=== PATIENT | male | born 1935 | race Two or more races ===

== ENCOUNTER 2019-09-04 20:05 | Inpatient (IN) | payer MEDICARE ==
[~2019-09-04] VITALS: Ht 180.3 cm; Wt 76.4 kg
[2019-09-04 20:15] VITALS: BP 142/113
[2019-09-04] MEDS ORDERED: Vancomycin 1 GM in NS 275 ML IVPB ONE (20:30)
[2019-09-04] MEDS ORDERED: Piperacillin/Tazobactam 3.375 GM in NS 110 ML IVPB ONE (20:30)
[2019-09-04] MEDS ORDERED: LIPITOR40 MG ORAL (20:31)
[2019-09-04] MEDS ORDERED: COLACE100 MG ORAL (20:31)
[2019-09-04] MEDS ORDERED: FERROUS SU300 MG/52 GT (20:31)
[2019-09-04] MEDS ORDERED: PLAVIX75 MG ORAL (20:31)
[2019-09-04] MEDS ORDERED: DEPAKOTE250 MG PO (20:31)
[2019-09-04] MEDS ORDERED: SEROQUEL25 MG ORAL (20:31)
[2019-09-04] MEDS ORDERED: RISPERDAL0.5 MG ORAL (20:31)
[2019-09-04] MEDS ORDERED: VITAMIN B-12500 MCG ORAL (20:31)
--- NOTE | 2019-09-04 20:36 | Emergency Room Report ---
History of Present Illness General Chief Complaint: Generalized Weakness Source: EMS Present Illness HPI 83-year-old male history of Parkinson's history of dementia DNR/DNI presents with 1 day of failure to thrive not eating fever/chills, feeling very weak, no known aggravating relieving factors severity is severe constant patient presents for evaluation and treatment from nursing facility Allergies: Coded Allergies: AMLODIPINE (Verified Allergy, Unknown, 09/04/19) ASPIRIN (Verified Allergy, Unknown, 09/04/19) BENAZEPRIL (Verified Allergy, Unknown, 09/04/19) Patient History Limited by: medical condition - Demented, confused Past Medical History: see triage record Reviewed Nursing Documentation: PMH: Agreed; PSxH: Agreed Nursing Documentation-PMH Hx Hypertension: Yes - parkinsons Hx Diabetes: Yes Review of Systems All Other Systems: limited - Patient is confused Physical Exam Vital Signs Date Time Temp Pulse Resp B/P (MAP) Pulse Ox O2 Delivery O2 Flow Rate FiO2 09/04/19 20:06 99.7 102 22 159/80 (106) Nasal Cannula 3.0 Sp02 EP Interpretation: reviewed, normal General Appearance: alert, moderate distress, cachetic, thin, Chronically Ill Head: normocephalic, atraumatic Eyes: bilateral eye PERRL, bilateral eye EOMI ENT: uvula midline, dry mucus membranes Neck: supple, thyroid normal, supple/symm/no masses Respiratory: lungs clear, no respiratory distress, no retraction, no accessory muscle use Cardiovascular #1: normal peripheral pulses, no edema, no gallop, no murmur, tachycardia Gastrointestinal: non tender, soft, no guarding, no rebound Musculoskeletal: normal inspection Neurologic: alert, responsive Psychiatric: anxious Skin: no rash, warm/dry Procedures Critical Care Time Critical Care Time Given the critical condition in which the patient arrived, the patient was immediately assessed by myself and the nurse, and cardiac monitoring initiated due to the potential for rapid decompensation of the patient's clinical condition. During the course of the patient's stay, I spent a considerable amount of time at the bedside performing serial re-evaluations of the patient's hemodynamic and clinical status because of the recognized potential threat to life or limb in this condition. I then had a chance to review not only all of the available current laboratory and radiographic studies obtained today, but I also reviewed old records available to me at the time. Additionally, any ancillary information available including architectural project manager records were reviewed. Sequential vital signs were obtained. Critical Care time of 33 minutes was performed exclusive of billable procedures. Medical Decision Making Diagnostic Impression: Primary Impression: Dehydration Additional Impressions: Failure to thrive in adult Sepsis Qualified Codes: A41.9 - Sepsis, unspecified organism Pneumothorax on left UTI (urinary tract infection) Qualified Codes: N30.00 - Acute cystitis without hematuria NAGA (acute kidney injury) ER Course 83-year-old male presents with failure to thrive, generalized weakness x1 day differential diagnosis includes sepsis, urinary tract infection, dehydration Patient found to be tachycardic, febrile, 3 L of fluid were given, additionally early antibiotics were started Reevaluation 8:58 PM patient is slowly improving heart rate is 102 from 125 We will admit patient to telemetry patient is currently DNR/DNI Patient additionally has a 10% left-sided pneumothorax.patient without any tension blood pressure is normal No acute indications for chest tube will provide patient with supplemental oxygen Patient will be admitted to telemetry Patient admitted to Dr. Sarah perez Laboratory Tests Test 09/04/19 20:20 09/04/19 20:30 White Blood Count 28.3 K/UL (4.8-10.8) *H Red Blood Count 3.92 M/UL (4.70-6.10) L Hemoglobin 11.7 G/DL (14.2-18.0) L Hematocrit 36.5 % (42.0-52.0) L Mean Corpuscular Volume 93 FL (80-99) Mean Corpuscular Hemoglobin 29.8 PG (27.0-31.0) Mean Corpuscular Hemoglobin Concent 32.0 G/DL (32.0-36.0) Red Cell Distribution Width 15.4 % (11.6-14.8) H Platelet Count 396 K/UL (150-450) Mean Platelet Volume 7.6 FL (6.5-10.1) Neutrophils (%) (Auto) % (45.0-75.0) Lymphocytes (%) (Auto) % (20.0-45.0) Monocytes (%) (Auto) % (1.0-10.0) Eosinophils (%) (Auto) % (0.0-3.0) Basophils (%) (Auto) % (0.0-2.0) Neutrophils % (Manual) Pending Lymphocytes % (Manual) Pending Platelet Estimate Pending Platelet Morphology Pending Prothrombin Time 10.7 SEC (9.30-11.50) Prothrombin Time INR 1.0 (0.9-1.1) Activated Partial Thromboplast Time 32 SEC (23-33) Sodium Level 150 MMOL/L (136-145) H Potassium Level 4.7 MMOL/L (3.5-5.1) Chloride Level 110 MMOL/L (98-107) H Carbon Dioxide Level 26 MMOL/L (21-32) Anion Gap 14 mmol/L (5-15) Blood Urea Nitrogen 101 mg/dL (7-18) H Creatinine 2.7 MG/DL (0.55-1.30) H Estimate Glomerular Filtration Rate 22.6 mL/min (>60) Glucose Level 249 MG/DL (74-106) H Lactic Acid Level Pending Calcium Level 10.1 MG/DL (8.5-10.1) Phosphorus Level Pending Magnesium Level Pending Total Bilirubin Pending Aspartate Amino Transferase (AST) Pending Alanine Aminotransferase (ALT) Pending Alkaline Phosphatase Pending Total Creatine Kinase Pending Troponin I Pending Pro-B-Type Natriuretic Peptide Pending Total Protein Pending Albumin Pending Globulin Pending Lipase Pending Urine Color Brown Urine Appearance Slightly cloudy Urine pH 5 (4.5-8.0) Urine Specific [place] 1.020 (1.005-1.035) Urine Protein 3+ (NEGATIVE) H Urine Glucose (UA) Negative (NEGATIVE) Urine Ketones 1+ (NEGATIVE) H Urine Blood 5+ (NEGATIVE) H Urine Nitrite Negative (NEGATIVE) Urine Bilirubin Negative (NEGATIVE) Urine Urobilinogen Normal MG/DL (0.0-1.0) Urine Leukocyte Esterase 3+ (NEGATIVE) H Urine RBC 5-10 /HPF (0 - 0) H Urine WBC 40-60 /HPF (0 - 0) H Urine Squamous Epithelial Cells Few /LPF (NONE/OCC) Urine Amorphous Sediment Few /LPF (NONE) H Urine Bacteria Many /HPF (NONE) H EKG Diagnostic Results EKG Time: 20:59 EP Interpretation: Sinus tachycardia, rate 110, QTc 422, no acute ST elevations , Rhythm Strip Diag. Results Rhythm Strip Time: 20:35 EP Interpretation: yes Rate: 125 Rhythm: other - Sinus tachycardia Chest X-Ray Diagnostic Results Chest X-Ray Diagnostic Results : Chest X-Ray Ordered: Yes # of Views/Limited/Complete: 1 View Indication: Shortness of Breath EP Interpretation: Yes Interpretation: other - Left pneumothorax 10% no e/o tension Impression: Other - Left pneumothorax 10% no e/o tension Electronically Signed by: Andrew Moy MD Last Vital Signs Date Time Temp Pulse Resp B/P (MAP) Pulse Ox O2 Delivery O2 Flow Rate FiO2 09/04/19 20:06 99.7 102 22 159/80 (106) Nasal Cannula 3.0 Disposition: ADMITTED INPATIENT Condition: Serious Evaluation Current Stage of Sepsis: Sepsis Focused Exam Allergies: Coded Allergies: AMLODIPINE (Verified Allergy, Unknown, 09/04/19) ASPIRIN (Verified Allergy, Unknown, 09/04/19) BENAZEPRIL (Verified Allergy, Unknown, 09/04/19) Date Exam Occurred: Sep 04, 2019 Time Exam Occurred: 20:57 Laboratory Studies Laboratory Tests Test 09/04/19 20:20 09/04/19 20:30 White Blood Count Pending Red Blood Count Pending Hemoglobin Pending Hematocrit Pending Mean Corpuscular Volume Pending Mean Corpuscular Hemoglobin Pending Mean Corpuscular Hemoglobin Concent Pending Red Cell Distribution Width Pending Platelet Count Pending Mean Platelet Volume Pending Neutrophils (%) (Auto) Pending Lymphocytes (%) (Auto) Pending Monocytes (%) (Auto) Pending Eosinophils (%) (Auto) Pending Basophils (%) (Auto) Pending Prothrombin Time Pending Prothromb Time International Ratio Pending Activated Partial Thromboplast Time Pending Sodium Level Pending Potassium Level Pending Chloride Level Pending Carbon Dioxide Level Pending Blood Urea Nitrogen Pending Creatinine Pending Estimat Glomerular Filtration Rate Pending Glucose Level Pending Lactic Acid Level Pending Calcium Level Pending Phosphorus Level Pending Magnesium Level Pending Total Bilirubin Pending Aspartate Amino Transf (AST/SGOT) Pending Alanine Aminotransferase (ALT/SGPT) Pending Alkaline Phosphatase Pending Total Creatine Kinase Pending Troponin I Pending Pro-B-Type Natriuretic Peptide Pending Total Protein Pending Albumin Pending Globulin Pending Lipase Pending Urine Color Pending Urine Appearance Pending Urine pH Pending Urine Specific [place] Pending Urine Protein Pending Urine Glucose (UA) Pending Urine Ketones Pending Urine Blood Pending Urine Nitrite Pending Urine Bilirubin Pending Urine Urobilinogen Pending Urine Leukocyte Esterase Pending Vital Signs Last 24 Hour Vital Signs Date Time Temp Pulse Resp B/P (MAP) Pulse Ox O2 Delivery O2 Flow Rate FiO2 09/04/19 20:06 99.7 102 22 159/80 (106) Nasal Cannula 3.0 Respiratory Exam: CTA Bilaterally Cardiovascular Exam: S1, S2, Tachycardia Capillary Refill: Less Than 2 Seconds Peripheral Pulse: Strong Pulse Location: Radial Skin Exam: Normal Turgor Andrew Moy MD Sep 04, 2019 20:35
[2019-09-04 21:08] LABS: HEMATOCRIT 36.5 % (42.0-52.0); HEMOGLOBIN 11.7 G/DL (14.2-18.0); MEAN CORPUSCULAR VOLUME 93 FL (80-99); PLATELET COUNT 396 K/UL (150-450); RED BLOOD COUNT 3.92 M/UL (4.70-6.10); RED CELL DISTRIBUTION WIDTH 15.4 % (11.6-14.8)
[2019-09-04 21:16] LABS: WHITE BLOOD COUNT 28.3 K/UL (4.8-10.8)
[2019-09-04 21:16] LABS: BILIRUBIN, URINE NEGATIVE (NEGATIVE); GLUCOSE, URINE (UA) NEGATIVE (NEGATIVE); KETONES,URINE 1+ (NEGATIVE); LEUKOCYTE ESTERASE ,URINE 3+ (NEGATIVE); NITRITE,URINE NEGATIVE (NEGATIVE); PH,URINE 5 (4.5-8.0); PROTEIN,URINE 3+ (NEGATIVE); UROBILINOGEN,URINE NORMAL MG/DL (0.0-1.0)
[2019-09-04 21:19] LABS: APPEARANCE,URINE SLIGHTLY CLOUDY; COLOR,URINE BROWN
[2019-09-04 21:20] VITALS: BP 154/102
--- NOTE | 2019-09-04 21:21 | Diagnostic Imaging Report ---
EXAM: XR Chest, 1 View CLINICAL HISTORY: COUGH TECHNIQUE: Frontal view of the chest. COMPARISON: No relevant prior studies available. FINDINGS: Left apical pneumothorax, estimated at 10%. No mediastinal shift. Overall pulmonary hyperexpansion suggesting emphysema. Calcified aortic knob. IMPRESSION: Left apical pneumothorax, estimated at 10%. Emphysema. <MYCVCSECTION> Communications: 09/04/19 21:17 Call Doctor Regarding Pneumothorax, called Dr. Moy on 09/04 21:16 (-08:00)
[2019-09-04 21:22] LABS: ANION GAP 14 mmol/L (5-15); BLOOD UREA NITROGEN 101 mg/dL (7-18); CALCIUM 10.1 MG/DL (8.5-10.1); CARBON DIOXIDE 26 MMOL/L (21-32); CHLORIDE 110 MMOL/L (98-107); CREATININE 2.7 MG/DL (0.55-1.30); POTASSIUM 4.7 MMOL/L (3.5-5.1); SODIUM 150 MMOL/L (136-145)
[2019-09-04 21:33] LABS: ALANINE AMINOTRANSFERASE 27 U/L (12-78); ALBUMIN 2.1 G/DL (3.4-5.0); ALBUMIN/GLOBULIN RATIO 0.4 (1.0-2.7); ALKALINE PHOSPHATASE 128 U/L (46-116); ASPARTATE AMINO TRANSFERASE 44 U/L (15-37); BILIRUBIN,TOTAL 0.4 MG/DL (0.2-1.0); CREATINE KINASE 321 U/L (26-308); PHOSPHORUS 4.8 MG/DL (2.5-4.9)
[2019-09-04 22:15] VITALS: BP 151/100
[2019-09-04] MEDS ORDERED: Acetaminophen 650 MG SUPP RECTAL ONE (23:15)
[2019-09-05] VITALS (7 sets, daily range): BP systolic 94–151; BP diastolic 50–72
[2019-09-05] MEDS ORDERED: Acetaminophen 650 MG SUPP RECTAL PRN ×2 (02:30→06:30)
[2019-09-05] MEDS ORDERED: D5 1/2NS 1,000 ML IV SCH (02:30)
[2019-09-05] MEDS ORDERED: Albuterol/Ipratropium 3ml neb HHN PRN (02:45)
[2019-09-05 04:31] LABS: HEMATOCRIT 30.3 % (42.0-52.0); HEMOGLOBIN 10.1 G/DL (14.2-18.0); MEAN CORPUSCULAR VOLUME 91 FL (80-99); PLATELET COUNT 327 K/UL (150-450); RED BLOOD COUNT 3.33 M/UL (4.70-6.10); RED CELL DISTRIBUTION WIDTH 14.2 % (11.6-14.8)
[2019-09-05 04:36] LABS: WHITE BLOOD COUNT 26.8 K/UL (4.8-10.8)
[2019-09-05 04:53] LABS: ANION GAP 15 mmol/L (5-15); BLOOD UREA NITROGEN 85 mg/dL (7-18); CALCIUM 9.1 MG/DL (8.5-10.1); CARBON DIOXIDE 21 MMOL/L (21-32); CHLORIDE 119 MMOL/L (98-107); CREATININE 2.2 MG/DL (0.55-1.30); POTASSIUM 3.5 MMOL/L (3.5-5.1); SODIUM 155 MMOL/L (136-145)
[2019-09-05 08:35] LABS: ALANINE AMINOTRANSFERASE 34 U/L (12-78); ALBUMIN 1.6 G/DL (3.4-5.0); ALKALINE PHOSPHATASE 101 U/L (46-116); ASPARTATE AMINO TRANSFERASE 63 U/L (15-37); BILIRUBIN,TOTAL 0.3 MG/DL (0.2-1.0); PHOSPHORUS 3.4 MG/DL (2.5-4.9)
[2019-09-05 08:37] LABS: BILIRUBIN,DIRECT < 0.1 MG/DL (0.0-0.3)
[2019-09-05 08:42] LABS: CHOLESTEROL 86 MG/DL (< 200); HDL CHOLESTEROL 15 MG/DL (40-60); TRIGLYCERIDES 87 MG/DL (30-150)
[2019-09-05] MEDS: Docusate 100mg cap ORAL SCH ×2 (08:42→18:42)
[2019-09-05] MEDS: Depakote 125mg Sprinkles ORAL SCH ×2 (08:43→18:42)
--- NOTE | 2019-09-05 08:55 | Consultation ---
Consult Note Consult Note I was asked to evaluate the patient at the request of Dr. Pond for renal failure. Patient seen in room 203 bed 1. He is a 83-year-old male with history of Parkinson's and dementia . His CODE STATUS is DNR and DNI. He came to our emergency room with diagnosis of generalized weakness and after initial evaluation is admitted for further management. His admitting diagnosis is sepsis failure to thrive. Patient is very lethargic however arousable. Verbal. Vital signs reviewed blood pressure is on the lower spectrum. Lab data are reviewed. Discussed with RN. Assessment/Plan Renal failure mostly prerenal Azotemia. May have underlying chronic kidney disease. Hydration. Sepsis leukocytosis. Encephalopathy in the form of toxic and metabolic. Failure to thrive. Albuminemia. Levator troponin. Most likely due to significant cardiac ischemia. Plan: Eliminate mind altering medication. Hydrate. N.p.o. ST evaluation. Nitrates. Monitor renal parameters. Avoid nephrotoxic's. Antibiotics per ID. Felder catheter. Discussed with RN. DNR status. Dariusz Brandt MD Sep 05, 2019 08:55
[2019-09-05 08:56] LABS: GAMMA GLUTAMYL TRANSPEPTIDASE < 3 U/L (5-85)
[2019-09-05] MEDS ORDERED: Atorvastatin 20mg tab ORAL SCH (09:00)
[2019-09-05] MEDS: Nitroglycerin Patch 0.4mg TDERMAL SCH ×2 (09:00→12:59)
[2019-09-05] MEDS ORDERED: Vitamin B-12 100mcg tab ORAL SCH (09:00)
[2019-09-05] MEDS: Pantoprazole Inj IVP SCH ×2 (09:42→21:53)
[2019-09-05 09:49] LABS: CREATINE KINASE 389 U/L (26-140)
[2019-09-05] MEDS ORDERED: Piperacillin/Tazobactam 3.375 GM in NS 110 ML IVPB SCH (10:00)
--- NOTE | 2019-09-05 10:44 | History and Physical Report ---
DATE OF ADMISSION: 09/04/2019 DATE AND TIME SEEN: 09/05/2019 at 9 a.m. CONSULTANTS: 1. Arun Melvin M.D. 2. Dariusz Brandt M.D. 3. Ronnie Lamb M.D. 4. Hakeem Hugo M.D. CHIEF COMPLAINT: Failure to thrive, weakness. BRIEF HISTORY: This is an 83-year-old male, presents to [facility] with above-mentioned diagnosis, also found to have UTI, sepsis, renal failure, elevated troponin, admitted to telemetry for further care. Currently, O2 NC, calm, sleeping in bed, confused, not talking much. REVIEW OF SYSTEMS: Unavailable. PAST MEDICAL HISTORY: Failure to thrive, NAGA. PAST SURGICAL HISTORY: Unknown. MEDICATIONS: Include Zosyn, atorvastatin, docusate sodium, risperidone, pantoprazole, Tylenol, albuterol, morphine, IV fluids. ALLERGIES: Amlodipine, aspirin, and benazepril. SOCIAL HISTORY: Unable to obtain. The patient is very lethargic. PHYSICAL EXAMINATION: GENERAL: O2 NC, lethargic in bed, not answering questions. VITAL SIGNS: Temperature 98 degrees, pulse 104, respirations 20, and blood pressure 107/58. CARDIOVASCULAR: No murmur. LUNGS: Poor air exchange. ABDOMEN: Bowel sounds positive and distant. EXTREMITIES: Show no cyanosis, clubbing, edema, NEUROLOGIC: The patient is flaccid in bed, not following directions. LABORATORY AND DIAGNOSTIC DATA: Labs at this time show white count 26, hemoglobin and hematocrit 10/31. BMP shows sodium 155, chloride 119, BUN and creatinine 85 and 2.2, glucose 191. Troponin 2.98. INR is 1.0, PTT is 32. Urinalysis, 3+ leukocyte esterase. ASSESSMENT: 1. Failure to thrive. 2. Anemia. 3. UTI. 4. Leukocytosis. 5. Sepsis. 6. Renal failure. 7. Diabetes. 8. Elevated troponin. PLAN: 1. PT, OP, dietary evaluation. 2. Blood pressure, blood sugar, pain control. 3. Cardiology followup. 4. Psychiatry and Neurology to evaluate. 5. CBC and BMP in the morning. 6. We will continue to follow this patient. Prabhakar Pond D.O. DR: PAUL JOB#: [id number] CC:
--- NOTE | 2019-09-05 14:26 | Consultation ---
History of Present Illness General Date patient seen: Sep 05, 2019 Chief Complaint: Generalized Weakness Present Illness HPI 83 y/o M with hx of Parkinson's dementia, HTN, Dm2 presented to ED on 09/04 with generalized weakness, lethargy, failure to thrive. Upon admission was found to have acute renal failure Allergies: Coded Allergies: AMLODIPINE (Verified Allergy, Unknown, 09/04/19) ASPIRIN (Verified Allergy, Unknown, 09/04/19) BENAZEPRIL (Verified Allergy, Unknown, 09/04/19) Medication History Scheduled Atorvastatin Calcium* (Lipitor*), 40 MG ORAL DAILY, (Reported) Clopidogrel Bisulfate* (Plavix*), 75 MG ORAL DAILY, (Reported) Cyanocobalamin (Vitamin B-12)* (Vitamin B-12*), 100 MCG ORAL DAILY, (Reported) Divalproex Sodium* (Depakote*), 125 MG PO Q12HR, (Reported) Docusate Sodium* (Colace*), 100 MG ORAL TWICE A DAY, (Reported) Quetiapine Fumarate* (Seroquel*), 25 MG ORAL TWICE A DAY, (Reported) Risperidone* (Risperdal*), 0.5 MG ORAL BID, (Reported) Miscellaneous Medications Ferrous Sulfate (Ferrous Sulfate), 300 MG GT, (Reported) Patient History Healthcare decision maker Resuscitation status Do Not Resuscitate Advanced Directive on File Patient History Narrative Pmhx: as above Shx: reviewed Fhx: non contributory Review of Systems All Other Systems: negative except mentioned in HPI Physical Exam Physical Exam Narrative CARDIOVASCULAR: No murmur. LUNGS: Poor air exchange. ABDOMEN: Bowel sounds positive and distant. EXTREMITIES: Show no cyanosis, clubbing, edema, NEUROLOGIC: The patient is flaccid in bed, not following directions. Last 24 Hour Vital Signs Date Time Temp Pulse Resp B/P (MAP) Pulse Ox O2 Delivery O2 Flow Rate FiO2 09/05/19 12:59 137/65 09/05/19 12:00 97 09/05/19 12:00 97.8 97 20 137/65 (89) 100 09/05/19 09:00 Nasal Cannula 2.0 09/05/19 09:00 107/58 09/05/19 08:00 100 09/05/19 08:00 98.1 104 20 107/58 (74) 99 09/05/19 04:00 104 09/05/19 04:00 97.6 104 18 109/70 (83) 98 09/05/19 00:00 Nasal Cannula 2.0 09/05/19 00:00 98.6 110 20 117/69 (85) 97 09/05/19 00:00 110 09/04/19 23:30 99.6 105 16 147/105 99 Nasal Cannula 2.0 09/04/19 22:15 100.7 105 17 151/100 99 Nasal Cannula 2.0 09/04/19 21:20 100.7 108 20 154/102 100 Nasal Cannula 2.0 09/04/19 20:15 102 22 Nasal Cannula 2.0 09/04/19 20:15 100.7 102 22 142/113 100 Nasal Cannula 2.0 09/04/19 20:06 99.7 102 22 159/80 (106) Nasal Cannula 3.0 Intake and Output 09/04/19 09/05/19 19:00 07:00 Intake Total 0 ml Balance 0 ml Intake Oral 0 ml # Voids 1 # Bowel Movements 2 Laboratory Tests Test 09/04/19 20:20 09/04/19 20:30 09/04/19 22:30 09/05/19 04:10 White Blood Count 28.3 K/UL (4.8-10.8) *H 26.8 K/UL (4.8-10.8) *H Red Blood Count 3.92 M/UL (4.70-6.10) L 3.33 M/UL (4.70-6.10) L Hemoglobin 11.7 G/DL (14.2-18.0) L 10.1 G/DL (14.2-18.0) L Hematocrit 36.5 % (42.0-52.0) L 30.3 % (42.0-52.0) L Mean Corpuscular Volume 93 FL (80-99) 91 FL (80-99) Mean Corpuscular Hemoglobin 29.8 PG (27.0-31.0) 30.3 PG (27.0-31.0) Mean Corpuscular Hemoglobin Concent 32.0 G/DL (32.0-36.0) 33.3 G/DL (32.0-36.0) Red Cell Distribution Width 15.4 % (11.6-14.8) H 14.2 % (11.6-14.8) Platelet Count 396 K/UL (150-450) 327 K/UL (150-450) Mean Platelet Volume 7.6 FL (6.5-10.1) 6.8 FL (6.5-10.1) Neutrophils (%) (Auto) % (45.0-75.0) % (45.0-75.0) Lymphocytes (%) (Auto) % (20.0-45.0) % (20.0-45.0) Monocytes (%) (Auto) % (1.0-10.0) % (1.0-10.0) Eosinophils (%) (Auto) % (0.0-3.0) % (0.0-3.0) Basophils (%) (Auto) % (0.0-2.0) % (0.0-2.0) Differential Total Cells Counted 100 100 Neutrophils % (Manual) 81 % (45-75) H 95 % (45-75) H Lymphocytes % (Manual) 9 % (20-45) L 4 % (20-45) L Monocytes % (Manual) 4 % (1-10) 1 % (1-10) Eosinophils % (Manual) 0 % (0-3) 0 % (0-3) Basophils % (Manual) 0 % (0-2) 0 % (0-2) Band Neutrophils 6 % (0-8) 0 % (0-8) Platelet Estimate Adequate Adequate Platelet Morphology Normal Normal Red Blood Cell Morphology Normal Prothrombin Time 10.7 SEC (9.30-11.50) Prothromb Time International Ratio 1.0 (0.9-1.1) Activated Partial Thromboplast Time 32 SEC (23-33) Sodium Level 150 MMOL/L (136-145) H 155 MMOL/L (136-145) H Potassium Level 4.7 MMOL/L (3.5-5.1) 3.5 MMOL/L (3.5-5.1) Chloride Level 110 MMOL/L (98-107) H 119 MMOL/L (98-107) H Carbon Dioxide Level 26 MMOL/L (21-32) 21 MMOL/L (21-32) Anion Gap 14 mmol/L (5-15) 15 mmol/L (5-15) Blood Urea Nitrogen 101 mg/dL (7-18) H 85 mg/dL (7-18) H Creatinine 2.7 MG/DL (0.55-1.30) H 2.2 MG/DL (0.55-1.30) H Estimat Glomerular Filtration Rate 22.6 mL/min (>60) 28.6 mL/min (>60) Glucose Level 249 MG/DL (74-106) H 191 MG/DL (74-106) H Lactic Acid Level 3.10 mmol/L (0.4-2.0) H 3.40 mmol/L (0.66-2.22) H Calcium Level 10.1 MG/DL (8.5-10.1) 9.1 MG/DL (8.5-10.1) Phosphorus Level 4.8 MG/DL (2.5-4.9) 3.4 MG/DL (2.5-4.9) Magnesium Level 2.8 MG/DL (1.8-2.4) H 2.5 MG/DL (1.8-2.4) H Total Bilirubin 0.4 MG/DL (0.2-1.0) 0.3 MG/DL (0.2-1.0) Aspartate Amino Transf (AST/SGOT) 44 U/L (15-37) H 63 U/L (15-37) H Alanine Aminotransferase (ALT/SGPT) 27 U/L (12-78) 34 U/L (12-78) Alkaline Phosphatase 128 U/L (46-116) H 101 U/L (46-116) Total Creatine Kinase 321 U/L (26-308) H 389 U/L (26-140) H Troponin I 1.998 ng/mL (0.000-0.056) 2.898 ng/mL (0.000-0.056) Pro-B-Type Natriuretic Peptide 51874 pg/mL (0-125) H Total Protein 7.7 G/DL (6.4-8.2) 6.3 G/DL (6.4-8.2) L Albumin 2.1 G/DL (3.4-5.0) L 1.6 G/DL (3.4-5.0) L Globulin 5.6 g/dL Albumin/Globulin Ratio 0.4 (1.0-2.7) L Lipase 84 U/L (73-393) Urine Color Brown Urine Appearance Slightly cloudy Urine pH 5 (4.5-8.0) Urine Specific [place] 1.020 (1.005-1.035) Urine Protein 3+ (NEGATIVE) H Urine Glucose (UA) Negative (NEGATIVE) Urine Ketones 1+ (NEGATIVE) H Urine Blood 5+ (NEGATIVE) H Urine Nitrite Negative (NEGATIVE) Urine Bilirubin Negative (NEGATIVE) Urine Urobilinogen Normal MG/DL (0.0-1.0) Urine Leukocyte Esterase 3+ (NEGATIVE) H Urine RBC 5-10 /HPF (0 - 0) H Urine WBC 40-60 /HPF (0 - 0) H Urine Squamous Epithelial Cells Few /LPF (NONE/OCC) Urine Amorphous Sediment Few /LPF (NONE) H Urine Bacteria Many /HPF (NONE) H Hypochromasia 1+ Anisocytosis 1+ Spherocytes 1+ Hemoglobin A1c 6.3 % (4.3-6.0) H Uric Acid 10.1 MG/DL (2.6-7.2) H Direct Bilirubin < 0.1 MG/DL (0.0-0.3) Gamma Glutamyl Transpeptidase < 3 U/L (5-85) L C-Reactive Protein, Quantitative 39.9 mg/dL (0.00-0.90) H Triglycerides Level 87 MG/DL (30-150) Cholesterol Level 86 MG/DL (< 200) LDL Cholesterol 31 mg/dL (<100) HDL Cholesterol 15 MG/DL (40-60) L Cholesterol/HDL Ratio 5.7 (3.3-4.4) H Thyroid Stimulating Hormone (TSH) 2.517 uiU/mL (0.358-3.740) Test 09/05/19 11:50 Troponin I 3.936 ng/mL (0.000-0.056) Microbiology Date/Time Source Procedure Growth Status 09/04/19 21:00 Rectum Received Height (Feet): 5 Height (Inches): 11.00 Weight (Pounds): 119 Medications Current Medications Medications (Trade) Dose Ordered Sig/Kaveh Route PRN Reason Start Time Stop Time Status Last Admin Dose Admin Acetaminophen (Tylenol) 650 mg Q4H PRN ORAL Mild Pain/Temp > 100.5 09/05/19 03:15 3/30/20 03:14 Acetaminophen (Tylenol) 650 mg Q4H PRN RECTAL Prn Headache/Temp > 101 09/05/19 06:30 10/05/19 02:29 Albuterol/ Ipratropium (Albuterol/ Ipratropium) 3 ml Q6HRT PRN HHN Shortness of Breath 09/05/19 02:45 09/10/19 02:44 Dextrose 1,000 ml @ 100 mls/hr Q10H IV 09/05/19 08:45 10/05/19 08:44 09/05/19 09:42 Divalproex Sodium (Depakote Sprinkles) 125 mg BID ORAL 09/05/19 09:00 10/05/19 08:59 09/05/19 08:43 Docusate Sodium (Colace) 100 mg TWICE A DAY ORAL 09/05/19 09:00 10/05/19 08:59 09/05/19 08:42 Morphine Sulfate (Morphine Sulfate) 2 mg Q4H PRN IVP Severe Pain (Pain Scale 7-10) 09/05/19 02:30 09/12/19 02:29 Nitroglycerin (Ntg) 1 patch Q24H TDERMAL 09/05/19 09:00 10/05/19 08:59 09/05/19 12:59 Pantoprazole (Protonix) 40 mg EVERY 12 HOURS IVP 09/05/19 09:00 10/05/19 08:59 09/05/19 09:42 Piperacillin Sod/ Tazobactam Sod 3.375 gm/Sodium Chloride 110 ml @ 27.5 mls/hr Q12H IVPB 09/05/19 10:00 09/12/19 09:59 09/05/19 10:33 Risperidone (RisperDAL) 0.5 mg BID PRN ORAL agitation 09/05/19 09:00 10/05/19 08:59 Vancomycin HCl (Vanco rx to dose) 1 ea DAILY PRN MISC Per rx protocol 09/05/19 11:30 10/05/19 11:29 Assessment/Plan Assessment/Plan: Abx: IV Vancomycin 09/04- Zosyn 09/04- Assessment: Severe sepsis UTI R/o probable bacteremia -u/a wbc 40-60, nit neg, leuk +3; ucx p -CXR: Left apical pneumothorax, estimated at 10%. Emphysema. Low grade fever Leukocyctosis, improving Parkinson's dementia HTN Dm2 Plan: -Continue empiric IV Vancomycin #2 pending Bcx -Switch Zosyn #2 to Meropenem -f/u cx -Monitor CBC/CMP, temperatures -aspiration precautions -Influenza sc Thank you for this consultation. Will continue to follow along with you. Discussed with Angelia Lawson M.D. Sep 05, 2019 14:26
--- NOTE | 2019-09-05 15:00 | Consultation ---
DATE OF CONSULTATION: 09/05/2019 PULMONARY CONSULTATION CONSULTING PHYSICIAN: Arun Melvin M.D. HISTORY OF PRESENT ILLNESS: This is an 83-year-old male with history of Parkinson's, dementia, DNI and DNR status, who was admitted to the hospital with failure to thrive. The patient unable to provide any history. He appears to be favoring his left arm. He has been seen and evaluated by the emergency room physician, found to have dehydration and sepsis. There is also notation about pneumothorax on the left side and UTI. The patient has been seen overnight by Nephrology and I note that the patient has been started on fluids and antibiotics. There is a Felder catheter in place as well. CURRENT MEDICATIONS: Include Tylenol, dextrose water, Depakote, DuoNebs, morphine, Protonix, Zosyn, and risperidone. ALLERGIES: To amlodipine, aspirin, benazepril. CODE STATUS: DNR. PSYCHIATRIC HISTORY: None. SOCIAL HISTORY: Not known. It is not reliable. PHYSICAL EXAMINATION: VITAL SIGNS: T-max 100.7 rectally yesterday, blood pressure 107/58, heart rate is 100, respirations 20, he is afebrile. GENERAL: Reveals elderly male. HEENT: Unremarkable. CHEST: Decreased breath sounds bilaterally. ABDOMEN: Soft. EXTREMITIES: There is no edema. He had cellulitis on his left arm. He has multiple wounds over the lower extremities and beach. LABORATORY AND DIAGNOSTIC DATA: White count 26,000, hemoglobin of 10, platelet count is normal. Sodium 155, creatinine 2.2, . Lactic acid 3.4. Uric acid 10.1. Troponin 2.89. Urinalysis shows multiple pus cells. Coags are negative. X-ray of the chest was reviewed, which shows small left apical pneumothorax. IMPRESSION: 1. Small left apical pneumothorax. 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 3. Parkinson. 4. Dementia. 5. UTI. 6. Hypernatremia. 7. Left upper extremity cellulitis. 8. Multiple decubitus. DISCUSSION: Admit to the hospital. We will maintain DNR status. At this time, he is asymptomatic from pulmonary standpoint. Therefore, we will avoid any further intervention for the small apical left pneumothorax. This may be spontaneous due to his underlying lung disease. We will add antibiotic vancomycin for left upper extremity cellulitis, hydrations addressed by Nephrology. We will follow as i&c tech. Arun Melvin M.D. DR: SERINA JOB#: [id number] CC:
--- NOTE | 2019-09-05 15:27 | Cardiology Progress Note ---
Subjective Subjective [id number] the patient with sepsis and very serious chronic diseases. Will monitor, start on clopidogrel. Thank you Objective Last 24 Hour Vital Signs Date Time Temp Pulse Resp B/P (MAP) Pulse Ox O2 Delivery O2 Flow Rate FiO2 09/05/19 12:59 137/65 09/05/19 12:00 97 09/05/19 12:00 97.8 97 20 137/65 (89) 100 09/05/19 09:00 Nasal Cannula 2.0 09/05/19 09:00 107/58 09/05/19 08:00 100 09/05/19 08:00 98.1 104 20 107/58 (74) 99 09/05/19 04:00 104 09/05/19 04:00 97.6 104 18 109/70 (83) 98 09/05/19 00:00 Nasal Cannula 2.0 09/05/19 00:00 98.6 110 20 117/69 (85) 97 09/05/19 00:00 110 09/04/19 23:30 99.6 105 16 147/105 99 Nasal Cannula 2.0 09/04/19 22:15 100.7 105 17 151/100 99 Nasal Cannula 2.0 09/04/19 21:20 100.7 108 20 154/102 100 Nasal Cannula 2.0 09/04/19 20:15 102 22 Nasal Cannula 2.0 09/04/19 20:15 100.7 102 22 142/113 100 Nasal Cannula 2.0 09/04/19 20:06 99.7 102 22 159/80 (106) Nasal Cannula 3.0 Intake and Output 09/04/19 09/05/19 19:00 07:00 Intake Total 0 ml Balance 0 ml Intake Oral 0 ml # Voids 1 # Bowel Movements 2 Laboratory Tests Test 09/04/19 20:20 09/04/19 20:30 09/04/19 22:30 09/05/19 04:10 White Blood Count 28.3 K/UL (4.8-10.8) *H 26.8 K/UL (4.8-10.8) *H Red Blood Count 3.92 M/UL (4.70-6.10) L 3.33 M/UL (4.70-6.10) L Hemoglobin 11.7 G/DL (14.2-18.0) L 10.1 G/DL (14.2-18.0) L Hematocrit 36.5 % (42.0-52.0) L 30.3 % (42.0-52.0) L Mean Corpuscular Volume 93 FL (80-99) 91 FL (80-99) Mean Corpuscular Hemoglobin 29.8 PG (27.0-31.0) 30.3 PG (27.0-31.0) Mean Corpuscular Hemoglobin Concent 32.0 G/DL (32.0-36.0) 33.3 G/DL (32.0-36.0) Red Cell Distribution Width 15.4 % (11.6-14.8) H 14.2 % (11.6-14.8) Platelet Count 396 K/UL (150-450) 327 K/UL (150-450) Mean Platelet Volume 7.6 FL (6.5-10.1) 6.8 FL (6.5-10.1) Neutrophils (%) (Auto) % (45.0-75.0) % (45.0-75.0) Lymphocytes (%) (Auto) % (20.0-45.0) % (20.0-45.0) Monocytes (%) (Auto) % (1.0-10.0) % (1.0-10.0) Eosinophils (%) (Auto) % (0.0-3.0) % (0.0-3.0) Basophils (%) (Auto) % (0.0-2.0) % (0.0-2.0) Differential Total Cells Counted 100 100 Neutrophils % (Manual) 81 % (45-75) H 95 % (45-75) H Lymphocytes % (Manual) 9 % (20-45) L 4 % (20-45) L Monocytes % (Manual) 4 % (1-10) 1 % (1-10) Eosinophils % (Manual) 0 % (0-3) 0 % (0-3) Basophils % (Manual) 0 % (0-2) 0 % (0-2) Band Neutrophils 6 % (0-8) 0 % (0-8) Platelet Estimate Adequate Adequate Platelet Morphology Normal Normal Red Blood Cell Morphology Normal Prothrombin Time 10.7 SEC (9.30-11.50) Prothromb Time International Ratio 1.0 (0.9-1.1) Activated Partial Thromboplast Time 32 SEC (23-33) Sodium Level 150 MMOL/L (136-145) H 155 MMOL/L (136-145) H Potassium Level 4.7 MMOL/L (3.5-5.1) 3.5 MMOL/L (3.5-5.1) Chloride Level 110 MMOL/L (98-107) H 119 MMOL/L (98-107) H Carbon Dioxide Level 26 MMOL/L (21-32) 21 MMOL/L (21-32) Anion Gap 14 mmol/L (5-15) 15 mmol/L (5-15) Blood Urea Nitrogen 101 mg/dL (7-18) H 85 mg/dL (7-18) H Creatinine 2.7 MG/DL (0.55-1.30) H 2.2 MG/DL (0.55-1.30) H Estimat Glomerular Filtration Rate 22.6 mL/min (>60) 28.6 mL/min (>60) Glucose Level 249 MG/DL (74-106) H 191 MG/DL (74-106) H Lactic Acid Level 3.10 mmol/L (0.4-2.0) H 3.40 mmol/L (0.66-2.22) H Calcium Level 10.1 MG/DL (8.5-10.1) 9.1 MG/DL (8.5-10.1) Phosphorus Level 4.8 MG/DL (2.5-4.9) 3.4 MG/DL (2.5-4.9) Magnesium Level 2.8 MG/DL (1.8-2.4) H 2.5 MG/DL (1.8-2.4) H Total Bilirubin 0.4 MG/DL (0.2-1.0) 0.3 MG/DL (0.2-1.0) Aspartate Amino Transf (AST/SGOT) 44 U/L (15-37) H 63 U/L (15-37) H Alanine Aminotransferase (ALT/SGPT) 27 U/L (12-78) 34 U/L (12-78) Alkaline Phosphatase 128 U/L (46-116) H 101 U/L (46-116) Total Creatine Kinase 321 U/L (26-308) H 389 U/L (26-140) H Troponin I 1.998 ng/mL (0.000-0.056) 2.898 ng/mL (0.000-0.056) Pro-B-Type Natriuretic Peptide 65479 pg/mL (0-125) H Total Protein 7.7 G/DL (6.4-8.2) 6.3 G/DL (6.4-8.2) L Albumin 2.1 G/DL (3.4-5.0) L 1.6 G/DL (3.4-5.0) L Globulin 5.6 g/dL Albumin/Globulin Ratio 0.4 (1.0-2.7) L Lipase 84 U/L (73-393) Urine Color Brown Urine Appearance Slightly cloudy Urine pH 5 (4.5-8.0) Urine Specific [place] 1.020 (1.005-1.035) Urine Protein 3+ (NEGATIVE) H Urine Glucose (UA) Negative (NEGATIVE) Urine Ketones 1+ (NEGATIVE) H Urine Blood 5+ (NEGATIVE) H Urine Nitrite Negative (NEGATIVE) Urine Bilirubin Negative (NEGATIVE) Urine Urobilinogen Normal MG/DL (0.0-1.0) Urine Leukocyte Esterase 3+ (NEGATIVE) H Urine RBC 5-10 /HPF (0 - 0) H Urine WBC 40-60 /HPF (0 - 0) H Urine Squamous Epithelial Cells Few /LPF (NONE/OCC) Urine Amorphous Sediment Few /LPF (NONE) H Urine Bacteria Many /HPF (NONE) H Hypochromasia 1+ Anisocytosis 1+ Spherocytes 1+ Hemoglobin A1c 6.3 % (4.3-6.0) H Uric Acid 10.1 MG/DL (2.6-7.2) H Direct Bilirubin < 0.1 MG/DL (0.0-0.3) Gamma Glutamyl Transpeptidase < 3 U/L (5-85) L C-Reactive Protein, Quantitative 39.9 mg/dL (0.00-0.90) H Triglycerides Level 87 MG/DL (30-150) Cholesterol Level 86 MG/DL (< 200) LDL Cholesterol 31 mg/dL (<100) HDL Cholesterol 15 MG/DL (40-60) L Cholesterol/HDL Ratio 5.7 (3.3-4.4) H Thyroid Stimulating Hormone (TSH) 2.517 uiU/mL (0.358-3.740) Test 09/05/19 11:50 Troponin I 3.936 ng/mL (0.000-0.056) Microbiology Date/Time Source Procedure Growth Status 09/04/19 21:00 Rectum Received Aubrie Hall MD Sep 05, 2019 15:27
[2019-09-05] MEDS: Morphine Sulfate 2mg/ml Inj(IV/IM USE ONLY) IVP PRN ×2 (15:39→22:08)
[2019-09-05] MEDS: Meropenem 500 MG in NS 55 ML IV SCH (21:53)
--- NOTE | 2019-09-05 23:15 | Consultation ---
DATE OF CONSULTATION: 09/05/2019 CARDIOLOGY CONSULTATION CONSULTING PHYSICIAN: Aubrie Hall M.D. PATIENT ID: This is an 83-year-old gentleman. REASON FOR EVALUATION: Elevated troponin. HISTORY OF PRESENT ILLNESS: Taken from reviewing the chart and discussion with nursing. The patient is unable to give any history. He is totally confused and screaming and moaning all the time. He was brought from prison. He was found to be having very high white count and elevated creatinine, and unfortunately no history could be obtained from him. PAST MEDICAL HISTORY: According to the chart, significant for dementia, psychiatric disease, Parkinson disease, diabetes, and right hip fracture. ALLERGIES: He is allergic to amlodipine, aspirin, and benazepril. HABITS: Unknown, not documented. PAST SURGICAL HISTORY: Significant for hip fracture. REVIEW OF SYSTEMS: Unobtainable as the patient is not communicating, only moaning. PHYSICAL EXAMINATION: GENERAL: This is elderly, very frail and ill-appearing gentleman. VITAL SIGNS: His blood pressure is now slightly higher 137/65. Upon admission, it was slightly lower. His heart rate is 110 to 97 beats per minute. His temperature was normal. His oxygen saturation on 2 liters 99%. HEENT: To the degree of possible evaluated, the patient has good extraocular movement and pupil reaction. No facial droop. NECK: Neck veins are not distended. He has carotid bruit bilaterally, more on the right side. LUNGS: He has some rhonchi posteriorly and anterior scattered wheezing. CARDIAC: Significant for PMI in the sixth intercostal space in anterior axillary line. He has diminished S1. He has systolic ejection murmur on aorta 2/6. ABDOMEN: Soft to the degree evaluated, scaphoid. Bowel sounds are present. No masses palpable. No significant tenderness. SKIN: He has major skin changes. He has severe excoriations, skin peeling off, and purulent discharge from the whole left arm. His right arm looks slightly better. There are some excoriations also seen on his chest and lower extremities. His heels are wrapped and according to the nurses, he has stage 2 to 3 decubitus ulcers on his legs. NEUROLOGIC: Difficult to evaluate due to his poor cooperation. LABORATORY AND DIAGNOSTIC DATA: His chest x-ray shows severe emphysema as interpreted by radiologist, pneumothorax in the left apex. His labs significant for chemistry, creatinine 2.7 and BUN is 101. Lactic acid 3.1. Troponin 1.9. is 321. ProBNP is 19,118. White count is 26,000, hemoglobin 10, and platelets 227,000. Urinalysis appears to be infected. His EKG shows LVH, sinus rhythm with some PACs and nonspecific ST and T changes. The patient is right now being treated with IV antibiotics and hydration. He is also treated with pain medications. IMPRESSION AND RECOMMENDATION: Troponin elevation, the patient with multiple medical problems including significant kidney disease, not clear if it is acute or chronic, and also sepsis. The patient might have also intrinsic cardiac disease considering his age and diabetes, and possible other risk factors, so he is not a candidate for aspirin, but potentially we can put him on clopidogrel. Also, I am concerned about his wheezing, so he might not be a candidate for beta-blockers or statins. This patient's condition is very serious, grave, and looks like he is in advanced stages of very severe chronic diseases, so his prognosis is pretty poor. However, we will monitor this patient closely. He definitely is not a candidate for any invasive cardiac workup and I do not think he will cooperate with echocardiogram, but tomorrow we will reassess. Thank you for your consultation. Aubrie Hall M.D. DR: PEARL JOB#: [id number] CC:
[2019-09-06] VITALS (19 sets, daily range): BP systolic 91–141; BP diastolic 37–93
[2019-09-06 05:54] LABS: HEMATOCRIT 25.6 % (42.0-52.0); HEMOGLOBIN 8.4 G/DL (14.2-18.0); MEAN CORPUSCULAR VOLUME 92 FL (80-99); PLATELET COUNT 294 K/UL (150-450); RED CELL DISTRIBUTION WIDTH 14.5 % (11.6-14.8)
[2019-09-06 06:00] LABS: WHITE BLOOD COUNT 22.1 K/UL (4.8-10.8)
[2019-09-06 06:27] LABS: ALANINE AMINOTRANSFERASE 46 U/L (12-78); ALBUMIN 1.3 G/DL (3.4-5.0); ALBUMIN/GLOBULIN RATIO 0.3 (1.0-2.7); ALKALINE PHOSPHATASE 86 U/L (46-116); ANION GAP 10 mmol/L (5-15); ASPARTATE AMINO TRANSFERASE 98 U/L (15-37); BILIRUBIN,TOTAL 0.3 MG/DL (0.2-1.0); BLOOD UREA NITROGEN 84 mg/dL (7-18); CALCIUM 8.8 MG/DL (8.5-10.1); CARBON DIOXIDE 25 MMOL/L (21-32); CHLORIDE 115 MMOL/L (98-107); CREATININE 1.9 MG/DL (0.55-1.30); POTASSIUM 3.2 MMOL/L (3.5-5.1); SODIUM 150 MMOL/L (136-145)
[2019-09-06] MEDS: Morphine Sulfate 2mg/ml Inj(IV/IM USE ONLY) IVP PRN ×2 (07:40→12:17)
--- NOTE | 2019-09-06 07:58 | Pulmonology Progress Note ---
Assessment/Plan Assessment/Plan IMPRESSION: 1. Small left apical pneumothorax. 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 3. Parkinson. 4. Dementia. 5. UTI. 6. Hypernatremia. 7. Left upper extremity cellulitis. 8. Multiple decubitus. 9. Likely NSTEMI DISCUSSION: Noted DNR status. At this time, he is asymptomatic from pulmonary standpoint. Therefore, we will avoid any further intervention for the small apical left pneumothorax. This may be spontaneous due to his underlying lung disease. Continue antibiotic vancomycin for left upper extremity cellulitis Hydration status addressed by Nephrology. I will follow as estimator and drafter. Arun Melvin M.D. Subjective Interval Events: Transferred to ICU due to elevated troponin Constitutional: Reports: no symptoms HEENT: Repors: no symptoms Respiratory: Reports: no symptoms Cardiovascular: Reports: no symptoms Gastrointestinal/Abdominal: Reports: no symptoms Allergies: Coded Allergies: AMLODIPINE (Verified Allergy, Unknown, 09/04/19) ASPIRIN (Verified Allergy, Unknown, 09/04/19) BENAZEPRIL (Verified Allergy, Unknown, 09/04/19) Objective Last 24 Hour Vital Signs Date Time Temp Pulse Resp B/P (MAP) Pulse Ox O2 Delivery O2 Flow Rate FiO2 09/06/19 07:49 98 Nasal Cannula 4.0 36 09/06/19 07:00 85 18 108/44 (65) 99 09/06/19 06:00 82 16 97/44 (61) 99 09/06/19 05:00 90 16 92/54 (67) 99 09/06/19 04:09 Nasal Cannula 2.0 09/06/19 04:08 92 09/06/19 04:00 99.7 92 18 105/47 (66) 99 09/06/19 03:00 84 16 91/46 (61) 96 09/06/19 02:00 88 16 94/44 (61) 96 09/06/19 01:00 88 18 94/41 (58) 96 09/06/19 00:14 90 09/06/19 00:00 99.0 96 16 93/37 (55) 98 2/29/20 23:15 Nasal Cannula 2.0 09/05/19 23:00 99.2 96 16 115/50 (71) 97 09/05/19 23:00 96 09/05/19 21:00 Nasal Cannula 2.0 09/05/19 20:00 97.5 100 20 94/67 (76) 95 09/05/19 16:09 97.8 09/05/19 16:00 97.9 116 20 151/72 (98) 100 09/05/19 16:00 102 09/05/19 12:59 137/65 09/05/19 12:00 97 09/05/19 12:00 97.8 97 20 137/65 (89) 100 09/05/19 09:00 Nasal Cannula 2.0 09/05/19 09:00 107/58 09/05/19 08:00 100 09/05/19 08:00 98.1 104 20 107/58 (74) 99 Intake and Output 09/05/19 09/06/19 19:00 07:00 Intake Total 800 ml Output Total 655 ml Balance 145 ml IV Total 800 ml Output Urine Total 655 ml # Voids 3 # Bowel Movements 3 1 General Appearance: no acute distress HEENT: normocephalic Respiratory/Chest: chest wall non-tender Cardiovascular: normal peripheral pulses Abdomen: normal bowel sounds Microbiology Date/Time Source Procedure Growth Status 09/04/19 20:35 Blood Blood Culture - Preliminary NO GROWTH AFTER 24 HOURS Resulted 09/04/19 20:20 Blood Blood Culture - Preliminary NO GROWTH AFTER 24 HOURS Resulted 09/04/19 20:30 Urine,Clean Catch Urine Culture - Preliminary NO GROWTH AFTER 24 HOURS Resulted 09/04/19 21:00 Rectum Received Laboratory Tests 09/05/19 11:50: Troponin I 3.936H 09/05/19 20:15: Troponin I 4.244H 09/06/19 05:19: Troponin I 3.292H, White Blood Count 22.1*H, Red Blood Count 2.80L, Hemoglobin 8.4L, Hematocrit 25.6L, Mean Corpuscular Volume 92, Mean Corpuscular Hemoglobin 30.1, Mean Corpuscular Hemoglobin Concent 32.8, Red Cell Distribution Width 14.5 , Platelet Count 294, Mean Platelet Volume 7.2, Neutrophils (%) (Auto) , Lymphocytes (%) (Auto) , Monocytes (%) (Auto) , Eosinophils (%) (Auto) , Basophils (%) (Auto) , Neutrophils % (Manual) [Pending], Lymphocytes % (Manual) [Pending], Platelet Estimate [Pending], Platelet Morphology [Pending], Sodium Level 150H, Potassium Level 3.2L, Chloride Level 115H, Carbon Dioxide Level 25, Anion Gap 10, Blood Urea Nitrogen 84H, Creatinine 1.9H, Estimat Glomerular Filtration Rate 33.9, Glucose Level 221H, Lactic Acid Level 1.50, Uric Acid 9.6H , Calcium Level 8.8, Phosphorus Level 3.0, Magnesium Level 2.5H, Total Bilirubin 0.3, Aspartate Amino Transf (AST/SGOT) 98H, Alanine Aminotransferase ( ALT/SGPT) 46, Alkaline Phosphatase 86, C-Reactive Protein, Quantitative 39.3H, Pro-B-Type Natriuretic Peptide 69204H, Total Protein 5.6L, Albumin 1.3L, Globulin 4.3, Albumin/Globulin Ratio 0.3L, Random Vancomycin Level 5.3, Valproic Acid (Depakene) Level 5L Current Medications Medications (Trade) Dose Ordered Sig/Kaveh Route PRN Reason Start Time Stop Time Status Last Admin Dose Admin Acetaminophen (Tylenol) 650 mg Q4H PRN ORAL Mild Pain/Temp > 100.5 09/05/19 03:15 10/05/19 03:14 Acetaminophen (Tylenol) 650 mg Q4H PRN RECTAL Prn Headache/Temp > 101 09/05/19 06:30 10/05/19 02:29 Albuterol/ Ipratropium (Albuterol/ Ipratropium) 3 ml Q6HRT PRN HHN Shortness of Breath 09/05/19 02:45 09/10/19 02:44 Dextrose 1,000 ml @ 100 mls/hr Q10H IV 09/05/19 08:45 10/05/19 08:44 09/06/19 06:14 Divalproex Sodium (Depakote Sprinkles) 125 mg BID ORAL 09/05/19 09:00 10/05/19 08:59 09/05/19 18:42 Docusate Sodium (Colace) 100 mg TWICE A DAY ORAL 09/05/19 09:00 10/05/19 08:59 09/05/19 18:42 Meropenem 500 mg/ Sodium Chloride 55 ml @ 110 mls/hr Q12HR IV 09/05/19 21:00 09/10/19 20:59 09/05/19 21:53 Morphine Sulfate (Morphine Sulfate) 2 mg Q4H PRN IVP Severe Pain (Pain Scale 7-10) 09/05/19 02:30 09/12/19 02:29 09/06/19 07:40 Nitroglycerin (Ntg) 1 patch Q24H TDERMAL 09/05/19 09:00 10/05/19 08:59 09/05/19 12:59 Pantoprazole (Protonix) 40 mg EVERY 12 HOURS IVP 09/05/19 09:00 10/05/19 08:59 09/05/19 21:53 Risperidone (RisperDAL) 0.5 mg BID PRN ORAL agitation 09/05/19 09:00 10/05/19 08:59 Vancomycin HCl (Vanco rx to dose) 1 ea DAILY PRN MISC Per rx protocol 09/05/19 11:30 10/05/19 11:29 Vancomycin/Sodium Chloride 275 ml @ 137.5 mls/ hr ONCE ONCE IVPB 09/06/19 09:00 09/06/19 10:59 Arun Melvin MD Sep 06, 2019 07:58
[2019-09-06] MEDS: Pantoprazole Inj IVP SCH ×2 (08:32→20:44)
[2019-09-06] MEDS: Nitroglycerin Patch 0.4mg TDERMAL SCH (08:36)
[2019-09-06] MEDS: Docusate 100mg cap ORAL SCH ×2 (08:36→18:00)
[2019-09-06] MEDS: Depakote 125mg Sprinkles ORAL SCH (08:36)
--- NOTE | 2019-09-06 08:59 | General Progress Note ---
Assessment/Plan Problem List: (1) Anemia ICD Codes: D64.9 - Anemia, unspecified SNOMED: 499505046 (2) Elevated troponin ICD Codes: R79.89 - Other specified abnormal findings of blood chemistry SNOMED: 552512450, 234547908, 448708621 (3) Dehydration ICD Codes: E86.0 - Dehydration SNOMED: 04012675 (4) Sepsis ICD Codes: A41.9 - Sepsis, unspecified organism SNOMED: 46653719 Qualifiers: Qualified Codes: A41.9 - Sepsis, unspecified organism (5) UTI (urinary tract infection) ICD Codes: N39.0 - Urinary tract infection, site not specified SNOMED: 28162326 Qualifiers: Qualified Codes: N30.00 - Acute cystitis without hematuria (6) Failure to thrive in adult ICD Codes: R62.7 - Adult failure to thrive SNOMED: 782196252 (7) NAGA (acute kidney injury) ICD Codes: N17.9 - Acute kidney failure, unspecified SNOMED: 99432287, 3318011 (8) Failure to thrive SNOMED: 66458107 Status: unchanged Assessment/Plan: o2 pulm tx abx cardio pulm f/u prt diet cbc bmp am Subjective Constitutional: Reports: weakness Allergies: Coded Allergies: AMLODIPINE (Verified Allergy, Unknown, 09/04/19) ASPIRIN (Verified Allergy, Unknown, 09/04/19) BENAZEPRIL (Verified Allergy, Unknown, 09/04/19) All Systems: reviewed and negative except above Subjective o2nc in icu Objective Last 24 Hour Vital Signs Date Time Temp Pulse Resp B/P (MAP) Pulse Ox O2 Delivery O2 Flow Rate FiO2 09/06/19 08:36 101/55 09/06/19 08:00 98.5 81 20 114/61 (78) 98 09/06/19 08:00 Nasal Cannula 2.0 09/06/19 07:53 82 09/06/19 07:49 98 Nasal Cannula 4.0 36 09/06/19 07:00 85 18 108/44 (65) 99 09/06/19 06:00 82 16 97/44 (61) 99 09/06/19 05:00 90 16 92/54 (67) 99 09/06/19 04:09 Nasal Cannula 2.0 09/06/19 04:08 92 09/06/19 04:00 99.7 92 18 105/47 (66) 99 09/06/19 03:00 84 16 91/46 (61) 96 09/06/19 02:00 88 16 94/44 (61) 96 09/06/19 01:00 88 18 94/41 (58) 96 09/06/19 00:14 90 09/06/19 00:00 99.0 96 16 93/37 (55) 98 09/05/19 23:15 Nasal Cannula 2.0 09/05/19 23:00 99.2 96 16 115/50 (71) 97 09/05/19 23:00 96 09/05/19 21:00 Nasal Cannula 2.0 09/05/19 20:00 97.5 100 20 94/67 (76) 95 09/05/19 16:09 97.8 09/05/19 16:00 97.9 116 20 151/72 (98) 100 09/05/19 16:00 102 09/05/19 12:59 137/65 09/05/19 12:00 97 09/05/19 12:00 97.8 97 20 137/65 (89) 100 09/05/19 09:00 Nasal Cannula 2.0 09/05/19 09:00 107/58 Intake and Output 09/05/19 09/06/19 19:00 07:00 Intake Total 800 ml Output Total 655 ml Balance 145 ml IV Total 800 ml Output Urine Total 655 ml # Voids 3 # Bowel Movements 3 1 Laboratory Tests 09/05/19 11:50: Troponin I 3.936H 09/05/19 20:15: Troponin I 4.244H 09/06/19 05:19: Troponin I 3.292H, White Blood Count 22.1*H, Red Blood Count 2.80L, Hemoglobin 8.4L, Hematocrit 25.6L, Mean Corpuscular Volume 92, Mean Corpuscular Hemoglobin 30.1, Mean Corpuscular Hemoglobin Concent 32.8, Red Cell Distribution Width 14.5 , Platelet Count 294, Mean Platelet Volume 7.2, Neutrophils (%) (Auto) , Lymphocytes (%) (Auto) , Monocytes (%) (Auto) , Eosinophils (%) (Auto) , Basophils (%) (Auto) , Neutrophils % (Manual) [Pending], Lymphocytes % (Manual) [Pending], Platelet Estimate [Pending], Platelet Morphology [Pending], Sodium Level 150H, Potassium Level 3.2L, Chloride Level 115H, Carbon Dioxide Level 25, Anion Gap 10, Blood Urea Nitrogen 84H, Creatinine 1.9H, Estimat Glomerular Filtration Rate 33.9, Glucose Level 221H, Lactic Acid Level 1.50, Uric Acid 9.6H , Calcium Level 8.8, Phosphorus Level 3.0, Magnesium Level 2.5H, Total Bilirubin 0.3, Aspartate Amino Transf (AST/SGOT) 98H, Alanine Aminotransferase ( ALT/SGPT) 46, Alkaline Phosphatase 86, C-Reactive Protein, Quantitative 39.3H, Pro-B-Type Natriuretic Peptide 60553X, Total Protein 5.6L, Albumin 1.3L, Globulin 4.3, Albumin/Globulin Ratio 0.3L, Random Vancomycin Level 5.3, Valproic Acid (Depakene) Level 5L Height (Feet): 5 Height (Inches): 11.00 Weight (Pounds): 153 General Appearance: lethargic EENT: normal ENT inspection Neck: normal alignment Cardiovascular: normal peripheral pulses, normal rate, regular rhythm Respiratory/Chest: chest wall non-tender, decreased breath sounds Abdomen: normal bowel sounds, non tender, soft Extremities: normal inspection Edema: no edema noted Arm (L), no edema noted Arm (R), no edema noted Leg (L), no edema noted Leg (R), no edema noted Pedal (L), no edema noted Pedal (R), no edema noted Generalized Neurologic: motor weakness Skin: normal pigmentation, warm/dry Prabhakar Pond DO Sep 06, 2019 08:59
[2019-09-06] MEDS ORDERED: Vancomycin 1.5gm/NS Premix IVPB ONE (09:00)
[2019-09-06] MEDS ORDERED: Tubing IV Secondary IV ONE (09:20)
[2019-09-06] MEDS: Meropenem 500 MG in NS 55 ML IV SCH ×2 (09:25→20:44)
[2019-09-06] MEDS: Heparin 5000 units/ml inj SUBQ SCH ×3 (10:30→22:10)
[2019-09-06] MEDS ORDERED: Valproate Sodium INJ 500 MG in D5W 55 ML IVPB SCH ×2 (10:30→11:00)
--- NOTE | 2019-09-06 10:35 | Nephrology Progress Note ---
Assessment/Plan Problem List: (1) NAGA (acute kidney injury) (2) UTI (urinary tract infection) (3) Elevated troponin (4) Failure to thrive in adult (5) Sepsis (6) Anemia (7) Dehydration Assessment Renal failure mostly prerenal Azotemia. May have underlying chronic kidney disease. Hydration. Sepsis leukocytosis. Encephalopathy in the form of toxic and metabolic. Failure to thrive. Albuminemia. Levator troponin. Most likely due to significant cardiac ischemia. Plan Plan: Eliminate mind altering medication as possible Hydrate. Meds IV as possible Plavix and SQ heparin N.p.o. ST evaluation. Nitrates. Monitor renal parameters. Avoid nephrotoxic's. Antibiotics per ID. Felder catheter. Discussed with RN DNR status. Subjective ROS Limited/Unobtainable: No Constitutional: Reports: malaise, weakness Objective Objective Last 24 Hour Vital Signs Date Time Temp Pulse Resp B/P (MAP) Pulse Ox O2 Delivery O2 Flow Rate FiO2 09/06/19 10:00 82 18 138/42 (74) 98 09/06/19 09:00 79 12 98/47 (64) 99 09/06/19 08:36 101/55 09/06/19 08:00 98.5 81 20 114/61 (78) 98 09/06/19 08:00 Nasal Cannula 2.0 09/06/19 07:53 82 09/06/19 07:49 98 Nasal Cannula 4.0 36 09/06/19 07:00 85 18 108/44 (65) 99 09/06/19 06:00 82 16 97/44 (61) 99 09/06/19 05:00 90 16 92/54 (67) 99 09/06/19 04:09 Nasal Cannula 2.0 09/06/19 04:08 92 09/06/19 04:00 99.7 92 18 105/47 (66) 99 09/06/19 03:00 84 16 91/46 (61) 96 09/06/19 02:00 88 16 94/44 (61) 96 09/06/19 01:00 88 18 94/41 (58) 96 09/06/19 00:14 90 09/06/19 00:00 99.0 96 16 93/37 (55) 98 09/05/19 23:15 Nasal Cannula 2.0 09/05/19 23:00 99.2 96 16 115/50 (71) 97 09/05/19 23:00 96 09/05/19 21:00 Nasal Cannula 2.0 09/05/19 20:00 97.5 100 20 94/67 (76) 95 09/05/19 16:09 97.8 09/05/19 16:00 97.9 116 20 151/72 (98) 100 09/05/19 16:00 102 09/05/19 12:59 137/65 09/05/19 12:00 97 09/05/19 12:00 97.8 97 20 137/65 (89) 100 Intake and Output 09/05/19 09/06/19 19:00 07:00 Intake Total 800 ml Output Total 655 ml Balance 145 ml IV Total 800 ml Output Urine Total 655 ml # Voids 3 # Bowel Movements 3 1 Laboratory Tests 09/05/19 11:50: Troponin I 3.936H 09/05/19 20:15: Troponin I 4.244H 09/06/19 05:19: Troponin I 3.292H, White Blood Count 22.1*H, Red Blood Count 2.80L, Hemoglobin 8.4L, Hematocrit 25.6L, Mean Corpuscular Volume 92, Mean Corpuscular Hemoglobin 30.1, Mean Corpuscular Hemoglobin Concent 32.8, Red Cell Distribution Width 14.5 , Platelet Count 294, Mean Platelet Volume 7.2, Neutrophils (%) (Auto) , Lymphocytes (%) (Auto) , Monocytes (%) (Auto) , Eosinophils (%) (Auto) , Basophils (%) (Auto) , Differential Total Cells Counted 100, Neutrophils % ( Manual) 90H, Lymphocytes % (Manual) 7L, Monocytes % (Manual) 3, Eosinophils % ( Manual) 0, Basophils % (Manual) 0, Band Neutrophils 0, Platelet Estimate DecreasedL, Platelet Morphology Normal, Hypochromasia 2+, Anisocytosis 1+, Sodium Level 150H, Potassium Level 3.2L, Chloride Level 115H, Carbon Dioxide Level 25, Anion Gap 10, Blood Urea Nitrogen 84H, Creatinine 1.9H, Estimat Glomerular Filtration Rate 33.9, Glucose Level 221H, Lactic Acid Level 1.50, Uric Acid 9.6H, Calcium Level 8.8, Phosphorus Level 3.0, Magnesium Level 2.5H, Total Bilirubin 0.3, Aspartate Amino Transf (AST/SGOT) 98H, Alanine Aminotransferase (ALT/SGPT) 46, Alkaline Phosphatase 86, C-Reactive Protein, Quantitative 39.3H, Pro-B-Type Natriuretic Peptide 17970L, Total Protein 5.6L, Albumin 1.3L, Globulin 4.3, Albumin/Globulin Ratio 0.3L, Random Vancomycin Level 5.3, Valproic Acid (Depakene) Level 5L Height (Feet): 5 Height (Inches): 11.00 Weight (Pounds): 153 General Appearance: mild distress Cardiovascular: normal rate Respiratory/Chest: decreased breath sounds Abdomen: distended Dariusz Brandt MD Sep 06, 2019 10:35
[2019-09-06 11:17] LABS: % IRON SATURATION 14 % (15-50); IRON 12 ug/dL (50-175); TOTAL IRON BINDING CAPACITY 85 ug/dL (250-450)
[2019-09-06 11:47] LABS: FERRITIN 1297 NG/ML (8-388)
[2019-09-06] MEDS ORDERED: Albuterol/Ipratropium 3ml neb HHN PRN (18:00)
--- NOTE | 2019-09-06 18:15 | Consultation ---
DATE OF CONSULTATION: 09/06/2019 CONSULTING PHYSICIAN: Cherri De Luna M.D. REFERRING PHYSICIAN: Prabhakar Pond D.O. HISTORY OF PRESENT ILLNESS: This is an 83-year-old male. I saw and assessed him in the ICU. This patient is confused and disorganized on interview. This patient has some confusion, some disorganized thought process in the ICU. On assessment, he is a very poor historian in the ICU, but apparently this patient was admitted to the hospital primarily because he had failure to thrive and weakness, but he has altered mental status, confusion, and his cognition has declined below his baseline. That is why, his attending physician has requested daily psychiatric consultation. MEDICAL HISTORY: He has a history of failure to thrive, urinary tract infection, sepsis, renal failure, and elevated troponins. ALLERGIES: Aspirin, benazepril, and amlodipine. PSYCHOTROPIC MEDICATIONS ON ADMISSION: Reportedly, the patient normally takes Seroquel 25 mg twice a day, Risperdal 0.5 mg twice a day, and Depakote 125 mg twice a day. PAIN ASSESSMENT: 0/10 pain. SUBSTANCE ABUSE HISTORY: Denies. DEVELOPMENTAL PROBLEMS: Denies. SOCIAL HISTORY: in the chart, the patient is from [facility]. Financially supported by [facility] and Medicare. PSYCHIATRIC HISTORY: He has history of paranoid schizophrenia; rule out schizoaffective, bipolar type; rule out dementia with psychosis. STRENGTHS: He is motivated to get better and he is healthy. WEAKNESSES: He is impulsive and minimal support system. MENTAL STATUS EXAMINATION: This is an 83-year-old male. His appearance is disheveled. His attitude is irritable and agitated. Affect, guarded and restricted. Intellect is poor because he does not know current events and does not know last four presidents. Mood, depressed and anxious. Motor activity, psychomotor agitation. Attention span is poor because he cannot do serial 7's or spell world backwards. Orientation x2. Oriented to person and place, not to time or situation. Speech is low volume and slurred. Thought process, disorganized and illogical. Thought content, auditory hallucinations and paranoid delusions. Perception is poor because of perceptual disturbance, auditory hallucinations, and paranoid delusions. Abstract reasoning is poor because he does not understand proverbs, only has concrete thinking. Insight is poor he does not recognize having psych disorder. Judgment is poor because he cannot clearly make medical illness for himself at this time. Short-term memory is 0/3 after 3-word recall, so poor short-term memory. Long-term memory is poor because he cannot recall long-term events in his life such as high school he went to. No signs of any suicidal or homicidal ideations. DIAGNOSES: 1. Schizoaffective, bipolar type, rule out dementia with psychosis. 2. Medical problems include sepsis, renal problems, failure to thrive, pneumothorax, . 3. Psychosocial stressors, financial. 4. Functional impairment is mild. PLAN: I am going to treat this patient with a medication regimen of Risperdal 0.5 mg twice a day p.r.n. anxiety and agitation while he is in ICU, maybe step that up to routine once he is out of the ICU, Depakote 125 mg twice a day for mood stabilizing. The patient is on Seroquel 25 mg that can be restarted once he is out of the ICU . 20 minutes of cognitive behavioral therapy to help him identify his automatic negative thoughts and help him convert his negative thoughts to more positive thoughts to reduce depression, anxiety, mood lability. 20 minutes of insight-oriented psychotherapy also to help him recognize having a psych disorder and medical diagnoses, so that he has better impulse control on the unit. 20 minutes of insight-oriented psychotherapy. Also treat this patient with Namenda 5 mg twice a day. He will continue to be followed by Psychiatry throughout his hospital course. Chart was reviewed. Discussed with staff. Seen and assessed at bedside. I would like to thank Dr. Prabhakar Pond for this interesting consultation. Cherri De Luna M.D. DR: NICK JOB#: [id number] CC:
[2019-09-06] MEDS ORDERED: Acetaminophen 650 MG SUPP RECTAL PRN (18:30)
[2019-09-06] MEDS: Valproate Sodium INJ 500 MG in D5W 55 ML IVPB SCH (22:05)
--- NOTE | 2019-09-06 22:17 | Cardiology Progress Note ---
Assessment/Plan Assessment/Plan acute [place], possibly due to coronary artery disease, the patient has CRF, including smoking. will treat medically, not a candidate for invasive procedurres. Agree with DNR Subjective Subjective The patient looks better, he is not that agitated and sleeping most fo the time. He is not interacting and with attempt to examine him start moaning and screaming, poor cooperation Objective Last 24 Hour Vital Signs Date Time Temp Pulse Resp B/P (MAP) Pulse Ox O2 Delivery O2 Flow Rate FiO2 09/06/19 18:00 97.5 86 20 112/54 (73) 100 09/06/19 16:00 74 09/06/19 16:00 Nasal Cannula 2.0 09/06/19 16:00 97.6 76 19 124/52 (76) 99 09/06/19 15:00 78 12 113/54 (73) 99 09/06/19 14:00 79 12 112/51 (71) 99 09/06/19 13:00 83 13 108/45 (66) 99 09/06/19 12:00 Nasal Cannula 2.0 09/06/19 12:00 97.8 88 26 141/42 (75) 98 09/06/19 11:56 81 09/06/19 11:00 88 28 130/93 (105) 99 09/06/19 10:00 82 18 138/42 (74) 98 09/06/19 09:00 79 12 98/47 (64) 99 09/06/19 08:36 101/55 09/06/19 08:00 98.5 81 20 114/61 (78) 98 09/06/19 08:00 Nasal Cannula 2.0 09/06/19 07:53 82 09/06/19 07:49 98 Nasal Cannula 4.0 36 09/06/19 07:00 85 18 108/44 (65) 99 09/06/19 06:00 82 16 97/44 (61) 99 09/06/19 05:00 90 16 92/54 (67) 99 09/06/19 04:09 Nasal Cannula 2.0 09/06/19 04:08 92 09/06/19 04:00 99.7 92 18 105/47 (66) 99 09/06/19 03:00 84 16 91/46 (61) 96 09/06/19 02:00 88 16 94/44 (61) 96 09/06/19 01:00 88 18 94/41 (58) 96 09/06/19 00:14 90 09/06/19 00:00 99.0 96 16 93/37 (55) 98 09/05/19 23:15 Nasal Cannula 2.0 09/05/19 23:00 99.2 96 16 115/50 (71) 97 09/05/19 23:00 96 General Appearance: lethargic, other - very ill appearing, chronically EENT: PERRL/EOMI Neck: no JVD Rhythm: NSR, PACs Cardiovascular: regular rhythm, diastolic murmur Respiratory/Chest: crackles/rales Abdomen: soft Extremities: other - has multipe. ulcers on his extremities and erythema with infection Intake and Output 09/05/19 09/06/19 19:00 07:00 Intake Total 800 ml Output Total 655 ml Balance 145 ml IV Total 800 ml Output Urine Total 655 ml # Voids 3 # Bowel Movements 3 1 Laboratory Tests Test 09/06/19 05:19 09/06/19 07:00 White Blood Count 22.1 K/UL (4.8-10.8) *H Red Blood Count 2.80 M/UL (4.70-6.10) L Hemoglobin 8.4 G/DL (14.2-18.0) L Hematocrit 25.6 % (42.0-52.0) L Mean Corpuscular Volume 92 FL (80-99) Mean Corpuscular Hemoglobin 30.1 PG (27.0-31.0) Mean Corpuscular Hemoglobin Concent 32.8 G/DL (32.0-36.0) Red Cell Distribution Width 14.5 % (11.6-14.8) Platelet Count 294 K/UL (150-450) Mean Platelet Volume 7.2 FL (6.5-10.1) Neutrophils (%) (Auto) % (45.0-75.0) Lymphocytes (%) (Auto) % (20.0-45.0) Monocytes (%) (Auto) % (1.0-10.0) Eosinophils (%) (Auto) % (0.0-3.0) Basophils (%) (Auto) % (0.0-2.0) Differential Total Cells Counted 100 Neutrophils % (Manual) 90 % (45-75) H Lymphocytes % (Manual) 7 % (20-45) L Monocytes % (Manual) 3 % (1-10) Eosinophils % (Manual) 0 % (0-3) Basophils % (Manual) 0 % (0-2) Band Neutrophils 0 % (0-8) Platelet Estimate Decreased L Platelet Morphology Normal Hypochromasia 2+ Anisocytosis 1+ Sodium Level 150 MMOL/L (136-145) H Potassium Level 3.2 MMOL/L (3.5-5.1) L Chloride Level 115 MMOL/L (98-107) H Carbon Dioxide Level 25 MMOL/L (21-32) Anion Gap 10 mmol/L (5-15) Blood Urea Nitrogen 84 mg/dL (7-18) H Creatinine 1.9 MG/DL (0.55-1.30) H Estimat Glomerular Filtration Rate 33.9 mL/min (>60) Glucose Level 221 MG/DL (74-106) H Lactic Acid Level 1.50 mmol/L (0.4-2.0) Uric Acid 9.6 MG/DL (2.6-7.2) H Calcium Level 8.8 MG/DL (8.5-10.1) Phosphorus Level 3.0 MG/DL (2.5-4.9) Magnesium Level 2.5 MG/DL (1.8-2.4) H Total Bilirubin 0.3 MG/DL (0.2-1.0) Aspartate Amino Transf (AST/SGOT) 98 U/L (15-37) H Alanine Aminotransferase (ALT/SGPT) 46 U/L (12-78) Alkaline Phosphatase 86 U/L (46-116) Troponin I 3.292 ng/mL (0.000-0.056) C-Reactive Protein, Quantitative 39.3 mg/dL (0.00-0.90) H Pro-B-Type Natriuretic Peptide 72868 pg/mL (0-125) H Total Protein 5.6 G/DL (6.4-8.2) L Albumin 1.3 G/DL (3.4-5.0) L Globulin 4.3 g/dL Albumin/Globulin Ratio 0.3 (1.0-2.7) L Random Vancomycin Level 5.3 ug/mL Valproic Acid (Depakene) Level 5 MCG/ML (50-100) L Iron Level 12 ug/dL (50-175) L Total Iron Binding Capacity 85 ug/dL (250-450) L Percent Iron Saturation 14 % (15-50) L Unsaturated Iron Binding 73 ug/dL (112-346) L Ferritin 1297 NG/ML (8-388) H Vitamin B12 Level 1266 PG/ML (193-986) H Folate 4.6 NG/ML (8.6-58.9) L Microbiology Date/Time Source Procedure Growth Status 09/04/19 20:35 Blood Blood Culture - Preliminary NO GROWTH AFTER 24 HOURS Resulted 09/04/19 20:20 Blood Blood Culture - Preliminary NO GROWTH AFTER 24 HOURS Resulted 09/06/19 10:30 Nasopharynx - Final Complete 09/06/19 10:30 Nasopharynx - Final Complete 09/04/19 20:30 Urine,Clean Catch Urine Culture - Preliminary NO GROWTH AFTER 24 HOURS Resulted 09/04/19 21:00 Rectum Received Aubrie Hall MD Sep 06, 2019 22:17
[2019-09-07] VITALS: BP 99/71
[2019-09-07] MEDS: Morphine Sulfate 2mg/ml Inj(IV/IM USE ONLY) IVP PRN ×2 (01:44→14:47)
[2019-09-07 04:00] VITALS: BP 98/66
[2019-09-07] MEDS: Heparin 5000 units/ml inj SUBQ SCH ×3 (05:12→21:16)
[2019-09-07 06:34] LABS: HEMATOCRIT 32.3 % (42.0-52.0); HEMOGLOBIN 10.5 G/DL (14.2-18.0); MEAN CORPUSCULAR VOLUME 92 FL (80-99); PLATELET COUNT 359 K/UL (150-450); RED CELL DISTRIBUTION WIDTH 14.9 % (11.6-14.8)
[2019-09-07 07:04] LABS: WHITE BLOOD COUNT 22.4 K/UL (4.8-10.8)
[2019-09-07 07:20] LABS: ANION GAP 9 mmol/L (5-15); BLOOD UREA NITROGEN 62 mg/dL (7-18); CALCIUM 9.5 MG/DL (8.5-10.1); CARBON DIOXIDE 21 MMOL/L (21-32); CHLORIDE 113 MMOL/L (98-107); CREATININE 1.7 MG/DL (0.55-1.30); POTASSIUM 3.9 MMOL/L (3.5-5.1); SODIUM 142 MMOL/L (136-145)
[2019-09-07 08:00] VITALS: BP 130/85
[2019-09-07] MEDS: Docusate 100mg cap ORAL SCH ×2 (09:00→17:50)
--- NOTE | 2019-09-07 09:52 | General Progress Note ---
Assessment/Plan Problem List: (1) Anemia ICD Codes: D64.9 - Anemia, unspecified SNOMED: 650556498 (2) Elevated troponin ICD Codes: R79.89 - Other specified abnormal findings of blood chemistry SNOMED: 392165012, 274216796, 359694816 (3) Dehydration ICD Codes: E86.0 - Dehydration SNOMED: 82194791 (4) Sepsis ICD Codes: A41.9 - Sepsis, unspecified organism SNOMED: 99335997 Qualifiers: Qualified Codes: A41.9 - Sepsis, unspecified organism (5) UTI (urinary tract infection) ICD Codes: N39.0 - Urinary tract infection, site not specified SNOMED: 95895013 Qualifiers: Qualified Codes: N30.00 - Acute cystitis without hematuria (6) Failure to thrive in adult ICD Codes: R62.7 - Adult failure to thrive SNOMED: 471038666 (7) NAGA (acute kidney injury) ICD Codes: N17.9 - Acute kidney failure, unspecified SNOMED: 97784006, 3084378 (8) Failure to thrive SNOMED: 84170631 Status: unchanged Assessment/Plan: o2 pulm tx abx cardio pulm f/u prt diet cbc bmp am hospice eval if ok w family Subjective Constitutional: Reports: weakness Allergies: Coded Allergies: AMLODIPINE (Verified Allergy, Unknown, 09/04/19) ASPIRIN (Verified Allergy, Unknown, 09/04/19) BENAZEPRIL (Verified Allergy, Unknown, 09/04/19) All Systems: reviewed and negative except above Subjective o2nc sleepy Objective Last 24 Hour Vital Signs Date Time Temp Pulse Resp B/P (MAP) Pulse Ox O2 Delivery O2 Flow Rate FiO2 09/07/19 09:09 96 Nasal Cannula 4.0 36 09/07/19 08:00 98.6 80 20 130/85 (100) 100 09/07/19 04:00 80 09/07/19 04:00 97.4 83 18 98/66 (77) 96 09/07/19 02:33 98.0 09/07/19 00:00 71 09/07/19 00:00 98.0 80 18 99/71 (80) 97 09/06/19 21:33 100 Nasal Cannula 4.0 36 09/06/19 21:00 Nasal Cannula 2.0 09/06/19 20:00 98.0 82 18 92/53 (66) 96 09/06/19 20:00 76 09/06/19 18:00 97.5 86 20 112/54 (73) 100 09/06/19 16:00 74 09/06/19 16:00 Nasal Cannula 2.0 09/06/19 16:00 97.6 76 19 124/52 (76) 99 09/06/19 15:00 78 12 113/54 (73) 99 09/06/19 14:00 79 12 112/51 (71) 99 09/06/19 13:00 83 13 108/45 (66) 99 09/06/19 12:00 Nasal Cannula 2.0 09/06/19 12:00 97.8 88 26 141/42 (75) 98 09/06/19 11:56 81 09/06/19 11:00 88 28 130/93 (105) 99 09/06/19 10:00 82 18 138/42 (74) 98 Intake and Output 09/06/19 09/07/19 19:00 07:00 Intake Total 1221.66 ml Output Total 295 ml 850 ml Balance 926.66 ml -850 ml IV Total 1221.66 ml Output Urine Total 295 ml 850 ml Laboratory Tests 09/07/19 04:50: White Blood Count 22.4*H, Red Blood Count 3.50L, Hemoglobin 10.5L, Hematocrit 32.3L, Mean Corpuscular Volume 92, Mean Corpuscular Hemoglobin 30.0, Mean Corpuscular Hemoglobin Concent 32.6, Red Cell Distribution Width 14.9H, Platelet Count 359, Mean Platelet Volume 7.0, Neutrophils (%) (Auto) , Lymphocytes (%) (Auto) , Monocytes (%) (Auto) , Eosinophils (%) (Auto) , Basophils (%) (Auto) , Neutrophils % (Manual) [Pending], Lymphocytes % (Manual) [Pending], Platelet Estimate [Pending], Platelet Morphology [Pending], Sodium Level 142, Potassium Level 3.9, Chloride Level 113H, Carbon Dioxide Level 21, Anion Gap 9, Blood Urea Nitrogen 62H, Creatinine 1.7H, Estimat Glomerular Filtration Rate 38.5, Glucose Level 160H, Calcium Level 9.5, Random Vancomycin Level 16.6 Height (Feet): 5 Height (Inches): 11.00 Weight (Pounds): 144 General Appearance: lethargic EENT: normal ENT inspection Neck: normal alignment Cardiovascular: normal peripheral pulses, normal rate, regular rhythm Respiratory/Chest: chest wall non-tender, lungs clear, normal breath sounds Abdomen: normal bowel sounds, non tender, soft Extremities: normal inspection Edema: no edema noted Arm (L), no edema noted Arm (R), no edema noted Leg (L), no edema noted Leg (R), no edema noted Pedal (L), no edema noted Pedal (R), no edema noted Generalized Neurologic: motor weakness Skin: normal pigmentation, warm/dry Prabhakar Pond DO Sep 07, 2019 09:52
[2019-09-07] MEDS: Meropenem 500 MG in NS 55 ML IV SCH ×2 (09:59→21:15)
[2019-09-07] MEDS: Nitroglycerin Patch 0.4mg TDERMAL SCH (09:59)
[2019-09-07] MEDS: Pantoprazole Inj IVP SCH ×2 (10:00→21:15)
--- NOTE | 2019-09-07 10:06 | Pulmonology Progress Note ---
Assessment/Plan Assessment/Plan IMPRESSION: 1. Small left apical pneumothorax. 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 3. Parkinson. 4. Dementia. 5. UTI. 6. Hypernatremia. 7. Left upper extremity cellulitis. 8. Multiple decubitus. 9. Likely NSTEMI DISCUSSION: Noted DNR status. At this time, he is asymptomatic from pulmonary standpoint. Therefore, we will avoid any further intervention for the small apical left pneumothorax. This may be spontaneous due to his underlying lung disease. Saturations are adequate on low flow O2 No respiratory distress or tachypnea Continue antibiotic vancomycin for left upper extremity cellulitis Hydration status addressed by Nephrology. I will follow as skiagrapher. Arun Melvin M.D. Subjective Interval Events: Transferred back to [facility]. Constitutional: Reports: no symptoms HEENT: Repors: no symptoms Respiratory: Reports: no symptoms Cardiovascular: Reports: no symptoms Gastrointestinal/Abdominal: Reports: no symptoms Allergies: Coded Allergies: AMLODIPINE (Verified Allergy, Unknown, 09/04/19) ASPIRIN (Verified Allergy, Unknown, 09/04/19) BENAZEPRIL (Verified Allergy, Unknown, 09/04/19) Objective Last 24 Hour Vital Signs Date Time Temp Pulse Resp B/P (MAP) Pulse Ox O2 Delivery O2 Flow Rate FiO2 09/07/19 09:59 130/85 09/07/19 09:09 96 Nasal Cannula 4.0 36 09/07/19 08:00 98.6 80 20 130/85 (100) 100 09/07/19 04:00 80 09/07/19 04:00 97.4 83 18 98/66 (77) 96 09/07/19 02:33 98.0 09/07/19 00:00 71 09/07/19 00:00 98.0 80 18 99/71 (80) 97 09/06/19 21:33 100 Nasal Cannula 4.0 36 09/06/19 21:00 Nasal Cannula 2.0 09/06/19 20:00 98.0 82 18 92/53 (66) 96 09/06/19 20:00 76 09/06/19 18:00 97.5 86 20 112/54 (73) 100 09/06/19 16:00 74 09/06/19 16:00 Nasal Cannula 2.0 09/06/19 16:00 97.6 76 19 124/52 (76) 99 09/06/19 15:00 78 12 113/54 (73) 99 09/06/19 14:00 79 12 112/51 (71) 99 09/06/19 13:00 83 13 108/45 (66) 99 09/06/19 12:00 Nasal Cannula 2.0 09/06/19 12:00 97.8 88 26 141/42 (75) 98 09/06/19 11:56 81 09/06/19 11:00 88 28 130/93 (105) 99 Intake and Output 09/06/19 09/07/19 19:00 07:00 Intake Total 1221.66 ml Output Total 295 ml 850 ml Balance 926.66 ml -850 ml IV Total 1221.66 ml Output Urine Total 295 ml 850 ml General Appearance: no acute distress HEENT: normocephalic Respiratory/Chest: chest wall non-tender, lungs clear Cardiovascular: normal peripheral pulses Abdomen: normal bowel sounds Microbiology Date/Time Source Procedure Growth Status 09/04/19 20:35 Blood Blood Culture - Preliminary NO GROWTH AFTER 48 HOURS Resulted 09/04/19 20:20 Blood Blood Culture - Preliminary NO GROWTH AFTER 48 HOURS Resulted 09/06/19 10:30 Nasopharynx - Final Complete 09/06/19 10:30 Nasopharynx - Final Complete 09/05/19 13:55 Nasal Nares MRSA Culture - Final NO METHICILLIN RESISTANT STAPH AUREUS... Complete 09/04/19 21:00 Nasal Nares MRSA Culture - Final NO METHICILLIN RESISTANT STAPH AUREUS... Complete 09/04/19 20:30 Urine,Clean Catch Urine Culture - Preliminary NO GROWTH AFTER 24 HOURS Resulted 09/04/19 21:00 Rectum VRE Culture - Final Enterococcus Faecium - Vre Enterococcus Faecalis - Vre Complete Laboratory Tests 09/07/19 04:50: White Blood Count 22.4*H, Red Blood Count 3.50L, Hemoglobin 10.5L, Hematocrit 32.3L, Mean Corpuscular Volume 92, Mean Corpuscular Hemoglobin 30.0, Mean Corpuscular Hemoglobin Concent 32.6, Red Cell Distribution Width 14.9H, Platelet Count 359, Mean Platelet Volume 7.0, Neutrophils (%) (Auto) , Lymphocytes (%) (Auto) , Monocytes (%) (Auto) , Eosinophils (%) (Auto) , Basophils (%) (Auto) , Neutrophils % (Manual) [Pending], Lymphocytes % (Manual) [Pending], Platelet Estimate [Pending], Platelet Morphology [Pending], Sodium Level 142, Potassium Level 3.9, Chloride Level 113H, Carbon Dioxide Level 21, Anion Gap 9, Blood Urea Nitrogen 62H, Creatinine 1.7H, Estimat Glomerular Filtration Rate 38.5, Glucose Level 160H, Calcium Level 9.5, Random Vancomycin Level 16.6 Current Medications Medications (Trade) Dose Ordered Sig/Kaveh Route PRN Reason Start Time Stop Time Status Last Admin Dose Admin Acetaminophen (Tylenol) 650 mg Q4H PRN ORAL Mild Pain/Temp > 100.5 09/06/19 18:00 10/05/19 17:59 Acetaminophen (Tylenol) 650 mg Q4H PRN RECTAL Prn Headache/Temp > 101 09/06/19 18:30 10/05/19 02:29 Albuterol/ Ipratropium (Albuterol/ Ipratropium) 3 ml Q6H PRN HHN Shortness of Breath 09/06/19 18:00 09/11/19 17:59 Clopidogrel Bisulfate (Plavix) 75 mg DAILY ORAL 09/07/19 09:00 10/06/19 10:44 Dextrose 1,000 ml @ 100 mls/hr Q10H IV 09/06/19 18:00 10/05/19 08:44 09/07/19 02:37 Docusate Sodium (Colace) 100 mg TWICE A DAY ORAL 09/06/19 18:00 10/05/19 08:59 Heparin Sodium (Porcine) (Heparin 5000 units/ml) 5,000 units EVERY 8 HOURS SUBQ 09/06/19 22:00 10/06/19 10:29 09/07/19 05:12 Meropenem 500 mg/ Sodium Chloride 55 ml @ 110 mls/hr Q12HR IV 09/06/19 21:00 09/10/19 20:59 09/07/19 09:59 Morphine Sulfate (Morphine Sulfate) 2 mg Q4H PRN IVP Severe Pain (Pain Scale 7-10) 09/06/19 18:30 09/12/19 02:29 09/07/19 01:44 Nitroglycerin (Ntg) 1 patch Q24H TDERMAL 09/07/19 09:00 10/05/19 08:59 09/07/19 09:59 Pantoprazole (Protonix) 40 mg EVERY 12 HOURS IVP 09/06/19 21:00 10/05/19 08:59 09/07/19 10:00 Risperidone (RisperDAL) 0.5 mg Q12H PRN ORAL agitation 09/06/19 18:00 10/06/19 17:59 Valproate Sodium 500 mg/Dextrose 60 ml @ 60 mls/hr Q12H IVPB 09/06/19 23:00 10/06/19 10:59 09/06/19 22:05 Vancomycin HCl (Vanco rx to dose) 1 ea DAILY PRN MISC Per rx protocol 09/07/19 09:00 10/05/19 11:29 Vancomycin HCl 500 mg/Dextrose 110 ml @ 110 mls/hr ONCE ONCE IVPB 09/07/19 12:00 09/07/19 12:59 Arun Melvin MD Sep 07, 2019 10:06
--- NOTE | 2019-09-07 10:13 | Infectious Diseases Prog Note ---
Assessment/Plan Assessment/Plan Assessment: Severe sepsis UTI Probable bacteremia -u/a wbc 40-60, nit neg, leuk +3; ucx p -CXR: Left apical pneumothorax, estimated at 10%. Emphysema. Low grade fever, sp Leukocytosis, persistent Parkinson's dementia HTN Dm2 Plan: -Continue empiric IV Vancomycin # 4 pending Bcx -Meropenem # 3 08/05 Sp Zosyn #2 -f/u cx -Monitor CBC/CMP, temperatures -aspiration precautions -Influenza sc - CT ABD/ p w oral contrast ro abscess Subjective Allergies: Coded Allergies: AMLODIPINE (Verified Allergy, Unknown, 09/04/19) ASPIRIN (Verified Allergy, Unknown, 09/04/19) BENAZEPRIL (Verified Allergy, Unknown, 09/04/19) Subjective persistent leukocytosis Objective Vital Signs Last 24 Hour Vital Signs Date Time Temp Pulse Resp B/P (MAP) Pulse Ox O2 Delivery O2 Flow Rate FiO2 09/07/19 09:59 130/85 09/07/19 09:09 96 Nasal Cannula 4.0 36 09/07/19 08:00 98.6 80 20 130/85 (100) 100 09/07/19 04:00 80 09/07/19 04:00 97.4 83 18 98/66 (77) 96 09/07/19 02:33 98.0 09/07/19 00:00 71 09/07/19 00:00 98.0 80 18 99/71 (80) 97 09/06/19 21:33 100 Nasal Cannula 4.0 36 09/06/19 21:00 Nasal Cannula 2.0 09/06/19 20:00 98.0 82 18 92/53 (66) 96 09/06/19 20:00 76 09/06/19 18:00 97.5 86 20 112/54 (73) 100 09/06/19 16:00 74 09/06/19 16:00 Nasal Cannula 2.0 09/06/19 16:00 97.6 76 19 124/52 (76) 99 09/06/19 15:00 78 12 113/54 (73) 99 09/06/19 14:00 79 12 112/51 (71) 99 09/06/19 13:00 83 13 108/45 (66) 99 09/06/19 12:00 Nasal Cannula 2.0 09/06/19 12:00 97.8 88 26 141/42 (75) 98 09/06/19 11:56 81 09/06/19 11:00 88 28 130/93 (105) 99 Height (Feet): 5 Height (Inches): 11.00 Weight (Pounds): 144 Respiratory/Chest: normal breath sounds Cardiovascular: regular rhythm Abdomen: no organomegaly Microbiology Date/Time Source Procedure Growth Status 09/04/19 20:35 Blood Blood Culture - Preliminary NO GROWTH AFTER 48 HOURS Resulted 09/04/19 20:20 Blood Blood Culture - Preliminary NO GROWTH AFTER 48 HOURS Resulted 09/06/19 10:30 Nasopharynx - Final Complete 09/06/19 10:30 Nasopharynx - Final Complete 09/05/19 13:55 Nasal Nares MRSA Culture - Final NO METHICILLIN RESISTANT STAPH AUREUS... Complete 09/04/19 21:00 Nasal Nares MRSA Culture - Final NO METHICILLIN RESISTANT STAPH AUREUS... Complete 09/04/19 20:30 Urine,Clean Catch Urine Culture - Preliminary NO GROWTH AFTER 24 HOURS Resulted 09/04/19 21:00 Rectum VRE Culture - Final Enterococcus Faecium - Vre Enterococcus Faecalis - Vre Complete Laboratory Tests Test 09/07/19 04:50 White Blood Count 22.4 K/UL (4.8-10.8) *H Red Blood Count 3.50 M/UL (4.70-6.10) L Hemoglobin 10.5 G/DL (14.2-18.0) L Hematocrit 32.3 % (42.0-52.0) L Mean Corpuscular Volume 92 FL (80-99) Mean Corpuscular Hemoglobin 30.0 PG (27.0-31.0) Mean Corpuscular Hemoglobin Concent 32.6 G/DL (32.0-36.0) Red Cell Distribution Width 14.9 % (11.6-14.8) H Platelet Count 359 K/UL (150-450) Mean Platelet Volume 7.0 FL (6.5-10.1) Neutrophils (%) (Auto) % (45.0-75.0) Lymphocytes (%) (Auto) % (20.0-45.0) Monocytes (%) (Auto) % (1.0-10.0) Eosinophils (%) (Auto) % (0.0-3.0) Basophils (%) (Auto) % (0.0-2.0) Neutrophils % (Manual) Pending Lymphocytes % (Manual) Pending Platelet Estimate Pending Platelet Morphology Pending Sodium Level 142 MMOL/L (136-145) Potassium Level 3.9 MMOL/L (3.5-5.1) Chloride Level 113 MMOL/L (98-107) H Carbon Dioxide Level 21 MMOL/L (21-32) Anion Gap 9 mmol/L (5-15) Blood Urea Nitrogen 62 mg/dL (7-18) H Creatinine 1.7 MG/DL (0.55-1.30) H Estimat Glomerular Filtration Rate 38.5 mL/min (>60) Glucose Level 160 MG/DL (74-106) H Calcium Level 9.5 MG/DL (8.5-10.1) Random Vancomycin Level 16.6 ug/mL Current Medications Medications (Trade) Dose Ordered Sig/Kaveh Route PRN Reason Start Time Stop Time Status Last Admin Dose Admin Acetaminophen (Tylenol) 650 mg Q4H PRN ORAL Mild Pain/Temp > 100.5 09/06/19 18:00 10/05/19 17:59 Acetaminophen (Tylenol) 650 mg Q4H PRN RECTAL Prn Headache/Temp > 101 09/06/19 18:30 10/05/19 02:29 Albuterol/ Ipratropium (Albuterol/ Ipratropium) 3 ml Q6H PRN HHN Shortness of Breath 09/06/19 18:00 09/11/19 17:59 Clopidogrel Bisulfate (Plavix) 75 mg DAILY ORAL 09/07/19 09:00 10/06/19 10:44 Dextrose 1,000 ml @ 100 mls/hr Q10H IV 09/06/19 18:00 10/05/19 08:44 09/07/19 02:37 Docusate Sodium (Colace) 100 mg TWICE A DAY ORAL 09/06/19 18:00 10/05/19 08:59 Heparin Sodium (Porcine) (Heparin 5000 units/ml) 5,000 units EVERY 8 HOURS SUBQ 09/06/19 22:00 10/06/19 10:29 09/07/19 05:12 Meropenem 500 mg/ Sodium Chloride 55 ml @ 110 mls/hr Q12HR IV 09/06/19 21:00 09/10/19 20:59 09/07/19 09:59 Morphine Sulfate (Morphine Sulfate) 2 mg Q4H PRN IVP Severe Pain (Pain Scale 7-10) 09/06/19 18:30 09/12/19 02:29 09/07/19 01:44 Nitroglycerin (Ntg) 1 patch Q24H TDERMAL 09/07/19 09:00 10/05/19 08:59 09/07/19 09:59 Pantoprazole (Protonix) 40 mg EVERY 12 HOURS IVP 09/06/19 21:00 10/05/19 08:59 09/07/19 10:00 Risperidone (RisperDAL) 0.5 mg Q12H PRN ORAL agitation 09/06/19 18:00 10/06/19 17:59 Valproate Sodium 500 mg/Dextrose 60 ml @ 60 mls/hr Q12H IVPB 09/06/19 23:00 10/06/19 10:59 09/06/19 22:05 Vancomycin HCl (Vanco rx to dose) 1 ea DAILY PRN MISC Per rx protocol 09/07/19 09:00 10/05/19 11:29 Vancomycin HCl 500 mg/Dextrose 110 ml @ 110 mls/hr ONCE ONCE IVPB 09/07/19 12:00 09/07/19 12:59 Hakeem Hugo MD Sep 07, 2019 10:13
--- NOTE | 2019-09-07 10:28 | Nephrology Progress Note ---
Assessment/Plan Problem List: (1) NAGA (acute kidney injury) (2) UTI (urinary tract infection) (3) Elevated troponin (4) Failure to thrive in adult (5) Sepsis (6) Anemia (7) Dehydration Assessment Renal failure mostly prerenal Azotemia. May have underlying chronic kidney disease. Hydration. Sepsis leukocytosis. Encephalopathy in the form of toxic and metabolic. Failure to thrive. Albuminemia. Levator troponin. Most likely due to significant cardiac ischemia. Plan Plan: Eliminate mind altering medication as possible Hydrate. Meds IV as possible Plavix and SQ heparin N.p.o. ST evaluation. Nitrates. Monitor renal parameters. Avoid nephrotoxic's. Antibiotics per ID. Felder catheter. Discussed with RN DNR status. Subjective ROS Limited/Unobtainable: No Constitutional: Reports: malaise Objective Objective Last 24 Hour Vital Signs Date Time Temp Pulse Resp B/P (MAP) Pulse Ox O2 Delivery O2 Flow Rate FiO2 09/07/19 09:59 130/85 09/07/19 09:09 96 Nasal Cannula 4.0 36 09/07/19 08:00 98.6 80 20 130/85 (100) 100 09/07/19 04:00 80 09/07/19 04:00 97.4 83 18 98/66 (77) 96 09/07/19 02:33 98.0 09/07/19 00:00 71 09/07/19 00:00 98.0 80 18 99/71 (80) 97 09/06/19 21:33 100 Nasal Cannula 4.0 36 09/06/19 21:00 Nasal Cannula 2.0 09/06/19 20:00 98.0 82 18 92/53 (66) 96 09/06/19 20:00 76 09/06/19 18:00 97.5 86 20 112/54 (73) 100 09/06/19 16:00 74 09/06/19 16:00 Nasal Cannula 2.0 09/06/19 16:00 97.6 76 19 124/52 (76) 99 09/06/19 15:00 78 12 113/54 (73) 99 09/06/19 14:00 79 12 112/51 (71) 99 09/06/19 13:00 83 13 108/45 (66) 99 09/06/19 12:00 Nasal Cannula 2.0 09/06/19 12:00 97.8 88 26 141/42 (75) 98 09/06/19 11:56 81 09/06/19 11:00 88 28 130/93 (105) 99 Intake and Output 09/06/19 09/07/19 19:00 07:00 Intake Total 1221.66 ml Output Total 295 ml 850 ml Balance 926.66 ml -850 ml IV Total 1221.66 ml Output Urine Total 295 ml 850 ml Current Medications Medications (Trade) Dose Ordered Sig/Kaveh Route PRN Reason Start Time Stop Time Status Last Admin Dose Admin Acetaminophen (Tylenol) 650 mg Q4H PRN ORAL Mild Pain/Temp > 100.5 09/06/19 18:00 10/05/19 17:59 Acetaminophen (Tylenol) 650 mg Q4H PRN RECTAL Prn Headache/Temp > 101 09/06/19 18:30 10/05/19 02:29 Albuterol/ Ipratropium (Albuterol/ Ipratropium) 3 ml Q6H PRN HHN Shortness of Breath 09/06/19 18:00 09/11/19 17:59 Clopidogrel Bisulfate (Plavix) 75 mg DAILY ORAL 09/07/19 09:00 10/06/19 10:44 Dextrose 1,000 ml @ 100 mls/hr Q10H IV 09/06/19 18:00 10/05/19 08:44 09/07/19 02:37 Docusate Sodium (Colace) 100 mg TWICE A DAY ORAL 09/06/19 18:00 10/05/19 08:59 Folic Acid (Folate) 1 mg DAILY ORAL 09/07/19 10:30 10/07/19 10:29 UNV Heparin Sodium (Porcine) (Heparin 5000 units/ml) 5,000 units EVERY 8 HOURS SUBQ 09/06/19 22:00 10/06/19 10:29 09/07/19 05:12 Meropenem 500 mg/ Sodium Chloride 55 ml @ 110 mls/hr Q12HR IV 09/06/19 21:00 09/10/19 20:59 09/07/19 09:59 Morphine Sulfate (Morphine Sulfate) 2 mg Q4H PRN IVP Severe Pain (Pain Scale 7-10) 09/06/19 18:30 09/12/19 02:29 09/07/19 01:44 Nitroglycerin (Ntg) 1 patch Q24H TDERMAL 09/07/19 09:00 10/05/19 08:59 09/07/19 09:59 Pantoprazole (Protonix) 40 mg EVERY 12 HOURS IVP 09/06/19 21:00 10/05/19 08:59 09/07/19 10:00 Risperidone (RisperDAL) 0.5 mg Q12H PRN ORAL agitation 09/06/19 18:00 10/06/19 17:59 Valproate Sodium 500 mg/Dextrose 60 ml @ 60 mls/hr ONCE ONCE IVPB 09/07/19 10:30 09/07/19 11:29 UNV Valproate Sodium 500 mg/Dextrose 60 ml @ 60 mls/hr Q12H IVPB 09/06/19 23:00 10/06/19 10:59 09/06/19 22:05 Vancomycin HCl (Vanco rx to dose) 1 ea DAILY PRN MISC Per rx protocol 09/07/19 09:00 10/05/19 11:29 Vancomycin HCl 500 mg/Dextrose 110 ml @ 110 mls/hr ONCE ONCE IVPB 09/07/19 12:00 09/07/19 12:59 Laboratory Tests 09/07/19 04:50: White Blood Count 22.4*H, Red Blood Count 3.50L, Hemoglobin 10.5L, Hematocrit 32.3L, Mean Corpuscular Volume 92, Mean Corpuscular Hemoglobin 30.0, Mean Corpuscular Hemoglobin Concent 32.6, Red Cell Distribution Width 14.9H, Platelet Count 359, Mean Platelet Volume 7.0, Neutrophils (%) (Auto) , Lymphocytes (%) (Auto) , Monocytes (%) (Auto) , Eosinophils (%) (Auto) , Basophils (%) (Auto) , Differential Total Cells Counted 100, Neutrophils % ( Manual) 88H, Lymphocytes % (Manual) 8L, Monocytes % (Manual) 2, Eosinophils % ( Manual) 2, Basophils % (Manual) 0, Band Neutrophils 0, Platelet Estimate Adequate, Platelet Morphology Normal, Hypochromasia 1+, Anisocytosis 1+, Sodium Level 142, Potassium Level 3.9, Chloride Level 113H, Carbon Dioxide Level 21, Anion Gap 9, Blood Urea Nitrogen 62H, Creatinine 1.7H, Estimat Glomerular Filtration Rate 38.5, Glucose Level 160H, Calcium Level 9.5, Random Vancomycin Level 16.6 Height (Feet): 5 Height (Inches): 11.00 Weight (Pounds): 144 General Appearance: mild distress Cardiovascular: normal rate Respiratory/Chest: decreased breath sounds Abdomen: soft Dariusz Brandt MD Sep 07, 2019 10:28
[2019-09-07] MEDS: Valproate Sodium INJ 500 MG in D5W 55 ML IVPB SCH ×2 (11:00→22:33)
[2019-09-07] MEDS ORDERED: Valproate Sodium INJ 500 MG in D5W 55 ML IVPB ONE ×2 (11:30→13:00)
[2019-09-07 12:00] VITALS: BP 129/66
[2019-09-07] MEDS ORDERED: Vancomycin 500mg/D5W 110ml IVPB ONE ×4 (12:00→13:00)
--- NOTE | 2019-09-07 14:07 | Diagnostic Imaging Report ---
Indication: Pneumothorax. Follow-up. Shortness of breath Comparison: 09/04/2019 A single view chest radiograph was obtained. Findings: There is a tiny left apical pneumothorax. This appears smaller than on the previous study. Lungs remain clear. Heart is normal in size. Trachea is midline. Aorta is calcified. IMPRESSION: Trace left apical pneumothorax.
--- NOTE | 2019-09-07 14:42 | Consultation ---
History of Present Illness General Date patient seen: Sep 07, 2019 Chief Complaint: Generalized Weakness Present Illness HPI 83 year old male with multiple medical comorbidities admitted to [facility] for renal failure, abnormal labs, significant leukocytosis, fatigue. During admission persistent leukocytosis and multiple skin lesions noted. pneumothorax on left. surgery called to evaluate and assist with care. patient seen, chart reviewed, patient examined. he is unable to provide any meaning ful history. arousable but not responsive or following commands. history obtained from EMR. Allergies: Coded Allergies: AMLODIPINE (Verified Allergy, Unknown, 09/04/19) ASPIRIN (Verified Allergy, Unknown, 09/04/19) BENAZEPRIL (Verified Allergy, Unknown, 09/04/19) Medication History Scheduled Atorvastatin Calcium* (Lipitor*), 40 MG ORAL DAILY, (Reported) Clopidogrel Bisulfate* (Plavix*), 75 MG ORAL DAILY, (Reported) Cyanocobalamin (Vitamin B-12)* (Vitamin B-12*), 100 MCG ORAL DAILY, (Reported) Divalproex Sodium* (Depakote*), 125 MG PO Q12HR, (Reported) Docusate Sodium* (Colace*), 100 MG ORAL TWICE A DAY, (Reported) Quetiapine Fumarate* (Seroquel*), 25 MG ORAL TWICE A DAY, (Reported) Risperidone* (Risperdal*), 0.5 MG ORAL BID, (Reported) Miscellaneous Medications Ferrous Sulfate (Ferrous Sulfate), 300 MG GT, (Reported) Patient History Limited by: age, medical condition History Provided By: Medical Record, PMD Healthcare decision maker Resuscitation status Do Not Resuscitate Advanced Directive on File Past Medical/Surgical History Past Medical/Surgical History: (1) Pneumothorax on left (2) Dehydration (3) Anemia (4) Failure to thrive (5) Sepsis (6) UTI (urinary tract infection) (7) Elevated troponin (8) Failure to thrive in adult (9) NAGA (acute kidney injury) Review of Systems ROS Narrative unable to obtain given patients medical condition Physical Exam General Appearance: no apparent distress Lines, tubes and drains: peripheral HEENT: mucous membranes moist, other Neck: normal alignment, supple, normal inspection Respiratory/Chest: lungs clear, no respiratory distress, no accessory muscle use, decreased breath sounds, other Cardiovascular/Chest: normal rate, regular rhythm Abdomen: soft, no organomegaly, no mass Extremities: normal inspection Skin Exam: warm/dry, other - multiple skin lesions on chest, face Neurologic: unresponsiveness Last 24 Hour Vital Signs Date Time Temp Pulse Resp B/P (MAP) Pulse Ox O2 Delivery O2 Flow Rate FiO2 09/07/19 09:59 130/85 09/07/19 09:09 96 Nasal Cannula 4.0 36 09/07/19 09:00 Nasal Cannula 2.0 09/07/19 08:00 98.6 80 20 130/85 (100) 100 09/07/19 07:42 92 09/07/19 04:00 80 09/07/19 04:00 97.4 83 18 98/66 (77) 96 09/07/19 02:33 98.0 09/07/19 00:00 71 09/07/19 00:00 98.0 80 18 99/71 (80) 97 09/06/19 21:33 100 Nasal Cannula 4.0 36 09/06/19 21:00 Nasal Cannula 2.0 09/06/19 20:00 98.0 82 18 92/53 (66) 96 09/06/19 20:00 76 09/06/19 18:00 97.5 86 20 112/54 (73) 100 09/06/19 16:00 74 09/06/19 16:00 Nasal Cannula 2.0 09/06/19 16:00 97.6 76 19 124/52 (76) 99 09/06/19 15:00 78 12 113/54 (73) 99 Intake and Output 09/06/19 09/07/19 19:00 07:00 Intake Total 1221.66 ml Output Total 295 ml 850 ml Balance 926.66 ml -850 ml IV Total 1221.66 ml Output Urine Total 295 ml 850 ml Laboratory Tests Test 09/07/19 04:50 White Blood Count 22.4 K/UL (4.8-10.8) *H Red Blood Count 3.50 M/UL (4.70-6.10) L Hemoglobin 10.5 G/DL (14.2-18.0) L Hematocrit 32.3 % (42.0-52.0) L Mean Corpuscular Volume 92 FL (80-99) Mean Corpuscular Hemoglobin 30.0 PG (27.0-31.0) Mean Corpuscular Hemoglobin Concent 32.6 G/DL (32.0-36.0) Red Cell Distribution Width 14.9 % (11.6-14.8) H Platelet Count 359 K/UL (150-450) Mean Platelet Volume 7.0 FL (6.5-10.1) Neutrophils (%) (Auto) % (45.0-75.0) Lymphocytes (%) (Auto) % (20.0-45.0) Monocytes (%) (Auto) % (1.0-10.0) Eosinophils (%) (Auto) % (0.0-3.0) Basophils (%) (Auto) % (0.0-2.0) Differential Total Cells Counted 100 Neutrophils % (Manual) 88 % (45-75) H Lymphocytes % (Manual) 8 % (20-45) L Monocytes % (Manual) 2 % (1-10) Eosinophils % (Manual) 2 % (0-3) Basophils % (Manual) 0 % (0-2) Band Neutrophils 0 % (0-8) Platelet Estimate Adequate Platelet Morphology Normal Hypochromasia 1+ Anisocytosis 1+ Sodium Level 142 MMOL/L (136-145) Potassium Level 3.9 MMOL/L (3.5-5.1) Chloride Level 113 MMOL/L (98-107) H Carbon Dioxide Level 21 MMOL/L (21-32) Anion Gap 9 mmol/L (5-15) Blood Urea Nitrogen 62 mg/dL (7-18) H Creatinine 1.7 MG/DL (0.55-1.30) H Estimat Glomerular Filtration Rate 38.5 mL/min (>60) Glucose Level 160 MG/DL (74-106) H Calcium Level 9.5 MG/DL (8.5-10.1) Random Vancomycin Level 16.6 ug/mL Height (Feet): 5 Height (Inches): 11.00 Weight (Pounds): 144 Medications Current Medications Medications (Trade) Dose Ordered Sig/Kaveh Route PRN Reason Start Time Stop Time Status Last Admin Dose Admin Acetaminophen (Tylenol) 650 mg Q4H PRN ORAL Mild Pain/Temp > 100.5 09/06/19 18:00 10/05/19 17:59 Acetaminophen (Tylenol) 650 mg Q4H PRN RECTAL Prn Headache/Temp > 101 09/06/19 18:30 10/05/19 02:29 Albuterol/ Ipratropium (Albuterol/ Ipratropium) 3 ml Q6H PRN HHN Shortness of Breath 09/06/19 18:00 09/11/19 17:59 Barium Sulfate (Readi-Cat 2) 450 ml NOW PRN ORAL Radiology Procedure 09/07/19 12:15 09/09/19 12:01 Clopidogrel Bisulfate (Plavix) 75 mg DAILY ORAL 09/07/19 09:00 10/06/19 10:44 Dextrose 1,000 ml @ 75 mls/hr [id number] IV 09/07/19 10:30 10/05/19 10:29 09/07/19 10:30 Docusate Sodium (Colace) 100 mg TWICE A DAY ORAL 09/06/19 18:00 10/05/19 08:59 Folic Acid (Folate) 1 mg DAILY ORAL 09/07/19 10:30 10/07/19 10:29 Heparin Sodium (Porcine) (Heparin 5000 units/ml) 5,000 units EVERY 8 HOURS SUBQ 09/06/19 22:00 10/06/19 10:29 09/07/19 05:12 Meropenem 500 mg/ Sodium Chloride 55 ml @ 110 mls/hr Q12HR IV 09/06/19 21:00 09/10/19 20:59 09/07/19 09:59 Morphine Sulfate (Morphine Sulfate) 2 mg Q4H PRN IVP Severe Pain (Pain Scale 7-10) 09/06/19 18:30 09/12/19 02:29 09/07/19 01:44 Nitroglycerin (Ntg) 1 patch Q24H TDERMAL 09/07/19 09:00 10/05/19 08:59 09/07/19 09:59 Pantoprazole (Protonix) 40 mg EVERY 12 HOURS IVP 09/06/19 21:00 10/05/19 08:59 09/07/19 10:00 Risperidone (RisperDAL) 0.5 mg Q12H PRN ORAL agitation 09/06/19 18:00 10/06/19 17:59 Valproate Sodium 500 mg/Dextrose 60 ml @ 60 mls/hr Q12H IVPB 09/06/19 23:00 10/06/19 10:59 09/07/19 11:00 Vancomycin HCl (Vanco rx to dose) 1 ea DAILY PRN MISC Per rx protocol 09/07/19 09:00 10/05/19 11:29 Assessment/Plan Problem List: (1) Skin lesions Assessment & Plan: patient presented with multiple skin lesions scrotal edema with cellulitis. pending CT pelvis for eval sacral DTI noted large, skin blistering open now epidermal loss dermis intact left upper extremity epidermal skin blistering open, dermis intact multiple wounds noted on ear, face, chest skin breakdown malnutrition overall prognosis guarded will await CT scan hold on skin biopsy of lesions. possible SCC and facial melanoma nutritional optimization thank you will follow with recs ICD Codes: L98.9 - Disorder of the skin and subcutaneous tissue, unspecified SNOMED: 62785797 (2) Leukocytosis Assessment & Plan: ct chest ordered ct abd/ pelvis ordered by ID for r/o abd abscess ICD Codes: D72.829 - Elevated white blood cell count, unspecified SNOMED: 862335104, 011690781 (3) Sepsis ICD Codes: A41.9 - Sepsis, unspecified organism SNOMED: 17758890 Qualifiers: Qualified Codes: A41.9 - Sepsis, unspecified organism (4) Failure to thrive SNOMED: 93137803 (5) Failure to thrive in adult Assessment & Plan: DAILY ESTIMATED NEEDS: Needs based on Wounds, underweight 58.5kg 30-35 kcals/kg 3624-8993 total kcals 1.25-2 g protein/kg 73-117 g total protein 25-30ml/kcal mL/kg 8025-7041 total fluid mLs NUTRITION DIAGNOSIS: Increased kcal and pro needs r/t wound healing and underweight status as evidenced by pt w/ multiple pressure wounds, eval pending, underweight per guidelines w/ generalized moderate-severe wasting, @72% of [place] Body Weight. 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 This appears smaller than on the previous study. Lungs remain clear. Heart is normal in size. Trachea is midline. Aorta is calcified. IMPRESSION: Trace left apical pneumothorax. stable can monitor for now repeat cxr hold on tube for now CT chest when stable ICD Codes: J93.9 - Pneumothorax, unspecified SNOMED: 579970484 Connor Mcfadden Sep 07, 2019 14:42
[2019-09-07] MEDS ORDERED: Omnipaque-300 100ml vial INJ ONE (14:45)
--- NOTE | 2019-09-07 15:30 | Progress Note ---
DATE: 09/07/2019 SUBJECTIVE: This is an 83-year-old male patient with failure to thrive, but he has altered mental status, confusion. He is confused, disorganized on the telemetry unit, but he is presumably more calm and cooperative than previous day. He is still disoriented. PLAN: I am going to continue treatment with Risperdal to help stabilize his mood and reduce agitation. 20 minutes of insight-oriented psychotherapy to help him recognize his medical and physical conditions to have better impulse control on the unit. 20 minutes of insight-oriented psychotherapy. Chart reviewed. Discussed with staff. Seen and assessed in his room. Cherri De Luna M.D. DR: NICK JOB#: [id number] CC:
[2019-09-07 16:00] VITALS: BP 123/63
--- NOTE | 2019-09-07 16:15 | Consultation ---
DATE OF CONSULTATION: 09/07/2019 CONSULTING PHYSICIAN: Arley Cosby M.D. REFERRING PHYSICIAN: Prabhakar Pond D.O. CHIEF COMPLAINT: Failure to thrive and dysphagia. HISTORY OF PRESENT ILLNESS: Most of the history per chart. An 83-year-old male with past medical history of Parkinson disease, hypertension, and diabetes, admitted to the hospital with failure to thrive and lethargy. The patient was found to be anemic. White count was significantly elevated. The patient has elevated troponin. The patient failed a swallow evaluation and GI consultation was requested for evaluation for PEG placement. PAST MEDICAL HISTORY: 1. Parkinson disease. 2. Hypertension. 3. Diabetes. 4. Dementia. PAST SURGICAL HISTORY: Unknown. ALLERGIES: To amlodipine, aspirin, and benazepril. MEDICATIONS: Please see medication reconciliation list. SOCIAL HISTORY: Currently lives in a fdc. No history of tobacco, alcohol, or drug abuse. FAMILY HISTORY: Noncontributory. REVIEW OF SYSTEMS: Unable to obtain. PHYSICAL EXAMINATION: VITAL SIGNS: Temperature is 98.6, pulse 80, respirations 20, and blood pressure 130/85. HEENT: Normocephalic. Pale conjunctivae. NECK: Supple. No obvious evidence of adenopathy. CARDIOVASCULAR: Tachy, regular rate. Plus S1 and S2. LUNGS: Decreased breath sounds bilaterally and diffusely on the supine exam. ABDOMEN: Soft, nontender. No rebound. No guarding. No peritoneal sign. EXTREMITIES: Multiple ulcer wounds of the lower extremity covered with a Band-Aid. LABORATORY DATA: White count is 22.4, hemoglobin 10.5, hematocrit 32, and platelet count 359,000. Sodium 142, potassium 3.9, BUN 62, creatinine 1.7. Iron saturation 14%. Troponin elevated at 3.29. ASSESSMENT AND PLAN: This is an 83-year-old male with numerous medical problems at this time with sepsis, elevated white count, iron deficiency anemia, dysphagia, dementia, elevated troponin, acute renal failure, and malnutrition. Most probably the family wants everything done for this patient and he would need a PEG, but currently the patient has elevated troponin and on Plavix, so most probably not going to be stable for that. He also has elevated white count, so I left a message for family to see what they want to do for this elderly gentleman. Meanwhile, plan will be to put an NG tube and start the NG tube feeding until the family make the decision and until the patient is more stable for possible PEG. I want to thank Dr. Prabhakar Pond for this kind referral. Arley Cosby M.D. DR: ILANA JOB#: [id number] CC:
--- NOTE | 2019-09-07 19:49 | Cardiology Progress Note ---
Assessment/Plan Assessment/Plan Small left apical pneumothorax. 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 Parkinson. Dementia. UTI. Hypernatremia. Left upper extremity cellulitis. Multiple decubitus. NSTEMI dnr no candidate for any invasive therapy trop down trending tele sinus lab ntoed cr improved dc tele soon Subjective ROS Limited/Unobtainable: Yes Objective Last 24 Hour Vital Signs Date Time Temp Pulse Resp B/P (MAP) Pulse Ox O2 Delivery O2 Flow Rate FiO2 09/07/19 16:00 98.2 71 20 123/63 (83) 100 09/07/19 15:30 87 09/07/19 12:00 97.7 65 19 129/66 (87) 98 09/07/19 11:52 112 09/07/19 09:59 130/85 09/07/19 09:09 96 Nasal Cannula 4.0 36 09/07/19 09:00 Nasal Cannula 2.0 09/07/19 08:00 98.6 80 20 130/85 (100) 100 09/07/19 07:42 92 09/07/19 04:00 80 09/07/19 04:00 97.4 83 18 98/66 (77) 96 09/07/19 02:33 98.0 09/07/19 00:00 71 09/07/19 00:00 98.0 80 18 99/71 (80) 97 09/06/19 21:33 100 Nasal Cannula 4.0 36 09/06/19 21:00 Nasal Cannula 2.0 09/06/19 20:00 98.0 82 18 92/53 (66) 96 09/06/19 20:00 76 General Appearance: no apparent distress, patient on isolation Cardiovascular: normal rate, systolic murmur Respiratory/Chest: lungs clear - ant Abdomen: normal bowel sounds, non tender, soft Extremities: no swelling Intake and Output 09/06/19 09/07/19 19:00 07:00 Intake Total 1221.66 ml Output Total 295 ml 850 ml Balance 926.66 ml -850 ml IV Total 1221.66 ml Output Urine Total 295 ml 850 ml Laboratory Tests Test 09/07/19 04:50 White Blood Count 22.4 K/UL (4.8-10.8) *H Red Blood Count 3.50 M/UL (4.70-6.10) L Hemoglobin 10.5 G/DL (14.2-18.0) L Hematocrit 32.3 % (42.0-52.0) L Mean Corpuscular Volume 92 FL (80-99) Mean Corpuscular Hemoglobin 30.0 PG (27.0-31.0) Mean Corpuscular Hemoglobin Concent 32.6 G/DL (32.0-36.0) Red Cell Distribution Width 14.9 % (11.6-14.8) H Platelet Count 359 K/UL (150-450) Mean Platelet Volume 7.0 FL (6.5-10.1) Neutrophils (%) (Auto) % (45.0-75.0) Lymphocytes (%) (Auto) % (20.0-45.0) Monocytes (%) (Auto) % (1.0-10.0) Eosinophils (%) (Auto) % (0.0-3.0) Basophils (%) (Auto) % (0.0-2.0) Differential Total Cells Counted 100 Neutrophils % (Manual) 88 % (45-75) H Lymphocytes % (Manual) 8 % (20-45) L Monocytes % (Manual) 2 % (1-10) Eosinophils % (Manual) 2 % (0-3) Basophils % (Manual) 0 % (0-2) Band Neutrophils 0 % (0-8) Platelet Estimate Adequate Platelet Morphology Normal Hypochromasia 1+ Anisocytosis 1+ Sodium Level 142 MMOL/L (136-145) Potassium Level 3.9 MMOL/L (3.5-5.1) Chloride Level 113 MMOL/L (98-107) H Carbon Dioxide Level 21 MMOL/L (21-32) Anion Gap 9 mmol/L (5-15) Blood Urea Nitrogen 62 mg/dL (7-18) H Creatinine 1.7 MG/DL (0.55-1.30) H Estimat Glomerular Filtration Rate 38.5 mL/min (>60) Glucose Level 160 MG/DL (74-106) H Calcium Level 9.5 MG/DL (8.5-10.1) Random Vancomycin Level 16.6 ug/mL Microbiology Date/Time Source Procedure Growth Status 09/04/19 20:35 Blood Blood Culture - Preliminary NO GROWTH AFTER 48 HOURS Resulted 09/04/19 20:20 Blood Blood Culture - Preliminary NO GROWTH AFTER 48 HOURS Resulted 09/06/19 10:30 Nasopharynx - Final Complete 09/06/19 10:30 Nasopharynx - Final Complete 09/05/19 13:55 Nasal Nares MRSA Culture - Final NO METHICILLIN RESISTANT STAPH AUREUS... Complete 09/04/19 21:00 Nasal Nares MRSA Culture - Final NO METHICILLIN RESISTANT STAPH AUREUS... Complete 09/04/19 20:30 Urine,Clean Catch Urine Culture - Preliminary NO GROWTH AFTER 24 HOURS Resulted 09/04/19 21:00 Rectum VRE Culture - Final Enterococcus Faecium - Vre Enterococcus Faecalis - Vre Complete Ronnie Lamb MD Sep 07, 2019 19:49
[2019-09-07 20:00] VITALS: BP 98/54
[2019-09-08] VITALS: BP 134/55
[2019-09-08] MEDS: Morphine Sulfate 2mg/ml Inj(IV/IM USE ONLY) IVP PRN (03:20)
[2019-09-08 04:00] VITALS: BP 148/98
[2019-09-08] MEDS: Heparin 5000 units/ml inj SUBQ SCH ×3 (06:00→21:11)
[2019-09-08 07:11] LABS: HEMATOCRIT 25.1 % (42.0-52.0); HEMOGLOBIN 8.5 G/DL (14.2-18.0); MEAN CORPUSCULAR VOLUME 90 FL (80-99); PLATELET COUNT 309 K/UL (150-450); RED BLOOD COUNT 2.79 M/UL (4.70-6.10); RED CELL DISTRIBUTION WIDTH 14.4 % (11.6-14.8); WHITE BLOOD COUNT 15.8 K/UL (4.8-10.8)
[2019-09-08 07:53] LABS: ALANINE AMINOTRANSFERASE 42 U/L (12-78); ALBUMIN 1.2 G/DL (3.4-5.0); ALBUMIN/GLOBULIN RATIO 0.3 (1.0-2.7); ALKALINE PHOSPHATASE 85 U/L (46-116); ANION GAP 8 mmol/L (5-15); ASPARTATE AMINO TRANSFERASE 59 U/L (15-37); BILIRUBIN,TOTAL 0.5 MG/DL (0.2-1.0); BLOOD UREA NITROGEN 64 mg/dL (7-18); CALCIUM 8.3 MG/DL (8.5-10.1); CARBON DIOXIDE 24 MMOL/L (21-32); CHLORIDE 110 MMOL/L (98-107); CREATININE 1.6 MG/DL (0.55-1.30); POTASSIUM 3.6 MMOL/L (3.5-5.1); SODIUM 142 MMOL/L (136-145)
[2019-09-08 07:57] LABS: PHOSPHORUS 2.4 MG/DL (2.5-4.9)
[2019-09-08 08:00] VITALS: BP 139/53
[2019-09-08] MEDS ORDERED: Tubing IV Secondary IV ONE (08:57)
[2019-09-08] MEDS ORDERED: NS 275ml ONE (08:57)
[2019-09-08] MEDS: Docusate 100mg cap ORAL SCH ×2 (09:00→17:30)
[2019-09-08] MEDS: Nitroglycerin Patch 0.4mg TDERMAL SCH (09:00)
--- NOTE | 2019-09-08 10:29 | Pulmonology Progress Note ---
Assessment/Plan Assessment/Plan IMPRESSION: 1. Small left apical pneumothorax. 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 3. Parkinson. 4. Dementia. 5. UTI. 6. Hypernatremia. 7. Left upper extremity cellulitis. 8. Multiple decubitus. 9. Likely NSTEMI DISCUSSION: Noted DNR status. At this time, he is asymptomatic from pulmonary standpoint. Therefore, we will avoid any further intervention for the small apical left pneumothorax. This may be spontaneous due to his underlying lung disease. Saturations are adequate on low flow O2 No respiratory distress or tachypnea Continue antibiotic vancomycin for left upper extremity cellulitis Hydration status addressed by Nephrology. 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 Discussed with daughter Sushma yesterday. She is agreeable to hospice. She is requesting [facility] Arun Melvin M.D. Subjective Interval Events: None new Constitutional: Reports: no symptoms HEENT: Repors: no symptoms Respiratory: Reports: no symptoms Cardiovascular: Reports: no symptoms Allergies: Coded Allergies: AMLODIPINE (Verified Allergy, Unknown, 09/04/19) ASPIRIN (Verified Allergy, Unknown, 09/04/19) BENAZEPRIL (Verified Allergy, Unknown, 09/04/19) Objective Last 24 Hour Vital Signs Date Time Temp Pulse Resp B/P (MAP) Pulse Ox O2 Delivery O2 Flow Rate FiO2 09/08/19 08:11 Nasal Cannula 2.0 09/08/19 08:00 96.2 80 20 139/53 (81) 98 09/08/19 08:00 95 Nasal Cannula 2.0 28 09/08/19 04:00 71 09/08/19 04:00 97.9 78 18 148/98 (115) 97 09/08/19 00:00 70 09/08/19 00:00 97.9 70 19 134/55 (81) 96 09/07/19 21:00 Nasal Cannula 2.0 09/07/19 20:08 97 Nasal Cannula 2.0 28 09/07/19 20:00 98.4 82 19 98/54 (69) 98 09/07/19 20:00 82 09/07/19 16:00 98.2 71 20 123/63 (83) 100 09/07/19 15:30 87 09/07/19 12:00 97.7 65 19 129/66 (87) 98 09/07/19 11:52 112 Intake and Output 09/07/19 09/08/19 19:00 07:00 Output Total 500 ml Balance -500 ml Output Urine Total 500 ml General Appearance: no acute distress HEENT: normocephalic Respiratory/Chest: chest wall non-tender Cardiovascular: normal peripheral pulses Abdomen: normal bowel sounds Microbiology Date/Time Source Procedure Growth Status 09/06/19 10:30 Nasopharynx - Final Complete 09/06/19 10:30 Nasopharynx - Final Complete 09/05/19 13:55 Nasal Nares MRSA Culture - Final NO METHICILLIN RESISTANT STAPH AUREUS... Complete Laboratory Tests 09/08/19 06:50: White Blood Count 15.8H, Red Blood Count 2.79L, Hemoglobin 8.5L, Hematocrit 25.1L, Mean Corpuscular Volume 90, Mean Corpuscular Hemoglobin 30.3, Mean Corpuscular Hemoglobin Concent 33.7, Red Cell Distribution Width 14.4, Platelet Count 309, Mean Platelet Volume 7.5, Neutrophils (%) (Auto) , Lymphocytes (%) ( Auto) , Monocytes (%) (Auto) , Eosinophils (%) (Auto) , Basophils (%) (Auto) , Neutrophils % (Manual) [Pending], Lymphocytes % (Manual) [Pending], Platelet Estimate [Pending], Platelet Morphology [Pending], Sodium Level 142, Potassium Level 3.6, Chloride Level 110H, Carbon Dioxide Level 24, Anion Gap 8, Blood Urea Nitrogen 64H, Creatinine 1.6H, Estimat Glomerular Filtration Rate 41.3, Glucose Level 165H, Calcium Level 8.3L, Phosphorus Level 2.4L, Magnesium Level 2.2, Total Bilirubin 0.5, Aspartate Amino Transf (AST/SGOT) 59H, Alanine Aminotransferase (ALT/SGPT) 42, Alkaline Phosphatase 85, C-Reactive Protein, Quantitative 20.3H, Pro-B-Type Natriuretic Peptide 77607V, Total Protein 5.4L, Albumin 1.2L, Globulin 4.2, Albumin/Globulin Ratio 0.3L, Valproic Acid (Depakene ) Level 13L Current Medications Medications (Trade) Dose Ordered Sig/Kaveh Route PRN Reason Start Time Stop Time Status Last Admin Dose Admin Acetaminophen (Tylenol) 650 mg Q4H PRN ORAL Mild Pain/Temp > 100.5 09/06/19 18:00 10/05/19 17:59 Acetaminophen (Tylenol) 650 mg Q4H PRN RECTAL Prn Headache/Temp > 101 09/06/19 18:30 10/05/19 02:29 Albuterol/ Ipratropium (Albuterol/ Ipratropium) 3 ml Q6H PRN HHN Shortness of Breath 09/06/19 18:00 09/11/19 17:59 Barium Sulfate (Readi-Cat 2) 450 ml NOW PRN ORAL Radiology Procedure 09/07/19 12:15 09/09/19 12:01 Clopidogrel Bisulfate (Plavix) 75 mg DAILY ORAL 09/07/19 09:00 10/06/19 10:44 Dextrose 1,000 ml @ 75 mls/hr [id number] IV 09/07/19 10:30 10/05/19 10:29 09/07/19 17:10 Docusate Sodium (Colace) 100 mg TWICE A DAY ORAL 09/06/19 18:00 10/05/19 08:59 Folic Acid (Folate) 1 mg DAILY ORAL 09/07/19 10:30 10/07/19 10:29 Heparin Sodium (Porcine) (Heparin 5000 units/ml) 5,000 units EVERY 8 HOURS SUBQ 09/06/19 22:00 10/06/19 10:29 09/08/19 06:00 Meropenem 500 mg/ Sodium Chloride 55 ml @ 110 mls/hr Q12HR IV 09/06/19 21:00 09/10/19 20:59 09/07/19 21:15 Morphine Sulfate (Morphine Sulfate) 2 mg Q4H PRN IVP Severe Pain (Pain Scale 7-10) 09/06/19 18:30 09/12/19 02:29 09/08/19 03:20 Nitroglycerin (Ntg) 1 patch Q24H TDERMAL 09/07/19 09:00 10/05/19 08:59 09/07/19 09:59 Pantoprazole (Protonix) 40 mg EVERY 12 HOURS IVP 09/06/19 21:00 3/30/20 08:59 09/07/19 21:15 Risperidone (RisperDAL) 0.5 mg Q12H PRN ORAL agitation 09/06/19 18:00 10/06/19 17:59 Valproate Sodium 500 mg/Dextrose 60 ml @ 60 mls/hr Q12H IVPB 09/06/19 23:00 10/06/19 10:59 09/07/19 22:33 Vancomycin HCl (Vanco rx to dose) 1 ea DAILY PRN MISC Per rx protocol 09/07/19 09:00 10/05/19 11:29 Arun Melvin MD Sep 08, 2019 10:29
[2019-09-08] MEDS: Meropenem 500 MG in NS 55 ML IV SCH ×2 (10:48→21:05)
[2019-09-08] MEDS: Pantoprazole Inj IVP SCH ×2 (10:48→21:05)
--- NOTE | 2019-09-08 10:52 | Nephrology Progress Note ---
Assessment/Plan Problem List: (1) NAGA (acute kidney injury) (2) UTI (urinary tract infection) (3) Elevated troponin (4) Failure to thrive in adult (5) Sepsis (6) Anemia (7) Dehydration Assessment Potassium phosphate in the morning dose 20 mmol Renal failure mostly prerenal Azotemia. May have underlying chronic kidney disease. Hydration. Sepsis leukocytosis. Encephalopathy in the form of toxic and metabolic. Failure to thrive. Albuminemia. Levator troponin. Most likely due to significant cardiac ischemia. Plan Plan: Eliminate mind altering medication as possible Hydrate. Meds IV as possible Plavix and SQ heparin N.p.o. ST evaluation. Nitrates. Monitor renal parameters. Avoid nephrotoxic's. Antibiotics per ID. Felder catheter. Discussed with RN DNR status. Subjective ROS Limited/Unobtainable: No Constitutional: Reports: malaise, weakness Objective Objective Last 24 Hour Vital Signs Date Time Temp Pulse Resp B/P (MAP) Pulse Ox O2 Delivery O2 Flow Rate FiO2 09/08/19 08:11 Nasal Cannula 2.0 09/08/19 08:00 96.2 80 20 139/53 (81) 98 09/08/19 08:00 95 Nasal Cannula 2.0 28 09/08/19 04:00 71 09/08/19 04:00 97.9 78 18 148/98 (115) 97 09/08/19 00:00 70 09/08/19 00:00 97.9 70 19 134/55 (81) 96 09/07/19 21:00 Nasal Cannula 2.0 09/07/19 20:08 97 Nasal Cannula 2.0 28 09/07/19 20:00 98.4 82 19 98/54 (69) 98 09/07/19 20:00 82 09/07/19 16:00 98.2 71 20 123/63 (83) 100 09/07/19 15:30 87 09/07/19 12:00 97.7 65 19 129/66 (87) 98 09/07/19 11:52 112 Intake and Output 09/07/19 09/08/19 19:00 07:00 Output Total 500 ml Balance -500 ml Output Urine Total 500 ml Current Medications Medications (Trade) Dose Ordered Sig/Kaveh Route PRN Reason Start Time Stop Time Status Last Admin Dose Admin Acetaminophen (Tylenol) 650 mg Q4H PRN ORAL Mild Pain/Temp > 100.5 09/06/19 18:00 10/05/19 17:59 Acetaminophen (Tylenol) 650 mg Q4H PRN RECTAL Prn Headache/Temp > 101 09/06/19 18:30 10/05/19 02:29 Albuterol/ Ipratropium (Albuterol/ Ipratropium) 3 ml Q6H PRN HHN Shortness of Breath 09/06/19 18:00 09/11/19 17:59 Barium Sulfate (Readi-Cat 2) 450 ml NOW PRN ORAL Radiology Procedure 09/07/19 12:15 09/09/19 12:01 Clopidogrel Bisulfate (Plavix) 75 mg DAILY ORAL 09/07/19 09:00 10/06/19 10:44 Dextrose 1,000 ml @ 75 mls/hr [id number] IV 09/07/19 10:30 10/05/19 10:29 09/08/19 10:49 Docusate Sodium (Colace) 100 mg TWICE A DAY ORAL 09/06/19 18:00 10/05/19 08:59 Folic Acid (Folate) 1 mg DAILY ORAL 09/07/19 10:30 10/07/19 10:29 Heparin Sodium (Porcine) (Heparin 5000 units/ml) 5,000 units EVERY 8 HOURS SUBQ 09/06/19 22:00 10/06/19 10:29 09/08/19 06:00 Meropenem 500 mg/ Sodium Chloride 55 ml @ 110 mls/hr Q12HR IV 09/06/19 21:00 09/10/19 20:59 09/08/19 10:48 Morphine Sulfate (Morphine Sulfate) 2 mg Q4H PRN IVP Severe Pain (Pain Scale 7-10) 09/06/19 18:30 09/12/19 02:29 09/08/19 03:20 Nitroglycerin (Ntg) 1 patch Q24H TDERMAL 09/07/19 09:00 10/05/19 08:59 09/07/19 09:59 Pantoprazole (Protonix) 40 mg EVERY 12 HOURS IVP 09/06/19 21:00 10/05/19 08:59 09/08/19 10:48 Potassium Phosphate 20 mm/ Sodium Chloride 281.6667 ml @ 46.944 m... ONCE ONCE IV 09/08/19 12:00 09/08/19 17:59 Risperidone (RisperDAL) 0.5 mg Q12H PRN ORAL agitation 09/06/19 18:00 10/06/19 17:59 Valproate Sodium 500 mg/Dextrose 60 ml @ 60 mls/hr Q12H IVPB 09/06/19 23:00 10/06/19 10:59 09/07/19 22:33 Vancomycin HCl (Vanco rx to dose) 1 ea DAILY PRN MISC Per rx protocol 09/07/19 09:00 10/05/19 11:29 Laboratory Tests 09/08/19 06:50: White Blood Count 15.8H, Red Blood Count 2.79L, Hemoglobin 8.5L, Hematocrit 25.1L, Mean Corpuscular Volume 90, Mean Corpuscular Hemoglobin 30.3, Mean Corpuscular Hemoglobin Concent 33.7, Red Cell Distribution Width 14.4, Platelet Count 309, Mean Platelet Volume 7.5, Neutrophils (%) (Auto) , Lymphocytes (%) ( Auto) , Monocytes (%) (Auto) , Eosinophils (%) (Auto) , Basophils (%) (Auto) , Neutrophils % (Manual) [Pending], Lymphocytes % (Manual) [Pending], Platelet Estimate [Pending], Platelet Morphology [Pending], Sodium Level 142, Potassium Level 3.6, Chloride Level 110H, Carbon Dioxide Level 24, Anion Gap 8, Blood Urea Nitrogen 64H, Creatinine 1.6H, Estimat Glomerular Filtration Rate 41.3, Glucose Level 165H, Calcium Level 8.3L, Phosphorus Level 2.4L, Magnesium Level 2.2, Total Bilirubin 0.5, Aspartate Amino Transf (AST/SGOT) 59H, Alanine Aminotransferase (ALT/SGPT) 42, Alkaline Phosphatase 85, C-Reactive Protein, Quantitative 20.3H, Pro-B-Type Natriuretic Peptide 14597P, Total Protein 5.4L, Albumin 1.2L, Globulin 4.2, Albumin/Globulin Ratio 0.3L, Valproic Acid (Depakene ) Level 13L Height (Feet): 5 Height (Inches): 11.00 Weight (Pounds): 152 General Appearance: lethargic, mild distress - at times Cardiovascular: normal rate Respiratory/Chest: decreased breath sounds Abdomen: distended FojaanDariusz MD Sep 08, 2019 10:52
--- NOTE | 2019-09-08 10:58 | GI Progress Note ---
Assessment/Plan Problems: (1) Failure to thrive in adult ICD Codes: R62.7 - Adult failure to thrive SNOMED: 109333039 (2) Failure to thrive SNOMED: 08105133 (3) Anemia ICD Codes: D64.9 - Anemia, unspecified SNOMED: 357680963 (4) Dehydration ICD Codes: E86.0 - Dehydration SNOMED: 14414821 (5) Skin lesions ICD Codes: L98.9 - Disorder of the skin and subcutaneous tissue, unspecified SNOMED: 17643829 Status: unchanged Status Narrative Discussed with Dr. Cosby. Assessment/Plan This is an 83-year-old male with numerous medical problems at this time with sepsis, elevated white count, iron deficiency anemia, dysphagia, dementia, elevated troponin, acute renal failure, and malnutrition. Most probably the family wants everything done for this patient and he would need a PEG, but currently the patient has elevated troponin and on Plavix, so most probably not going to be stable for that. NGT inserted today, start TF after imaging confirmation Await family decision for PEG versus hospice PRN transfusions Supportive care PPI We will follow The patient was seen and examined at bedside and all new and available data was reviewed in the patients chart. I agree with the above findings, impression and plan. (Patient seen earlier today. Signature stamp does not reflect patient encounter time.). - Arley Cosby MD Subjective Subjective limited Objective Last 24 Hour Vital Signs Date Time Temp Pulse Resp B/P (MAP) Pulse Ox O2 Delivery O2 Flow Rate FiO2 09/08/19 08:11 Nasal Cannula 2.0 09/08/19 08:00 96.2 80 20 139/53 (81) 98 09/08/19 08:00 95 Nasal Cannula 2.0 28 09/08/19 04:00 71 09/08/19 04:00 97.9 78 18 148/98 (115) 97 09/08/19 00:00 70 09/08/19 00:00 97.9 70 19 134/55 (81) 96 09/07/19 21:00 Nasal Cannula 2.0 09/07/19 20:08 97 Nasal Cannula 2.0 28 09/07/19 20:00 98.4 82 19 98/54 (69) 98 09/07/19 20:00 82 09/07/19 16:00 98.2 71 20 123/63 (83) 100 09/07/19 15:30 87 09/07/19 12:00 97.7 65 19 129/66 (87) 98 09/07/19 11:52 112 Intake and Output 09/07/19 09/08/19 19:00 07:00 Output Total 500 ml Balance -500 ml Output Urine Total 500 ml Laboratory Tests Test 09/08/19 06:50 White Blood Count 15.8 K/UL (4.8-10.8) H Red Blood Count 2.79 M/UL (4.70-6.10) L Hemoglobin 8.5 G/DL (14.2-18.0) L Hematocrit 25.1 % (42.0-52.0) L Mean Corpuscular Volume 90 FL (80-99) Mean Corpuscular Hemoglobin 30.3 PG (27.0-31.0) Mean Corpuscular Hemoglobin Concent 33.7 G/DL (32.0-36.0) Red Cell Distribution Width 14.4 % (11.6-14.8) Platelet Count 309 K/UL (150-450) Mean Platelet Volume 7.5 FL (6.5-10.1) Neutrophils (%) (Auto) % (45.0-75.0) Lymphocytes (%) (Auto) % (20.0-45.0) Monocytes (%) (Auto) % (1.0-10.0) Eosinophils (%) (Auto) % (0.0-3.0) Basophils (%) (Auto) % (0.0-2.0) Neutrophils % (Manual) Pending Lymphocytes % (Manual) Pending Platelet Estimate Pending Platelet Morphology Pending Sodium Level 142 MMOL/L (136-145) Potassium Level 3.6 MMOL/L (3.5-5.1) Chloride Level 110 MMOL/L (98-107) H Carbon Dioxide Level 24 MMOL/L (21-32) Anion Gap 8 mmol/L (5-15) Blood Urea Nitrogen 64 mg/dL (7-18) H Creatinine 1.6 MG/DL (0.55-1.30) H Estimat Glomerular Filtration Rate 41.3 mL/min (>60) Glucose Level 165 MG/DL (74-106) H Calcium Level 8.3 MG/DL (8.5-10.1) L Phosphorus Level 2.4 MG/DL (2.5-4.9) L Magnesium Level 2.2 MG/DL (1.8-2.4) Total Bilirubin 0.5 MG/DL (0.2-1.0) Aspartate Amino Transf (AST/SGOT) 59 U/L (15-37) H Alanine Aminotransferase (ALT/SGPT) 42 U/L (12-78) Alkaline Phosphatase 85 U/L (46-116) C-Reactive Protein, Quantitative 20.3 mg/dL (0.00-0.90) H Pro-B-Type Natriuretic Peptide 85463 pg/mL (0-125) H Total Protein 5.4 G/DL (6.4-8.2) L Albumin 1.2 G/DL (3.4-5.0) L Globulin 4.2 g/dL Albumin/Globulin Ratio 0.3 (1.0-2.7) L Valproic Acid (Depakene) Level 13 MCG/ML (50-100) L Height (Feet): 5 Height (Inches): 11.00 Weight (Pounds): 152 General Appearance: WD/WN, no apparent distress, alert, thin Cardiovascular: normal rate Respiratory/Chest: normal breath sounds, no respiratory distress Abdominal Exam: normal bowel sounds, non tender, soft Extremities: non-tender Elvie Payne [employer]ING [employer] COUNSELOR Sep 08, 2019 10:58
[2019-09-08 12:00] VITALS: BP 108/71
[2019-09-08] MEDS ORDERED: Potassium Phosphate 20 MM in NS 275 ML IV ONE (12:00)
[2019-09-08] MEDS ORDERED: Valproate Sodium INJ 500 MG in D5W 55 ML IVPB SCH ×2 (12:00→15:00)
--- NOTE | 2019-09-08 13:38 | General Progress Note ---
Assessment/Plan Problem List: (1) Anemia ICD Codes: D64.9 - Anemia, unspecified SNOMED: 947460352 (2) Elevated troponin ICD Codes: R79.89 - Other specified abnormal findings of blood chemistry SNOMED: 017312760, 983090760, 143311393 (3) Dehydration ICD Codes: E86.0 - Dehydration SNOMED: 05536736 (4) Sepsis ICD Codes: A41.9 - Sepsis, unspecified organism SNOMED: 45743321 Qualifiers: Qualified Codes: A41.9 - Sepsis, unspecified organism (5) UTI (urinary tract infection) ICD Codes: N39.0 - Urinary tract infection, site not specified SNOMED: 84953357 Qualifiers: Qualified Codes: N30.00 - Acute cystitis without hematuria (6) Failure to thrive in adult ICD Codes: R62.7 - Adult failure to thrive SNOMED: 042663967 (7) NAGA (acute kidney injury) ICD Codes: N17.9 - Acute kidney failure, unspecified SNOMED: 12503369, 7847524 (8) Failure to thrive SNOMED: 33114657 Status: unchanged Assessment/Plan: o2 pulm tx abx cardio pulm f/u prt diet cbc bmp am hospice eval if ok w family Subjective Constitutional: Reports: weakness Allergies: Coded Allergies: AMLODIPINE (Verified Allergy, Unknown, 09/04/19) ASPIRIN (Verified Allergy, Unknown, 09/04/19) BENAZEPRIL (Verified Allergy, Unknown, 09/04/19) All Systems: reviewed and negative except above Subjective o2nc ng sleepy Objective Last 24 Hour Vital Signs Date Time Temp Pulse Resp B/P (MAP) Pulse Ox O2 Delivery O2 Flow Rate FiO2 09/08/19 09:00 139/53 09/08/19 08:11 Nasal Cannula 2.0 09/08/19 08:00 96.2 80 20 139/53 (81) 98 09/08/19 08:00 95 Nasal Cannula 2.0 28 09/08/19 08:00 71 09/08/19 04:00 71 09/08/19 04:00 97.9 78 18 148/98 (115) 97 09/08/19 00:00 70 09/08/19 00:00 97.9 70 19 134/55 (81) 96 09/07/19 21:00 Nasal Cannula 2.0 09/07/19 20:08 97 Nasal Cannula 2.0 28 09/07/19 20:00 98.4 82 19 98/54 (69) 98 09/07/19 20:00 82 09/07/19 16:00 98.2 71 20 123/63 (83) 100 09/07/19 15:30 87 Intake and Output 09/07/19 09/08/19 19:00 07:00 Output Total 500 ml Balance -500 ml Output Urine Total 500 ml Laboratory Tests 09/08/19 06:50: White Blood Count 15.8H, Red Blood Count 2.79L, Hemoglobin 8.5L, Hematocrit 25.1L, Mean Corpuscular Volume 90, Mean Corpuscular Hemoglobin 30.3, Mean Corpuscular Hemoglobin Concent 33.7, Red Cell Distribution Width 14.4, Platelet Count 309, Mean Platelet Volume 7.5, Neutrophils (%) (Auto) , Lymphocytes (%) ( Auto) , Monocytes (%) (Auto) , Eosinophils (%) (Auto) , Basophils (%) (Auto) , Differential Total Cells Counted 100, Neutrophils % (Manual) 89H, Lymphocytes % (Manual) 8L, Monocytes % (Manual) 3, Eosinophils % (Manual) 0, Basophils % ( Manual) 0, Band Neutrophils 0, Platelet Estimate Adequate, Platelet Morphology Normal, Hypochromasia 1+, Sodium Level 142, Potassium Level 3.6, Chloride Level 110H, Carbon Dioxide Level 24, Anion Gap 8, Blood Urea Nitrogen 64H, Creatinine 1.6H, Estimat Glomerular Filtration Rate 41.3, Glucose Level 165H, Calcium Level 8.3L, Phosphorus Level 2.4L, Magnesium Level 2.2, Total Bilirubin 0.5, Aspartate Amino Transf (AST/SGOT) 59H, Alanine Aminotransferase (ALT/SGPT) 42, Alkaline Phosphatase 85, C-Reactive Protein, Quantitative 20.3H, Pro-B-Type Natriuretic Peptide 74594A, Total Protein 5.4L, Albumin 1.2L, Globulin 4.2, Albumin/Globulin Ratio 0.3L, Valproic Acid (Depakene) Level 13L 09/08/19 11:00: Random Vancomycin Level 13.7 Height (Feet): 5 Height (Inches): 11.00 Weight (Pounds): 152 General Appearance: lethargic EENT: normal ENT inspection Neck: normal alignment Cardiovascular: normal peripheral pulses, normal rate, regular rhythm Respiratory/Chest: chest wall non-tender, lungs clear, normal breath sounds Abdomen: normal bowel sounds, non tender, soft Extremities: normal inspection Edema: no edema noted Arm (L), no edema noted Arm (R), no edema noted Leg (L), no edema noted Leg (R), no edema noted Pedal (L), no edema noted Pedal (R), no edema noted Generalized Neurologic: motor weakness Skin: normal pigmentation, warm/dry Prabhakar Pond Sep 08, 2019 13:38
--- NOTE | 2019-09-08 14:00 | Progress Note ---
DATE: 09/08/2019 SUBJECTIVE: This is an 83-year-old male patient who is now on the telemetry unit. He is confused, disorganized. He has failure to thrive and weakness, altered mental status, and decline in cognition below the baseline. That is why, his attending physician has requested daily psychiatric consultation. MENTAL STATUS EXAMINATION: This is an 83-year-old male. Appearance is disheveled. Attitude, irritable and agitated. Affect, guarded and restricted. Intellect poor. Mood, depressed and anxious. Motor activity, psychomotor agitation. Attention span is poor. Orientation x2. Speech is low volume, slurred. Thought process, disorganized and illogical. Insight and judgment is poor. DIAGNOSIS: Schizoaffective, bipolar type, rule out dementia with psychosis. PLAN: Plan for this patient is to treat him with psychotropic medication regimen consisting of Risperdal 0.5 mg q.12 hours p.r.n. anxiety and agitation and Depakote 500 mg IV q.12 hours. 20 minutes of insight-oriented psychotherapy to help the patient recognize cognitive and physical conditions so that he will have better impulse control and behavior on the unit. 20 minutes of insight-oriented psychotherapy. Chart reviewed. Discussed with staff. Seen and assessed at the bedside. Cherri De Luna M.D. DR: NICK JOB#: [id number] CC:
[2019-09-08] MEDS ORDERED: Vancomycin 1gm in D5W 275ml IVPB SCH (15:00)
--- NOTE | 2019-09-08 15:25 | Cardiology Progress Note ---
Assessment/Plan Assessment/Plan Small left apical pneumothorax. 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 Parkinson. Dementia. UTI. Hypernatremia. Left upper extremity cellulitis. Multiple decubitus. NSTEMI dnr no candidate for any invasive therapy trop down trending tele sinus lab ntoed cr improved dc tele soon failed attempt at ngt placement per staff bp is fine afebrile wbc is better Subjective ROS Limited/Unobtainable: Yes Subjective moan an groans Objective Last 24 Hour Vital Signs Date Time Temp Pulse Resp B/P (MAP) Pulse Ox O2 Delivery O2 Flow Rate FiO2 09/08/19 12:00 96.3 100 20 108/71 (83) 96 09/08/19 12:00 101 09/08/19 09:00 139/53 09/08/19 08:11 Nasal Cannula 2.0 09/08/19 08:00 96.2 80 20 139/53 (81) 98 09/08/19 08:00 95 Nasal Cannula 2.0 28 09/08/19 08:00 71 09/08/19 04:00 71 09/08/19 04:00 97.9 78 18 148/98 (115) 97 09/08/19 00:00 70 09/08/19 00:00 97.9 70 19 134/55 (81) 96 09/07/19 21:00 Nasal Cannula 2.0 09/07/19 20:08 97 Nasal Cannula 2.0 28 09/07/19 20:00 98.4 82 19 98/54 (69) 98 09/07/19 20:00 82 09/07/19 16:00 98.2 71 20 123/63 (83) 100 09/07/19 15:30 87 General Appearance: no apparent distress, isolation precautions Cardiovascular: normal rate Respiratory/Chest: lungs clear Abdomen: normal bowel sounds, non tender, soft Extremities: no swelling Intake and Output 09/07/19 09/08/19 19:00 07:00 Output Total 500 ml Balance -500 ml Output Urine Total 500 ml Laboratory Tests Test 09/08/19 06:50 09/08/19 11:00 White Blood Count 15.8 K/UL (4.8-10.8) H Red Blood Count 2.79 M/UL (4.70-6.10) L Hemoglobin 8.5 G/DL (14.2-18.0) L Hematocrit 25.1 % (42.0-52.0) L Mean Corpuscular Volume 90 FL (80-99) Mean Corpuscular Hemoglobin 30.3 PG (27.0-31.0) Mean Corpuscular Hemoglobin Concent 33.7 G/DL (32.0-36.0) Red Cell Distribution Width 14.4 % (11.6-14.8) Platelet Count 309 K/UL (150-450) Mean Platelet Volume 7.5 FL (6.5-10.1) Neutrophils (%) (Auto) % (45.0-75.0) Lymphocytes (%) (Auto) % (20.0-45.0) Monocytes (%) (Auto) % (1.0-10.0) Eosinophils (%) (Auto) % (0.0-3.0) Basophils (%) (Auto) % (0.0-2.0) Differential Total Cells Counted 100 Neutrophils % (Manual) 89 % (45-75) H Lymphocytes % (Manual) 8 % (20-45) L Monocytes % (Manual) 3 % (1-10) Eosinophils % (Manual) 0 % (0-3) Basophils % (Manual) 0 % (0-2) Band Neutrophils 0 % (0-8) Platelet Estimate Adequate Platelet Morphology Normal Hypochromasia 1+ Sodium Level 142 MMOL/L (136-145) Potassium Level 3.6 MMOL/L (3.5-5.1) Chloride Level 110 MMOL/L (98-107) H Carbon Dioxide Level 24 MMOL/L (21-32) Anion Gap 8 mmol/L (5-15) Blood Urea Nitrogen 64 mg/dL (7-18) H Creatinine 1.6 MG/DL (0.55-1.30) H Estimat Glomerular Filtration Rate 41.3 mL/min (>60) Glucose Level 165 MG/DL (74-106) H Calcium Level 8.3 MG/DL (8.5-10.1) L Phosphorus Level 2.4 MG/DL (2.5-4.9) L Magnesium Level 2.2 MG/DL (1.8-2.4) Total Bilirubin 0.5 MG/DL (0.2-1.0) Aspartate Amino Transf (AST/SGOT) 59 U/L (15-37) H Alanine Aminotransferase (ALT/SGPT) 42 U/L (12-78) Alkaline Phosphatase 85 U/L (46-116) C-Reactive Protein, Quantitative 20.3 mg/dL (0.00-0.90) H Pro-B-Type Natriuretic Peptide 34672 pg/mL (0-125) H Total Protein 5.4 G/DL (6.4-8.2) L Albumin 1.2 G/DL (3.4-5.0) L Globulin 4.2 g/dL Albumin/Globulin Ratio 0.3 (1.0-2.7) L Valproic Acid (Depakene) Level 13 MCG/ML (50-100) L Random Vancomycin Level 13.7 ug/mL Microbiology Date/Time Source Procedure Growth Status 09/06/19 10:30 Nasopharynx - Final Complete 09/06/19 10:30 Nasopharynx - Final Complete Ronnie Lamb MD Sep 08, 2019 15:25
--- NOTE | 2019-09-08 15:45 | Surgery Progress Note ---
Surgery Progress Note Subjective Additional Comments no acute events comfortable stable leukocytosis improved Objective Last 24 Hour Vital Signs Date Time Temp Pulse Resp B/P (MAP) Pulse Ox O2 Delivery O2 Flow Rate FiO2 09/08/19 12:00 96.3 100 20 108/71 (83) 96 09/08/19 12:00 101 09/08/19 09:00 139/53 09/08/19 08:11 Nasal Cannula 2.0 09/08/19 08:00 96.2 80 20 139/53 (81) 98 09/08/19 08:00 95 Nasal Cannula 2.0 28 09/08/19 08:00 71 09/08/19 04:00 71 09/08/19 04:00 97.9 78 18 148/98 (115) 97 09/08/19 00:00 70 09/08/19 00:00 97.9 70 19 134/55 (81) 96 09/07/19 21:00 Nasal Cannula 2.0 09/07/19 20:08 97 Nasal Cannula 2.0 28 09/07/19 20:00 98.4 82 19 98/54 (69) 98 09/07/19 20:00 82 09/07/19 16:00 98.2 71 20 123/63 (83) 100 I&O Intake and Output 09/07/19 09/08/19 19:00 07:00 Output Total 500 ml Balance -500 ml Output Urine Total 500 ml Dressing: other Wound: other Drains: other Cardiovascular: RSR Respiratory: decreased breath sounds Abdomen: soft, present bowel sounds Extremities: no cyanosis Laboratory Tests Test 09/08/19 06:50 09/08/19 11:00 White Blood Count 15.8 K/UL (4.8-10.8) H Red Blood Count 2.79 M/UL (4.70-6.10) L Hemoglobin 8.5 G/DL (14.2-18.0) L Hematocrit 25.1 % (42.0-52.0) L Mean Corpuscular Volume 90 FL (80-99) Mean Corpuscular Hemoglobin 30.3 PG (27.0-31.0) Mean Corpuscular Hemoglobin Concent 33.7 G/DL (32.0-36.0) Red Cell Distribution Width 14.4 % (11.6-14.8) Platelet Count 309 K/UL (150-450) Mean Platelet Volume 7.5 FL (6.5-10.1) Neutrophils (%) (Auto) % (45.0-75.0) Lymphocytes (%) (Auto) % (20.0-45.0) Monocytes (%) (Auto) % (1.0-10.0) Eosinophils (%) (Auto) % (0.0-3.0) Basophils (%) (Auto) % (0.0-2.0) Differential Total Cells Counted 100 Neutrophils % (Manual) 89 % (45-75) H Lymphocytes % (Manual) 8 % (20-45) L Monocytes % (Manual) 3 % (1-10) Eosinophils % (Manual) 0 % (0-3) Basophils % (Manual) 0 % (0-2) Band Neutrophils 0 % (0-8) Platelet Estimate Adequate Platelet Morphology Normal Hypochromasia 1+ Sodium Level 142 MMOL/L (136-145) Potassium Level 3.6 MMOL/L (3.5-5.1) Chloride Level 110 MMOL/L (98-107) H Carbon Dioxide Level 24 MMOL/L (21-32) Anion Gap 8 mmol/L (5-15) Blood Urea Nitrogen 64 mg/dL (7-18) H Creatinine 1.6 MG/DL (0.55-1.30) H Estimat Glomerular Filtration Rate 41.3 mL/min (>60) Glucose Level 165 MG/DL (74-106) H Calcium Level 8.3 MG/DL (8.5-10.1) L Phosphorus Level 2.4 MG/DL (2.5-4.9) L Magnesium Level 2.2 MG/DL (1.8-2.4) Total Bilirubin 0.5 MG/DL (0.2-1.0) Aspartate Amino Transf (AST/SGOT) 59 U/L (15-37) H Alanine Aminotransferase (ALT/SGPT) 42 U/L (12-78) Alkaline Phosphatase 85 U/L (46-116) C-Reactive Protein, Quantitative 20.3 mg/dL (0.00-0.90) H Pro-B-Type Natriuretic Peptide 31172 pg/mL (0-125) H Total Protein 5.4 G/DL (6.4-8.2) L Albumin 1.2 G/DL (3.4-5.0) L Globulin 4.2 g/dL Albumin/Globulin Ratio 0.3 (1.0-2.7) L Valproic Acid (Depakene) Level 13 MCG/ML (50-100) L Random Vancomycin Level 13.7 ug/mL Plan Problems: (1) Skin lesions Assessment & Plan: patient presented with multiple skin lesions scrotal edema with cellulitis. pending CT pelvis for eval sacral DTI noted large, skin blistering open now epidermal loss dermis intact left upper extremity epidermal skin blistering open, dermis intact multiple wounds noted on ear, face, chest skin breakdown malnutrition overall prognosis guarded hold on skin biopsy of lesions. 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 Both lower extremities are contracted. Dry Brownish/black capped skin lesion noted to R earlobe ,R cheek and L temporal. Scattered skin lesions that are also dry capped and brownish /black noted to upper chest and bilat upper extremities. Irregular shaped Open DTPI noted to Sacrum. Full thickness ulcer at sacrococcygeal area(L)6cm x (W)5.3cm. Surrounding fluctuant and maroon borders.Measurement including open wound (L)9.5cm x (W)9.2cm No evidence of further skin breakdown periwound. No odor or exudate noted from wound. Resolving pressure injury base of scrotum. Base of wound brayan in center with surrounding moist pink granulation. Scattered biofilm within base of wound.No odor or exudate noted.(L)5.6cm x (W)4.5cm. Open DTPI kermit R tibia. Base of wound is moist and brayan with surrounding fluctuant borders that maroon/purple in colour.(L)9.5cm x (W)2.7cm. Stable dry eschar noted to distal/kermit R tibia(L)2.4cm x (W)1.6cm. Open DTPI noted to R heel(L)3.3cm x (W)3.5cm. Base of wound is moist and brayan in center with small necrotic area. Surrounding borders of wound are purple and fluctuant. Unstageable pressure injury medial aspect of distal L tibia. Base of wound has 90% fibrinous slough with erythematous margins.(L)3.3cm x (W)3.2cm. NO odor or exudate noted. Unstageable pressure injury lateral L malleolus. Base of wound is 100% necrotic and dry.(L)4cm x (W)3.8cm. Tx.Plan: Cleanse Sacral wound with Saline. Apply Therahoney. Apply Moisture Barrier Periwound. Cover with Optifoam drsg daily and prn. Cleanse wound kermit R tibia with Saline. Apply TheraHoney. Apply Cavilon Skin Barrier periwound. Cover with Optifoam drsg every 3 days and prn. Cleanse wound R heel with Saline. Apply Therahoney. Apply Cavilon Skin Barrier periwound. Cover with Optifoam drsg every 3 days and prn. Cleanse wound L tibia with Saline. Apply Therahoney.Apply Cavilon Periwound. Cover with Optifoam drsg every 3 days and prn. Swab Wounds L heel and L lateral malleolus with Betadine. Cover each wound with Optifoam drsg. Change every 3 days and prn. APM/DENICE Mattress overlay. Reposition at least every 2hours or as tolerated. Place pillow between knees. Off-load heels with pillows. nutritional optimization thank you will follow with recs (2) Leukocytosis Assessment & Plan: ct chest ordered ct abd/ pelvis ordered by ID for r/o abd abscess (3) Sepsis (4) Failure to thrive (5) Failure to thrive in adult Assessment & Plan: DAILY ESTIMATED NEEDS: Needs based on Wounds, underweight 58.5kg 30-35 kcals/kg 5265-7455 total kcals 1.25-2 g protein/kg 73-117 g total protein 25-30ml/kcal mL/kg 8283-5626 total fluid mLs NUTRITION DIAGNOSIS: Increased kcal and pro needs r/t wound healing and underweight status as evidenced by pt w/ multiple pressure wounds, eval pending, underweight per guidelines w/ generalized moderate-severe wasting, @72% of [facility] Body Weight. CURRENT DIET: NPO PO DIET RECOMMENDATIONS: Regular liberalized diet/ texture per FAMILY PROGRAM SPECIALIST ENTERAL NUTRITION RECOMMENDATIONS: * Consult RD if non oral feeds are part of POC * ---- ADDITIONAL RECOMMENDATIONS: 1) Add GLUCERNA 1 tetra TID w/ meals 2) FAMILY PROGRAM SPECIALIST eval 3) F/up w/ WC eval-> rec ANANDA BID w/ diet order 4) RE-calibrate bed scale w/ added P200 mattress for accurate CBW (6) Pneumothorax on left Assessment & Plan: There is a tiny left apical pneumothorax. This appears smaller than on the previous study. Lungs remain clear. Heart is normal in size. Trachea is midline. Aorta is calcified. IMPRESSION: Trace left apical pneumothorax. stable can monitor for now repeat cxr hold on tube for now CT chest when stable Connor Mcfadden Sep 08, 2019 15:45
[2019-09-08 16:00] VITALS: BP 104/80
--- NOTE | 2019-09-08 16:02 | Diagnostic Imaging Report ---
Indication: Dyspnea Comparison: None A single view chest radiograph was obtained. Findings: The study is suboptimal. Lung apices are not included in the [id number]. Also there is a haziness about the film. There is groundglass opacification of the lungs bilaterally. Not certain if this is real or artifactual. Heart size is normal. Aorta is calcified. IMPRESSION: Limited evaluation. Recommend repeat
--- NOTE | 2019-09-08 17:30 | Infectious Diseases Prog Note ---
Assessment/Plan Assessment/Plan Assessment: Severe sepsis UTI Probable bacteremia -u/a wbc 40-60, nit neg, leuk +3; ucx p -CXR: Left apical pneumothorax, estimated at 10%. Emphysema. Low grade fever, sp Leukocytosis, improved Parkinson's dementia HTN Dm2 Plan: -Continue empiric IV Vancomycin # 5 pending Bcx -Meropenem # 4 08/05 Sp Zosyn #2 -f/u cx -Monitor CBC/CMP, temperatures -aspiration precautions -Influenza sc - CT ABD/ p w oral contrast ro abscess Subjective Allergies: Coded Allergies: AMLODIPINE (Verified Allergy, Unknown, 09/04/19) ASPIRIN (Verified Allergy, Unknown, 09/04/19) BENAZEPRIL (Verified Allergy, Unknown, 09/04/19) Subjective leukocytosis improved Objective Vital Signs Last 24 Hour Vital Signs Date Time Temp Pulse Resp B/P (MAP) Pulse Ox O2 Delivery O2 Flow Rate FiO2 09/08/19 16:00 96.4 93 20 104/80 (88) 98 09/08/19 12:00 96.3 100 20 108/71 (83) 96 09/08/19 12:00 101 09/08/19 09:00 139/53 09/08/19 08:11 Nasal Cannula 2.0 09/08/19 08:00 96.2 80 20 139/53 (81) 98 09/08/19 08:00 95 Nasal Cannula 2.0 28 09/08/19 08:00 71 09/08/19 04:00 71 09/08/19 04:00 97.9 78 18 148/98 (115) 97 09/08/19 00:00 70 09/08/19 00:00 97.9 70 19 134/55 (81) 96 09/07/19 21:00 Nasal Cannula 2.0 09/07/19 20:08 97 Nasal Cannula 2.0 28 09/07/19 20:00 98.4 82 19 98/54 (69) 98 09/07/19 20:00 82 Height (Feet): 5 Height (Inches): 11.00 Weight (Pounds): 152 Respiratory/Chest: normal breath sounds Cardiovascular: regular rhythm Abdomen: non distended Microbiology Date/Time Source Procedure Growth Status 09/06/19 10:30 Nasopharynx - Final Complete 09/06/19 10:30 Nasopharynx - Final Complete Laboratory Tests Test 09/08/19 06:50 09/08/19 11:00 White Blood Count 15.8 K/UL (4.8-10.8) H Red Blood Count 2.79 M/UL (4.70-6.10) L Hemoglobin 8.5 G/DL (14.2-18.0) L Hematocrit 25.1 % (42.0-52.0) L Mean Corpuscular Volume 90 FL (80-99) Mean Corpuscular Hemoglobin 30.3 PG (27.0-31.0) Mean Corpuscular Hemoglobin Concent 33.7 G/DL (32.0-36.0) Red Cell Distribution Width 14.4 % (11.6-14.8) Platelet Count 309 K/UL (150-450) Mean Platelet Volume 7.5 FL (6.5-10.1) Neutrophils (%) (Auto) % (45.0-75.0) Lymphocytes (%) (Auto) % (20.0-45.0) Monocytes (%) (Auto) % (1.0-10.0) Eosinophils (%) (Auto) % (0.0-3.0) Basophils (%) (Auto) % (0.0-2.0) Differential Total Cells Counted 100 Neutrophils % (Manual) 89 % (45-75) H Lymphocytes % (Manual) 8 % (20-45) L Monocytes % (Manual) 3 % (1-10) Eosinophils % (Manual) 0 % (0-3) Basophils % (Manual) 0 % (0-2) Band Neutrophils 0 % (0-8) Platelet Estimate Adequate Platelet Morphology Normal Hypochromasia 1+ Sodium Level 142 MMOL/L (136-145) Potassium Level 3.6 MMOL/L (3.5-5.1) Chloride Level 110 MMOL/L (98-107) H Carbon Dioxide Level 24 MMOL/L (21-32) Anion Gap 8 mmol/L (5-15) Blood Urea Nitrogen 64 mg/dL (7-18) H Creatinine 1.6 MG/DL (0.55-1.30) H Estimat Glomerular Filtration Rate 41.3 mL/min (>60) Glucose Level 165 MG/DL (74-106) H Calcium Level 8.3 MG/DL (8.5-10.1) L Phosphorus Level 2.4 MG/DL (2.5-4.9) L Magnesium Level 2.2 MG/DL (1.8-2.4) Total Bilirubin 0.5 MG/DL (0.2-1.0) Aspartate Amino Transf (AST/SGOT) 59 U/L (15-37) H Alanine Aminotransferase (ALT/SGPT) 42 U/L (12-78) Alkaline Phosphatase 85 U/L (46-116) C-Reactive Protein, Quantitative 20.3 mg/dL (0.00-0.90) H Pro-B-Type Natriuretic Peptide 21180 pg/mL (0-125) H Total Protein 5.4 G/DL (6.4-8.2) L Albumin 1.2 G/DL (3.4-5.0) L Globulin 4.2 g/dL Albumin/Globulin Ratio 0.3 (1.0-2.7) L Valproic Acid (Depakene) Level 13 MCG/ML (50-100) L Random Vancomycin Level 13.7 ug/mL Current Medications Medications (Trade) Dose Ordered Sig/Kaveh Route PRN Reason Start Time Stop Time Status Last Admin Dose Admin Acetaminophen (Tylenol) 650 mg Q4H PRN ORAL Mild Pain/Temp > 100.5 09/06/19 18:00 10/05/19 17:59 Acetaminophen (Tylenol) 650 mg Q4H PRN RECTAL Prn Headache/Temp > 101 09/06/19 18:30 10/05/19 02:29 Albuterol/ Ipratropium (Albuterol/ Ipratropium) 3 ml Q6H PRN HHN Shortness of Breath 09/06/19 18:00 09/11/19 17:59 Barium Sulfate (Readi-Cat 2) 450 ml NOW PRN ORAL Radiology Procedure 09/07/19 12:15 09/09/19 12:01 Clopidogrel Bisulfate (Plavix) 75 mg DAILY ORAL 09/07/19 09:00 10/06/19 10:44 Dextrose 1,000 ml @ 75 mls/hr [id number] IV 09/07/19 10:30 10/05/19 10:29 09/08/19 10:49 Docusate Sodium (Colace) 100 mg TWICE A DAY ORAL 09/06/19 18:00 10/05/19 08:59 Folic Acid (Folate) 1 mg DAILY ORAL 09/07/19 10:30 10/07/19 10:29 Heparin Sodium (Porcine) (Heparin 5000 units/ml) 5,000 units EVERY 8 HOURS SUBQ 09/06/19 22:00 10/06/19 10:29 09/08/19 13:04 Meropenem 500 mg/ Sodium Chloride 55 ml @ 110 mls/hr Q12HR IV 09/06/19 21:00 09/10/19 20:59 09/08/19 10:48 Morphine Sulfate (Morphine Sulfate) 2 mg Q4H PRN IVP Severe Pain (Pain Scale 7-10) 09/06/19 18:30 09/12/19 02:29 09/08/19 03:20 Nitroglycerin (Ntg) 1 patch Q24H TDERMAL 09/07/19 09:00 10/05/19 08:59 09/08/19 09:00 Pantoprazole (Protonix) 40 mg EVERY 12 HOURS IVP 09/06/19 21:00 10/05/19 08:59 09/08/19 10:48 Potassium Phosphate 20 mm/ Sodium Chloride 281.6667 ml @ 46.944 m... ONCE ONCE IV 09/08/19 12:00 09/08/19 17:59 09/08/19 13:04 Risperidone (RisperDAL) 0.5 mg Q12H PRN ORAL agitation 09/06/19 18:00 10/06/19 17:59 Valproate Sodium 500 mg/Dextrose 60 ml @ 60 mls/hr Q8H IVPB 09/08/19 15:00 10/08/19 14:59 09/08/19 15:41 Vancomycin HCl (Vanco rx to dose) 1 ea DAILY PRN MISC Per rx protocol 09/07/19 09:00 10/05/19 11:29 Hakeem Hugo MD Sep 08, 2019 17:30
[2019-09-08 20:00] VITALS: BP 120/68
[2019-09-08] MEDS ORDERED: Acetaminophen 650 MG SUPP RECTAL PRN (23:37)
[2019-09-08] MEDS: Valproate Sodium INJ 500 MG in D5W 55 ML IVPB SCH (23:57)
[2019-09-09] VITALS: BP 96/62
[2019-09-09] MEDS ORDERED: Albuterol/Ipratropium 3ml neb HHN PRN
[2019-09-09 04:00] VITALS: BP 118/63
[2019-09-09] MEDS: Morphine Sulfate 2mg/ml Inj(IV/IM USE ONLY) IVP PRN ×2 (05:33→17:11)
[2019-09-09] MEDS: Heparin 5000 units/ml inj SUBQ SCH ×3 (05:35→21:59)
[2019-09-09 06:51] LABS: BASOPHILS % (AUTO) 0.3 % (0.0-2.0); EOSINOPHILS % (AUTO) 1.7 % (0.0-3.0); HEMATOCRIT 24.3 % (42.0-52.0); HEMOGLOBIN 8.2 G/DL (14.2-18.0); LYMPHOCYTES % (AUTO) 10.7 % (20.0-45.0); MEAN CORPUSCULAR VOLUME 89 FL (80-99); MONOCYTES % (AUTO) 5.3 % (1.0-10.0); PLATELET COUNT 272 K/UL (150-450); RED BLOOD COUNT 2.73 M/UL (4.70-6.10); RED CELL DISTRIBUTION WIDTH 14.4 % (11.6-14.8); WHITE BLOOD COUNT 10.4 K/UL (4.8-10.8)
--- NOTE | 2019-09-09 06:57 | Pulmonology Progress Note ---
Assessment/Plan Assessment/Plan IMPRESSION: 1. Small left apical pneumothorax. 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 3. Parkinson. 4. Dementia. 5. UTI. 6. Hypernatremia. 7. Left upper extremity cellulitis. 8. Multiple decubitus. 9. Likely NSTEMI DISCUSSION: Noted DNR status. At this time, he is asymptomatic from pulmonary standpoint. Therefore, we will avoid any further intervention for the small apical left pneumothorax. This may be spontaneous due to his underlying lung disease. Saturations are adequate on low flow O2 No respiratory distress or tachypnea Continue antibiotic vancomycin for left upper extremity cellulitis Hydration status addressed by Nephrology. I will follow as model maker. Discussed with daughter Sushma She is agreeable to hospice. Await hospice eval Arun Melvin M.D. Subjective Interval Events: None new Constitutional: Reports: no symptoms HEENT: Repors: no symptoms Respiratory: Reports: no symptoms Cardiovascular: Reports: no symptoms Gastrointestinal/Abdominal: Reports: no symptoms Allergies: Coded Allergies: AMLODIPINE (Verified Allergy, Unknown, 09/04/19) ASPIRIN (Verified Allergy, Unknown, 09/04/19) BENAZEPRIL (Verified Allergy, Unknown, 09/04/19) Objective Last 24 Hour Vital Signs Date Time Temp Pulse Resp B/P (MAP) Pulse Ox O2 Delivery O2 Flow Rate FiO2 09/09/19 04:00 98.4 62 20 118/63 (81) 96 09/09/19 00:00 98.9 84 20 96/62 (73) 96 09/08/19 21:00 Nasal Cannula 2.0 09/08/19 20:00 99.1 95 19 120/68 (85) 99 09/08/19 19:38 90 20 95 Nasal Cannula 2.0 28 09/08/19 19:38 95 Nasal Cannula 2.0 28 09/08/19 16:00 96.4 93 20 104/80 (88) 98 09/08/19 16:00 84 09/08/19 12:00 96.3 100 20 108/71 (83) 96 09/08/19 12:00 101 09/08/19 09:00 139/53 3/3/20 08:11 Nasal Cannula 2.0 09/08/19 08:00 96.2 80 20 139/53 (81) 98 09/08/19 08:00 95 Nasal Cannula 2.0 28 09/08/19 08:00 71 Intake and Output 09/08/19 09/09/19 19:00 07:00 Output Total 250 ml 300 ml Balance -250 ml -300 ml Output Urine Total 250 ml 300 ml # Voids 1 General Appearance: no acute distress HEENT: normocephalic Respiratory/Chest: chest wall non-tender Cardiovascular: normal peripheral pulses Abdomen: normal bowel sounds Microbiology Date/Time Source Procedure Growth Status 09/06/19 10:30 Nasopharynx - Final Complete 09/06/19 10:30 Nasopharynx - Final Complete Laboratory Tests 09/08/19 11:00: Random Vancomycin Level 13.7 09/09/19 06:18: Random Vancomycin Level [Pending], White Blood Count [Pending], Red Blood Count [Pending], Hemoglobin [Pending], Hematocrit [Pending], Mean Corpuscular Volume [ Pending], Mean Corpuscular Hemoglobin [Pending], Mean Corpuscular Hemoglobin Concent [Pending], Red Cell Distribution Width [Pending], Platelet Count [ Pending], Mean Platelet Volume [Pending], Neutrophils (%) (Auto) [Pending], Lymphocytes (%) (Auto) [Pending], Monocytes (%) (Auto) [Pending], Eosinophils (% ) (Auto) [Pending], Basophils (%) (Auto) [Pending], Sodium Level [Pending], Potassium Level [Pending], Chloride Level [Pending], Carbon Dioxide Level [ Pending], Blood Urea Nitrogen [Pending], Creatinine [Pending], Estimat Glomerular Filtration Rate [Pending], Glucose Level [Pending], Uric Acid [ Pending], Calcium Level [Pending], Phosphorus Level [Pending], Magnesium Level [ Pending], Total Bilirubin [Pending], Aspartate Amino Transf (AST/SGOT) [Pending] , Alanine Aminotransferase (ALT/SGPT) [Pending], Alkaline Phosphatase [Pending] , Total Protein [Pending], Albumin [Pending], Globulin [Pending], Valproic Acid (Depakene) Level [Pending] Current Medications Medications (Trade) Dose Ordered Sig/Kaveh Route PRN Reason Start Time Stop Time Status Last Admin Dose Admin Acetaminophen (Tylenol) 650 mg Q4H PRN ORAL Mild Pain/Temp > 100.5 09/08/19 23:37 10/08/19 23:36 Acetaminophen (Tylenol) 650 mg Q4H PRN RECTAL Prn Headache/Temp > 101 09/08/19 23:37 10/08/19 23:36 Albuterol/ Ipratropium (Albuterol/ Ipratropium) 3 ml Q6H PRN HHN Shortness of Breath 09/09/19 00:00 09/11/19 17:59 Barium Sulfate (Readi-Cat 2) 450 ml NOW PRN ORAL Radiology Procedure 09/09/19 12:15 09/14/19 12:01 Clopidogrel Bisulfate (Plavix) 75 mg DAILY ORAL 09/09/19 09:00 10/06/19 10:44 Dextrose 1,000 ml @ 75 mls/hr [id number] IV 09/09/19 00:00 10/09/19 00:00 09/08/19 23:58 Docusate Sodium (Colace) 100 mg TWICE A DAY ORAL 09/09/19 09:00 10/05/19 08:59 Folic Acid (Folate) 1 mg DAILY ORAL 09/09/19 09:00 10/07/19 10:29 Heparin Sodium (Porcine) (Heparin 5000 units/ml) 5,000 units EVERY 8 HOURS SUBQ 09/09/19 06:00 10/06/19 10:29 09/09/19 05:35 Morphine Sulfate (Morphine Sulfate) 2 mg Q4H PRN IVP Severe Pain (Pain Scale 7-10) 09/08/19 23:39 09/15/19 23:38 09/09/19 05:33 Nitroglycerin (Ntg) 1 patch Q24H TDERMAL 09/09/19 09:00 10/05/19 08:59 Pantoprazole (Protonix) 40 mg EVERY 12 HOURS IVP 09/09/19 09:00 10/05/19 08:59 Risperidone (RisperDAL) 0.5 mg Q12H PRN ORAL agitation 09/08/19 23:39 10/08/19 23:38 Valproate Sodium 500 mg/Dextrose 60 ml @ 60 mls/hr Q8H IVPB 09/09/19 00:00 10/09/19 00:00 09/08/19 23:57 Vancomycin HCl (Vanco rx to dose) 1 ea DAILY PRN MISC Per rx protocol 09/09/19 09:00 10/05/19 11:29 Arun Melvin MD Sep 09, 2019 06:57
[2019-09-09 07:28] LABS: ALANINE AMINOTRANSFERASE 34 U/L (12-78); ALBUMIN 1.1 G/DL (3.4-5.0); ALBUMIN/GLOBULIN RATIO 0.2 (1.0-2.7); ALKALINE PHOSPHATASE 80 U/L (46-116); ANION GAP 10 mmol/L (5-15); ASPARTATE AMINO TRANSFERASE 43 U/L (15-37); BILIRUBIN,TOTAL 0.4 MG/DL (0.2-1.0); BLOOD UREA NITROGEN 49 mg/dL (7-18); CARBON DIOXIDE 23 MMOL/L (21-32); CHLORIDE 110 MMOL/L (98-107); CREATININE 1.5 MG/DL (0.55-1.30); PHOSPHORUS 3.2 MG/DL (2.5-4.9); POTASSIUM 3.3 MMOL/L (3.5-5.1); SODIUM 143 MMOL/L (136-145)
[2019-09-09 08:00] VITALS: BP 93/49
--- NOTE | 2019-09-09 08:14 | Infectious Diseases Prog Note ---
Assessment/Plan Assessment/Plan Assessment: Severe sepsis UTI Probable bacteremia -u/a wbc 40-60, nit neg, leuk +3; ucx p -CXR: Left apical pneumothorax, estimated at 10%. Emphysema. Low grade fever, sp Leukocytosis, improved NAGA improving Multiple decubitus.( not infected ) NSTEMI Parkinson's dementia HTN Dm2 Plan: -Continue empiric IV Vancomycin # 6 , Zosyn # 1 pending Bcx 09/07 Sp Meropenem # 4 08/05 Sp Zosyn #2 -f/u cx -Monitor CBC/CMP, temperatures -aspiration precautions -Influenza sc - CT C/ A/P w oral contrast ro abscess Subjective Allergies: Coded Allergies: AMLODIPINE (Verified Allergy, Unknown, 09/04/19) ASPIRIN (Verified Allergy, Unknown, 09/04/19) BENAZEPRIL (Verified Allergy, Unknown, 09/04/19) Subjective CT and CBC : P Objective Vital Signs Last 24 Hour Vital Signs Date Time Temp Pulse Resp B/P (MAP) Pulse Ox O2 Delivery O2 Flow Rate FiO2 09/09/19 04:00 98.4 62 20 118/63 (81) 96 09/09/19 00:00 98.9 84 20 96/62 (73) 96 09/08/19 21:00 Nasal Cannula 2.0 09/08/19 20:00 99.1 95 19 120/68 (85) 99 09/08/19 19:38 90 20 95 Nasal Cannula 2.0 28 09/08/19 19:38 95 Nasal Cannula 2.0 28 09/08/19 16:00 96.4 93 20 104/80 (88) 98 09/08/19 16:00 84 09/08/19 12:00 96.3 100 20 108/71 (83) 96 09/08/19 12:00 101 09/08/19 09:00 139/53 Height (Feet): 5 Height (Inches): 11.00 Weight (Pounds): 151 HEENT: anicteric Respiratory/Chest: no respiratory distress Cardiovascular: regular rhythm Abdomen: no organomegaly Skin: ulcers Microbiology Date/Time Source Procedure Growth Status 09/06/19 10:30 Nasopharynx - Final Complete 09/06/19 10:30 Nasopharynx - Final Complete Laboratory Tests Test 09/08/19 11:00 09/09/19 06:18 Random Vancomycin Level 13.7 ug/mL 17.1 ug/mL White Blood Count 10.4 K/UL (4.8-10.8) Red Blood Count 2.73 M/UL (4.70-6.10) L Hemoglobin 8.2 G/DL (14.2-18.0) L Hematocrit 24.3 % (42.0-52.0) L Mean Corpuscular Volume 89 FL (80-99) Mean Corpuscular Hemoglobin 30.1 PG (27.0-31.0) Mean Corpuscular Hemoglobin Concent 33.7 G/DL (32.0-36.0) Red Cell Distribution Width 14.4 % (11.6-14.8) Platelet Count 272 K/UL (150-450) Mean Platelet Volume 7.7 FL (6.5-10.1) Neutrophils (%) (Auto) 82.0 % (45.0-75.0) H Lymphocytes (%) (Auto) 10.7 % (20.0-45.0) L Monocytes (%) (Auto) 5.3 % (1.0-10.0) Eosinophils (%) (Auto) 1.7 % (0.0-3.0) Basophils (%) (Auto) 0.3 % (0.0-2.0) Sodium Level 143 MMOL/L (136-145) Potassium Level 3.3 MMOL/L (3.5-5.1) L Chloride Level 110 MMOL/L (98-107) H Carbon Dioxide Level 23 MMOL/L (21-32) Anion Gap 10 mmol/L (5-15) Blood Urea Nitrogen 49 mg/dL (7-18) H Creatinine 1.5 MG/DL (0.55-1.30) H Estimat Glomerular Filtration Rate 44.5 mL/min (>60) Glucose Level 158 MG/DL (74-106) H Uric Acid 9.7 MG/DL (2.6-7.2) H Calcium Level 8.0 MG/DL (8.5-10.1) L Phosphorus Level 3.2 MG/DL (2.5-4.9) Magnesium Level 2.1 MG/DL (1.8-2.4) Total Bilirubin 0.4 MG/DL (0.2-1.0) Aspartate Amino Transf (AST/SGOT) 43 U/L (15-37) H Alanine Aminotransferase (ALT/SGPT) 34 U/L (12-78) Alkaline Phosphatase 80 U/L (46-116) Total Protein 5.6 G/DL (6.4-8.2) L Albumin 1.1 G/DL (3.4-5.0) L Globulin 4.5 g/dL Albumin/Globulin Ratio 0.2 (1.0-2.7) L Valproic Acid (Depakene) Level 16 MCG/ML (50-100) L Current Medications Medications (Trade) Dose Ordered Sig/Kaveh Route PRN Reason Start Time Stop Time Status Last Admin Dose Admin Acetaminophen (Tylenol) 650 mg Q4H PRN ORAL Mild Pain/Temp > 100.5 09/08/19 23:37 10/08/19 23:36 Acetaminophen (Tylenol) 650 mg Q4H PRN RECTAL Prn Headache/Temp > 101 09/08/19 23:37 10/08/19 23:36 Albuterol/ Ipratropium (Albuterol/ Ipratropium) 3 ml Q6H PRN HHN Shortness of Breath 09/09/19 00:00 09/11/19 17:59 Barium Sulfate (Readi-Cat 2) 450 ml NOW PRN ORAL Radiology Procedure 09/09/19 12:15 09/14/19 12:01 Clopidogrel Bisulfate (Plavix) 75 mg DAILY ORAL 09/09/19 09:00 10/06/19 10:44 Dextrose 1,000 ml @ 75 mls/hr [id number] IV 09/09/19 00:00 10/09/19 00:00 09/08/19 23:58 Docusate Sodium (Colace) 100 mg TWICE A DAY ORAL 09/09/19 09:00 10/05/19 08:59 Folic Acid (Folate) 1 mg DAILY ORAL 09/09/19 09:00 10/07/19 10:29 Heparin Sodium (Porcine) (Heparin 5000 units/ml) 5,000 units EVERY 8 HOURS SUBQ 09/09/19 06:00 10/06/19 10:29 09/09/19 05:35 Morphine Sulfate (Morphine Sulfate) 2 mg Q4H PRN IVP Severe Pain (Pain Scale 7-10) 09/08/19 23:39 09/15/19 23:38 09/09/19 05:33 Nitroglycerin (Ntg) 1 patch Q24H TDERMAL 09/09/19 09:00 10/05/19 08:59 Pantoprazole (Protonix) 40 mg EVERY 12 HOURS IVP 09/09/19 09:00 10/05/19 08:59 Risperidone (RisperDAL) 0.5 mg Q12H PRN ORAL agitation 09/08/19 23:39 10/08/19 23:38 Valproate Sodium 500 mg/Dextrose 60 ml @ 60 mls/hr Q8H IVPB 09/09/19 00:00 10/09/19 00:00 09/08/19 23:57 Vancomycin HCl (Vanco rx to dose) 1 ea DAILY PRN MISC Per rx protocol 09/09/19 09:00 10/05/19 11:29 Vancomycin HCl 1 gm/Dextrose 275 ml @ 183.708 mls/hr Q24H IVPB 09/09/19 15:00 09/14/19 14:59 Vancomycin/Sodium Chloride 275 ml @ 137.5 mls/ hr Q24H IVPB 09/09/19 15:00 09/14/19 14:59 Hakeem Hugo MD Sep 09, 2019 08:14
--- NOTE | 2019-09-09 08:43 | General Progress Note ---
Assessment/Plan Problem List: (1) Anemia ICD Codes: D64.9 - Anemia, unspecified SNOMED: 419580106 (2) Elevated troponin ICD Codes: R79.89 - Other specified abnormal findings of blood chemistry SNOMED: 974786303, 921675073, 688955833 (3) Dehydration ICD Codes: E86.0 - Dehydration SNOMED: 74481581 (4) Sepsis ICD Codes: A41.9 - Sepsis, unspecified organism SNOMED: 65091613 Qualifiers: Qualified Codes: A41.9 - Sepsis, unspecified organism (5) UTI (urinary tract infection) ICD Codes: N39.0 - Urinary tract infection, site not specified SNOMED: 45781110 Qualifiers: Qualified Codes: N30.00 - Acute cystitis without hematuria (6) Failure to thrive in adult ICD Codes: R62.7 - Adult failure to thrive SNOMED: 090454736 (7) NAGA (acute kidney injury) ICD Codes: N17.9 - Acute kidney failure, unspecified SNOMED: 87271065, 6902212 (8) Failure to thrive SNOMED: 25255577 Status: unchanged Assessment/Plan: o2 pulm tx abx cardio pulm f/u prt diet cbc bmp am hospice eval if ok w family Subjective Constitutional: Reports: weakness Allergies: Coded Allergies: AMLODIPINE (Verified Allergy, Unknown, 09/04/19) ASPIRIN (Verified Allergy, Unknown, 09/04/19) BENAZEPRIL (Verified Allergy, Unknown, 09/04/19) All Systems: reviewed and negative except above Subjective o2nc sleepy Objective Last 24 Hour Vital Signs Date Time Temp Pulse Resp B/P (MAP) Pulse Ox O2 Delivery O2 Flow Rate FiO2 09/09/19 07:29 97 Nasal Cannula 2.0 28 09/09/19 07:29 67 18 97 Nasal Cannula 2.0 28 09/09/19 04:00 98.4 62 20 118/63 (81) 96 09/09/19 00:00 98.9 84 20 96/62 (73) 96 09/08/19 21:00 Nasal Cannula 2.0 09/08/19 20:00 99.1 95 19 120/68 (85) 99 09/08/19 19:38 90 20 95 Nasal Cannula 2.0 28 09/08/19 19:38 95 Nasal Cannula 2.0 28 09/08/19 16:00 96.4 93 20 104/80 (88) 98 09/08/19 16:00 84 09/08/19 12:00 96.3 100 20 108/71 (83) 96 09/08/19 12:00 101 09/08/19 09:00 139/53 Intake and Output 09/08/19 09/09/19 19:00 07:00 Output Total 250 ml 300 ml Balance -250 ml -300 ml Output Urine Total 250 ml 300 ml # Voids 1 Laboratory Tests 09/08/19 11:00: Random Vancomycin Level 13.7 09/09/19 06:18: Random Vancomycin Level 17.1, White Blood Count 10.4, Red Blood Count 2.73L, Hemoglobin 8.2L, Hematocrit 24.3L, Mean Corpuscular Volume 89, Mean Corpuscular Hemoglobin 30.1, Mean Corpuscular Hemoglobin Concent 33.7, Red Cell Distribution Width 14.4, Platelet Count 272, Mean Platelet Volume 7.7, Neutrophils (%) (Auto) 82.0H, Lymphocytes (%) (Auto) 10.7L, Monocytes (%) (Auto ) 5.3, Eosinophils (%) (Auto) 1.7, Basophils (%) (Auto) 0.3, Sodium Level 143, Potassium Level 3.3L, Chloride Level 110H, Carbon Dioxide Level 23, Anion Gap 10 , Blood Urea Nitrogen 49H, Creatinine 1.5H, Estimat Glomerular Filtration Rate 44.5, Glucose Level 158H, Uric Acid 9.7H, Calcium Level 8.0L, Phosphorus Level 3.2, Magnesium Level 2.1, Total Bilirubin 0.4, Aspartate Amino Transf (AST/SGOT ) 43H, Alanine Aminotransferase (ALT/SGPT) 34, Alkaline Phosphatase 80, Total Protein 5.6L, Albumin 1.1L, Globulin 4.5, Albumin/Globulin Ratio 0.2L, Valproic Acid (Depakene) Level 16L Height (Feet): 5 Height (Inches): 11.00 Weight (Pounds): 151 General Appearance: lethargic EENT: normal ENT inspection Neck: normal alignment Cardiovascular: normal peripheral pulses, normal rate, regular rhythm Respiratory/Chest: chest wall non-tender, decreased breath sounds Abdomen: normal bowel sounds, non tender, soft Extremities: normal inspection Edema: no edema noted Arm (L), no edema noted Arm (R), no edema noted Leg (L), no edema noted Leg (R), no edema noted Pedal (L), no edema noted Pedal (R), no edema noted Generalized Neurologic: motor weakness Skin: normal pigmentation, warm/dry Prabhakar Pond DO Sep 09, 2019 08:43
[2019-09-09] MEDS: Pantoprazole Inj IVP SCH ×2 (08:56→21:00)
[2019-09-09] MEDS: Valproate Sodium INJ 500 MG in D5W 55 ML IVPB SCH ×3 (08:56→23:49)
[2019-09-09] MEDS: Docusate 100mg cap ORAL SCH ×2 (09:00→17:06)
[2019-09-09] MEDS: Nitroglycerin Patch 0.4mg TDERMAL SCH (09:00)
[2019-09-09] MEDS ORDERED: LORazepam Inj 2mg/ml 1ml IV PRN (09:30)
[2019-09-09] MEDS: Piperacillin/Tazobactam 3.375 GM in NS 110 ML IVPB SCH ×2 (10:17→17:54)
--- NOTE | 2019-09-09 11:53 | General Progress Note ---
Assessment/Plan Problem List: (1) Iron deficiency anemia ICD Codes: D50.9 - Iron deficiency anemia, unspecified SNOMED: 53913851 (2) Folate deficiency ICD Codes: E53.8 - Deficiency of other specified B group vitamins SNOMED: 671902765 (3) low Albumin (4) Anemia ICD Codes: D64.9 - Anemia, unspecified SNOMED: 014654052 (5) Failure to thrive SNOMED: 96407285 (6) Elevated troponin ICD Codes: R79.89 - Other specified abnormal findings of blood chemistry SNOMED: 316637137, 939523050, 976244613 (7) Dehydration ICD Codes: E86.0 - Dehydration SNOMED: 97004448 Status: unchanged Assessment/Plan: NGT placement today d/w the family for management will need PEG if cleared by cardiology and if family consent Subjective ROS Limited/Unobtainable: No Allergies: Coded Allergies: AMLODIPINE (Verified Allergy, Unknown, 09/04/19) ASPIRIN (Verified Allergy, Unknown, 09/04/19) BENAZEPRIL (Verified Allergy, Unknown, 09/04/19) Objective Last 24 Hour Vital Signs Date Time Temp Pulse Resp B/P (MAP) Pulse Ox O2 Delivery O2 Flow Rate FiO2 09/09/19 09:00 Nasal Cannula 2.0 09/09/19 09:00 93/49 09/09/19 08:00 97.7 73 16 93/49 (64) 99 09/09/19 07:29 97 Nasal Cannula 2.0 28 09/09/19 07:29 67 18 97 Nasal Cannula 2.0 28 09/09/19 04:00 98.4 62 20 118/63 (81) 96 09/09/19 00:00 98.9 84 20 96/62 (73) 96 09/08/19 21:00 Nasal Cannula 2.0 09/08/19 20:00 99.1 95 19 120/68 (85) 99 09/08/19 19:38 90 20 95 Nasal Cannula 2.0 28 09/08/19 19:38 95 Nasal Cannula 2.0 28 09/08/19 16:00 96.4 93 20 104/80 (88) 98 09/08/19 16:00 84 09/08/19 12:00 96.3 100 20 108/71 (83) 96 09/08/19 12:00 101 Intake and Output 09/08/19 09/09/19 19:00 07:00 Output Total 250 ml 300 ml Balance -250 ml -300 ml Output Urine Total 250 ml 300 ml # Voids 1 Laboratory Tests 09/09/19 06:18: White Blood Count 10.4, Red Blood Count 2.73L, Hemoglobin 8.2L, Hematocrit 24.3L , Mean Corpuscular Volume 89, Mean Corpuscular Hemoglobin 30.1, Mean Corpuscular Hemoglobin Concent 33.7, Red Cell Distribution Width 14.4, Platelet Count 272, Mean Platelet Volume 7.7, Neutrophils (%) (Auto) 82.0H, Lymphocytes ( %) (Auto) 10.7L, Monocytes (%) (Auto) 5.3, Eosinophils (%) (Auto) 1.7, Basophils (%) (Auto) 0.3, Sodium Level 143, Potassium Level 3.3L, Chloride Level 110H, Carbon Dioxide Level 23, Anion Gap 10, Blood Urea Nitrogen 49H, Creatinine 1.5H, Estimat Glomerular Filtration Rate 44.5, Glucose Level 158H, Uric Acid 9.7H, Calcium Level 8.0L, Phosphorus Level 3.2, Magnesium Level 2.1, Total Bilirubin 0.4, Aspartate Amino Transf (AST/SGOT) 43H, Alanine Aminotransferase (ALT/SGPT) 34, Alkaline Phosphatase 80, Total Protein 5.6L, Albumin 1.1L, Globulin 4.5, Albumin/Globulin Ratio 0.2L, Random Vancomycin Level 17.1, Valproic Acid (Depakene) Level 16L Height (Feet): 5 Height (Inches): 11.00 Weight (Pounds): 151 General Appearance: no apparent distress EENT: normal ENT inspection Neck: supple Cardiovascular: normal rate Respiratory/Chest: decreased breath sounds Abdomen: normal bowel sounds, non tender, soft Extremities: non-tender Arley Cosby MD Sep 09, 2019 11:53
[2019-09-09 12:00] VITALS: BP 96/54
--- NOTE | 2019-09-09 12:16 | Diagnostic Imaging Report ---
Indication: Enteric tube insertion Comparison: None Single view of the abdomen obtained Findings: There is a weighted feeding tube the tip demonstrated on the second image within the stomach lumen.. Bowel gas pattern is nonobstructive. Bones are osteopenic. The right sacroiliac joint is fused. IMPRESSION: Weighted feeding tube curled in the body of the stomach.
--- NOTE | 2019-09-09 14:44 | Surgery Progress Note ---
Surgery Progress Note Subjective Symptoms: improved Objective Last 24 Hour Vital Signs Date Time Temp Pulse Resp B/P (MAP) Pulse Ox O2 Delivery O2 Flow Rate FiO2 09/09/19 12:00 98.0 80 17 96/54 (68) 98 09/09/19 09:00 Nasal Cannula 2.0 09/09/19 09:00 93/49 09/09/19 08:00 97.7 73 16 93/49 (64) 99 09/09/19 07:29 97 Nasal Cannula 2.0 28 09/09/19 07:29 67 18 97 Nasal Cannula 2.0 28 09/09/19 04:00 98.4 62 20 118/63 (81) 96 09/09/19 00:00 98.9 84 20 96/62 (73) 96 09/08/19 21:00 Nasal Cannula 2.0 09/08/19 20:00 99.1 95 19 120/68 (85) 99 09/08/19 19:38 90 20 95 Nasal Cannula 2.0 28 09/08/19 19:38 95 Nasal Cannula 2.0 28 09/08/19 16:00 96.4 93 20 104/80 (88) 98 09/08/19 16:00 84 I&O Intake and Output 09/08/19 09/09/19 19:00 07:00 Output Total 250 ml 300 ml Balance -250 ml -300 ml Output Urine Total 250 ml 300 ml # Voids 1 Dressing: other Wound: other Drains: other Cardiovascular: RSR Respiratory: decreased breath sounds Abdomen: soft, present bowel sounds Extremities: no cyanosis Laboratory Tests Test 09/09/19 06:18 White Blood Count 10.4 K/UL (4.8-10.8) Red Blood Count 2.73 M/UL (4.70-6.10) L Hemoglobin 8.2 G/DL (14.2-18.0) L Hematocrit 24.3 % (42.0-52.0) L Mean Corpuscular Volume 89 FL (80-99) Mean Corpuscular Hemoglobin 30.1 PG (27.0-31.0) Mean Corpuscular Hemoglobin Concent 33.7 G/DL (32.0-36.0) Red Cell Distribution Width 14.4 % (11.6-14.8) Platelet Count 272 K/UL (150-450) Mean Platelet Volume 7.7 FL (6.5-10.1) Neutrophils (%) (Auto) 82.0 % (45.0-75.0) H Lymphocytes (%) (Auto) 10.7 % (20.0-45.0) L Monocytes (%) (Auto) 5.3 % (1.0-10.0) Eosinophils (%) (Auto) 1.7 % (0.0-3.0) Basophils (%) (Auto) 0.3 % (0.0-2.0) Sodium Level 143 MMOL/L (136-145) Potassium Level 3.3 MMOL/L (3.5-5.1) L Chloride Level 110 MMOL/L (98-107) H Carbon Dioxide Level 23 MMOL/L (21-32) Anion Gap 10 mmol/L (5-15) Blood Urea Nitrogen 49 mg/dL (7-18) H Creatinine 1.5 MG/DL (0.55-1.30) H Estimat Glomerular Filtration Rate 44.5 mL/min (>60) Glucose Level 158 MG/DL (74-106) H Uric Acid 9.7 MG/DL (2.6-7.2) H Calcium Level 8.0 MG/DL (8.5-10.1) L Phosphorus Level 3.2 MG/DL (2.5-4.9) Magnesium Level 2.1 MG/DL (1.8-2.4) Total Bilirubin 0.4 MG/DL (0.2-1.0) Aspartate Amino Transf (AST/SGOT) 43 U/L (15-37) H Alanine Aminotransferase (ALT/SGPT) 34 U/L (12-78) Alkaline Phosphatase 80 U/L (46-116) Total Protein 5.6 G/DL (6.4-8.2) L Albumin 1.1 G/DL (3.4-5.0) L Globulin 4.5 g/dL Albumin/Globulin Ratio 0.2 (1.0-2.7) L Random Vancomycin Level 17.1 ug/mL Valproic Acid (Depakene) Level 16 MCG/ML (50-100) L Plan Problems: (1) Skin lesions Assessment & Plan: patient presented with multiple skin lesions scrotal edema with cellulitis. pending CT pelvis for eval sacral DTI noted large, skin blistering open now epidermal loss dermis intact left upper extremity epidermal skin blistering open, dermis intact multiple wounds noted on ear, face, chest skin breakdown malnutrition overall prognosis guarded hold on skin biopsy of lesions. 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 Both lower extremities are contracted. Dry Brownish/black capped skin lesion noted to R earlobe ,R cheek and L temporal. Scattered skin lesions that are also dry capped and brownish /black noted to upper chest and bilat upper extremities. Irregular shaped Open DTPI noted to Sacrum. Full thickness ulcer at sacrococcygeal area(L)6cm x (W)5.3cm. Surrounding fluctuant and maroon borders.Measurement including open wound (L)9.5cm x (W)9.2cm No evidence of further skin breakdown periwound. No odor or exudate noted from wound. Resolving pressure injury base of scrotum. Base of wound brayan in center with surrounding moist pink granulation. Scattered biofilm within base of wound.No odor or exudate noted.(L)5.6cm x (W)4.5cm. Open DTPI kermit R tibia. Base of wound is moist and brayan with surrounding fluctuant borders that maroon/purple in colour.(L)9.5cm x (W)2.7cm. Stable dry eschar noted to distal/kermit R tibia(L)2.4cm x (W)1.6cm. Open DTPI noted to R heel(L)3.3cm x (W)3.5cm. Base of wound is moist and brayan in center with small necrotic area. Surrounding borders of wound are purple and fluctuant. Unstageable pressure injury medial aspect of distal L tibia. Base of wound has 90% fibrinous slough with erythematous margins.(L)3.3cm x (W)3.2cm. NO odor or exudate noted. Unstageable pressure injury lateral L malleolus. Base of wound is 100% necrotic and dry.(L)4cm x (W)3.8cm. Tx.Plan: Cleanse Sacral wound with Saline. Apply Therahoney. Apply Moisture Barrier Periwound. Cover with Optifoam drsg daily and prn. Cleanse wound kermit R tibia with Saline. Apply TheraHoney. Apply Cavilon Skin Barrier periwound. Cover with Optifoam drsg every 3 days and prn. Cleanse wound R heel with Saline. Apply Therahoney. Apply Cavilon Skin Barrier periwound. Cover with Optifoam drsg every 3 days and prn. Cleanse wound L tibia with Saline. Apply Therahoney.Apply Cavilon Periwound. Cover with Optifoam drsg every 3 days and prn. Swab Wounds L heel and L lateral malleolus with Betadine. Cover each wound with Optifoam drsg. Change every 3 days and prn. APM/DENICE Mattress overlay. Reposition at least every 2hours or as tolerated. Place pillow between knees. Off-load heels with pillows. nutritional optimization thank you will follow with recs (2) Leukocytosis Assessment & Plan: ct chest ordered ct abd/ pelvis ordered by ID for r/o abd abscess (3) Sepsis (4) Failure to thrive (5) Failure to thrive in adult Assessment & Plan: DAILY ESTIMATED NEEDS: Needs based on Wounds, underweight 58.5kg 30-35 kcals/kg 5902-0644 total kcals 1.25-2 g protein/kg 73-117 g total protein 25-30ml/kcal mL/kg 9927-2747 total fluid mLs NUTRITION DIAGNOSIS: Increased kcal and pro needs r/t wound healing and underweight status as evidenced by pt w/ multiple pressure wounds, eval pending, underweight per guidelines w/ generalized moderate-severe wasting, @72% of [place] Body Weight. CURRENT DIET: NPO PO DIET RECOMMENDATIONS: Regular liberalized diet/ texture per INSERTER OPERATOR ENTERAL NUTRITION RECOMMENDATIONS: * Consult RD if non oral feeds are part of POC * ---- ADDITIONAL RECOMMENDATIONS: 1) Add GLUCERNA 1 tetra TID w/ meals 2) INSERTER OPERATOR eval 3) F/up w/ WC eval-> rec ANANDA BID w/ diet order 4) RE-calibrate bed scale w/ added P200 mattress for accurate CBW (6) Pneumothorax on left Assessment & Plan: There is a tiny left apical pneumothorax. This appears smaller than on the previous study. Lungs remain clear. Heart is normal in size. Trachea is midline. Aorta is calcified. IMPRESSION: Trace left apical pneumothorax. stable can monitor for now repeat cxr hold on tube for now CT chest when stable Connor Mcfadden Sep 09, 2019 14:44
[2019-09-09] MEDS ORDERED: Vancomycin 1.5gm/NS Premix IVPB SCH (15:00)
--- NOTE | 2019-09-09 15:29 | Nephrology Progress Note ---
Assessment/Plan Problem List: (1) NAGA (acute kidney injury) (2) UTI (urinary tract infection) (3) Elevated troponin (4) Failure to thrive in adult (5) Sepsis (6) Anemia (7) Dehydration Assessment Potassium phosphate in the morning dose 20 mmol Renal failure mostly prerenal Azotemia. May have underlying chronic kidney disease. Hydration. Sepsis leukocytosis. Encephalopathy in the form of toxic and metabolic. Failure to thrive. Albuminemia. Levator troponin. Most likely due to significant cardiac ischemia. Plan Plan: NG tube feedings until PEG is arranged Eliminate mind altering medication as possible Hydrate. Meds IV as possible Plavix and SQ heparin N.p.o. ST evaluation. Nitrates. Monitor renal parameters. Avoid nephrotoxic's. Antibiotics per ID. Felder catheter. Discussed with RN DNR status. Subjective ROS Limited/Unobtainable: No Constitutional: Reports: malaise, weakness Objective Objective Last 24 Hour Vital Signs Date Time Temp Pulse Resp B/P (MAP) Pulse Ox O2 Delivery O2 Flow Rate FiO2 09/09/19 12:00 98.0 80 17 96/54 (68) 98 09/09/19 09:00 Nasal Cannula 2.0 09/09/19 09:00 93/49 09/09/19 08:00 97.7 73 16 93/49 (64) 99 09/09/19 07:29 97 Nasal Cannula 2.0 28 09/09/19 07:29 67 18 97 Nasal Cannula 2.0 28 09/09/19 04:00 98.4 62 20 118/63 (81) 96 09/09/19 00:00 98.9 84 20 96/62 (73) 96 09/08/19 21:00 Nasal Cannula 2.0 09/08/19 20:00 99.1 95 19 120/68 (85) 99 09/08/19 19:38 90 20 95 Nasal Cannula 2.0 28 09/08/19 19:38 95 Nasal Cannula 2.0 28 09/08/19 16:00 96.4 93 20 104/80 (88) 98 09/08/19 16:00 84 Intake and Output 09/08/19 09/09/19 19:00 07:00 Output Total 250 ml 300 ml Balance -250 ml -300 ml Output Urine Total 250 ml 300 ml # Voids 1 Current Medications Medications (Trade) Dose Ordered Sig/Kaveh Route PRN Reason Start Time Stop Time Status Last Admin Dose Admin Acetaminophen (Tylenol) 650 mg Q4H PRN ORAL Mild Pain/Temp > 100.5 09/08/19 23:37 10/08/19 23:36 Acetaminophen (Tylenol) 650 mg Q4H PRN RECTAL Prn Headache/Temp > 101 09/08/19 23:37 10/08/19 23:36 Albuterol/ Ipratropium (Albuterol/ Ipratropium) 3 ml Q6H PRN HHN Shortness of Breath 09/09/19 00:00 09/11/19 17:59 Barium Sulfate (Readi-Cat 2) 450 ml NOW PRN ORAL Radiology Procedure 09/09/19 12:15 09/14/19 12:01 Clopidogrel Bisulfate (Plavix) 75 mg DAILY ORAL 09/09/19 09:00 10/06/19 10:44 Dextrose 1,000 ml @ 50 mls/hr Q20H IV 09/10/19 09:32 10/09/19 09:31 Docusate Sodium (Colace) 100 mg TWICE A DAY ORAL 09/09/19 09:00 10/05/19 08:59 Folic Acid (Folate) 1 mg DAILY ORAL 09/09/19 09:00 10/07/19 10:29 Heparin Sodium (Porcine) (Heparin 5000 units/ml) 5,000 units EVERY 8 HOURS SUBQ 09/09/19 06:00 10/06/19 10:29 09/09/19 05:35 Lorazepam (Ativan 2mg/ml 1ml) 0.5 mg Q6H PRN IV For Anxiety 09/09/19 09:30 09/16/19 09:29 Morphine Sulfate (Morphine Sulfate) 2 mg Q4H PRN IVP Severe Pain (Pain Scale 7-10) 09/08/19 23:39 09/15/19 23:38 09/09/19 05:33 Nitroglycerin (Ntg) 1 patch Q24H TDERMAL 09/09/19 09:00 10/05/19 08:59 Pantoprazole (Protonix) 40 mg EVERY 12 HOURS IVP 09/09/19 09:00 10/05/19 08:59 09/09/19 08:56 Piperacillin Sod/ Tazobactam Sod 3.375 gm/Sodium Chloride 110 ml @ 27.5 mls/hr Q8H IVPB 09/09/19 10:00 09/16/19 09:59 09/09/19 10:17 Potassium Chloride 100 ml @ 100 mls/hr NOW ONCE IVPB 09/09/19 15:15 09/09/19 16:14 Risperidone (RisperDAL) 0.5 mg Q12H PRN ORAL agitation 09/08/19 23:39 10/08/19 23:38 Valproate Sodium 500 mg/Dextrose 60 ml @ 60 mls/hr Q8H IVPB 09/09/19 00:00 10/09/19 00:00 09/09/19 08:56 Vancomycin HCl (Vanco rx to dose) 1 ea DAILY PRN MISC Per rx protocol 09/09/19 09:00 10/05/19 11:29 Vancomycin HCl 1 gm/Dextrose 275 ml @ 183.708 mls/hr Q24H IVPB 09/09/19 15:00 09/14/19 14:59 Laboratory Tests 09/09/19 06:18: White Blood Count 10.4, Red Blood Count 2.73L, Hemoglobin 8.2L, Hematocrit 24.3L , Mean Corpuscular Volume 89, Mean Corpuscular Hemoglobin 30.1, Mean Corpuscular Hemoglobin Concent 33.7, Red Cell Distribution Width 14.4, Platelet Count 272, Mean Platelet Volume 7.7, Neutrophils (%) (Auto) 82.0H, Lymphocytes ( %) (Auto) 10.7L, Monocytes (%) (Auto) 5.3, Eosinophils (%) (Auto) 1.7, Basophils (%) (Auto) 0.3, Sodium Level 143, Potassium Level 3.3L, Chloride Level 110H, Carbon Dioxide Level 23, Anion Gap 10, Blood Urea Nitrogen 49H, Creatinine 1.5H, Estimat Glomerular Filtration Rate 44.5, Glucose Level 158H, Uric Acid 9.7H, Calcium Level 8.0L, Phosphorus Level 3.2, Magnesium Level 2.1, Total Bilirubin 0.4, Aspartate Amino Transf (AST/SGOT) 43H, Alanine Aminotransferase (ALT/SGPT) 34, Alkaline Phosphatase 80, Total Protein 5.6L, Albumin 1.1L, Globulin 4.5, Albumin/Globulin Ratio 0.2L, Random Vancomycin Level 17.1, Valproic Acid (Depakene) Level 16L Height (Feet): 5 Height (Inches): 11.00 Weight (Pounds): 151 General Appearance: agitated - At times EENT: other - Has NG tube now Respiratory/Chest: decreased breath sounds Abdomen: distended Dariusz Brandt MD Sep 09, 2019 15:29
[2019-09-09 16:00] VITALS: BP 93/57
[2019-09-09] MEDS: Vancomycin 1gm in D5W 275ml IVPB SCH (16:49)
[2019-09-09 20:00] VITALS: BP 107/52
[2019-09-10] VITALS: BP 112/64
[2019-09-10] MEDS: Piperacillin/Tazobactam 3.375 GM in NS 110 ML IVPB SCH ×3 (01:33→17:27)
[2019-09-10 04:00] VITALS: BP 112/60
[2019-09-10] MEDS: Morphine Sulfate 2mg/ml Inj(IV/IM USE ONLY) IVP PRN ×3 (06:34→14:23)
[2019-09-10] MEDS: Heparin 5000 units/ml inj SUBQ SCH ×3 (06:37→21:12)
[2019-09-10 07:07] LABS: ANION GAP 9 mmol/L (5-15); BLOOD UREA NITROGEN 37 mg/dL (7-18); CALCIUM 8.7 MG/DL (8.5-10.1); CARBON DIOXIDE 26 MMOL/L (21-32); CHLORIDE 109 MMOL/L (98-107); CREATININE 1.4 MG/DL (0.55-1.30); POTASSIUM 4.2 MMOL/L (3.5-5.1); SODIUM 143 MMOL/L (136-145)
[2019-09-10 07:10] LABS: BASOPHILS % (AUTO) 0.5 % (0.0-2.0); EOSINOPHILS % (AUTO) 1.6 % (0.0-3.0); HEMATOCRIT 30.6 % (42.0-52.0); HEMOGLOBIN 10.3 G/DL (14.2-18.0); LYMPHOCYTES % (AUTO) 14.7 % (20.0-45.0); MEAN CORPUSCULAR VOLUME 90 FL (80-99); MONOCYTES % (AUTO) 3.5 % (1.0-10.0); NEUTROPHILS % (AUTO) 79.8 % (45.0-75.0); PLATELET COUNT 382 K/UL (150-450); RED CELL DISTRIBUTION WIDTH 14.5 % (11.6-14.8); WHITE BLOOD COUNT 10.7 K/UL (4.8-10.8)
[2019-09-10 07:34] LABS: ALANINE AMINOTRANSFERASE 33 U/L (12-78); ALBUMIN 1.4 G/DL (3.4-5.0); ALKALINE PHOSPHATASE 95 U/L (46-116); ASPARTATE AMINO TRANSFERASE 35 U/L (15-37); BILIRUBIN,DIRECT < 0.1 MG/DL (0.0-0.3); BILIRUBIN,TOTAL 0.5 MG/DL (0.2-1.0)
[2019-09-10 08:00] VITALS: BP 119/65
--- NOTE | 2019-09-10 08:33 | General Progress Note ---
Assessment/Plan Problem List: (1) Anemia ICD Codes: D64.9 - Anemia, unspecified SNOMED: 645789009 (2) Elevated troponin ICD Codes: R79.89 - Other specified abnormal findings of blood chemistry SNOMED: 293480972, 910545834, 048135574 (3) Dehydration ICD Codes: E86.0 - Dehydration SNOMED: 38705045 (4) Sepsis ICD Codes: A41.9 - Sepsis, unspecified organism SNOMED: 30246987 Qualifiers: Qualified Codes: A41.9 - Sepsis, unspecified organism (5) UTI (urinary tract infection) ICD Codes: N39.0 - Urinary tract infection, site not specified SNOMED: 38311705 Qualifiers: Qualified Codes: N30.00 - Acute cystitis without hematuria (6) Failure to thrive in adult ICD Codes: R62.7 - Adult failure to thrive SNOMED: 098453959 (7) NAGA (acute kidney injury) ICD Codes: N17.9 - Acute kidney failure, unspecified SNOMED: 99258617, 1445171 (8) Failure to thrive SNOMED: 65641812 Status: unchanged Assessment/Plan: o2 pulm tx abx cardio pulm f/u prt diet cbc bmp am dc w hospice if ok family wishes, left msg w family Subjective Constitutional: Reports: weakness Allergies: Coded Allergies: AMLODIPINE (Verified Allergy, Unknown, 09/04/19) ASPIRIN (Verified Allergy, Unknown, 09/04/19) BENAZEPRIL (Verified Allergy, Unknown, 09/04/19) All Systems: reviewed and negative except above Subjective o2nc ng sleepy Objective Last 24 Hour Vital Signs Date Time Temp Pulse Resp B/P (MAP) Pulse Ox O2 Delivery O2 Flow Rate FiO2 09/10/19 07:59 99 Nasal Cannula 2.0 28 09/10/19 07:58 60 18 99 Nasal Cannula 2.0 28 09/10/19 04:00 97.7 61 24 112/60 (77) 98 09/10/19 00:00 98.0 73 20 112/64 (80) 98 09/09/19 21:00 Nasal Cannula 2.0 09/09/19 20:19 98 Nasal Cannula 2.0 28 09/09/19 20:19 72 18 98 Nasal Cannula 2.0 28 09/09/19 20:00 98.4 80 24 107/52 (70) 96 09/09/19 16:00 98.5 86 18 93/57 (69) 98 09/09/19 12:00 98.0 80 17 96/54 (68) 98 09/09/19 09:00 Nasal Cannula 2.0 09/09/19 09:00 93/49 Intake and Output 09/09/19 09/10/19 19:00 07:00 Intake Total 585.000 ml Output Total 1300 ml 500 ml Balance -715.000 ml -500 ml IV Total 585.000 ml Output Urine Total 1300 ml 500 ml Laboratory Tests 09/10/19 05:59: White Blood Count 10.7, Red Blood Count 3.40L, Hemoglobin 10.3L, Hematocrit 30.6L, Mean Corpuscular Volume 90, Mean Corpuscular Hemoglobin 30.3, Mean Corpuscular Hemoglobin Concent 33.7, Red Cell Distribution Width 14.5, Platelet Count 382, Mean Platelet Volume 7.3, Neutrophils (%) (Auto) 79.8H, Lymphocytes ( %) (Auto) 14.7L, Monocytes (%) (Auto) 3.5, Eosinophils (%) (Auto) 1.6, Basophils (%) (Auto) 0.5, Sodium Level 143, Potassium Level 4.2, Chloride Level 109H, Carbon Dioxide Level 26, Anion Gap 9, Blood Urea Nitrogen 37H, Creatinine 1.4H, Estimat Glomerular Filtration Rate 48.2, Glucose Level 121H, Calcium Level 8.7, Phosphorus Level 3.0, Magnesium Level 2.2, Total Bilirubin 0.5, Direct Bilirubin < 0.1, Aspartate Amino Transf (AST/SGOT) 35, Alanine Aminotransferase (ALT/SGPT) 33, Alkaline Phosphatase 95, C-Reactive Protein, Quantitative 18.2H, Pro-B-Type Natriuretic Peptide 80176E, Total Protein 6.1L, Albumin 1.4L, Valproic Acid (Depakene) Level 21L Height (Feet): 5 Height (Inches): 11.00 Weight (Pounds): 151 General Appearance: lethargic EENT: normal ENT inspection Neck: normal alignment Cardiovascular: normal peripheral pulses, normal rate, regular rhythm Respiratory/Chest: chest wall non-tender, decreased breath sounds Abdomen: normal bowel sounds, non tender, soft Extremities: normal inspection Edema: no edema noted Arm (L), no edema noted Arm (R), no edema noted Leg (L), no edema noted Leg (R), no edema noted Pedal (L), no edema noted Pedal (R), no edema noted Generalized Neurologic: motor weakness Skin: normal pigmentation, warm/dry Prabhakar Pond DO Sep 10, 2019 08:33
--- NOTE | 2019-09-10 08:45 | Progress Note ---
DATE: 09/09/2019 SUBJECTIVE: This is an 83-year-old male patient with failure to thrive. This is a male patient who is confused and disorganized. He has no logical plan for his own self-care. He has got feelings of helplessness, hopelessness, low energy, poor appetite, and loss of interest in activity. That is why, he does require inpatient treatment at this time. This patient does have some confusion, some disorganized thought process, and mood lability, decline in cognition below his baseline and this patient is confused, disorganized, failure to thrive, altered mental status. MENTAL STATUS EXAMINATION: This is an 83-year-old male. Appearance is disheveled. Attitude, irritable and agitated. Affect, guarded and restricted. Intellect poor. Mood, depressed and anxious. Motor activity, psychomotor agitation. Insight and judgment is poor. DIAGNOSIS: Schizoaffective, bipolar type, rule out dementia with psychosis. PLAN: Plan for this patient is to treat this patient with a medication regimen consisting of Risperdal 0.5 mg q.12 h. p.r.n. anxiety and agitation and continue this patient on Depakote and Depakene syrup at a dose of 500 mg IV every 8 hours p.r.n. anxiety and agitation. I am also going to start this patient on Ativan 0.5 mg every 6 hours p.r.n. anxiety and agitation. Greater than 20 minutes of reality-based supportive psychotherapy provided. Chart reviewed and discussed with the staff. The patient is seen and assessed at bedside. A 20 minutes of cognitive behavioral therapy to help this patient identify his automatic negative thoughts and convert his negative thoughts to more positive thoughts to reduce depression, anxiety, and mood lability. He has 02:55. Chart reviewed. Discussed with staff. Seen and assessed at bedside. Cherri De Luna M.D. DR: KAYLAH JOB#: [id number] CC:
[2019-09-10] MEDS: Docusate 100mg cap ORAL SCH ×2 (09:00→18:00)
[2019-09-10] MEDS: Valproate Sodium INJ 500 MG in D5W 55 ML IVPB SCH ×2 (09:07→16:58)
[2019-09-10] MEDS: Pantoprazole Inj IVP SCH ×2 (09:08→21:02)
[2019-09-10] MEDS: Nitroglycerin Patch 0.4mg TDERMAL SCH (09:23)
--- NOTE | 2019-09-10 09:34 | Diagnostic Imaging Report ---
INDICATION: Sepsis. UTI. Bacteremia. Pneumothorax. Leukocytosis. History of emphysema fever TECHNIQUE: Continuous helical transaxial imaging of the chest, abdomen and pelvis was obtained from the thoracic inlet to the pubic symphysis. No IV contrast was administered. Coronal 2-D reformats were also obtained. Study obtained in a Siemens sensation [address] Total Dose length Product (DLP): 298.[address] Dose Index Volume (CTDIvol): 4.1 mGy COMPARISON: None FINDINGS: CT CHEST: Trace bilateral pleural effusions are present. There are scattered infiltrates with consolidative/airspace opacities probably worse at the right lung base posteriorly. Findings consistent with pneumonia. Another focus in the anterior right upper lobe noted. There is no pneumothorax identified. The esophagus is moderately dilated. There is a nasogastric tube present. The tip is curled within the stomach. The aorta is moderately calcified. There are suggestion of small nodes in the mediastinum but the evaluation of this is limited on noncontrast images. The heart appears to be normal in size. Bones are osteopenic. Multilevel thoracic and lumbar vertebral endplate enthesophytes demonstrated. There is dense calcification of the aortic valve. CT ABDOMEN/PELVIS: Again there is significant limitation due to the nonadministration of intravenous and oral contrast material. The gallbladder is seen and the distended. No obvious gallstones or biliary ductal dilatation appreciated. No obvious abnormalities of the solid organs identified. No hydronephrosis seen. Bowel gas pattern appears nonobstructive. There is a small amount of free fluid within the pelvis. Nature of this is not known. The appendix is not definitely seen. There are no secondary signs of appendicitis. There is suggestion of diverticulosis in the sigmoid colon. There is a left inguinal hernia which contains part of the descending colon. The size of the hernia is not truly appreciated on this study as the hernia extends below the [id number] of this examination into the left scrotum. There is no evidence of proximal obstruction due to the hernia. Generalized anasarca noted with diffuse subcutaneous reticulation and edema. Right dynamic hip screw noted. Intertrochanteric fracture is also seen. There is narrowing of intervertebral discs and accompanying endplate osteophyte formation. Hypertrophied facet joints also demonstrated.. IMPRESSION: Patchy airspace opacities consistent with pneumonia most notably in the posterior right lower lobe. Trace bilateral pleural effusions. No pneumothorax. Moderate dilatation of the esophagus. May be related to presence of a feeding tube. Achalasia or distal esophageal strictures are not excludable. Left inguinal hernia containing a portion of the descending colon. No evidence of obstruction. The true extent and size of the hernia is not known as the lower portion of the hernia is below the [id number] of this examination. The hernia should be clinically apparent since the hernia sac is within the left scrotum. Anasarca Right dynamic hip screw. Osteoporosis Degenerative changes of the spine. Small amount of free fluid in the pelvis unknown origin. Significantly limited evaluation due to the nonadministration of oral and intravenous contrast. The CT scanner at [facility] is accredited by the [employer] and the scans are performed using dose optimization techniques as appropriate to a performed exam including Automatic Exposure control.
--- NOTE | 2019-09-10 09:37 | Surgery Progress Note ---
Surgery Progress Note Subjective Additional Comments no acute events comfortable stable Objective Last 24 Hour Vital Signs Date Time Temp Pulse Resp B/P (MAP) Pulse Ox O2 Delivery O2 Flow Rate FiO2 09/10/19 09:23 119/65 09/10/19 08:00 97.3 86 20 119/65 (83) 96 09/10/19 07:59 99 Nasal Cannula 2.0 28 09/10/19 07:58 60 18 99 Nasal Cannula 2.0 28 09/10/19 04:00 97.7 61 24 112/60 (77) 98 09/10/19 00:00 98.0 73 20 112/64 (80) 98 09/09/19 21:00 Nasal Cannula 2.0 09/09/19 20:19 98 Nasal Cannula 2.0 28 09/09/19 20:19 72 18 98 Nasal Cannula 2.0 28 09/09/19 20:00 98.4 80 24 107/52 (70) 96 09/09/19 16:00 98.5 86 18 93/57 (69) 98 09/09/19 12:00 98.0 80 17 96/54 (68) 98 I&O Intake and Output 09/09/19 09/10/19 18:59 06:59 Intake Total 585.000 ml Output Total 1300 ml 500 ml Balance -715.000 ml -500 ml IV Total 585.000 ml Output Urine Total 1300 ml 500 ml Dressing: other Wound: other Drains: other Cardiovascular: RSR Respiratory: decreased breath sounds Abdomen: soft, present bowel sounds Extremities: no cyanosis Laboratory Tests Test 09/10/19 05:59 White Blood Count 10.7 K/UL (4.8-10.8) Red Blood Count 3.40 M/UL (4.70-6.10) L Hemoglobin 10.3 G/DL (14.2-18.0) L Hematocrit 30.6 % (42.0-52.0) L Mean Corpuscular Volume 90 FL (80-99) Mean Corpuscular Hemoglobin 30.3 PG (27.0-31.0) Mean Corpuscular Hemoglobin Concent 33.7 G/DL (32.0-36.0) Red Cell Distribution Width 14.5 % (11.6-14.8) Platelet Count 382 K/UL (150-450) Mean Platelet Volume 7.3 FL (6.5-10.1) Neutrophils (%) (Auto) 79.8 % (45.0-75.0) H Lymphocytes (%) (Auto) 14.7 % (20.0-45.0) L Monocytes (%) (Auto) 3.5 % (1.0-10.0) Eosinophils (%) (Auto) 1.6 % (0.0-3.0) Basophils (%) (Auto) 0.5 % (0.0-2.0) Sodium Level 143 MMOL/L (136-145) Potassium Level 4.2 MMOL/L (3.5-5.1) Chloride Level 109 MMOL/L (98-107) H Carbon Dioxide Level 26 MMOL/L (21-32) Anion Gap 9 mmol/L (5-15) Blood Urea Nitrogen 37 mg/dL (7-18) H Creatinine 1.4 MG/DL (0.55-1.30) H Estimat Glomerular Filtration Rate 48.2 mL/min (>60) Glucose Level 121 MG/DL (74-106) H Calcium Level 8.7 MG/DL (8.5-10.1) Phosphorus Level 3.0 MG/DL (2.5-4.9) Magnesium Level 2.2 MG/DL (1.8-2.4) Total Bilirubin 0.5 MG/DL (0.2-1.0) Direct Bilirubin < 0.1 MG/DL (0.0-0.3) Aspartate Amino Transf (AST/SGOT) 35 U/L (15-37) Alanine Aminotransferase (ALT/SGPT) 33 U/L (12-78) Alkaline Phosphatase 95 U/L (46-116) C-Reactive Protein, Quantitative 18.2 mg/dL (0.00-0.90) H Pro-B-Type Natriuretic Peptide 09549 pg/mL (0-125) H Total Protein 6.1 G/DL (6.4-8.2) L Albumin 1.4 G/DL (3.4-5.0) L Valproic Acid (Depakene) Level 21 MCG/ML (50-100) L Plan Problems: (1) Skin lesions Assessment & Plan: patient presented with multiple skin lesions scrotal edema with cellulitis. pending CT pelvis for eval sacral DTI noted large, skin blistering open now epidermal loss dermis intact left upper extremity epidermal skin blistering open, dermis intact multiple wounds noted on ear, face, chest skin breakdown malnutrition overall prognosis guarded hold on skin biopsy of lesions. 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 Both lower extremities are contracted. Dry Brownish/black capped skin lesion noted to R earlobe ,R cheek and L temporal. Scattered skin lesions that are also dry capped and brownish /black noted to upper chest and bilat upper extremities. Irregular shaped Open DTPI noted to Sacrum. Full thickness ulcer at sacrococcygeal area(L)6cm x (W)5.3cm. Surrounding fluctuant and maroon borders.Measurement including open wound (L)9.5cm x (W)9.2cm No evidence of further skin breakdown periwound. No odor or exudate noted from wound. Resolving pressure injury base of scrotum. Base of wound brayan in center with surrounding moist pink granulation. Scattered biofilm within base of wound.No odor or exudate noted.(L)5.6cm x (W)4.5cm. Open DTPI kermit R tibia. Base of wound is moist and brayan with surrounding fluctuant borders that maroon/purple in colour.(L)9.5cm x (W)2.7cm. Stable dry eschar noted to distal/kermit R tibia(L)2.4cm x (W)1.6cm. Open DTPI noted to R heel(L)3.3cm x (W)3.5cm. Base of wound is moist and brayan in center with small necrotic area. Surrounding borders of wound are purple and fluctuant. Unstageable pressure injury medial aspect of distal L tibia. Base of wound has 90% fibrinous slough with erythematous margins.(L)3.3cm x (W)3.2cm. NO odor or exudate noted. Unstageable pressure injury lateral L malleolus. Base of wound is 100% necrotic and dry.(L)4cm x (W)3.8cm. Tx.Plan: Cleanse Sacral wound with Saline. Apply Therahoney. Apply Moisture Barrier Periwound. Cover with Optifoam drsg daily and prn. Cleanse wound kermit R tibia with Saline. Apply TheraHoney. Apply Cavilon Skin Barrier periwound. Cover with Optifoam drsg every 3 days and prn. Cleanse wound R heel with Saline. Apply Therahoney. Apply Cavilon Skin Barrier periwound. Cover with Optifoam drsg every 3 days and prn. Cleanse wound L tibia with Saline. Apply Therahoney.Apply Cavilon Periwound. Cover with Optifoam drsg every 3 days and prn. Swab Wounds L heel and L lateral malleolus with Betadine. Cover each wound with Optifoam drsg. Change every 3 days and prn. APM/DENICE Mattress overlay. Reposition at least every 2hours or as tolerated. Place pillow between knees. Off-load heels with pillows. nutritional optimization thank you will follow with recs (2) Leukocytosis Assessment & Plan: ct chest ordered ct abd/ pelvis ordered by ID for r/o abd abscess (3) Sepsis (4) Failure to thrive (5) Failure to thrive in adult Assessment & Plan: DAILY ESTIMATED NEEDS: Needs based on Wounds, underweight 58.5kg 30-35 kcals/kg 5004-1188 total kcals 1.25-2 g protein/kg 73-117 g total protein 25-30ml/kcal mL/kg 1259-7677 total fluid mLs NUTRITION DIAGNOSIS: Increased kcal and pro needs r/t wound healing and underweight status as evidenced by pt w/ multiple pressure wounds, eval pending, underweight per guidelines w/ generalized moderate-severe wasting, @72% of [place] Body Weight. CURRENT DIET: NPO PO DIET RECOMMENDATIONS: Regular liberalized diet/ texture per DRAWING IN HAND ENTERAL NUTRITION RECOMMENDATIONS: * Consult RD if non oral feeds are part of POC * ---- ADDITIONAL RECOMMENDATIONS: 1) Add GLUCERNA 1 tetra TID w/ meals 2) DRAWING IN HAND eval 3) F/up w/ WC eval-> rec ANANDA BID w/ diet order 4) RE-calibrate bed scale w/ added P200 mattress for accurate CBW (6) Pneumothorax on left Assessment & Plan: There is a tiny left apical pneumothorax. This appears smaller than on the previous study. Lungs remain clear. Heart is normal in size. Trachea is midline. Aorta is calcified. IMPRESSION: Trace left apical pneumothorax. stable can monitor for now repeat cxr hold on tube for now CT chest when stable Connor Mcfadden Sep 10, 2019 09:37
--- NOTE | 2019-09-10 10:57 | General Progress Note ---
Assessment/Plan Problem List: (1) Iron deficiency anemia ICD Codes: D50.9 - Iron deficiency anemia, unspecified SNOMED: 89165838 (2) Folate deficiency ICD Codes: E53.8 - Deficiency of other specified B group vitamins SNOMED: 577523608 (3) low Albumin (4) Anemia ICD Codes: D64.9 - Anemia, unspecified SNOMED: 479119020 (5) Failure to thrive SNOMED: 55212122 (6) Elevated troponin ICD Codes: R79.89 - Other specified abnormal findings of blood chemistry SNOMED: 878061754, 212374370, 488815205 (7) Dehydration ICD Codes: E86.0 - Dehydration SNOMED: 14593230 Status: unchanged Assessment/Plan: NGTF d/w the family for management will need PEG if cleared by cardiology and if family consent Subjective ROS Limited/Unobtainable: No Allergies: Coded Allergies: AMLODIPINE (Verified Allergy, Unknown, 09/04/19) ASPIRIN (Verified Allergy, Unknown, 09/04/19) BENAZEPRIL (Verified Allergy, Unknown, 09/04/19) Objective Last 24 Hour Vital Signs Date Time Temp Pulse Resp B/P (MAP) Pulse Ox O2 Delivery O2 Flow Rate FiO2 09/10/19 09:23 119/65 09/10/19 08:00 97.3 86 20 119/65 (83) 96 09/10/19 07:59 99 Nasal Cannula 2.0 28 09/10/19 07:58 60 18 99 Nasal Cannula 2.0 28 09/10/19 04:00 97.7 61 24 112/60 (77) 98 09/10/19 00:00 98.0 73 20 112/64 (80) 98 09/09/19 21:00 Nasal Cannula 2.0 09/09/19 20:19 98 Nasal Cannula 2.0 28 09/09/19 20:19 72 18 98 Nasal Cannula 2.0 28 09/09/19 20:00 98.4 80 24 107/52 (70) 96 09/09/19 16:00 98.5 86 18 93/57 (69) 98 09/09/19 12:00 98.0 80 17 96/54 (68) 98 Intake and Output 09/09/19 09/10/19 19:00 07:00 Intake Total 585.000 ml Output Total 1300 ml 500 ml Balance -715.000 ml -500 ml IV Total 585.000 ml Output Urine Total 1300 ml 500 ml Laboratory Tests 09/10/19 05:59: White Blood Count 10.7, Red Blood Count 3.40L, Hemoglobin 10.3L, Hematocrit 30.6L, Mean Corpuscular Volume 90, Mean Corpuscular Hemoglobin 30.3, Mean Corpuscular Hemoglobin Concent 33.7, Red Cell Distribution Width 14.5, Platelet Count 382, Mean Platelet Volume 7.3, Neutrophils (%) (Auto) 79.8H, Lymphocytes ( %) (Auto) 14.7L, Monocytes (%) (Auto) 3.5, Eosinophils (%) (Auto) 1.6, Basophils (%) (Auto) 0.5, Sodium Level 143, Potassium Level 4.2, Chloride Level 109H, Carbon Dioxide Level 26, Anion Gap 9, Blood Urea Nitrogen 37H, Creatinine 1.4H, Estimat Glomerular Filtration Rate 48.2, Glucose Level 121H, Calcium Level 8.7, Phosphorus Level 3.0, Magnesium Level 2.2, Total Bilirubin 0.5, Direct Bilirubin < 0.1, Aspartate Amino Transf (AST/SGOT) 35, Alanine Aminotransferase (ALT/SGPT) 33, Alkaline Phosphatase 95, C-Reactive Protein, Quantitative 18.2H, Pro-B-Type Natriuretic Peptide 51337A, Total Protein 6.1L, Albumin 1.4L, Valproic Acid (Depakene) Level 21L Height (Feet): 5 Height (Inches): 11.00 Weight (Pounds): 151 General Appearance: lethargic EENT: normal ENT inspection Neck: supple Cardiovascular: normal rate Respiratory/Chest: decreased breath sounds Abdomen: normal bowel sounds, non tender, soft Extremities: non-tender Arley Cosby MD Sep 10, 2019 10:57
--- NOTE | 2019-09-10 10:58 | Pulmonology Progress Note ---
Assessment/Plan Assessment/Plan IMPRESSION: 1. Small left apical pneumothorax. 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 3. Parkinson. 4. Dementia. 5. UTI. 6. Hypernatremia. 7. Left upper extremity cellulitis. 8. Multiple decubitus. 9. Likely NSTEMI DISCUSSION: Noted DNR status. At this time, he is asymptomatic from pulmonary standpoint. Therefore, we will avoid any further intervention for the small apical left pneumothorax. This may be spontaneous due to his underlying lung disease. Saturations are adequate on low flow O2 No respiratory distress or tachypnea Continue antibiotic vancomycin for left upper extremity cellulitis Hydration status addressed by Nephrology. I will follow as fish dressing machine feeder. Discussed with daughter Sushma She is agreeable to hospice. Will follow Arun Melvin M.D. Subjective Interval Events: None new Constitutional: Reports: no symptoms HEENT: Repors: no symptoms Respiratory: Reports: no symptoms Cardiovascular: Reports: no symptoms Gastrointestinal/Abdominal: Reports: no symptoms Allergies: Coded Allergies: AMLODIPINE (Verified Allergy, Unknown, 09/04/19) ASPIRIN (Verified Allergy, Unknown, 09/04/19) BENAZEPRIL (Verified Allergy, Unknown, 09/04/19) Objective Last 24 Hour Vital Signs Date Time Temp Pulse Resp B/P (MAP) Pulse Ox O2 Delivery O2 Flow Rate FiO2 09/10/19 09:23 119/65 09/10/19 08:00 97.3 86 20 119/65 (83) 96 09/10/19 07:59 99 Nasal Cannula 2.0 28 09/10/19 07:58 60 18 99 Nasal Cannula 2.0 28 09/10/19 04:00 97.7 61 24 112/60 (77) 98 09/10/19 00:00 98.0 73 20 112/64 (80) 98 09/09/19 21:00 Nasal Cannula 2.0 09/09/19 20:19 98 Nasal Cannula 2.0 28 09/09/19 20:19 72 18 98 Nasal Cannula 2.0 28 09/09/19 20:00 98.4 80 24 107/52 (70) 96 09/09/19 16:00 98.5 86 18 93/57 (69) 98 09/09/19 12:00 98.0 80 17 96/54 (68) 98 Intake and Output 09/09/19 09/10/19 19:00 07:00 Intake Total 585.000 ml Output Total 1300 ml 500 ml Balance -715.000 ml -500 ml IV Total 585.000 ml Output Urine Total 1300 ml 500 ml General Appearance: no acute distress HEENT: normocephalic Respiratory/Chest: chest wall non-tender Cardiovascular: normal peripheral pulses Laboratory Tests 09/10/19 05:59: White Blood Count 10.7, Red Blood Count 3.40L, Hemoglobin 10.3L, Hematocrit 30.6L, Mean Corpuscular Volume 90, Mean Corpuscular Hemoglobin 30.3, Mean Corpuscular Hemoglobin Concent 33.7, Red Cell Distribution Width 14.5, Platelet Count 382, Mean Platelet Volume 7.3, Neutrophils (%) (Auto) 79.8H, Lymphocytes ( %) (Auto) 14.7L, Monocytes (%) (Auto) 3.5, Eosinophils (%) (Auto) 1.6, Basophils (%) (Auto) 0.5, Sodium Level 143, Potassium Level 4.2, Chloride Level 109H, Carbon Dioxide Level 26, Anion Gap 9, Blood Urea Nitrogen 37H, Creatinine 1.4H, Estimat Glomerular Filtration Rate 48.2, Glucose Level 121H, Calcium Level 8.7, Phosphorus Level 3.0, Magnesium Level 2.2, Total Bilirubin 0.5, Direct Bilirubin < 0.1, Aspartate Amino Transf (AST/SGOT) 35, Alanine Aminotransferase (ALT/SGPT) 33, Alkaline Phosphatase 95, C-Reactive Protein, Quantitative 18.2H, Pro-B-Type Natriuretic Peptide 15311X, Total Protein 6.1L, Albumin 1.4L, Valproic Acid (Depakene) Level 21L Current Medications Medications (Trade) Dose Ordered Sig/Kaveh Route PRN Reason Start Time Stop Time Status Last Admin Dose Admin Acetaminophen (Tylenol) 650 mg Q4H PRN ORAL Mild Pain/Temp > 100.5 09/08/19 23:37 10/08/19 23:36 Acetaminophen (Tylenol) 650 mg Q4H PRN RECTAL Prn Headache/Temp > 101 09/08/19 23:37 10/08/19 23:36 Albuterol/ Ipratropium (Albuterol/ Ipratropium) 3 ml Q6H PRN HHN Shortness of Breath 09/09/19 00:00 09/11/19 17:59 Barium Sulfate (Readi-Cat 2) 450 ml NOW PRN ORAL Radiology Procedure 09/09/19 12:15 09/14/19 12:01 Clopidogrel Bisulfate (Plavix) 75 mg DAILY ORAL 09/09/19 09:00 10/06/19 10:44 09/10/19 09:08 Dextrose 1,000 ml @ 50 mls/hr Q20H IV 09/10/19 09:32 10/09/19 09:31 09/10/19 05:19 Docusate Sodium (Colace) 100 mg TWICE A DAY ORAL 09/09/19 09:00 10/05/19 08:59 Folic Acid (Folate) 1 mg DAILY ORAL 09/09/19 09:00 10/07/19 10:29 Heparin Sodium (Porcine) (Heparin 5000 units/ml) 5,000 units EVERY 8 HOURS SUBQ 09/09/19 06:00 10/06/19 10:29 09/10/19 06:37 Lorazepam (Ativan 2mg/ml 1ml) 0.5 mg Q6H PRN IV For Anxiety 09/09/19 09:30 09/16/19 09:29 Morphine Sulfate (Morphine Sulfate) 2 mg Q4H PRN IVP Severe Pain (Pain Scale 7-10) 09/08/19 23:39 09/15/19 23:38 09/10/19 10:07 Nitroglycerin (Ntg) 1 patch Q24H TDERMAL 09/09/19 09:00 10/05/19 08:59 09/10/19 09:23 Pantoprazole (Protonix) 40 mg EVERY 12 HOURS IVP 09/09/19 09:00 10/05/19 08:59 09/10/19 09:08 Piperacillin Sod/ Tazobactam Sod 3.375 gm/Sodium Chloride 110 ml @ 27.5 mls/hr Q8H IVPB 09/09/19 10:00 09/16/19 09:59 09/10/19 09:35 Risperidone (RisperDAL) 0.5 mg Q12H PRN ORAL agitation 09/08/19 23:39 10/08/19 23:38 Valproate Sodium 500 mg/Dextrose 60 ml @ 60 mls/hr Q8H IVPB 09/09/19 00:00 10/09/19 00:00 09/10/19 09:07 Vancomycin HCl (Vanco rx to dose) 1 ea DAILY PRN MISC Per rx protocol 09/09/19 09:00 10/05/19 11:29 Vancomycin HCl 1 gm/Dextrose 275 ml @ 183.708 mls/hr Q24H IVPB 09/09/19 15:00 09/14/19 14:59 09/09/19 16:49 Arun Melvin MD Sep 10, 2019 10:58
--- NOTE | 2019-09-10 11:08 | Diagnostic Imaging Report ---
Indication: Repositioning of the enteric tube Comparison: None Single view of the abdomen obtained Findings: There is a weighted feeding tube projected over the upper part of the stomach. Bowel gas pattern is nonspecific. IMPRESSION: Enteric weighted feeding tube curled in the upper portion of the stomach
--- NOTE | 2019-09-10 11:42 | Nephrology Progress Note ---
Assessment/Plan Problem List: (1) NAGA (acute kidney injury) (2) UTI (urinary tract infection) (3) Elevated troponin (4) Failure to thrive in adult (5) Sepsis (6) Anemia (7) Dehydration Assessment Potassium phosphate in the morning dose 20 mmol Renal failure mostly prerenal Azotemia. May have underlying chronic kidney disease. Hydration. Sepsis leukocytosis. Encephalopathy in the form of toxic and metabolic. Failure to thrive. Albuminemia. Levator troponin. Most likely due to significant cardiac ischemia. Plan Plan: NG tube is placed but feeding has not been started yet PEG is arranged for near future Hydrate at a slower rate since the renal parameters have improved Meds IV as possible until NG tube is usable Plavix and SQ heparin Nitrates. Continue to monitor renal parameters. Avoid nephrotoxic's. Antibiotics per ID. Felder catheter. Discussed with RN DNR status. Subjective ROS Limited/Unobtainable: No Constitutional: Reports: malaise Objective Objective Last 24 Hour Vital Signs Date Time Temp Pulse Resp B/P (MAP) Pulse Ox O2 Delivery O2 Flow Rate FiO2 09/10/19 10:37 97.3 09/10/19 09:23 119/65 09/10/19 08:00 97.3 86 20 119/65 (83) 96 09/10/19 07:59 99 Nasal Cannula 2.0 28 09/10/19 07:58 60 18 99 Nasal Cannula 2.0 28 09/10/19 04:00 97.7 61 24 112/60 (77) 98 09/10/19 00:00 98.0 73 20 112/64 (80) 98 09/09/19 21:00 Nasal Cannula 2.0 09/09/19 20:19 98 Nasal Cannula 2.0 28 09/09/19 20:19 72 18 98 Nasal Cannula 2.0 28 09/09/19 20:00 98.4 80 24 107/52 (70) 96 09/09/19 16:00 98.5 86 18 93/57 (69) 98 09/09/19 12:00 98.0 80 17 96/54 (68) 98 Intake and Output 09/09/19 09/10/19 19:00 07:00 Intake Total 585.000 ml Output Total 1300 ml 500 ml Balance -715.000 ml -500 ml IV Total 585.000 ml Output Urine Total 1300 ml 500 ml Current Medications Medications (Trade) Dose Ordered Sig/Kaveh Route PRN Reason Start Time Stop Time Status Last Admin Dose Admin Acetaminophen (Tylenol) 650 mg Q4H PRN ORAL Mild Pain/Temp > 100.5 09/08/19 23:37 10/08/19 23:36 Acetaminophen (Tylenol) 650 mg Q4H PRN RECTAL Prn Headache/Temp > 101 09/08/19 23:37 10/08/19 23:36 Albuterol/ Ipratropium (Albuterol/ Ipratropium) 3 ml Q6H PRN HHN Shortness of Breath 09/09/19 00:00 09/11/19 17:59 Barium Sulfate (Readi-Cat 2) 450 ml NOW PRN ORAL Radiology Procedure 09/09/19 12:15 09/14/19 12:01 Clopidogrel Bisulfate (Plavix) 75 mg DAILY ORAL 09/09/19 09:00 10/06/19 10:44 09/10/19 09:08 Dextrose 1,000 ml @ 50 mls/hr Q20H IV 09/10/19 09:32 10/09/19 09:31 09/10/19 05:19 Docusate Sodium (Colace) 100 mg TWICE A DAY ORAL 09/09/19 09:00 10/05/19 08:59 Folic Acid (Folate) 1 mg DAILY ORAL 09/09/19 09:00 10/07/19 10:29 Heparin Sodium (Porcine) (Heparin 5000 units/ml) 5,000 units EVERY 8 HOURS SUBQ 09/09/19 06:00 10/06/19 10:29 09/10/19 06:37 Lorazepam (Ativan 2mg/ml 1ml) 0.5 mg Q6H PRN IV For Anxiety 09/09/19 09:30 09/16/19 09:29 Morphine Sulfate (Morphine Sulfate) 2 mg Q4H PRN IVP Severe Pain (Pain Scale 7-10) 09/08/19 23:39 09/15/19 23:38 09/10/19 10:07 Nitroglycerin (Ntg) 1 patch Q24H TDERMAL 09/09/19 09:00 10/05/19 08:59 09/10/19 09:23 Pantoprazole (Protonix) 40 mg EVERY 12 HOURS IVP 09/09/19 09:00 10/05/19 08:59 09/10/19 09:08 Piperacillin Sod/ Tazobactam Sod 3.375 gm/Sodium Chloride 110 ml @ 27.5 mls/hr Q8H IVPB 09/09/19 10:00 09/16/19 09:59 09/10/19 09:35 Risperidone (RisperDAL) 0.5 mg Q12H PRN ORAL agitation 09/08/19 23:39 10/08/19 23:38 Valproate Sodium 500 mg/Dextrose 60 ml @ 60 mls/hr Q8H IVPB 09/09/19 00:00 10/09/19 00:00 09/10/19 09:07 Vancomycin HCl (Vanco rx to dose) 1 ea DAILY PRN MISC Per rx protocol 09/09/19 09:00 10/05/19 11:29 Vancomycin HCl 1 gm/Dextrose 275 ml @ 183.708 mls/hr Q24H IVPB 09/09/19 15:00 09/14/19 14:59 09/09/19 16:49 Laboratory Tests 09/10/19 05:59: White Blood Count 10.7, Red Blood Count 3.40L, Hemoglobin 10.3L, Hematocrit 30.6L, Mean Corpuscular Volume 90, Mean Corpuscular Hemoglobin 30.3, Mean Corpuscular Hemoglobin Concent 33.7, Red Cell Distribution Width 14.5, Platelet Count 382, Mean Platelet Volume 7.3, Neutrophils (%) (Auto) 79.8H, Lymphocytes ( %) (Auto) 14.7L, Monocytes (%) (Auto) 3.5, Eosinophils (%) (Auto) 1.6, Basophils (%) (Auto) 0.5, Sodium Level 143, Potassium Level 4.2, Chloride Level 109H, Carbon Dioxide Level 26, Anion Gap 9, Blood Urea Nitrogen 37H, Creatinine 1.4H, Estimat Glomerular Filtration Rate 48.2, Glucose Level 121H, Calcium Level 8.7, Phosphorus Level 3.0, Magnesium Level 2.2, Total Bilirubin 0.5, Direct Bilirubin < 0.1, Aspartate Amino Transf (AST/SGOT) 35, Alanine Aminotransferase (ALT/SGPT) 33, Alkaline Phosphatase 95, C-Reactive Protein, Quantitative 18.2H, Pro-B-Type Natriuretic Peptide [id number], Total Protein 6.1L, Albumin 1.4L, Valproic Acid (Depakene) Level 21L Height (Feet): 5 Height (Inches): 11.00 Weight (Pounds): 151 Dariusz Brandt MD Sep 10, 2019 11:42
[2019-09-10 12:00] VITALS: BP 93/48
[2019-09-10] MEDS: Vancomycin 1gm in D5W 275ml IVPB SCH (14:24)
--- NOTE | 2019-09-10 15:15 | Progress Note ---
DATE: 09/10/2019 SUBJECTIVE: This is an 83-year-old male patient with failure to thrive, confused, disorganized. No logical plan for his own self-care. He has got feelings of helplessness, hopelessness, low energy, poor appetite, and loss of interest in activity. He has confusion, disorganized thought process. MENTAL STATUS EXAMINATION: This is an 83-year-old male. Appearance is disheveled. Attitude, irritable and agitated. Affect, guarded and restricted. Intellect poor. Mood, depressed and anxious. Motor activity, psychomotor agitation. Insight and judgment is poor. DIAGNOSIS: Schizoaffective, bipolar type, rule out dementia with psychosis. PLAN: Treat him with Risperdal 0.5 mg q.12 h. p.r.n. anxiety and agitation, Depakene syrup 500 mg IV q.8 h., Ativan 0.5 mg every 6 hours p.r.n. anxiety and agitation. A 20 minutes of cognitive behavioral therapy to help him identify his automatic negative thoughts and convert his negative thoughts to more positive thoughts to reduce depression, anxiety, mood lability and continue to be followed by Psychiatry throughout hospital course. Chart reviewed. Discussed with staff. Seen and assessed at bedside. Cherri De Luna M.D. DR: KAYLAH JOB#: [id number] CC:
--- NOTE | 2019-09-10 15:41 | Infectious Diseases Prog Note ---
Assessment/Plan Assessment/Plan Assessment: Severe sepsis UTI Probable bacteremia -u/a wbc 40-60, nit neg, leuk +3; ucx p -CXR: Left apical pneumothorax, estimated at 10%. Emphysema. Low grade fever, sp Leukocytosis, Sp - CT C/ A/P wo C : Patchy airspace opacities consistent with pneumonia most notably in the posterior right lower lobe.Trace bilateral pleural effusions. NAGA improving Multiple decubitus.( not infected ) NSTEMI Parkinson's dementia HTN Dm2 Plan: -Continue empiric IV Vancomycin # 7/, Zosyn # 2/5 pending Bcx 09/07 Sp Meropenem # 4 08/05 Sp Zosyn #2 -f/u cx -Monitor CBC/CMP, temperatures -aspiration precautions -Influenza sc Subjective Allergies: Coded Allergies: AMLODIPINE (Verified Allergy, Unknown, 09/04/19) ASPIRIN (Verified Allergy, Unknown, 09/04/19) BENAZEPRIL (Verified Allergy, Unknown, 09/04/19) Subjective Sp CT afebrile Objective Vital Signs Last 24 Hour Vital Signs Date Time Temp Pulse Resp B/P (MAP) Pulse Ox O2 Delivery O2 Flow Rate FiO2 09/10/19 14:50 97.6 09/10/19 12:00 97.6 72 17 93/48 (63) 95 09/10/19 09:23 119/65 09/10/19 09:00 Nasal Cannula 2.0 09/10/19 08:00 97.3 86 20 119/65 (83) 96 09/10/19 07:59 99 Nasal Cannula 2.0 28 09/10/19 07:58 60 18 99 Nasal Cannula 2.0 28 09/10/19 04:00 97.7 61 24 112/60 (77) 98 09/10/19 00:00 98.0 73 20 112/64 (80) 98 09/09/19 21:00 Nasal Cannula 2.0 09/09/19 20:19 98 Nasal Cannula 2.0 28 09/09/19 20:19 72 18 98 Nasal Cannula 2.0 28 09/09/19 20:00 98.4 80 24 107/52 (70) 96 09/09/19 16:00 98.5 86 18 93/57 (69) 98 Height (Feet): 5 Height (Inches): 11.00 Weight (Pounds): 151 HEENT: mucous membranes moist Respiratory/Chest: no respiratory distress Cardiovascular: regularly irregular Abdomen: no organomegaly Laboratory Tests Test 09/10/19 05:59 White Blood Count 10.7 K/UL (4.8-10.8) Red Blood Count 3.40 M/UL (4.70-6.10) L Hemoglobin 10.3 G/DL (14.2-18.0) L Hematocrit 30.6 % (42.0-52.0) L Mean Corpuscular Volume 90 FL (80-99) Mean Corpuscular Hemoglobin 30.3 PG (27.0-31.0) Mean Corpuscular Hemoglobin Concent 33.7 G/DL (32.0-36.0) Red Cell Distribution Width 14.5 % (11.6-14.8) Platelet Count 382 K/UL (150-450) Mean Platelet Volume 7.3 FL (6.5-10.1) Neutrophils (%) (Auto) 79.8 % (45.0-75.0) H Lymphocytes (%) (Auto) 14.7 % (20.0-45.0) L Monocytes (%) (Auto) 3.5 % (1.0-10.0) Eosinophils (%) (Auto) 1.6 % (0.0-3.0) Basophils (%) (Auto) 0.5 % (0.0-2.0) Sodium Level 143 MMOL/L (136-145) Potassium Level 4.2 MMOL/L (3.5-5.1) Chloride Level 109 MMOL/L (98-107) H Carbon Dioxide Level 26 MMOL/L (21-32) Anion Gap 9 mmol/L (5-15) Blood Urea Nitrogen 37 mg/dL (7-18) H Creatinine 1.4 MG/DL (0.55-1.30) H Estimat Glomerular Filtration Rate 48.2 mL/min (>60) Glucose Level 121 MG/DL (74-106) H Calcium Level 8.7 MG/DL (8.5-10.1) Phosphorus Level 3.0 MG/DL (2.5-4.9) Magnesium Level 2.2 MG/DL (1.8-2.4) Total Bilirubin 0.5 MG/DL (0.2-1.0) Direct Bilirubin < 0.1 MG/DL (0.0-0.3) Aspartate Amino Transf (AST/SGOT) 35 U/L (15-37) Alanine Aminotransferase (ALT/SGPT) 33 U/L (12-78) Alkaline Phosphatase 95 U/L (46-116) C-Reactive Protein, Quantitative 18.2 mg/dL (0.00-0.90) H Pro-B-Type Natriuretic Peptide 10237 pg/mL (0-125) H Total Protein 6.1 G/DL (6.4-8.2) L Albumin 1.4 G/DL (3.4-5.0) L Valproic Acid (Depakene) Level 21 MCG/ML (50-100) L Current Medications Medications (Trade) Dose Ordered Sig/Kaveh Route PRN Reason Start Time Stop Time Status Last Admin Dose Admin Acetaminophen (Tylenol) 650 mg Q4H PRN ORAL Mild Pain/Temp > 100.5 09/08/19 23:37 10/08/19 23:36 Acetaminophen (Tylenol) 650 mg Q4H PRN RECTAL Prn Headache/Temp > 101 09/08/19 23:37 10/08/19 23:36 Albuterol/ Ipratropium (Albuterol/ Ipratropium) 3 ml Q6H PRN HHN Shortness of Breath 09/09/19 00:00 09/11/19 17:59 Barium Sulfate (Readi-Cat 2) 450 ml NOW PRN ORAL Radiology Procedure 09/09/19 12:15 09/14/19 12:01 Clopidogrel Bisulfate (Plavix) 75 mg DAILY ORAL 09/09/19 09:00 10/06/19 10:44 09/10/19 09:08 Dextrose 1,000 ml @ 50 mls/hr Q20H IV 09/10/19 09:32 10/09/19 09:31 09/10/19 05:19 Docusate Sodium (Colace) 100 mg TWICE A DAY ORAL 09/09/19 09:00 10/05/19 08:59 Folic Acid (Folate) 1 mg DAILY ORAL 09/09/19 09:00 10/07/19 10:29 Heparin Sodium (Porcine) (Heparin 5000 units/ml) 5,000 units EVERY 8 HOURS SUBQ 09/09/19 06:00 10/06/19 10:29 09/10/19 14:22 Lorazepam (Ativan 2mg/ml 1ml) 0.5 mg Q6H PRN IV For Anxiety 09/09/19 09:30 09/16/19 09:29 Morphine Sulfate (Morphine Sulfate) 2 mg Q4H PRN IVP Severe Pain (Pain Scale 7-10) 09/08/19 23:39 09/15/19 23:38 09/10/19 14:23 Nitroglycerin (Ntg) 1 patch Q24H TDERMAL 09/09/19 09:00 10/05/19 08:59 09/10/19 09:23 Pantoprazole (Protonix) 40 mg EVERY 12 HOURS IVP 09/09/19 09:00 10/05/19 08:59 09/10/19 09:08 Piperacillin Sod/ Tazobactam Sod 3.375 gm/Sodium Chloride 110 ml @ 27.5 mls/hr Q8H IVPB 09/09/19 10:00 09/16/19 09:59 09/10/19 09:35 Risperidone (RisperDAL) 0.5 mg Q12H PRN ORAL agitation 09/08/19 23:39 10/08/19 23:38 Valproate Sodium 500 mg/Dextrose 60 ml @ 60 mls/hr Q8H IVPB 09/09/19 00:00 10/09/19 00:00 09/10/19 09:07 Vancomycin HCl (Vanco rx to dose) 1 ea DAILY PRN MISC Per rx protocol 09/09/19 09:00 10/05/19 11:29 Vancomycin HCl 1 gm/Dextrose 275 ml @ 183.708 mls/hr Q24H IVPB 09/09/19 15:00 09/14/19 14:59 09/10/19 14:24 Hakeem Hugo MD Sep 10, 2019 15:41
[2019-09-10 16:00] VITALS: BP 91/46
[2019-09-10 20:00] VITALS: BP 83/43
[2019-09-11] VITALS (7 sets, daily range): BP systolic 86–117; BP diastolic 45–66
[2019-09-11] MEDS: Valproate Sodium INJ 500 MG in D5W 55 ML IVPB SCH (00:21)
[2019-09-11] MEDS: Piperacillin/Tazobactam 3.375 GM in NS 110 ML IVPB SCH ×3 (02:47→18:14)
[2019-09-11] MEDS: Heparin 5000 units/ml inj SUBQ SCH ×3 (05:37→21:58)
[2019-09-11 05:45] LABS: BASOPHILS % (AUTO) 0.6 % (0.0-2.0); EOSINOPHILS % (AUTO) 2.3 % (0.0-3.0); HEMATOCRIT 25.9 % (42.0-52.0); HEMOGLOBIN 8.5 G/DL (14.2-18.0); LYMPHOCYTES % (AUTO) 16.7 % (20.0-45.0); MEAN CORPUSCULAR VOLUME 90 FL (80-99); MONOCYTES % (AUTO) 5.6 % (1.0-10.0); NEUTROPHILS % (AUTO) 74.8 % (45.0-75.0); PLATELET COUNT 314 K/UL (150-450); RED BLOOD COUNT 2.87 M/UL (4.70-6.10); RED CELL DISTRIBUTION WIDTH 14.4 % (11.6-14.8); WHITE BLOOD COUNT 9.7 K/UL (4.8-10.8)
[2019-09-11 06:15] LABS: ANION GAP 13 mmol/L (5-15); BLOOD UREA NITROGEN 31 mg/dL (7-18); CARBON DIOXIDE 22 MMOL/L (21-32); CHLORIDE 105 MMOL/L (98-107); CREATININE 1.4 MG/DL (0.55-1.30); PHOSPHORUS 3.1 MG/DL (2.5-4.9); POTASSIUM 3.8 MMOL/L (3.5-5.1); SODIUM 139 MMOL/L (136-145)
[2019-09-11 06:30] LABS: ALANINE AMINOTRANSFERASE 30 U/L (12-78); ALBUMIN 1.1 G/DL (3.4-5.0); ALKALINE PHOSPHATASE 83 U/L (46-116); ASPARTATE AMINO TRANSFERASE 26 U/L (15-37); BILIRUBIN,DIRECT 0.1 MG/DL (0.0-0.3); BILIRUBIN,TOTAL 0.3 MG/DL (0.2-1.0)
[2019-09-11] MEDS: Nitroglycerin Patch 0.4mg TDERMAL SCH (08:46)
--- NOTE | 2019-09-11 08:56 | Nephrology Progress Note ---
Assessment/Plan Problem List: (1) NAGA (acute kidney injury) (2) UTI (urinary tract infection) (3) Elevated troponin (4) Failure to thrive in adult (5) Sepsis (6) Anemia (7) Dehydration Assessment Potassium phosphate in the morning dose 20 mmol Renal failure mostly prerenal Azotemia. May have underlying chronic kidney disease. Hydration. Sepsis leukocytosis. Encephalopathy in the form of toxic and metabolic. Failure to thrive. Albuminemia. Levator troponin. Most likely due to significant cardiac ischemia. Plan Plan: NG tube is placed feeding is now in process PEG is arranged for near future Stop IV hydration Meds via NG tube as possible Plavix and SQ heparin Nitrates. Continue to monitor renal parameters. Avoid nephrotoxic's. Antibiotics per ID. Felder catheter. Discussed with RN DNR status. Subjective ROS Limited/Unobtainable: No Constitutional: Reports: malaise, weakness Objective Objective Last 24 Hour Vital Signs Date Time Temp Pulse Resp B/P (MAP) Pulse Ox O2 Delivery O2 Flow Rate FiO2 09/11/19 08:46 93/65 09/11/19 04:00 97.6 65 16 100/53 (69) 90 09/11/19 00:00 97.9 67 16 89/45 (60) 94 09/10/19 21:00 Nasal Cannula 2.0 09/10/19 20:01 65 18 97 Nasal Cannula 2.0 28 09/10/19 20:01 97 Nasal Cannula 2.0 28 09/10/19 20:00 97.5 61 16 83/43 (56) 98 09/10/19 16:00 97.6 74 19 91/46 (61) 97 09/10/19 14:50 97.6 09/10/19 12:00 97.6 72 17 93/48 (63) 95 09/10/19 09:23 119/65 09/10/19 09:00 Nasal Cannula 2.0 Intake and Output 09/10/19 09/11/19 19:00 07:00 Intake Total 979.0 ml 620.0 ml Output Total 500 ml 750 ml Balance 479.0 ml -130.0 ml IV Total 979.0 ml 620.0 ml Output Urine Total 500 ml 750 ml Current Medications Medications (Trade) Dose Ordered Sig/Kaveh Route PRN Reason Start Time Stop Time Status Last Admin Dose Admin Acetaminophen (Tylenol) 650 mg Q4H PRN ORAL Mild Pain/Temp > 100.5 09/08/19 23:37 10/08/19 23:36 Acetaminophen (Tylenol) 650 mg Q4H PRN RECTAL Prn Headache/Temp > 101 09/08/19 23:37 10/08/19 23:36 Albuterol/ Ipratropium (Albuterol/ Ipratropium) 3 ml Q6H PRN HHN Shortness of Breath 09/09/19 00:00 09/11/19 17:59 Barium Sulfate (Readi-Cat 2) 450 ml NOW PRN ORAL Radiology Procedure 09/09/19 12:15 09/14/19 12:01 Clopidogrel Bisulfate (Plavix) 75 mg DAILY ORAL 09/09/19 09:00 10/06/19 10:44 09/10/19 09:08 Dextrose 1,000 ml @ 50 mls/hr Q20H IV 09/10/19 09:32 10/09/19 09:31 09/11/19 04:36 Docusate Sodium (Colace) 100 mg TWICE A DAY ORAL 09/09/19 09:00 10/05/19 08:59 Folic Acid (Folate) 1 mg DAILY ORAL 09/09/19 09:00 10/07/19 10:29 Heparin Sodium (Porcine) (Heparin 5000 units/ml) 5,000 units EVERY 8 HOURS SUBQ 09/09/19 06:00 10/06/19 10:29 09/11/19 05:37 Lorazepam (Ativan 2mg/ml 1ml) 0.5 mg Q6H PRN IV For Anxiety 09/09/19 09:30 09/16/19 09:29 Morphine Sulfate (Morphine Sulfate) 2 mg Q4H PRN IVP Severe Pain (Pain Scale 7-10) 09/08/19 23:39 09/15/19 23:38 09/10/19 14:23 Nitroglycerin (Ntg) 1 patch Q24H TDERMAL 09/09/19 09:00 10/05/19 08:59 09/10/19 09:23 Pantoprazole (Protonix) 40 mg EVERY 12 HOURS IVP 09/09/19 09:00 10/05/19 08:59 09/10/19 21:02 Piperacillin Sod/ Tazobactam Sod 3.375 gm/Sodium Chloride 110 ml @ 27.5 mls/hr Q8H IVPB 09/09/19 10:00 09/16/19 09:59 09/11/19 02:47 Risperidone (RisperDAL) 0.5 mg Q12H PRN ORAL agitation 09/08/19 23:39 10/08/19 23:38 Valproate Sodium 500 mg/Dextrose 60 ml @ 60 mls/hr Q8H IVPB 09/09/19 00:00 10/09/19 00:00 09/11/19 00:21 Vancomycin HCl (Vanco rx to dose) 1 ea DAILY PRN MISC Per rx protocol 09/09/19 09:00 10/05/19 11:29 Vancomycin HCl 1 gm/Dextrose 275 ml @ 183.708 mls/hr Q24H IVPB 09/09/19 15:00 09/14/19 14:59 09/10/19 14:24 Laboratory Tests 09/11/19 05:25: White Blood Count 9.7, Red Blood Count 2.87L, Hemoglobin 8.5L, Hematocrit 25.9L , Mean Corpuscular Volume 90, Mean Corpuscular Hemoglobin 29.5, Mean Corpuscular Hemoglobin Concent 32.7, Red Cell Distribution Width 14.4, Platelet Count 314, Mean Platelet Volume 7.0, Neutrophils (%) (Auto) 74.8, Lymphocytes (% ) (Auto) 16.7L, Monocytes (%) (Auto) 5.6, Eosinophils (%) (Auto) 2.3, Basophils (%) (Auto) 0.6, Sodium Level 139, Potassium Level 3.8, Chloride Level 105, Carbon Dioxide Level 22, Anion Gap 13, Blood Urea Nitrogen 31H, Creatinine 1.4H , Estimat Glomerular Filtration Rate 48.2, Glucose Level 119H, Calcium Level 8.0L, Phosphorus Level 3.1, Magnesium Level 2.0, Total Bilirubin 0.3, Direct Bilirubin 0.1, Aspartate Amino Transf (AST/SGOT) 26, Alanine Aminotransferase ( ALT/SGPT) 30, Alkaline Phosphatase 83, Total Protein 5.5L, Albumin 1.1L Height (Feet): 5 Height (Inches): 11.00 Weight (Pounds): 162 General Appearance: no apparent distress, lethargic EENT: other - NG tube Respiratory/Chest: decreased breath sounds Abdomen: soft Objective No other change Dariusz Brandt MD Sep 11, 2019 08:56
[2019-09-11] MEDS: Docusate 100mg cap ORAL SCH (09:03)
--- NOTE | 2019-09-11 09:55 | General Progress Note ---
Assessment/Plan Problem List: (1) Dehydration ICD Codes: E86.0 - Dehydration SNOMED: 74789071 (2) Anemia ICD Codes: D64.9 - Anemia, unspecified SNOMED: 677733085 (3) Failure to thrive SNOMED: 19727360 (4) Sepsis ICD Codes: A41.9 - Sepsis, unspecified organism SNOMED: 82089028 Qualifiers: Qualified Codes: A41.9 - Sepsis, unspecified organism (5) UTI (urinary tract infection) ICD Codes: N39.0 - Urinary tract infection, site not specified SNOMED: 92902241 Qualifiers: Qualified Codes: N30.00 - Acute cystitis without hematuria (6) Elevated troponin ICD Codes: R79.89 - Other specified abnormal findings of blood chemistry SNOMED: 028283778, 070670181, 077317442 (7) Failure to thrive in adult ICD Codes: R62.7 - Adult failure to thrive SNOMED: 845413689 (8) NAGA (acute kidney injury) ICD Codes: N17.9 - Acute kidney failure, unspecified SNOMED: 64338196, 8347283 (9) Skin lesions ICD Codes: L98.9 - Disorder of the skin and subcutaneous tissue, unspecified SNOMED: 31806948 (10) Iron deficiency anemia ICD Codes: D50.9 - Iron deficiency anemia, unspecified SNOMED: 60945621 (11) low Albumin (12) Folate deficiency ICD Codes: E53.8 - Deficiency of other specified B group vitamins SNOMED: 239093124 Status: unchanged Assessment/Plan: low bp and low hr informed dr sal and left it up to him to transfer to [facility] or not apparently pt is dnr anemia naga reviewed chart also informed renal of low bp bolus Subjective ROS Limited/Unobtainable: Yes Allergies: Coded Allergies: AMLODIPINE (Verified Allergy, Unknown, 09/04/19) ASPIRIN (Verified Allergy, Unknown, 09/04/19) BENAZEPRIL (Verified Allergy, Unknown, 09/04/19) Objective Last 24 Hour Vital Signs Date Time Temp Pulse Resp B/P (MAP) Pulse Ox O2 Delivery O2 Flow Rate FiO2 09/11/19 09:22 Nasal Cannula 4.0 36 09/11/19 09:21 20 Nasal Cannula 4.0 36 09/11/19 08:46 93/65 09/11/19 08:00 97.6 46 22 93/65 (74) 96 09/11/19 04:00 97.6 65 16 100/53 (69) 90 09/11/19 00:00 97.9 67 16 89/45 (60) 94 09/10/19 21:00 Nasal Cannula 2.0 09/10/19 20:01 65 18 97 Nasal Cannula 2.0 28 09/10/19 20:01 97 Nasal Cannula 2.0 28 09/10/19 20:00 97.5 61 16 83/43 (56) 98 09/10/19 16:00 97.6 74 19 91/46 (61) 97 09/10/19 14:50 97.6 09/10/19 12:00 97.6 72 17 93/48 (63) 95 Intake and Output 09/10/19 09/11/19 19:00 07:00 Intake Total 979.0 ml 620.0 ml Output Total 500 ml 750 ml Balance 479.0 ml -130.0 ml IV Total 979.0 ml 620.0 ml Output Urine Total 500 ml 750 ml Laboratory Tests 09/11/19 05:25: White Blood Count 9.7, Red Blood Count 2.87L, Hemoglobin 8.5L, Hematocrit 25.9L , Mean Corpuscular Volume 90, Mean Corpuscular Hemoglobin 29.5, Mean Corpuscular Hemoglobin Concent 32.7, Red Cell Distribution Width 14.4, Platelet Count 314, Mean Platelet Volume 7.0, Neutrophils (%) (Auto) 74.8, Lymphocytes (% ) (Auto) 16.7L, Monocytes (%) (Auto) 5.6, Eosinophils (%) (Auto) 2.3, Basophils (%) (Auto) 0.6, Sodium Level 139, Potassium Level 3.8, Chloride Level 105, Carbon Dioxide Level 22, Anion Gap 13, Blood Urea Nitrogen 31H, Creatinine 1.4H , Estimat Glomerular Filtration Rate 48.2, Glucose Level 119H, Calcium Level 8.0L, Phosphorus Level 3.1, Magnesium Level 2.0, Total Bilirubin 0.3, Direct Bilirubin 0.1, Aspartate Amino Transf (AST/SGOT) 26, Alanine Aminotransferase ( ALT/SGPT) 30, Alkaline Phosphatase 83, Total Protein 5.5L, Albumin 1.1L Height (Feet): 5 Height (Inches): 11.00 Weight (Pounds): 162 Cardiovascular: normal rate Respiratory/Chest: lungs clear Abdomen: soft Beau Barker MD Sep 11, 2019 09:55
[2019-09-11] MEDS ORDERED: NS 250 ML IVPB ONE (10:00)
--- NOTE | 2019-09-11 10:36 | Infectious Diseases Prog Note ---
Assessment/Plan Assessment/Plan Assessment: Severe sepsis, sp No evidence of Bacteremia -u/a wbc 40-60, nit neg, leuk +3; ucx p -CXR: Left apical pneumothorax, estimated at 10%. Emphysema. Low grade fever, sp Leukocytosis, Sp - CT C/ A/P wo C : Patchy airspace opacities consistent with pneumonia most notably in the posterior right lower lobe.Trace bilateral pleural effusions. NAGA improving Multiple decubitus.( not infected ) NSTEMI Parkinson's dementia HTN Dm2 Plan: -Continue empiric IV Vancomycin # /, Zosyn # 3/5 pending Bcx 09/07 Sp Meropenem # 4 08/05 Sp Zosyn #2 -f/u cx -Monitor CBC/CMP, temperatures -aspiration precautions Subjective Allergies: Coded Allergies: AMLODIPINE (Verified Allergy, Unknown, 09/04/19) ASPIRIN (Verified Allergy, Unknown, 09/04/19) BENAZEPRIL (Verified Allergy, Unknown, 09/04/19) Subjective afebrile Objective Vital Signs Last 24 Hour Vital Signs Date Time Temp Pulse Resp B/P (MAP) Pulse Ox O2 Delivery O2 Flow Rate FiO2 09/11/19 10:08 97.6 72 22 117/66 (83) 93 09/11/19 09:22 Nasal Cannula 4.0 36 09/11/19 09:21 20 Nasal Cannula 4.0 36 09/11/19 09:00 Nasal Cannula 2.0 09/11/19 08:46 93/65 09/11/19 08:00 97.6 46 22 93/65 (74) 96 09/11/19 04:00 97.6 65 16 100/53 (69) 90 09/11/19 00:00 97.9 67 16 89/45 (60) 94 09/10/19 21:00 Nasal Cannula 2.0 09/10/19 20:01 65 18 97 Nasal Cannula 2.0 28 09/10/19 20:01 97 Nasal Cannula 2.0 28 09/10/19 20:00 97.5 61 16 83/43 (56) 98 09/10/19 16:00 97.6 74 19 91/46 (61) 97 09/10/19 14:50 97.6 09/10/19 12:00 97.6 72 17 93/48 (63) 95 Height (Feet): 5 Height (Inches): 11.00 Weight (Pounds): 162 Respiratory/Chest: no respiratory distress Cardiovascular: no gallop/murmur Abdomen: non distended Laboratory Tests Test 09/11/19 05:25 White Blood Count 9.7 K/UL (4.8-10.8) Red Blood Count 2.87 M/UL (4.70-6.10) L Hemoglobin 8.5 G/DL (14.2-18.0) L Hematocrit 25.9 % (42.0-52.0) L Mean Corpuscular Volume 90 FL (80-99) Mean Corpuscular Hemoglobin 29.5 PG (27.0-31.0) Mean Corpuscular Hemoglobin Concent 32.7 G/DL (32.0-36.0) Red Cell Distribution Width 14.4 % (11.6-14.8) Platelet Count 314 K/UL (150-450) Mean Platelet Volume 7.0 FL (6.5-10.1) Neutrophils (%) (Auto) 74.8 % (45.0-75.0) Lymphocytes (%) (Auto) 16.7 % (20.0-45.0) L Monocytes (%) (Auto) 5.6 % (1.0-10.0) Eosinophils (%) (Auto) 2.3 % (0.0-3.0) Basophils (%) (Auto) 0.6 % (0.0-2.0) Sodium Level 139 MMOL/L (136-145) Potassium Level 3.8 MMOL/L (3.5-5.1) Chloride Level 105 MMOL/L (98-107) Carbon Dioxide Level 22 MMOL/L (21-32) Anion Gap 13 mmol/L (5-15) Blood Urea Nitrogen 31 mg/dL (7-18) H Creatinine 1.4 MG/DL (0.55-1.30) H Estimat Glomerular Filtration Rate 48.2 mL/min (>60) Glucose Level 119 MG/DL (74-106) H Calcium Level 8.0 MG/DL (8.5-10.1) L Phosphorus Level 3.1 MG/DL (2.5-4.9) Magnesium Level 2.0 MG/DL (1.8-2.4) Total Bilirubin 0.3 MG/DL (0.2-1.0) Direct Bilirubin 0.1 MG/DL (0.0-0.3) Aspartate Amino Transf (AST/SGOT) 26 U/L (15-37) Alanine Aminotransferase (ALT/SGPT) 30 U/L (12-78) Alkaline Phosphatase 83 U/L (46-116) Total Protein 5.5 G/DL (6.4-8.2) L Albumin 1.1 G/DL (3.4-5.0) L Current Medications Medications (Trade) Dose Ordered Sig/Kaveh Route PRN Reason Start Time Stop Time Status Last Admin Dose Admin Acetaminophen (Tylenol) 650 mg Q4H PRN ORAL Mild Pain/Temp > 100.5 09/08/19 23:37 10/08/19 23:36 Acetaminophen (Tylenol) 650 mg Q4H PRN RECTAL Prn Headache/Temp > 101 09/08/19 23:37 10/08/19 23:36 Albuterol/ Ipratropium (Albuterol/ Ipratropium) 3 ml Q6H PRN HHN Shortness of Breath 09/09/19 00:00 09/11/19 17:59 Barium Sulfate (Readi-Cat 2) 450 ml NOW PRN ORAL Radiology Procedure 09/09/19 12:15 09/14/19 12:01 Clopidogrel Bisulfate (Plavix) 75 mg DAILY ORAL 09/09/19 09:00 10/06/19 10:44 09/11/19 09:03 Divalproex Sodium (Depakote Sprinkles) 500 mg EVERY 8 HOURS GT 09/11/19 14:00 10/11/19 13:59 Docusate Sodium (Colace) 100 mg TWICE A DAY NG 09/11/19 18:00 10/11/19 17:59 Folic Acid (Folate) 1 mg DAILY ORAL 09/09/19 09:00 10/07/19 10:29 09/11/19 09:02 Heparin Sodium (Porcine) (Heparin 5000 units/ml) 5,000 units EVERY 8 HOURS SUBQ 09/09/19 06:00 10/06/19 10:29 09/11/19 05:37 Lansoprazole (Prevacid) 30 mg BID NG 09/11/19 09:00 10/11/19 08:59 09/11/19 09:04 Lorazepam (Ativan 2mg/ml 1ml) 0.5 mg Q6H PRN IV For Anxiety 09/09/19 09:30 09/16/19 09:29 Morphine Sulfate (Morphine Sulfate) 2 mg Q4H PRN IVP Severe Pain (Pain Scale 7-10) 09/08/19 23:39 09/15/19 23:38 09/10/19 14:23 Piperacillin Sod/ Tazobactam Sod 3.375 gm/Sodium Chloride 110 ml @ 27.5 mls/hr Q8H IVPB 09/09/19 10:00 09/16/19 09:59 09/11/19 09:13 Risperidone (RisperDAL) 0.5 mg Q12H PRN ORAL agitation 09/08/19 23:39 10/08/19 23:38 Vancomycin HCl (Vanco rx to dose) 1 ea DAILY PRN MISC Per rx protocol 09/09/19 09:00 10/05/19 11:29 Vancomycin HCl 1 gm/Dextrose 275 ml @ 183.708 mls/hr Q24H IVPB 09/09/19 15:00 09/14/19 14:59 09/10/19 14:24 Hakeem Hugo MD Sep 11, 2019 10:36
--- NOTE | 2019-09-11 10:42 | GI Progress Note ---
Assessment/Plan Problems: (1) Failure to thrive in adult ICD Codes: R62.7 - Adult failure to thrive SNOMED: 089669616 (2) Failure to thrive SNOMED: 41107792 (3) Anemia ICD Codes: D64.9 - Anemia, unspecified SNOMED: 740770844 (4) Dehydration ICD Codes: E86.0 - Dehydration SNOMED: 58094327 (5) Skin lesions ICD Codes: L98.9 - Disorder of the skin and subcutaneous tissue, unspecified SNOMED: 29837540 Status: stable Status Narrative Discussed with Dr. Cosby. Assessment/Plan This is an 83-year-old male with numerous medical problems at this time with sepsis, elevated white count, iron deficiency anemia, dysphagia, dementia, elevated troponin, acute renal failure, and malnutrition. NGTF d/w the family for management will need PEG if cleared by cardiology and if family consent The patient was seen and examined at bedside and all new and available data was reviewed in the patients chart. I agree with the above findings, impression and plan. (Patient seen earlier today. Signature stamp does not reflect patient encounter time.). - Arley Cosby MD Subjective Subjective limited Objective Last 24 Hour Vital Signs Date Time Temp Pulse Resp B/P (MAP) Pulse Ox O2 Delivery O2 Flow Rate FiO2 09/11/19 10:08 97.6 72 22 117/66 (83) 93 09/11/19 09:22 Nasal Cannula 4.0 36 09/11/19 09:21 20 Nasal Cannula 4.0 36 09/11/19 09:00 Nasal Cannula 2.0 09/11/19 08:46 93/65 09/11/19 08:00 97.6 46 22 93/65 (74) 96 09/11/19 04:00 97.6 65 16 100/53 (69) 90 09/11/19 00:00 97.9 67 16 89/45 (60) 94 09/10/19 21:00 Nasal Cannula 2.0 09/10/19 20:01 65 18 97 Nasal Cannula 2.0 28 09/10/19 20:01 97 Nasal Cannula 2.0 28 09/10/19 20:00 97.5 61 16 83/43 (56) 98 09/10/19 16:00 97.6 74 19 91/46 (61) 97 09/10/19 14:50 97.6 09/10/19 12:00 97.6 72 17 93/48 (63) 95 Intake and Output 09/10/19 09/11/19 19:00 07:00 Intake Total 979.0 ml 620.0 ml Output Total 500 ml 750 ml Balance 479.0 ml -130.0 ml IV Total 979.0 ml 620.0 ml Output Urine Total 500 ml 750 ml Laboratory Tests Test 09/11/19 05:25 White Blood Count 9.7 K/UL (4.8-10.8) Red Blood Count 2.87 M/UL (4.70-6.10) L Hemoglobin 8.5 G/DL (14.2-18.0) L Hematocrit 25.9 % (42.0-52.0) L Mean Corpuscular Volume 90 FL (80-99) Mean Corpuscular Hemoglobin 29.5 PG (27.0-31.0) Mean Corpuscular Hemoglobin Concent 32.7 G/DL (32.0-36.0) Red Cell Distribution Width 14.4 % (11.6-14.8) Platelet Count 314 K/UL (150-450) Mean Platelet Volume 7.0 FL (6.5-10.1) Neutrophils (%) (Auto) 74.8 % (45.0-75.0) Lymphocytes (%) (Auto) 16.7 % (20.0-45.0) L Monocytes (%) (Auto) 5.6 % (1.0-10.0) Eosinophils (%) (Auto) 2.3 % (0.0-3.0) Basophils (%) (Auto) 0.6 % (0.0-2.0) Sodium Level 139 MMOL/L (136-145) Potassium Level 3.8 MMOL/L (3.5-5.1) Chloride Level 105 MMOL/L (98-107) Carbon Dioxide Level 22 MMOL/L (21-32) Anion Gap 13 mmol/L (5-15) Blood Urea Nitrogen 31 mg/dL (7-18) H Creatinine 1.4 MG/DL (0.55-1.30) H Estimat Glomerular Filtration Rate 48.2 mL/min (>60) Glucose Level 119 MG/DL (74-106) H Calcium Level 8.0 MG/DL (8.5-10.1) L Phosphorus Level 3.1 MG/DL (2.5-4.9) Magnesium Level 2.0 MG/DL (1.8-2.4) Total Bilirubin 0.3 MG/DL (0.2-1.0) Direct Bilirubin 0.1 MG/DL (0.0-0.3) Aspartate Amino Transf (AST/SGOT) 26 U/L (15-37) Alanine Aminotransferase (ALT/SGPT) 30 U/L (12-78) Alkaline Phosphatase 83 U/L (46-116) Total Protein 5.5 G/DL (6.4-8.2) L Albumin 1.1 G/DL (3.4-5.0) L Height (Feet): 5 Height (Inches): 11.00 Weight (Pounds): 162 KerryLumaGaurav SIGN WRITER HAND Sep 11, 2019 10:42
[2019-09-11] MEDS ORDERED: Depakote 125mg Sprinkles GT SCH (14:00)
[2019-09-11] MEDS: Vancomycin 1gm in D5W 275ml IVPB SCH (14:10)
--- NOTE | 2019-09-11 14:17 | Surgery Progress Note ---
Surgery Progress Note Subjective Additional Comments davide cute events Objective Last 24 Hour Vital Signs Date Time Temp Pulse Resp B/P (MAP) Pulse Ox O2 Delivery O2 Flow Rate FiO2 09/11/19 11:54 Venturi Mask 4.0 09/11/19 10:08 97.6 72 22 117/66 (83) 93 09/11/19 09:22 Nasal Cannula 4.0 36 09/11/19 09:21 20 Nasal Cannula 4.0 36 09/11/19 09:00 Nasal Cannula 2.0 09/11/19 08:46 93/65 09/11/19 08:00 97.6 46 22 93/65 (74) 96 09/11/19 04:00 97.6 65 16 100/53 (69) 90 09/11/19 00:00 97.9 67 16 89/45 (60) 94 09/10/19 21:00 Nasal Cannula 2.0 09/10/19 20:01 65 18 97 Nasal Cannula 2.0 28 09/10/19 20:01 97 Nasal Cannula 2.0 28 09/10/19 20:00 97.5 61 16 83/43 (56) 98 09/10/19 16:00 97.6 74 19 91/46 (61) 97 09/10/19 14:50 97.6 I&O Intake and Output 09/10/19 09/11/19 19:00 07:00 Intake Total 979.0 ml 620.0 ml Output Total 500 ml 750 ml Balance 479.0 ml -130.0 ml IV Total 979.0 ml 620.0 ml Output Urine Total 500 ml 750 ml Dressing: other Wound: other Drains: other Cardiovascular: RSR Respiratory: decreased breath sounds Abdomen: soft, present bowel sounds Extremities: no cyanosis Laboratory Tests Test 09/11/19 05:25 White Blood Count 9.7 K/UL (4.8-10.8) Red Blood Count 2.87 M/UL (4.70-6.10) L Hemoglobin 8.5 G/DL (14.2-18.0) L Hematocrit 25.9 % (42.0-52.0) L Mean Corpuscular Volume 90 FL (80-99) Mean Corpuscular Hemoglobin 29.5 PG (27.0-31.0) Mean Corpuscular Hemoglobin Concent 32.7 G/DL (32.0-36.0) Red Cell Distribution Width 14.4 % (11.6-14.8) Platelet Count 314 K/UL (150-450) Mean Platelet Volume 7.0 FL (6.5-10.1) Neutrophils (%) (Auto) 74.8 % (45.0-75.0) Lymphocytes (%) (Auto) 16.7 % (20.0-45.0) L Monocytes (%) (Auto) 5.6 % (1.0-10.0) Eosinophils (%) (Auto) 2.3 % (0.0-3.0) Basophils (%) (Auto) 0.6 % (0.0-2.0) Sodium Level 139 MMOL/L (136-145) Potassium Level 3.8 MMOL/L (3.5-5.1) Chloride Level 105 MMOL/L (98-107) Carbon Dioxide Level 22 MMOL/L (21-32) Anion Gap 13 mmol/L (5-15) Blood Urea Nitrogen 31 mg/dL (7-18) H Creatinine 1.4 MG/DL (0.55-1.30) H Estimat Glomerular Filtration Rate 48.2 mL/min (>60) Glucose Level 119 MG/DL (74-106) H Calcium Level 8.0 MG/DL (8.5-10.1) L Phosphorus Level 3.1 MG/DL (2.5-4.9) Magnesium Level 2.0 MG/DL (1.8-2.4) Total Bilirubin 0.3 MG/DL (0.2-1.0) Direct Bilirubin 0.1 MG/DL (0.0-0.3) Aspartate Amino Transf (AST/SGOT) 26 U/L (15-37) Alanine Aminotransferase (ALT/SGPT) 30 U/L (12-78) Alkaline Phosphatase 83 U/L (46-116) Total Protein 5.5 G/DL (6.4-8.2) L Albumin 1.1 G/DL (3.4-5.0) L Plan Problems: (1) Skin lesions Assessment & Plan: patient presented with multiple skin lesions scrotal edema with cellulitis. pending CT pelvis for eval sacral DTI noted large, skin blistering open now epidermal loss dermis intact left upper extremity epidermal skin blistering open, dermis intact multiple wounds noted on ear, face, chest skin breakdown malnutrition overall prognosis guarded hold on skin biopsy of lesions. 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 Both lower extremities are contracted. Dry Brownish/black capped skin lesion noted to R earlobe ,R cheek and L temporal. Scattered skin lesions that are also dry capped and brownish /black noted to upper chest and bilat upper extremities. Irregular shaped Open DTPI noted to Sacrum. Full thickness ulcer at sacrococcygeal area(L)6cm x (W)5.3cm. Surrounding fluctuant and maroon borders.Measurement including open wound (L)9.5cm x (W)9.2cm No evidence of further skin breakdown periwound. No odor or exudate noted from wound. Resolving pressure injury base of scrotum. Base of wound brayan in center with surrounding moist pink granulation. Scattered biofilm within base of wound.No odor or exudate noted.(L)5.6cm x (W)4.5cm. Open DTPI kermit R tibia. Base of wound is moist and brayan with surrounding fluctuant borders that maroon/purple in colour.(L)9.5cm x (W)2.7cm. Stable dry eschar noted to distal/kermit R tibia(L)2.4cm x (W)1.6cm. Open DTPI noted to R heel(L)3.3cm x (W)3.5cm. Base of wound is moist and brayan in center with small necrotic area. Surrounding borders of wound are purple and fluctuant. Unstageable pressure injury medial aspect of distal L tibia. Base of wound has 90% fibrinous slough with erythematous margins.(L)3.3cm x (W)3.2cm. NO odor or exudate noted. Unstageable pressure injury lateral L malleolus. Base of wound is 100% necrotic and dry.(L)4cm x (W)3.8cm. Tx.Plan: Cleanse Sacral wound with Saline. Apply Therahoney. Apply Moisture Barrier Periwound. Cover with Optifoam drsg daily and prn. Cleanse wound kermit R tibia with Saline. Apply TheraHoney. Apply Cavilon Skin Barrier periwound. Cover with Optifoam drsg every 3 days and prn. Cleanse wound R heel with Saline. Apply Therahoney. Apply Cavilon Skin Barrier periwound. Cover with Optifoam drsg every 3 days and prn. Cleanse wound L tibia with Saline. Apply Therahoney.Apply Cavilon Periwound. Cover with Optifoam drsg every 3 days and prn. Swab Wounds L heel and L lateral malleolus with Betadine. Cover each wound with Optifoam drsg. Change every 3 days and prn. APM/DENICE Mattress overlay. Reposition at least every 2hours or as tolerated. Place pillow between knees. Off-load heels with pillows. nutritional optimization thank you will follow with recs (2) Leukocytosis Assessment & Plan: ct chest ordered ct abd/ pelvis ordered by ID for r/o abd abscess (3) Sepsis (4) Failure to thrive Assessment & Plan: There is a weighted feeding tube projected over the upper part of the stomach. Bowel gas pattern is nonspecific. IMPRESSION: Enteric weighted feeding tube curled in the upper portion of the stomach wire removed good placement feeds (5) Failure to thrive in adult Assessment & Plan: DAILY ESTIMATED NEEDS: Needs based on Wounds, underweight 58.5kg 30-35 kcals/kg 3450-8210 total kcals 1.25-2 g protein/kg 73-117 g total protein 25-30ml/kcal mL/kg 4862-7318 total fluid mLs NUTRITION DIAGNOSIS: Increased kcal and pro needs r/t wound healing and underweight status as evidenced by pt w/ multiple pressure wounds, eval pending, underweight per guidelines w/ generalized moderate-severe wasting, @72% of [place] Body Weight. CURRENT DIET: NPO PO DIET RECOMMENDATIONS: Regular liberalized diet/ texture per PIPE LAYER ENTERAL NUTRITION RECOMMENDATIONS: * Consult RD if non oral feeds are part of POC * ---- ADDITIONAL RECOMMENDATIONS: 1) Add GLUCERNA 1 tetra TID w/ meals 2) PIPE LAYER eval 3) F/up w/ WC eval-> rec ANANDA BID w/ diet order 4) RE-calibrate bed scale w/ added P200 mattress for accurate CBW (6) Pneumothorax on left Assessment & Plan: There is a tiny left apical pneumothorax. This appears smaller than on the previous study. Lungs remain clear. Heart is normal in size. Trachea is midline. Aorta is calcified. IMPRESSION: Trace left apical pneumothorax. stable can monitor for now repeat cxr hold on tube for now CT chest when stable Connor Mcfadden Sep 11, 2019 14:17
--- NOTE | 2019-09-11 14:25 | Pulmonology Progress Note ---
Assessment/Plan Assessment/Plan IMPRESSION: 1. Small left apical pneumothorax. 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 3. Parkinson. 4. Dementia. 5. UTI. 6. Hypernatremia. 7. Left upper extremity cellulitis. 8. Multiple decubitus. 9. Likely NSTEMI DISCUSSION: Noted DNR status. preferred toavoid any further intervention for the small apical left pneumothorax. This may be spontaneous due to his underlying lung disease. Saturations are worse today No respiratory distress or tachypnea Continue antibiotic vancomycin for left upper extremity cellulitis Hydration status addressed by Nephrology. 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 Discussed with daughter Sushma She is agreeable to hospice. Will follow Arun Melvin M.D. Subjective Interval Events: requiring more oxygen now Constitutional: Reports: no symptoms HEENT: Repors: no symptoms Respiratory: Reports: no symptoms Cardiovascular: Reports: no symptoms Gastrointestinal/Abdominal: Reports: no symptoms Allergies: Coded Allergies: AMLODIPINE (Verified Allergy, Unknown, 09/04/19) ASPIRIN (Verified Allergy, Unknown, 09/04/19) BENAZEPRIL (Verified Allergy, Unknown, 09/04/19) Objective Last 24 Hour Vital Signs Date Time Temp Pulse Resp B/P (MAP) Pulse Ox O2 Delivery O2 Flow Rate FiO2 09/11/19 11:54 Venturi Mask 4.0 09/11/19 10:08 97.6 72 22 117/66 (83) 93 09/11/19 09:22 Nasal Cannula 4.0 36 09/11/19 09:21 20 Nasal Cannula 4.0 36 09/11/19 09:00 Nasal Cannula 2.0 09/11/19 08:46 93/65 09/11/19 08:00 97.6 46 22 93/65 (74) 96 09/11/19 04:00 97.6 65 16 100/53 (69) 90 09/11/19 00:00 97.9 67 16 89/45 (60) 94 09/10/19 21:00 Nasal Cannula 2.0 09/10/19 20:01 65 18 97 Nasal Cannula 2.0 28 09/10/19 20:01 97 Nasal Cannula 2.0 28 09/10/19 20:00 97.5 61 16 83/43 (56) 98 09/10/19 16:00 97.6 74 19 91/46 (61) 97 09/10/19 14:50 97.6 Intake and Output 09/10/19 09/11/19 19:00 07:00 Intake Total 979.0 ml 620.0 ml Output Total 500 ml 750 ml Balance 479.0 ml -130.0 ml IV Total 979.0 ml 620.0 ml Output Urine Total 500 ml 750 ml General Appearance: no acute distress HEENT: normocephalic Respiratory/Chest: chest wall non-tender, lungs clear Cardiovascular: normal peripheral pulses Abdomen: normal bowel sounds Laboratory Tests 09/11/19 05:25: White Blood Count 9.7, Red Blood Count 2.87L, Hemoglobin 8.5L, Hematocrit 25.9L , Mean Corpuscular Volume 90, Mean Corpuscular Hemoglobin 29.5, Mean Corpuscular Hemoglobin Concent 32.7, Red Cell Distribution Width 14.4, Platelet Count 314, Mean Platelet Volume 7.0, Neutrophils (%) (Auto) 74.8, Lymphocytes (% ) (Auto) 16.7L, Monocytes (%) (Auto) 5.6, Eosinophils (%) (Auto) 2.3, Basophils (%) (Auto) 0.6, Sodium Level 139, Potassium Level 3.8, Chloride Level 105, Carbon Dioxide Level 22, Anion Gap 13, Blood Urea Nitrogen 31H, Creatinine 1.4H , Estimat Glomerular Filtration Rate 48.2, Glucose Level 119H, Calcium Level 8.0L, Phosphorus Level 3.1, Magnesium Level 2.0, Total Bilirubin 0.3, Direct Bilirubin 0.1, Aspartate Amino Transf (AST/SGOT) 26, Alanine Aminotransferase ( ALT/SGPT) 30, Alkaline Phosphatase 83, Total Protein 5.5L, Albumin 1.1L Current Medications Medications (Trade) Dose Ordered Sig/Kaveh Route PRN Reason Start Time Stop Time Status Last Admin Dose Admin Acetaminophen (Tylenol) 650 mg Q4H PRN ORAL Mild Pain/Temp > 100.5 09/08/19 23:37 10/08/19 23:36 Acetaminophen (Tylenol) 650 mg Q4H PRN RECTAL Prn Headache/Temp > 101 09/08/19 23:37 10/08/19 23:36 Albuterol/ Ipratropium (Albuterol/ Ipratropium) 3 ml Q6H PRN HHN Shortness of Breath 09/09/19 00:00 09/11/19 17:59 Barium Sulfate (Readi-Cat 2) 450 ml NOW PRN ORAL Radiology Procedure 09/09/19 12:15 09/14/19 12:01 Clopidogrel Bisulfate (Plavix) 75 mg DAILY ORAL 09/09/19 09:00 10/06/19 10:44 09/11/19 09:03 Divalproex Sodium (Depakote Sprinkles) 500 mg EVERY 8 HOURS GT 09/11/19 14:00 10/11/19 13:59 Docusate Sodium (Colace) 100 mg TWICE A DAY NG 09/11/19 18:00 10/11/19 17:59 Folic Acid (Folate) 1 mg DAILY ORAL 09/09/19 09:00 10/07/19 10:29 09/11/19 09:02 Heparin Sodium (Porcine) (Heparin 5000 units/ml) 5,000 units EVERY 8 HOURS SUBQ 09/09/19 06:00 10/06/19 10:29 09/11/19 05:37 Lansoprazole (Prevacid) 30 mg BID NG 09/11/19 09:00 10/11/19 08:59 09/11/19 09:04 Lorazepam (Ativan 2mg/ml 1ml) 0.5 mg Q6H PRN IV For Anxiety 09/09/19 09:30 09/16/19 09:29 Morphine Sulfate (Morphine Sulfate) 2 mg Q4H PRN IVP Severe Pain (Pain Scale 7-10) 09/08/19 23:39 09/15/19 23:38 09/10/19 14:23 Piperacillin Sod/ Tazobactam Sod 3.375 gm/Sodium Chloride 110 ml @ 27.5 mls/hr Q8H IVPB 09/09/19 10:00 09/16/19 09:59 09/11/19 09:13 Risperidone (RisperDAL) 0.5 mg Q12H PRN ORAL agitation 09/08/19 23:39 10/08/19 23:38 Vancomycin HCl (Vanco rx to dose) 1 ea DAILY PRN MISC Per rx protocol 09/09/19 09:00 10/05/19 11:29 Vancomycin HCl 1 gm/Dextrose 275 ml @ 183.708 mls/hr Q24H IVPB 09/09/19 15:00 09/14/19 14:59 09/10/19 14:24 Arun Melvin MD Sep 11, 2019 14:25
--- NOTE | 2019-09-11 17:30 | Progress Note ---
DATE: 09/11/2019 SUBJECTIVE: This is an 83-year-old male patient. This patient is very confused, disorganized, dehydrated, anemia, failure to thrive, sepsis, urinary tract infection, decline in cognition below his baseline. That is why, his attending has requested daily psychiatric consultation. MENTAL STATUS EXAMINATION: This is an 83-year-old male. Appearance is disheveled. Attitude, irritable and agitated. Affect, guarded and restricted. Intellect poor. Mood, depressed and anxious. Insight and judgment is poor. DIAGNOSIS: Paranoid schizophrenia with acute exacerbation. PLAN: Plan for this patient to treat the patient with medication regimen of Risperdal 0.5 mg q.12 hours p.r.n. anxiety and agitation and Ativan as needed. A 20 minutes of cognitive behavioral therapy to help him identify his automatic negative thoughts and convert his negative thoughts to more positive thoughts to reduce depression, anxiety, and mood lability. Chart reviewed. Discussed with staff. Seen and assessed in his room. Cherri De Luna M.D. DR: ARIELLA JOB#: [id number] CC:
[2019-09-11] MEDS ORDERED: LORazepam Inj 2mg/ml 1ml IV PRN (18:00)
[2019-09-11] MEDS ORDERED: Morphine Sulfate 2mg/ml Inj(IV/IM USE ONLY) IVP PRN (18:00)
[2019-09-11] MEDS ORDERED: Docusate 100mg/10ml Liq NG SCH (18:00)
[2019-09-11] MEDS ORDERED: Albuterol/Ipratropium 3ml neb HHN PRN (18:00)
[2019-09-11] MEDS ORDERED: Acetaminophen 650 MG SUPP RECTAL PRN (18:00)
[2019-09-11] MEDS: Docusate 100mg/10ml Liq NG SCH (18:13)
[2019-09-11] MEDS: Depakote 125mg Sprinkles GT SCH (21:57)
[2019-09-12] VITALS: BP 106/64
[2019-09-12] MEDS: Piperacillin/Tazobactam 3.375 GM in NS 110 ML IVPB SCH ×3 (01:14→17:35)
[2019-09-12 04:00] VITALS: BP 119/65
[2019-09-12] MEDS: Depakote 125mg Sprinkles GT SCH ×3 (05:29→21:02)
[2019-09-12] MEDS: Heparin 5000 units/ml inj SUBQ SCH ×3 (05:30→21:03)
[2019-09-12 07:18] LABS: BASOPHILS % (AUTO) 0.3 % (0.0-2.0); HEMATOCRIT 27.4 % (42.0-52.0); HEMOGLOBIN 9.3 G/DL (14.2-18.0); LYMPHOCYTES % (AUTO) 9.7 % (20.0-45.0); MEAN CORPUSCULAR VOLUME 89 FL (80-99); MONOCYTES % (AUTO) 4.9 % (1.0-10.0); PLATELET COUNT 350 K/UL (150-450); RED BLOOD COUNT 3.07 M/UL (4.70-6.10); RED CELL DISTRIBUTION WIDTH 14.5 % (11.6-14.8); WHITE BLOOD COUNT 12.4 K/UL (4.8-10.8)
[2019-09-12 07:37] LABS: ANION GAP 8 mmol/L (5-15); BLOOD UREA NITROGEN 30 mg/dL (7-18); CALCIUM 8.1 MG/DL (8.5-10.1); CARBON DIOXIDE 25 MMOL/L (21-32); CHLORIDE 110 MMOL/L (98-107); CREATININE 1.3 MG/DL (0.55-1.30); PHOSPHORUS 3.1 MG/DL (2.5-4.9); POTASSIUM 4.1 MMOL/L (3.5-5.1); SODIUM 143 MMOL/L (136-145)
[2019-09-12 08:00] VITALS: BP 120/76
[2019-09-12] MEDS: Docusate 100mg/10ml Liq NG SCH ×2 (08:36→17:41)
--- NOTE | 2019-09-12 08:54 | General Progress Note ---
Assessment/Plan Problem List: (1) Iron deficiency anemia ICD Codes: D50.9 - Iron deficiency anemia, unspecified SNOMED: 77955855 (2) Folate deficiency ICD Codes: E53.8 - Deficiency of other specified B group vitamins SNOMED: 253102616 (3) low Albumin (4) Anemia ICD Codes: D64.9 - Anemia, unspecified SNOMED: 728457772 (5) Failure to thrive SNOMED: 86063634 (6) Elevated troponin ICD Codes: R79.89 - Other specified abnormal findings of blood chemistry SNOMED: 379136765, 515417770, 127493748 (7) Dehydration ICD Codes: E86.0 - Dehydration SNOMED: 60587222 Status: stable Assessment/Plan: NGTF hold peg plans for now given family agreed to hospice Subjective Allergies: Coded Allergies: AMLODIPINE (Verified Allergy, Unknown, 09/04/19) ASPIRIN (Verified Allergy, Unknown, 09/04/19) BENAZEPRIL (Verified Allergy, Unknown, 09/04/19) Objective Last 24 Hour Vital Signs Date Time Temp Pulse Resp B/P (MAP) Pulse Ox O2 Delivery O2 Flow Rate FiO2 09/12/19 07:33 91 Venturi Mask 8.0 40 09/12/19 07:32 74 20 90 Venturi Mask 8.0 40 09/12/19 05:15 97.8 09/12/19 04:00 97.9 78 20 119/65 (83) 98 09/12/19 04:00 69 09/12/19 00:00 72 09/12/19 00:00 97.8 72 20 106/64 (78) 97 09/11/19 21:00 Venturi Mask 4.0 09/11/19 20:00 69 09/11/19 20:00 97.9 71 20 97/56 (70) 93 09/11/19 19:57 72 18 94 Nasal Cannula 4.0 36 09/11/19 19:56 94 Nasal Cannula 4.0 36 09/11/19 17:01 Venturi Mask 4.0 09/11/19 16:00 98.6 73 18 86/52 (63) 91 09/11/19 12:00 98.1 69 20 108/56 (73) 96 09/11/19 11:54 Venturi Mask 4.0 09/11/19 10:08 97.6 72 22 117/66 (83) 93 09/11/19 09:22 Nasal Cannula 4.0 36 09/11/19 09:21 20 Nasal Cannula 4.0 36 09/11/19 09:00 Nasal Cannula 2.0 Intake and Output 09/11/19 09/12/19 19:00 07:00 Intake Total 485.000 ml 580 ml Output Total 450 ml Balance 35.000 ml 580 ml IV Total 385.000 ml Tube Feeding 100 ml 550 ml Other 30 ml Output Urine Total 450 ml # Bowel Movements 3 3 Laboratory Tests 09/12/19 05:40: White Blood Count 12.4H, Red Blood Count 3.07L, Hemoglobin 9.3L, Hematocrit 27.4L, Mean Corpuscular Volume 89, Mean Corpuscular Hemoglobin 30.1, Mean Corpuscular Hemoglobin Concent 33.8, Red Cell Distribution Width 14.5, Platelet Count 350, Mean Platelet Volume 7.3, Neutrophils (%) (Auto) 84.0H, Lymphocytes ( %) (Auto) 9.7L, Monocytes (%) (Auto) 4.9, Eosinophils (%) (Auto) 1.0, Basophils (%) (Auto) 0.3, Sodium Level 143, Potassium Level 4.1, Chloride Level 110H, Carbon Dioxide Level 25, Anion Gap 8, Blood Urea Nitrogen 30H, Creatinine 1.3, Estimat Glomerular Filtration Rate 52.5, Glucose Level 115H, Calcium Level 8.1L , Phosphorus Level 3.1, Magnesium Level 2.2 Height (Feet): 5 Height (Inches): 11.00 Weight (Pounds): 163 General Appearance: lethargic EENT: normal ENT inspection Neck: supple Cardiovascular: normal rate Respiratory/Chest: decreased breath sounds Abdomen: normal bowel sounds, non tender, soft Extremities: non-tender Arley Cosby MD Sep 12, 2019 08:54
--- NOTE | 2019-09-12 09:15 | Infectious Diseases Prog Note ---
Assessment/Plan Assessment/Plan Assessment: Severe sepsis, sp No evidence of Bacteremia -u/a wbc 40-60, nit neg, leuk +3; ucx p -CXR: Left apical pneumothorax, estimated at 10%. Emphysema. Low grade fever, sp Pneumonia Leukocytosis, mild - CT C/ A/P wo C : Patchy airspace opacities consistent with pneumonia most notably in the posterior right lower lobe.Trace bilateral pleural effusions. NAGA improving Multiple decubitus.( not infected ) NSTEMI Parkinson's dementia HTN Dm2 Plan: -Continue empiric IV Vancomycin # 9/10, Zosyn # 4/5 09/07 Sp Meropenem # 4 08/05 Sp Zosyn #2 -f/u cx -Monitor CBC/CMP, temperatures -aspiration precautions - PEG is on hold - planing for hospice Subjective Allergies: Coded Allergies: AMLODIPINE (Verified Allergy, Unknown, 09/04/19) ASPIRIN (Verified Allergy, Unknown, 09/04/19) BENAZEPRIL (Verified Allergy, Unknown, 09/04/19) Subjective family agreed to hospice afebrile Objective Vital Signs Last 24 Hour Vital Signs Date Time Temp Pulse Resp B/P (MAP) Pulse Ox O2 Delivery O2 Flow Rate FiO2 09/12/19 07:33 91 Venturi Mask 8.0 40 09/12/19 07:32 74 20 90 Venturi Mask 8.0 40 09/12/19 05:15 97.8 09/12/19 04:00 97.9 78 20 119/65 (83) 98 09/12/19 04:00 69 09/12/19 00:00 72 09/12/19 00:00 97.8 72 20 106/64 (78) 97 09/11/19 21:00 Venturi Mask 4.0 09/11/19 20:00 69 09/11/19 20:00 97.9 71 20 97/56 (70) 93 09/11/19 19:57 72 18 94 Nasal Cannula 4.0 36 09/11/19 19:56 94 Nasal Cannula 4.0 36 09/11/19 17:01 Venturi Mask 4.0 09/11/19 16:00 98.6 73 18 86/52 (63) 91 09/11/19 12:00 98.1 69 20 108/56 (73) 96 09/11/19 11:54 Venturi Mask 4.0 3/6/20 10:08 97.6 72 22 117/66 (83) 93 09/11/19 09:22 Nasal Cannula 4.0 36 09/11/19 09:21 20 Nasal Cannula 4.0 36 Height (Feet): 5 Height (Inches): 11.00 Weight (Pounds): 163 HEENT: anicteric Respiratory/Chest: normal breath sounds Cardiovascular: regular rhythm Abdomen: soft, non tender Laboratory Tests Test 09/12/19 05:40 White Blood Count 12.4 K/UL (4.8-10.8) H Red Blood Count 3.07 M/UL (4.70-6.10) L Hemoglobin 9.3 G/DL (14.2-18.0) L Hematocrit 27.4 % (42.0-52.0) L Mean Corpuscular Volume 89 FL (80-99) Mean Corpuscular Hemoglobin 30.1 PG (27.0-31.0) Mean Corpuscular Hemoglobin Concent 33.8 G/DL (32.0-36.0) Red Cell Distribution Width 14.5 % (11.6-14.8) Platelet Count 350 K/UL (150-450) Mean Platelet Volume 7.3 FL (6.5-10.1) Neutrophils (%) (Auto) 84.0 % (45.0-75.0) H Lymphocytes (%) (Auto) 9.7 % (20.0-45.0) L Monocytes (%) (Auto) 4.9 % (1.0-10.0) Eosinophils (%) (Auto) 1.0 % (0.0-3.0) Basophils (%) (Auto) 0.3 % (0.0-2.0) Sodium Level 143 MMOL/L (136-145) Potassium Level 4.1 MMOL/L (3.5-5.1) Chloride Level 110 MMOL/L (98-107) H Carbon Dioxide Level 25 MMOL/L (21-32) Anion Gap 8 mmol/L (5-15) Blood Urea Nitrogen 30 mg/dL (7-18) H Creatinine 1.3 MG/DL (0.55-1.30) Estimat Glomerular Filtration Rate 52.5 mL/min (>60) Glucose Level 115 MG/DL (74-106) H Calcium Level 8.1 MG/DL (8.5-10.1) L Phosphorus Level 3.1 MG/DL (2.5-4.9) Magnesium Level 2.2 MG/DL (1.8-2.4) Current Medications Medications (Trade) Dose Ordered Sig/Kaveh Route PRN Reason Start Time Stop Time Status Last Admin Dose Admin Acetaminophen (Tylenol) 650 mg Q4H PRN ORAL Mild Pain/Temp > 100.5 09/11/19 18:00 10/08/19 17:59 09/12/19 04:45 Acetaminophen (Tylenol) 650 mg Q4H PRN RECTAL Prn Headache/Temp > 101 09/11/19 18:00 10/08/19 17:59 Albuterol/ Ipratropium (Albuterol/ Ipratropium) 3 ml Q6H PRN HHN Shortness of Breath 09/11/19 18:00 09/17/19 17:59 Barium Sulfate (Readi-Cat 2) 450 ml NOW PRN ORAL Radiology Procedure 09/11/19 18:00 09/14/19 23:59 Clopidogrel Bisulfate (Plavix) 75 mg DAILY ORAL 09/12/19 09:00 10/06/19 10:44 09/12/19 08:36 Divalproex Sodium (Depakote Sprinkles) 500 mg EVERY 8 HOURS GT 09/11/19 22:00 10/11/19 13:59 09/12/19 05:29 Docusate Sodium (Colace) 100 mg TWICE A DAY NG 09/11/19 18:00 10/11/19 17:59 09/12/19 08:36 Folic Acid (Folate) 1 mg DAILY ORAL 09/12/19 09:00 10/07/19 10:29 09/12/19 08:36 Heparin Sodium (Porcine) (Heparin 5000 units/ml) 5,000 units EVERY 8 HOURS SUBQ 09/11/19 22:00 10/06/19 10:29 09/12/19 05:30 Lansoprazole (Prevacid) 30 mg BID NG 09/11/19 18:00 10/11/19 08:59 09/12/19 08:36 Lorazepam (Ativan 2mg/ml 1ml) 0.5 mg Q6H PRN IV For Anxiety 09/11/19 18:00 09/16/19 17:59 09/12/19 04:45 Morphine Sulfate (Morphine Sulfate) 2 mg Q4H PRN IVP Severe Pain (Pain Scale 7-10) 09/11/19 18:00 09/15/19 17:59 Piperacillin Sod/ Tazobactam Sod 3.375 gm/Sodium Chloride 110 ml @ 27.5 mls/hr Q8H IVPB 09/11/19 18:00 09/16/19 09:59 09/12/19 01:14 Risperidone (RisperDAL) 0.5 mg Q12H PRN ORAL agitation 09/11/19 18:00 10/08/19 17:59 Sodium Chloride 1,000 ml @ 75 mls/hr [id number] IV 09/11/19 18:00 10/11/19 17:59 Vancomycin HCl (Vanco rx to dose) 1 ea DAILY PRN MISC Per rx protocol 09/11/19 18:00 10/11/19 17:59 Vancomycin HCl 1 gm/Dextrose 275 ml @ 183.708 mls/hr Q24H IVPB 09/12/19 15:00 09/14/19 14:59 Hakeem Hugo MD Sep 12, 2019 09:15
[2019-09-12 12:00] VITALS: BP 135/58
--- NOTE | 2019-09-12 12:29 | Nephrology Progress Note ---
Assessment/Plan Problem List: (1) NAGA (acute kidney injury) (2) UTI (urinary tract infection) (3) Elevated troponin (4) Failure to thrive in adult (5) Sepsis (6) Anemia (7) Dehydration Assessment Potassium phosphate in the morning dose 20 mmol Renal failure mostly prerenal Azotemia. May have underlying chronic kidney disease. Hydration. Sepsis leukocytosis. Encephalopathy in the form of toxic and metabolic. Failure to thrive. Albuminemia. Levator troponin. Most likely due to significant cardiac ischemia. Plan Plan: NG tube is placed feeding is now in process PEG is arranged for near future Stop IV hydration Meds via NG tube as possible Plavix and SQ heparin Nitrates. Continue to monitor renal parameters. Avoid nephrotoxic's. Antibiotics per ID. Felder catheter. Discussed with RN DNR status. Subjective ROS Limited/Unobtainable: Yes Objective Objective Last 24 Hour Vital Signs Date Time Temp Pulse Resp B/P (MAP) Pulse Ox O2 Delivery O2 Flow Rate FiO2 09/12/19 09:00 Venturi Mask 4.0 09/12/19 08:00 97.5 78 18 120/76 (91) 99 09/12/19 07:33 91 Venturi Mask 8.0 40 09/12/19 07:32 74 20 90 Venturi Mask 8.0 40 09/12/19 05:15 97.8 09/12/19 04:00 97.9 78 20 119/65 (83) 98 09/12/19 04:00 69 09/12/19 00:00 72 09/12/19 00:00 97.8 72 20 106/64 (78) 97 09/11/19 21:00 Venturi Mask 4.0 09/11/19 20:00 69 09/11/19 20:00 97.9 71 20 97/56 (70) 93 09/11/19 19:57 72 18 94 Nasal Cannula 4.0 36 09/11/19 19:56 94 Nasal Cannula 4.0 36 09/11/19 17:01 Venturi Mask 4.0 09/11/19 16:00 98.6 73 18 86/52 (63) 91 Intake and Output 09/11/19 09/12/19 19:00 07:00 Intake Total 485.000 ml 580 ml Output Total 450 ml Balance 35.000 ml 580 ml IV Total 385.000 ml Tube Feeding 100 ml 550 ml Other 30 ml Output Urine Total 450 ml # Bowel Movements 3 3 Current Medications Medications (Trade) Dose Ordered Sig/Kaveh Route PRN Reason Start Time Stop Time Status Last Admin Dose Admin Acetaminophen (Tylenol) 650 mg Q4H PRN ORAL Mild Pain/Temp > 100.5 09/11/19 18:00 10/08/19 17:59 09/12/19 04:45 Acetaminophen (Tylenol) 650 mg Q4H PRN RECTAL Prn Headache/Temp > 101 09/11/19 18:00 10/08/19 17:59 Albuterol/ Ipratropium (Albuterol/ Ipratropium) 3 ml Q6H PRN HHN Shortness of Breath 09/11/19 18:00 09/17/19 17:59 Barium Sulfate (Readi-Cat 2) 450 ml NOW PRN ORAL Radiology Procedure 09/11/19 18:00 09/14/19 23:59 Clopidogrel Bisulfate (Plavix) 75 mg DAILY ORAL 09/12/19 09:00 10/06/19 10:44 09/12/19 08:36 Divalproex Sodium (Depakote Sprinkles) 500 mg EVERY 8 HOURS GT 09/11/19 22:00 10/11/19 13:59 09/12/19 05:29 Docusate Sodium (Colace) 100 mg TWICE A DAY NG 09/11/19 18:00 10/11/19 17:59 09/12/19 08:36 Folic Acid (Folate) 1 mg DAILY ORAL 09/12/19 09:00 10/07/19 10:29 09/12/19 08:36 Heparin Sodium (Porcine) (Heparin 5000 units/ml) 5,000 units EVERY 8 HOURS SUBQ 09/11/19 22:00 10/06/19 10:29 09/12/19 05:30 Lansoprazole (Prevacid) 30 mg BID NG 09/11/19 18:00 10/11/19 08:59 09/12/19 08:36 Lorazepam (Ativan 2mg/ml 1ml) 0.5 mg Q6H PRN IV For Anxiety 09/11/19 18:00 09/16/19 17:59 09/12/19 04:45 Morphine Sulfate (Morphine Sulfate) 2 mg Q4H PRN IVP Severe Pain (Pain Scale 7-10) 09/11/19 18:00 09/15/19 17:59 Piperacillin Sod/ Tazobactam Sod 3.375 gm/Sodium Chloride 110 ml @ 27.5 mls/hr Q8H IVPB 09/11/19 18:00 09/16/19 09:59 09/12/19 10:42 Risperidone (RisperDAL) 0.5 mg Q12H PRN ORAL agitation 09/11/19 18:00 10/08/19 17:59 Sodium Chloride 1,000 ml @ 75 mls/hr [id number] IV 09/11/19 18:00 10/11/19 17:59 Vancomycin HCl (Vanco rx to dose) 1 ea DAILY PRN MISC Per rx protocol 09/11/19 18:00 10/11/19 17:59 Vancomycin HCl 1 gm/Dextrose 275 ml @ 183.708 mls/hr Q24H IVPB 09/12/19 15:00 09/14/19 14:59 Laboratory Tests 09/12/19 05:40: White Blood Count 12.4H, Red Blood Count 3.07L, Hemoglobin 9.3L, Hematocrit 27.4L, Mean Corpuscular Volume 89, Mean Corpuscular Hemoglobin 30.1, Mean Corpuscular Hemoglobin Concent 33.8, Red Cell Distribution Width 14.5, Platelet Count 350, Mean Platelet Volume 7.3, Neutrophils (%) (Auto) 84.0H, Lymphocytes ( %) (Auto) 9.7L, Monocytes (%) (Auto) 4.9, Eosinophils (%) (Auto) 1.0, Basophils (%) (Auto) 0.3, Sodium Level 143, Potassium Level 4.1, Chloride Level 110H, Carbon Dioxide Level 25, Anion Gap 8, Blood Urea Nitrogen 30H, Creatinine 1.3, Estimat Glomerular Filtration Rate 52.5, Glucose Level 115H, Calcium Level 8.1L , Phosphorus Level 3.1, Magnesium Level 2.2 Height (Feet): 5 Height (Inches): 11.00 Weight (Pounds): 163 General Appearance: no apparent distress, lethargic EENT: other - ngt + Cardiovascular: normal rate Respiratory/Chest: decreased breath sounds Abdomen: soft Objective No other change Dariusz Brandt MD Sep 12, 2019 12:29
--- NOTE | 2019-09-12 14:13 | General Progress Note ---
Assessment/Plan Problem List: (1) Dehydration ICD Codes: E86.0 - Dehydration SNOMED: 55253497 (2) Anemia ICD Codes: D64.9 - Anemia, unspecified SNOMED: 463490182 (3) Failure to thrive SNOMED: 57003653 (4) Sepsis ICD Codes: A41.9 - Sepsis, unspecified organism SNOMED: 01157628 Qualifiers: Qualified Codes: A41.9 - Sepsis, unspecified organism (5) UTI (urinary tract infection) ICD Codes: N39.0 - Urinary tract infection, site not specified SNOMED: 26364647 Qualifiers: Qualified Codes: N30.00 - Acute cystitis without hematuria (6) Elevated troponin ICD Codes: R79.89 - Other specified abnormal findings of blood chemistry SNOMED: 351980279, 854732496, 004387181 (7) Failure to thrive in adult ICD Codes: R62.7 - Adult failure to thrive SNOMED: 064454921 (8) NAGA (acute kidney injury) ICD Codes: N17.9 - Acute kidney failure, unspecified SNOMED: 30676662, 9895772 (9) Skin lesions ICD Codes: L98.9 - Disorder of the skin and subcutaneous tissue, unspecified SNOMED: 17861251 (10) Iron deficiency anemia ICD Codes: D50.9 - Iron deficiency anemia, unspecified SNOMED: 44611439 (11) low Albumin (12) Folate deficiency ICD Codes: E53.8 - Deficiency of other specified B group vitamins SNOMED: 634579698 Status: stable Assessment/Plan: transferred to [facility] for close moniterin for hypotension and james despite bolus favor conservative management reviewed chart and labs Subjective Allergies: Coded Allergies: AMLODIPINE (Verified Allergy, Unknown, 09/04/19) ASPIRIN (Verified Allergy, Unknown, 09/04/19) BENAZEPRIL (Verified Allergy, Unknown, 09/04/19) Objective Last 24 Hour Vital Signs Date Time Temp Pulse Resp B/P (MAP) Pulse Ox O2 Delivery O2 Flow Rate FiO2 09/12/19 12:00 97.6 81 19 135/58 (83) 98 09/12/19 12:00 66 09/12/19 09:00 Venturi Mask 4.0 09/12/19 08:00 66 09/12/19 08:00 97.5 78 18 120/76 (91) 99 3/7/20 07:33 91 Venturi Mask 8.0 40 09/12/19 07:32 74 20 90 Venturi Mask 8.0 40 09/12/19 05:15 97.8 09/12/19 04:00 97.9 78 20 119/65 (83) 98 09/12/19 04:00 69 09/12/19 00:00 72 09/12/19 00:00 97.8 72 20 106/64 (78) 97 09/11/19 21:00 Venturi Mask 4.0 09/11/19 20:00 69 09/11/19 20:00 97.9 71 20 97/56 (70) 93 09/11/19 19:57 72 18 94 Nasal Cannula 4.0 36 09/11/19 19:56 94 Nasal Cannula 4.0 36 09/11/19 17:01 Venturi Mask 4.0 09/11/19 16:00 98.6 73 18 86/52 (63) 91 Intake and Output 09/11/19 09/12/19 19:00 07:00 Intake Total 485.000 ml 580 ml Output Total 450 ml Balance 35.000 ml 580 ml IV Total 385.000 ml Tube Feeding 100 ml 550 ml Other 30 ml Output Urine Total 450 ml # Bowel Movements 3 3 Laboratory Tests 09/12/19 05:40: White Blood Count 12.4H, Red Blood Count 3.07L, Hemoglobin 9.3L, Hematocrit 27.4L, Mean Corpuscular Volume 89, Mean Corpuscular Hemoglobin 30.1, Mean Corpuscular Hemoglobin Concent 33.8, Red Cell Distribution Width 14.5, Platelet Count 350, Mean Platelet Volume 7.3, Neutrophils (%) (Auto) 84.0H, Lymphocytes ( %) (Auto) 9.7L, Monocytes (%) (Auto) 4.9, Eosinophils (%) (Auto) 1.0, Basophils (%) (Auto) 0.3, Sodium Level 143, Potassium Level 4.1, Chloride Level 110H, Carbon Dioxide Level 25, Anion Gap 8, Blood Urea Nitrogen 30H, Creatinine 1.3, Estimat Glomerular Filtration Rate 52.5, Glucose Level 115H, Calcium Level 8.1L , Phosphorus Level 3.1, Magnesium Level 2.2 09/12/19 13:45: Vancomycin Level Trough [Pending] Height (Feet): 5 Height (Inches): 11.00 Weight (Pounds): 163 General Appearance: confused Beau Barker MD Sep 12, 2019 14:13
--- NOTE | 2019-09-12 14:39 | Cardiology Progress Note ---
Assessment/Plan Assessment/Plan Small left apical pneumothorax. 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 Parkinson. Dementia. UTI. Hypernatremia. Left upper extremity cellulitis. Multiple decubitus. NSTEMI hypotension bp improved with hydration dnr going home with hospice no candidate for any invasive therapy trop down trending tele sinus lab ntoed cr improved dc tele soon r Subjective ROS Limited/Unobtainable: Yes Subjective moan an groans Objective Last 24 Hour Vital Signs Date Time Temp Pulse Resp B/P (MAP) Pulse Ox O2 Delivery O2 Flow Rate FiO2 09/12/19 12:00 97.6 81 19 135/58 (83) 98 09/12/19 12:00 66 09/12/19 09:00 Venturi Mask 4.0 09/12/19 08:00 66 09/12/19 08:00 97.5 78 18 120/76 (91) 99 09/12/19 07:33 91 Venturi Mask 8.0 40 09/12/19 07:32 74 20 90 Venturi Mask 8.0 40 09/12/19 05:15 97.8 09/12/19 04:00 97.9 78 20 119/65 (83) 98 09/12/19 04:00 69 09/12/19 00:00 72 09/12/19 00:00 97.8 72 20 106/64 (78) 97 09/11/19 21:00 Venturi Mask 4.0 09/11/19 20:00 69 09/11/19 20:00 97.9 71 20 97/56 (70) 93 09/11/19 19:57 72 18 94 Nasal Cannula 4.0 36 09/11/19 19:56 94 Nasal Cannula 4.0 36 09/11/19 17:01 Venturi Mask 4.0 09/11/19 16:00 98.6 73 18 86/52 (63) 91 General Appearance: no apparent distress, patient on isolation Neck: supple Cardiovascular: normal rate Respiratory/Chest: lungs clear Abdomen: normal bowel sounds, non tender, soft Extremities: no swelling Intake and Output 09/11/19 09/12/19 19:00 07:00 Intake Total 485.000 ml 580 ml Output Total 450 ml Balance 35.000 ml 580 ml IV Total 385.000 ml Tube Feeding 100 ml 550 ml Other 30 ml Output Urine Total 450 ml # Bowel Movements 3 3 Laboratory Tests Test 09/12/19 05:40 09/12/19 13:45 White Blood Count 12.4 K/UL (4.8-10.8) H Red Blood Count 3.07 M/UL (4.70-6.10) L Hemoglobin 9.3 G/DL (14.2-18.0) L Hematocrit 27.4 % (42.0-52.0) L Mean Corpuscular Volume 89 FL (80-99) Mean Corpuscular Hemoglobin 30.1 PG (27.0-31.0) Mean Corpuscular Hemoglobin Concent 33.8 G/DL (32.0-36.0) Red Cell Distribution Width 14.5 % (11.6-14.8) Platelet Count 350 K/UL (150-450) Mean Platelet Volume 7.3 FL (6.5-10.1) Neutrophils (%) (Auto) 84.0 % (45.0-75.0) H Lymphocytes (%) (Auto) 9.7 % (20.0-45.0) L Monocytes (%) (Auto) 4.9 % (1.0-10.0) Eosinophils (%) (Auto) 1.0 % (0.0-3.0) Basophils (%) (Auto) 0.3 % (0.0-2.0) Sodium Level 143 MMOL/L (136-145) Potassium Level 4.1 MMOL/L (3.5-5.1) Chloride Level 110 MMOL/L (98-107) H Carbon Dioxide Level 25 MMOL/L (21-32) Anion Gap 8 mmol/L (5-15) Blood Urea Nitrogen 30 mg/dL (7-18) H Creatinine 1.3 MG/DL (0.55-1.30) Estimat Glomerular Filtration Rate 52.5 mL/min (>60) Glucose Level 115 MG/DL (74-106) H Calcium Level 8.1 MG/DL (8.5-10.1) L Phosphorus Level 3.1 MG/DL (2.5-4.9) Magnesium Level 2.2 MG/DL (1.8-2.4) Vancomycin Level Trough 20.0 ug/mL (5.0-12.0) H Ronnie Lamb MD Sep 12, 2019 14:39
[2019-09-12] MEDS ORDERED: Vancomycin 1 GM in D5W 275 ML IVPB SCH (15:00)
[2019-09-12 16:00] VITALS: BP 128/58
[2019-09-12] MEDS: Vancomycin 750 MG in NS 275 ML IVPB SCH (17:34)
--- NOTE | 2019-09-12 18:15 | Progress Note ---
DATE: 09/12/2019 SUBJECTIVE: This is an 83-year-old male with failure to thrive on the med/surg unit. He still has altered mental status, confusion, decline in cognition below his baseline. That is why, his attending has requested daily psychiatric consultation. MENTAL STATUS EXAMINATION: This is an 83-year-old male . His appearance is disheveled. Attitude, irritable and agitated. Affect, guarded and restricted. Intellect poor. Mood, depressed and anxious. Motor activity, psychomotor agitation. Attention span is poor. Orientation x2. Speech is low volume, slurred. Thought process, disorganized and illogical. Insight and judgment is poor. DIAGNOSIS: Major depressive disorder, severe, recurrent with psychotic features, rule out dementia with psychosis. PLAN: Continue treatment with current psychotropic medications. A 20 minutes of cognitive behavioral therapy and 20 minutes of insight-oriented psychotherapy to help him prevent any further decline in his cognition. He will continue to be followed by Psychiatry. Also, 20 minutes of an insight-oriented psychotherapy so he would have better understanding of his mental and physical condition so that he will have better impulse control and behavior on the unit. Chart reviewed and discussed with staff. Seen and assessed at the bedside. Cherri De Luna M.D. DR: JEREMIAH JOB#: [id number] CC:
--- NOTE | 2019-09-12 18:25 | Pulmonology Progress Note ---
Assessment/Plan Assessment/Plan IMPRESSION: 1. Small left apical pneumothorax. 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 3. Parkinson. 4. Dementia. 5. UTI. 6. Hypernatremia. 7. Left upper extremity cellulitis. 8. Multiple decubitus. 9. Likely NSTEMI DISCUSSION: Noted DNR status. prefer to avoid any further intervention for the small apical left pneumothorax. This may be spontaneous due to his underlying lung disease. Saturations are worse today No respiratory distress or tachypnea Continue antibiotic vancomycin for left upper extremity cellulitis Hydration status addressed by Nephrology. 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 Discussed with daughter Sushma She is agreeable to hospice. Will follow Arun Melvin M.D. Subjective Interval Events: None new Constitutional: Reports: no symptoms HEENT: Repors: no symptoms Respiratory: Reports: no symptoms Cardiovascular: Reports: no symptoms Allergies: Coded Allergies: AMLODIPINE (Verified Allergy, Unknown, 09/04/19) ASPIRIN (Verified Allergy, Unknown, 09/04/19) BENAZEPRIL (Verified Allergy, Unknown, 09/04/19) Objective Last 24 Hour Vital Signs Date Time Temp Pulse Resp B/P (MAP) Pulse Ox O2 Delivery O2 Flow Rate FiO2 09/12/19 16:00 97.4 78 18 128/58 (81) 100 09/12/19 12:00 97.6 81 19 135/58 (83) 98 09/12/19 12:00 66 09/12/19 09:00 Venturi Mask 4.0 09/12/19 08:00 66 09/12/19 08:00 97.5 78 18 120/76 (91) 99 09/12/19 07:33 91 Venturi Mask 8.0 40 09/12/19 07:32 74 20 90 Venturi Mask 8.0 40 09/12/19 05:15 97.8 09/12/19 04:00 97.9 78 20 119/65 (83) 98 09/12/19 04:00 69 09/12/19 00:00 72 09/12/19 00:00 97.8 72 20 106/64 (78) 97 09/11/19 21:00 Venturi Mask 4.0 09/11/19 20:00 69 09/11/19 20:00 97.9 71 20 97/56 (70) 93 09/11/19 19:57 72 18 94 Nasal Cannula 4.0 36 09/11/19 19:56 94 Nasal Cannula 4.0 36 Intake and Output 09/11/19 09/12/19 19:00 07:00 Intake Total 485.000 ml 655 ml Output Total 450 ml Balance 35.000 ml 655 ml IV Total 385.000 ml 75 ml Tube Feeding 100 ml 550 ml Other 30 ml Output Urine Total 450 ml # Bowel Movements 3 3 General Appearance: no acute distress HEENT: normocephalic Respiratory/Chest: chest wall non-tender Cardiovascular: normal peripheral pulses Abdomen: normal bowel sounds Laboratory Tests 09/12/19 05:40: White Blood Count 12.4H, Red Blood Count 3.07L, Hemoglobin 9.3L, Hematocrit 27.4L, Mean Corpuscular Volume 89, Mean Corpuscular Hemoglobin 30.1, Mean Corpuscular Hemoglobin Concent 33.8, Red Cell Distribution Width 14.5, Platelet Count 350, Mean Platelet Volume 7.3, Neutrophils (%) (Auto) 84.0H, Lymphocytes ( %) (Auto) 9.7L, Monocytes (%) (Auto) 4.9, Eosinophils (%) (Auto) 1.0, Basophils (%) (Auto) 0.3, Sodium Level 143, Potassium Level 4.1, Chloride Level 110H, Carbon Dioxide Level 25, Anion Gap 8, Blood Urea Nitrogen 30H, Creatinine 1.3, Estimat Glomerular Filtration Rate 52.5, Glucose Level 115H, Calcium Level 8.1L , Phosphorus Level 3.1, Magnesium Level 2.2 09/12/19 13:45: Vancomycin Level Trough 20.0H Current Medications Medications (Trade) Dose Ordered Sig/Kaveh Route PRN Reason Start Time Stop Time Status Last Admin Dose Admin Acetaminophen (Tylenol) 650 mg Q4H PRN ORAL Mild Pain/Temp > 100.5 09/11/19 18:00 10/08/19 17:59 09/12/19 04:45 Acetaminophen (Tylenol) 650 mg Q4H PRN RECTAL Prn Headache/Temp > 101 09/11/19 18:00 10/08/19 17:59 Albuterol/ Ipratropium (Albuterol/ Ipratropium) 3 ml Q6H PRN HHN Shortness of Breath 09/11/19 18:00 09/17/19 17:59 Barium Sulfate (Readi-Cat 2) 450 ml NOW PRN ORAL Radiology Procedure 09/11/19 18:00 09/14/19 23:59 Clopidogrel Bisulfate (Plavix) 75 mg DAILY ORAL 09/12/19 09:00 10/06/19 10:44 09/12/19 08:36 Divalproex Sodium (Depakote Sprinkles) 500 mg EVERY 8 HOURS GT 09/11/19 22:00 10/11/19 13:59 09/12/19 14:28 Docusate Sodium (Colace) 100 mg TWICE A DAY NG 09/11/19 18:00 10/11/19 17:59 09/12/19 08:36 Folic Acid (Folate) 1 mg DAILY ORAL 09/12/19 09:00 10/07/19 10:29 09/12/19 08:36 Heparin Sodium (Porcine) (Heparin 5000 units/ml) 5,000 units EVERY 8 HOURS SUBQ 09/11/19 22:00 10/06/19 10:29 09/12/19 14:30 Lansoprazole (Prevacid) 30 mg BID NG 09/11/19 18:00 10/11/19 08:59 09/12/19 17:35 Lorazepam (Ativan 2mg/ml 1ml) 0.5 mg Q6H PRN IV For Anxiety 09/11/19 18:00 09/16/19 17:59 09/12/19 04:45 Morphine Sulfate (Morphine Sulfate) 2 mg Q4H PRN IVP Severe Pain (Pain Scale 7-10) 09/11/19 18:00 09/15/19 17:59 Piperacillin Sod/ Tazobactam Sod 3.375 gm/Sodium Chloride 110 ml @ 27.5 mls/hr Q8H IVPB 09/11/19 18:00 09/16/19 09:59 09/12/19 17:35 Risperidone (RisperDAL) 0.5 mg Q12H PRN ORAL agitation 09/11/19 18:00 10/08/19 17:59 Sodium Chloride 1,000 ml @ 75 mls/hr [id number] IV 09/11/19 18:00 10/11/19 17:59 09/12/19 16:00 Vancomycin HCl (Vanco rx to dose) 1 ea DAILY PRN MISC Per rx protocol 09/11/19 18:00 10/11/19 17:59 Vancomycin HCl 750 mg/Sodium Chloride 275 ml @ 183.333 mls/hr Q24H IVPB 09/12/19 18:00 09/14/19 17:59 09/12/19 17:34 Arun Melvin MD Sep 12, 2019 18:25
[2019-09-12 20:00] VITALS: BP 127/70
--- NOTE | 2019-09-12 21:55 | Surgery Progress Note ---
Surgery Progress Note Subjective Additional Comments no acute events labs noted exam stable Objective Last 24 Hour Vital Signs Date Time Temp Pulse Resp B/P (MAP) Pulse Ox O2 Delivery O2 Flow Rate FiO2 09/12/19 21:00 Venturi Mask 4.0 09/12/19 20:03 97 Venturi Mask 2.0 28 09/12/19 20:03 72 20 97 Venturi Mask 8.0 40 09/12/19 20:00 77 09/12/19 20:00 97.0 79 16 127/70 (89) 95 09/12/19 16:00 97.4 78 18 128/58 (81) 100 09/12/19 16:00 69 09/12/19 12:00 97.6 81 19 135/58 (83) 98 09/12/19 12:00 66 09/12/19 09:00 Venturi Mask 4.0 09/12/19 08:00 66 09/12/19 08:00 97.5 78 18 120/76 (91) 99 09/12/19 07:33 91 Venturi Mask 8.0 40 09/12/19 07:32 74 20 90 Venturi Mask 8.0 40 09/12/19 05:15 97.8 09/12/19 04:00 97.9 78 20 119/65 (83) 98 09/12/19 04:00 69 09/12/19 00:00 72 09/12/19 00:00 97.8 72 20 106/64 (78) 97 I&O Intake and Output 09/11/19 09/12/19 19:00 07:00 Intake Total 485.000 ml 705 ml Output Total 450 ml Balance 35.000 ml 705 ml IV Total 385.000 ml 75 ml Tube Feeding 100 ml 600 ml Other 30 ml Output Urine Total 450 ml # Bowel Movements 3 3 Dressing: dry Wound: other Drains: other Cardiovascular: RSR Respiratory: decreased breath sounds Abdomen: soft, present bowel sounds Extremities: no cyanosis Laboratory Tests Test 09/12/19 05:40 09/12/19 13:45 White Blood Count 12.4 K/UL (4.8-10.8) H Red Blood Count 3.07 M/UL (4.70-6.10) L Hemoglobin 9.3 G/DL (14.2-18.0) L Hematocrit 27.4 % (42.0-52.0) L Mean Corpuscular Volume 89 FL (80-99) Mean Corpuscular Hemoglobin 30.1 PG (27.0-31.0) Mean Corpuscular Hemoglobin Concent 33.8 G/DL (32.0-36.0) Red Cell Distribution Width 14.5 % (11.6-14.8) Platelet Count 350 K/UL (150-450) Mean Platelet Volume 7.3 FL (6.5-10.1) Neutrophils (%) (Auto) 84.0 % (45.0-75.0) H Lymphocytes (%) (Auto) 9.7 % (20.0-45.0) L Monocytes (%) (Auto) 4.9 % (1.0-10.0) Eosinophils (%) (Auto) 1.0 % (0.0-3.0) Basophils (%) (Auto) 0.3 % (0.0-2.0) Sodium Level 143 MMOL/L (136-145) Potassium Level 4.1 MMOL/L (3.5-5.1) Chloride Level 110 MMOL/L (98-107) H Carbon Dioxide Level 25 MMOL/L (21-32) Anion Gap 8 mmol/L (5-15) Blood Urea Nitrogen 30 mg/dL (7-18) H Creatinine 1.3 MG/DL (0.55-1.30) Estimat Glomerular Filtration Rate 52.5 mL/min (>60) Glucose Level 115 MG/DL (74-106) H Calcium Level 8.1 MG/DL (8.5-10.1) L Phosphorus Level 3.1 MG/DL (2.5-4.9) Magnesium Level 2.2 MG/DL (1.8-2.4) Vancomycin Level Trough 20.0 ug/mL (5.0-12.0) H Plan Problems: (1) Skin lesions Assessment & Plan: patient presented with multiple skin lesions scrotal edema with cellulitis. pending CT pelvis for eval sacral DTI noted large, skin blistering open now epidermal loss dermis intact left upper extremity epidermal skin blistering open, dermis intact multiple wounds noted on ear, face, chest skin breakdown malnutrition overall prognosis guarded hold on skin biopsy of lesions. 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 Both lower extremities are contracted. Dry Brownish/black capped skin lesion noted to R earlobe ,R cheek and L temporal. Scattered skin lesions that are also dry capped and brownish /black noted to upper chest and bilat upper extremities. Irregular shaped Open DTPI noted to Sacrum. Full thickness ulcer at sacrococcygeal area(L)6cm x (W)5.3cm. Surrounding fluctuant and maroon borders.Measurement including open wound (L)9.5cm x (W)9.2cm No evidence of further skin breakdown periwound. No odor or exudate noted from wound. Resolving pressure injury base of scrotum. Base of wound brayan in center with surrounding moist pink granulation. Scattered biofilm within base of wound.No odor or exudate noted.(L)5.6cm x (W)4.5cm. Open DTPI kermit R tibia. Base of wound is moist and brayan with surrounding fluctuant borders that maroon/purple in colour.(L)9.5cm x (W)2.7cm. Stable dry eschar noted to distal/kermit R tibia(L)2.4cm x (W)1.6cm. Open DTPI noted to R heel(L)3.3cm x (W)3.5cm. Base of wound is moist and brayan in center with small necrotic area. Surrounding borders of wound are purple and fluctuant. Unstageable pressure injury medial aspect of distal L tibia. Base of wound has 90% fibrinous slough with erythematous margins.(L)3.3cm x (W)3.2cm. NO odor or exudate noted. Unstageable pressure injury lateral L malleolus. Base of wound is 100% necrotic and dry.(L)4cm x (W)3.8cm. Tx.Plan: Cleanse Sacral wound with Saline. Apply Therahoney. Apply Moisture Barrier Periwound. Cover with Optifoam drsg daily and prn. Cleanse wound kermit R tibia with Saline. Apply TheraHoney. Apply Cavilon Skin Barrier periwound. Cover with Optifoam drsg every 3 days and prn. Cleanse wound R heel with Saline. Apply Therahoney. Apply Cavilon Skin Barrier periwound. Cover with Optifoam drsg every 3 days and prn. Cleanse wound L tibia with Saline. Apply Therahoney.Apply Cavilon Periwound. Cover with Optifoam drsg every 3 days and prn. Swab Wounds L heel and L lateral malleolus with Betadine. Cover each wound with Optifoam drsg. Change every 3 days and prn. APM/DENICE Mattress overlay. Reposition at least every 2hours or as tolerated. Place pillow between knees. Off-load heels with pillows. nutritional optimization thank you will follow with recs (2) Leukocytosis Assessment & Plan: Patchy airspace opacities consistent with pneumonia most notably in the posterior right lower lobe. Trace bilateral pleural effusions. No pneumothorax. Moderate dilatation of the esophagus. May be related to presence of a feeding tube. Achalasia or distal esophageal strictures are not excludable. Left inguinal hernia containing a portion of the descending colon. No evidence of obstruction. The true extent and size of the hernia is not known as the lower portion of the hernia is below the [id number] of this examination. The hernia should be clinically apparent since the hernia sac is within the left scrotum. Anasarca Right dynamic hip screw. Osteoporosis Degenerative changes of the spine. Small amount of free fluid in the pelvis unknown origin. (3) Sepsis (4) Failure to thrive Assessment & Plan: There is a weighted feeding tube projected over the upper part of the stomach. Bowel gas pattern is nonspecific. IMPRESSION: Enteric weighted feeding tube curled in the upper portion of the stomach wire removed good placement feeds (5) Failure to thrive in adult Assessment & Plan: DAILY ESTIMATED NEEDS: Needs based on Wounds, underweight 58.5kg 30-35 kcals/kg 6153-6433 total kcals 1.25-2 g protein/kg 73-117 g total protein 25-30ml/kcal mL/kg 1272-1939 total fluid mLs NUTRITION DIAGNOSIS: Increased kcal and pro needs r/t wound healing and underweight status as evidenced by pt w/ multiple pressure wounds, eval pending, underweight per guidelines w/ generalized moderate-severe wasting, @72% of [place] Body Weight. CURRENT DIET: NPO PO DIET RECOMMENDATIONS: Regular liberalized diet/ texture per SURVEILLANCE SPECIALIST ENTERAL NUTRITION RECOMMENDATIONS: * Consult RD if non oral feeds are part of POC * ---- ADDITIONAL RECOMMENDATIONS: 1) Add GLUCERNA 1 tetra TID w/ meals 2) SURVEILLANCE SPECIALIST eval 3) F/up w/ WC eval-> rec ANANDA BID w/ diet order 4) RE-calibrate bed scale w/ added P200 mattress for accurate CBW (6) Pneumothorax on left Assessment & Plan: There is a tiny left apical pneumothorax. This appears smaller than on the previous study. Lungs remain clear. Heart is normal in size. Trachea is midline. Aorta is calcified. IMPRESSION: Trace left apical pneumothorax. stable can monitor for now repeat cxr hold on tube for now CT chest when stable Connor Mcfadden Sep 12, 2019 21:55
[2019-09-13] VITALS: BP 144/89
[2019-09-13] MEDS: Piperacillin/Tazobactam 3.375 GM in NS 110 ML IVPB SCH ×3 (01:05→18:29)
[2019-09-13 04:00] VITALS: BP 100/67
[2019-09-13] MEDS: Depakote 125mg Sprinkles GT SCH ×3 (06:03→21:28)
[2019-09-13] MEDS: Heparin 5000 units/ml inj SUBQ SCH ×3 (06:03→21:28)
--- NOTE | 2019-09-13 07:53 | Pulmonology Progress Note ---
Assessment/Plan Assessment/Plan IMPRESSION: 1. Small left apical pneumothorax. 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 3. Parkinson. 4. Dementia. 5. UTI. 6. Hypernatremia. 7. Left upper extremity cellulitis. 8. Multiple decubitus. 9. Likely NSTEMI DISCUSSION: Noted DNR status. prefer to avoid any further intervention for the small apical left pneumothorax. This may be spontaneous due to his underlying lung disease. Saturations are worse today No respiratory distress or tachypnea Continue antibiotic vancomycin for left upper extremity cellulitis Hydration status addressed by Nephrology. 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 Discussed with daughter Sushma She is agreeable to hospice. Will follow Arun Melvin M.D. Subjective Interval Events: On ventimask; no new problems Constitutional: Reports: no symptoms HEENT: Repors: no symptoms Respiratory: Reports: no symptoms Cardiovascular: Reports: no symptoms Gastrointestinal/Abdominal: Reports: no symptoms Genitourinary: Reports: no symptoms Allergies: Coded Allergies: AMLODIPINE (Verified Allergy, Unknown, 09/04/19) ASPIRIN (Verified Allergy, Unknown, 09/04/19) BENAZEPRIL (Verified Allergy, Unknown, 09/04/19) Objective Last 24 Hour Vital Signs Date Time Temp Pulse Resp B/P (MAP) Pulse Ox O2 Delivery O2 Flow Rate FiO2 09/13/19 04:00 78 09/13/19 04:00 97.7 82 20 100/67 (78) 100 09/13/19 00:00 97.2 81 20 144/89 (107) 93 09/13/19 00:00 82 09/12/19 21:00 Venturi Mask 4.0 09/12/19 20:03 97 Venturi Mask 2.0 28 09/12/19 20:03 72 20 97 Venturi Mask 8.0 40 09/12/19 20:00 77 09/12/19 20:00 97.0 79 16 127/70 (89) 95 09/12/19 16:00 97.4 78 18 128/58 (81) 100 09/12/19 16:00 69 09/12/19 12:00 97.6 81 19 135/58 (83) 98 09/12/19 12:00 66 09/12/19 09:00 Venturi Mask 4.0 09/12/19 08:00 66 09/12/19 08:00 97.5 78 18 120/76 (91) 99 Intake and Output 09/12/19 09/13/19 19:00 07:00 Intake Total 1102.500 ml Output Total 400 ml Balance 702.500 ml IV Total 552.500 ml Tube Feeding 550 ml Output Urine Total 400 ml General Appearance: no acute distress HEENT: normocephalic Respiratory/Chest: chest wall non-tender Cardiovascular: normal peripheral pulses Abdomen: normal bowel sounds Laboratory Tests 09/12/19 13:45: Vancomycin Level Trough 20.0H Current Medications Medications (Trade) Dose Ordered Sig/Kaveh Route PRN Reason Start Time Stop Time Status Last Admin Dose Admin Acetaminophen (Tylenol) 650 mg Q4H PRN ORAL Mild Pain/Temp > 100.5 09/11/19 18:00 10/08/19 17:59 09/12/19 04:45 Acetaminophen (Tylenol) 650 mg Q4H PRN RECTAL Prn Headache/Temp > 101 09/11/19 18:00 10/08/19 17:59 Albuterol/ Ipratropium (Albuterol/ Ipratropium) 3 ml Q6H PRN HHN Shortness of Breath 09/11/19 18:00 09/17/19 17:59 Barium Sulfate (Readi-Cat 2) 450 ml NOW PRN ORAL Radiology Procedure 09/11/19 18:00 09/14/19 23:59 Clopidogrel Bisulfate (Plavix) 75 mg DAILY ORAL 09/12/19 09:00 10/06/19 10:44 09/12/19 08:36 Divalproex Sodium (Depakote Sprinkles) 500 mg EVERY 8 HOURS GT 09/11/19 22:00 10/11/19 13:59 09/13/19 06:03 Docusate Sodium (Colace) 100 mg TWICE A DAY NG 09/11/19 18:00 10/11/19 17:59 09/12/19 08:36 Folic Acid (Folate) 1 mg DAILY ORAL 09/12/19 09:00 10/07/19 10:29 09/12/19 08:36 Heparin Sodium (Porcine) (Heparin 5000 units/ml) 5,000 units EVERY 8 HOURS SUBQ 09/11/19 22:00 10/06/19 10:29 09/13/19 06:03 Lansoprazole (Prevacid) 30 mg BID NG 09/11/19 18:00 10/11/19 08:59 09/12/19 17:35 Lorazepam (Ativan 2mg/ml 1ml) 0.5 mg Q6H PRN IV For Anxiety 09/11/19 18:00 09/16/19 17:59 09/12/19 04:45 Morphine Sulfate (Morphine Sulfate) 2 mg Q4H PRN IVP Severe Pain (Pain Scale 7-10) 09/11/19 18:00 09/15/19 17:59 Piperacillin Sod/ Tazobactam Sod 3.375 gm/Sodium Chloride 110 ml @ 27.5 mls/hr Q8H IVPB 09/11/19 18:00 09/16/19 09:59 09/13/19 01:05 Risperidone (RisperDAL) 0.5 mg Q12H PRN ORAL agitation 09/11/19 18:00 10/08/19 17:59 Sodium Chloride 1,000 ml @ 75 mls/hr [id number] IV 09/11/19 18:00 10/11/19 17:59 09/12/19 16:00 Vancomycin HCl (Vanco rx to dose) 1 ea DAILY PRN MISC Per rx protocol 09/11/19 18:00 10/11/19 17:59 Vancomycin HCl 750 mg/Sodium Chloride 275 ml @ 183.333 mls/hr Q24H IVPB 09/12/19 18:00 09/14/19 17:59 09/12/19 17:34 Arun Melvin MD Sep 13, 2019 07:53
[2019-09-13 08:00] VITALS: BP 110/63
--- NOTE | 2019-09-13 08:30 | Progress Note ---
DATE: 09/13/2019 SUBJECTIVE: The patient is an 83-year-old male, very irritable, confused, disorganized with altered mental status and failure to thrive, decline in cognition below his baseline. That is why, his attending physician has requested daily psychiatric consultation. DIAGNOSIS: Major depressive disorder, severe, recurrent with psychotic features. PLAN: Treat him with Risperdal mg q.12 hours p.r.n. anxiety and agitation, Ativan 0.5 mg every 6 hours p.r.n. anxiety and agitation. A 20 minutes of reality-based supportive psychotherapy. Chart reviewed and discussed with staff. Seen and assessed in his room. A 20 minutes of cognitive behavioral therapy to help him identify his automatic negative thoughts and convert his negative thoughts to more positive thoughts to reduce depression, anxiety, and suicidality. Cherri De Luna M.D. DR: ARIELLA JOB#: [id number] CC:
--- NOTE | 2019-09-13 08:44 | General Progress Note ---
Assessment/Plan Problem List: (1) Iron deficiency anemia ICD Codes: D50.9 - Iron deficiency anemia, unspecified SNOMED: 10937273 (2) Folate deficiency ICD Codes: E53.8 - Deficiency of other specified B group vitamins SNOMED: 377327195 (3) low Albumin (4) Anemia ICD Codes: D64.9 - Anemia, unspecified SNOMED: 804581388 (5) Failure to thrive SNOMED: 92042450 (6) Elevated troponin ICD Codes: R79.89 - Other specified abnormal findings of blood chemistry SNOMED: 395907043, 821604258, 467988433 (7) Dehydration ICD Codes: E86.0 - Dehydration SNOMED: 81347455 Status: stable Assessment/Plan: NGTF hold peg plans for now given family agreed to hospice Subjective ROS Limited/Unobtainable: No Allergies: Coded Allergies: AMLODIPINE (Verified Allergy, Unknown, 09/04/19) ASPIRIN (Verified Allergy, Unknown, 09/04/19) BENAZEPRIL (Verified Allergy, Unknown, 09/04/19) Objective Last 24 Hour Vital Signs Date Time Temp Pulse Resp B/P (MAP) Pulse Ox O2 Delivery O2 Flow Rate FiO2 09/13/19 08:00 96.8 69 19 110/63 (79) 98 09/13/19 04:00 78 09/13/19 04:00 97.7 82 20 100/67 (78) 100 09/13/19 00:00 97.2 81 20 144/89 (107) 93 09/13/19 00:00 82 09/12/19 21:00 Venturi Mask 4.0 09/12/19 20:03 97 Venturi Mask 2.0 28 09/12/19 20:03 72 20 97 Venturi Mask 8.0 40 09/12/19 20:00 77 09/12/19 20:00 97.0 79 16 127/70 (89) 95 09/12/19 16:00 97.4 78 18 128/58 (81) 100 09/12/19 16:00 69 09/12/19 12:00 97.6 81 19 135/58 (83) 98 09/12/19 12:00 66 09/12/19 09:00 Venturi Mask 4.0 Intake and Output 09/12/19 09/13/19 19:00 07:00 Intake Total 1102.500 ml Output Total 400 ml Balance 702.500 ml IV Total 552.500 ml Tube Feeding 550 ml Output Urine Total 400 ml Laboratory Tests 09/12/19 13:45: Vancomycin Level Trough 20.0H Height (Feet): 5 Height (Inches): 11.00 Weight (Pounds): 161 General Appearance: lethargic EENT: normal ENT inspection Neck: supple Cardiovascular: normal rate Respiratory/Chest: decreased breath sounds Abdomen: normal bowel sounds, non tender, soft Extremities: non-tender Arley Cosby MD Sep 13, 2019 08:44
[2019-09-13] MEDS: Docusate 100mg/10ml Liq NG SCH ×3 (09:00→18:00)
[2019-09-13 12:00] VITALS: BP 124/59
--- NOTE | 2019-09-13 12:45 | Surgery Progress Note ---
Surgery Progress Note Subjective Additional Comments no acute events stable Objective Last 24 Hour Vital Signs Date Time Temp Pulse Resp B/P (MAP) Pulse Ox O2 Delivery O2 Flow Rate FiO2 09/13/19 12:18 99 Venturi Mask 6.0 35 09/13/19 12:18 66 20 99 Venturi Mask 8.0 40 09/13/19 12:00 99.1 68 20 124/59 (80) 100 09/13/19 11:03 68 09/13/19 09:00 Venturi Mask 4.0 09/13/19 08:00 96.8 69 19 110/63 (79) 98 09/13/19 07:41 75 09/13/19 04:00 78 09/13/19 04:00 97.7 82 20 100/67 (78) 100 09/13/19 00:00 97.2 81 20 144/89 (107) 93 09/13/19 00:00 82 09/12/19 21:00 Venturi Mask 4.0 09/12/19 20:03 97 Venturi Mask 2.0 28 09/12/19 20:03 72 20 97 Venturi Mask 8.0 40 09/12/19 20:00 77 09/12/19 20:00 97.0 79 16 127/70 (89) 95 09/12/19 16:00 97.4 78 18 128/58 (81) 100 09/12/19 16:00 69 I&O Intake and Output 09/12/19 09/13/19 18:59 06:59 Intake Total 1227.500 ml Output Total 400 ml Balance 827.500 ml IV Total 627.500 ml Tube Feeding 600 ml Output Urine Total 400 ml Dressing: dry Wound: clean Cardiovascular: RSR Respiratory: clear Abdomen: soft, non-tender, present bowel sounds Extremities: no cyanosis Laboratory Tests Test 09/12/19 13:45 Vancomycin Level Trough 20.0 ug/mL (5.0-12.0) H Plan Problems: (1) Skin lesions Assessment & Plan: patient presented with multiple skin lesions scrotal edema with cellulitis. pending CT pelvis for eval sacral DTI noted large, skin blistering open now epidermal loss dermis intact left upper extremity epidermal skin blistering open, dermis intact multiple wounds noted on ear, face, chest skin breakdown malnutrition overall prognosis guarded hold on skin biopsy of lesions. 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 Both lower extremities are contracted. Dry Brownish/black capped skin lesion noted to R earlobe ,R cheek and L temporal. Scattered skin lesions that are also dry capped and brownish /black noted to upper chest and bilat upper extremities. Irregular shaped Open DTPI noted to Sacrum. Full thickness ulcer at sacrococcygeal area(L)6cm x (W)5.3cm. Surrounding fluctuant and maroon borders.Measurement including open wound (L)9.5cm x (W)9.2cm No evidence of further skin breakdown periwound. No odor or exudate noted from wound. Resolving pressure injury base of scrotum. Base of wound brayan in center with surrounding moist pink granulation. Scattered biofilm within base of wound.No odor or exudate noted.(L)5.6cm x (W)4.5cm. Open DTPI kermit R tibia. Base of wound is moist and brayan with surrounding fluctuant borders that maroon/purple in colour.(L)9.5cm x (W)2.7cm. Stable dry eschar noted to distal/kermit R tibia(L)2.4cm x (W)1.6cm. Open DTPI noted to R heel(L)3.3cm x (W)3.5cm. Base of wound is moist and brayan in center with small necrotic area. Surrounding borders of wound are purple and fluctuant. Unstageable pressure injury medial aspect of distal L tibia. Base of wound has 90% fibrinous slough with erythematous margins.(L)3.3cm x (W)3.2cm. NO odor or exudate noted. Unstageable pressure injury lateral L malleolus. Base of wound is 100% necrotic and dry.(L)4cm x (W)3.8cm. Tx.Plan: Cleanse Sacral wound with Saline. Apply Therahoney. Apply Moisture Barrier Periwound. Cover with Optifoam drsg daily and prn. Cleanse wound kermit R tibia with Saline. Apply TheraHoney. Apply Cavilon Skin Barrier periwound. Cover with Optifoam drsg every 3 days and prn. Cleanse wound R heel with Saline. Apply Therahoney. Apply Cavilon Skin Barrier periwound. Cover with Optifoam drsg every 3 days and prn. Cleanse wound L tibia with Saline. Apply Therahoney.Apply Cavilon Periwound. Cover with Optifoam drsg every 3 days and prn. Swab Wounds L heel and L lateral malleolus with Betadine. Cover each wound with Optifoam drsg. Change every 3 days and prn. APM/DENICE Mattress overlay. Reposition at least every 2hours or as tolerated. Place pillow between knees. Off-load heels with pillows. nutritional optimization thank you will follow with recs (2) Leukocytosis Assessment & Plan: Patchy airspace opacities consistent with pneumonia most notably in the posterior right lower lobe. Trace bilateral pleural effusions. No pneumothorax. Moderate dilatation of the esophagus. May be related to presence of a feeding tube. Achalasia or distal esophageal strictures are not excludable. Left inguinal hernia containing a portion of the descending colon. No evidence of obstruction. The true extent and size of the hernia is not known as the lower portion of the hernia is below the [id number] of this examination. The hernia should be clinically apparent since the hernia sac is within the left scrotum. Anasarca Right dynamic hip screw. Osteoporosis Degenerative changes of the spine. Small amount of free fluid in the pelvis unknown origin. (3) Sepsis (4) Failure to thrive Assessment & Plan: There is a weighted feeding tube projected over the upper part of the stomach. Bowel gas pattern is nonspecific. IMPRESSION: Enteric weighted feeding tube curled in the upper portion of the stomach wire removed good placement feeds (5) Failure to thrive in adult Assessment & Plan: DAILY ESTIMATED NEEDS: Needs based on Wounds, underweight 58.5kg 30-35 kcals/kg 9308-8575 total kcals 1.25-2 g protein/kg 73-117 g total protein 25-30ml/kcal mL/kg 3247-5066 total fluid mLs NUTRITION DIAGNOSIS: Increased kcal and pro needs r/t wound healing and underweight status as evidenced by pt w/ multiple pressure wounds, eval pending, underweight per guidelines w/ generalized moderate-severe wasting, @72% of [place] Body Weight. CURRENT DIET: NPO PO DIET RECOMMENDATIONS: Regular liberalized diet/ texture per SHIP WIRER ENTERAL NUTRITION RECOMMENDATIONS: * Consult RD if non oral feeds are part of POC * ---- ADDITIONAL RECOMMENDATIONS: 1) Add GLUCERNA 1 tetra TID w/ meals 2) SHIP WIRER eval 3) F/up w/ WC eval-> rec ANANDA BID w/ diet order 4) RE-calibrate bed scale w/ added P200 mattress for accurate CBW (6) Pneumothorax on left Assessment & Plan: There is a tiny left apical pneumothorax. This appears smaller than on the previous study. Lungs remain clear. Heart is normal in size. Trachea is midline. Aorta is calcified. IMPRESSION: Trace left apical pneumothorax. stable can monitor for now repeat cxr hold on tube for now CT chest when stable Connor Mcfadden Sep 13, 2019 12:45
--- NOTE | 2019-09-13 15:33 | Nephrology Progress Note ---
Assessment/Plan Problem List: (1) NAGA (acute kidney injury) (2) UTI (urinary tract infection) (3) Elevated troponin (4) Failure to thrive in adult (5) Sepsis (6) Anemia (7) Dehydration Assessment Potassium phosphate in the morning dose 20 mmol Renal failure mostly prerenal Azotemia. May have underlying chronic kidney disease. Hydration. Sepsis leukocytosis. Encephalopathy in the form of toxic and metabolic. Failure to thrive. Albuminemia. Levator troponin. Most likely due to significant cardiac ischemia. Plan Plan: NG tube is placed feeding is now in process PEG is arranged for near future Stop IV hydration Meds via NG tube as possible Plavix and SQ heparin Nitrates. Continue to monitor renal parameters. Avoid nephrotoxic's. Antibiotics per ID. Felder catheter. Discussed with RN DNR status. Subjective ROS Limited/Unobtainable: No Objective Objective Last 24 Hour Vital Signs Date Time Temp Pulse Resp B/P (MAP) Pulse Ox O2 Delivery O2 Flow Rate FiO2 09/13/19 12:18 99 Venturi Mask 6.0 35 09/13/19 12:18 66 20 99 Venturi Mask 8.0 40 09/13/19 12:00 99.1 68 20 124/59 (80) 100 09/13/19 11:03 68 09/13/19 09:00 Venturi Mask 4.0 09/13/19 08:00 96.8 69 19 110/63 (79) 98 09/13/19 07:41 75 09/13/19 04:00 78 09/13/19 04:00 97.7 82 20 100/67 (78) 100 09/13/19 00:00 97.2 81 20 144/89 (107) 93 09/13/19 00:00 82 09/12/19 21:00 Venturi Mask 4.0 09/12/19 20:03 97 Venturi Mask 2.0 28 09/12/19 20:03 72 20 97 Venturi Mask 8.0 40 09/12/19 20:00 77 09/12/19 20:00 97.0 79 16 127/70 (89) 95 09/12/19 16:00 97.4 78 18 128/58 (81) 100 09/12/19 16:00 69 Intake and Output 09/12/19 09/13/19 19:00 07:00 Intake Total 1102.500 ml Output Total 400 ml Balance 702.500 ml IV Total 552.500 ml Tube Feeding 550 ml Output Urine Total 400 ml Height (Feet): 5 Height (Inches): 11.00 Weight (Pounds): 161 General Appearance: no apparent distress Objective No other change Dariusz Brandt MD Sep 13, 2019 15:33
[2019-09-13 16:00] VITALS: BP 120/68
[2019-09-13] MEDS: Vancomycin 750 MG in NS 275 ML IVPB SCH (18:03)
[2019-09-13 20:00] VITALS: BP 98/46
--- NOTE | 2019-09-13 20:47 | General Progress Note ---
Assessment/Plan Problem List: (1) Dehydration ICD Codes: E86.0 - Dehydration SNOMED: 14408310 (2) Anemia ICD Codes: D64.9 - Anemia, unspecified SNOMED: 226674062 (3) Failure to thrive SNOMED: 53406223 (4) Sepsis ICD Codes: A41.9 - Sepsis, unspecified organism SNOMED: 04140385 Qualifiers: Qualified Codes: A41.9 - Sepsis, unspecified organism (5) UTI (urinary tract infection) ICD Codes: N39.0 - Urinary tract infection, site not specified SNOMED: 13896929 Qualifiers: Qualified Codes: N30.00 - Acute cystitis without hematuria (6) Elevated troponin ICD Codes: R79.89 - Other specified abnormal findings of blood chemistry SNOMED: 378894930, 926010288, 291013505 (7) Failure to thrive in adult ICD Codes: R62.7 - Adult failure to thrive SNOMED: 235627470 (8) NAGA (acute kidney injury) ICD Codes: N17.9 - Acute kidney failure, unspecified SNOMED: 69826277, 3348959 (9) Skin lesions ICD Codes: L98.9 - Disorder of the skin and subcutaneous tissue, unspecified SNOMED: 46708830 (10) Iron deficiency anemia ICD Codes: D50.9 - Iron deficiency anemia, unspecified SNOMED: 11841447 (11) low Albumin (12) Folate deficiency ICD Codes: E53.8 - Deficiency of other specified B group vitamins SNOMED: 878827736 Status: stable Assessment/Plan: hypotension and james improivng afebrile azotemia poor appetite anemia Subjective ROS Limited/Unobtainable: Yes Allergies: Coded Allergies: AMLODIPINE (Verified Allergy, Unknown, 09/04/19) ASPIRIN (Verified Allergy, Unknown, 09/04/19) BENAZEPRIL (Verified Allergy, Unknown, 09/04/19) Objective Last 24 Hour Vital Signs Date Time Temp Pulse Resp B/P (MAP) Pulse Ox O2 Delivery O2 Flow Rate FiO2 09/13/19 20:02 97 Venturi Mask 2.0 28 09/13/19 20:02 74 20 98 Venturi Mask 8.0 40 09/13/19 20:00 97.9 81 16 98/46 (63) 94 3/8/20 16:10 90 09/13/19 16:00 98.2 75 18 120/68 (85) 98 09/13/19 12:18 99 Venturi Mask 6.0 35 09/13/19 12:18 66 20 99 Venturi Mask 8.0 40 09/13/19 12:00 99.1 68 20 124/59 (80) 100 09/13/19 11:03 68 09/13/19 09:00 Venturi Mask 4.0 09/13/19 08:00 96.8 69 19 110/63 (79) 98 09/13/19 07:41 75 09/13/19 04:00 78 09/13/19 04:00 97.7 82 20 100/67 (78) 100 09/13/19 00:00 97.2 81 20 144/89 (107) 93 09/13/19 00:00 82 09/12/19 21:00 Venturi Mask 4.0 Intake and Output 09/12/19 09/13/19 19:00 07:00 Intake Total 1102.500 ml Output Total 400 ml Balance 702.500 ml IV Total 552.500 ml Tube Feeding 550 ml Output Urine Total 400 ml Height (Feet): 5 Height (Inches): 11.00 Weight (Pounds): 161 Beau Barker MD Sep 13, 2019 20:47
[2019-09-14] VITALS: BP 142/57
[2019-09-14] MEDS: Piperacillin/Tazobactam 3.375 GM in NS 110 ML IVPB SCH ×2 (02:28→10:41)
[2019-09-14 04:00] VITALS: BP 138/60
[2019-09-14] MEDS: Heparin 5000 units/ml inj SUBQ SCH ×3 (06:00→22:00)
[2019-09-14] MEDS: Depakote 125mg Sprinkles GT SCH ×4 (06:00→22:00)
--- NOTE | 2019-09-14 07:15 | Progress Note ---
DATE: 09/14/2019 SUBJECTIVE: The patient is an 83-year-old male patient with failure to thrive confused and agitation. Declined cognition below his baseline daily psychiatric consultation. MENTAL STATUS EXAMINATION: This is an 83-year-old male. Appearance is disheveled. Attitude, irritable and agitated. Affect, guarded and restricted. Intellect poor. Mood, depressed and anxious. Motor activity, psychomotor agitation. Attention span is poor. Orientation x2. Speech is low volume, slurred. Thought process, disorganized and illogical. Insight and judgment are poor. DIAGNOSIS: Major depressive disorder, severe, recurrent with psychotic features. PLAN: Plan for this patient is to treat him with a medication regimen consisting of Risperdal twice a day p.r.n. anxiety and agitation and Ativan every six hours p.r.n. anxiety and agitation. A 20 minutes of reality-based supportive psychotherapy provided. A 20 minutes of cognitive behavioral therapy to help him identify his automatic negative thoughts and convert his negative thoughts to more positive thoughts to reduce depression, anxiety, and mood lability. Chart reviewed and discussed with staff. Seen and assessed in his room. Cherri De Luna M.D. DR: SHARYN JOB#: [id number] CC:
[2019-09-14 08:00] VITALS: BP 119/83
[2019-09-14 08:06] LABS: MEAN CORPUSCULAR VOLUME 90 FL (80-99); PLATELET COUNT 437 K/UL (150-450); RED BLOOD COUNT 2.99 M/UL (4.70-6.10); RED CELL DISTRIBUTION WIDTH 14.3 % (11.6-14.8); WHITE BLOOD COUNT 18.6 K/UL (4.8-10.8)
[2019-09-14 08:26] LABS: ANION GAP 10 mmol/L (5-15); BLOOD UREA NITROGEN 25 mg/dL (7-18); CALCIUM 8.1 MG/DL (8.5-10.1); CARBON DIOXIDE 23 MMOL/L (21-32); CHLORIDE 116 MMOL/L (98-107); CREATININE 1.2 MG/DL (0.55-1.30); SODIUM 149 MMOL/L (136-145)
[2019-09-14] MEDS: Docusate 100mg/10ml Liq NG SCH ×2 (09:00→17:34)
[2019-09-14 10:14] LABS: ALANINE AMINOTRANSFERASE 27 U/L (12-78); ALKALINE PHOSPHATASE 103 U/L (46-116); ASPARTATE AMINO TRANSFERASE 38 U/L (15-37); BILIRUBIN,DIRECT < 0.1 MG/DL (0.0-0.3); BILIRUBIN,TOTAL 0.1 MG/DL (0.2-1.0); PHOSPHORUS 2.9 MG/DL (2.5-4.9)
--- NOTE | 2019-09-14 10:56 | General Progress Note ---
Assessment/Plan Problem List: (1) Dehydration ICD Codes: E86.0 - Dehydration SNOMED: 98366744 (2) Anemia ICD Codes: D64.9 - Anemia, unspecified SNOMED: 414615990 (3) Failure to thrive SNOMED: 51521895 (4) Sepsis ICD Codes: A41.9 - Sepsis, unspecified organism SNOMED: 52634216 Qualifiers: Qualified Codes: A41.9 - Sepsis, unspecified organism (5) UTI (urinary tract infection) ICD Codes: N39.0 - Urinary tract infection, site not specified SNOMED: 68647172 Qualifiers: Qualified Codes: N30.00 - Acute cystitis without hematuria (6) Elevated troponin ICD Codes: R79.89 - Other specified abnormal findings of blood chemistry SNOMED: 599100228, 166818356, 260833844 (7) Failure to thrive in adult ICD Codes: R62.7 - Adult failure to thrive SNOMED: 112135691 (8) NAGA (acute kidney injury) ICD Codes: N17.9 - Acute kidney failure, unspecified SNOMED: 15318618, 8109769 (9) Skin lesions ICD Codes: L98.9 - Disorder of the skin and subcutaneous tissue, unspecified SNOMED: 56854046 (10) Iron deficiency anemia ICD Codes: D50.9 - Iron deficiency anemia, unspecified SNOMED: 64373841 (11) low Albumin (12) Folate deficiency ICD Codes: E53.8 - Deficiency of other specified B group vitamins SNOMED: 430629851 Status: stable Assessment/Plan: possible dislodge of ng tube so ordered imaging and to hold off meds and give the results to gi dr hypotension and james improivng afebrile azotemia poor appetite anemia Subjective ROS Limited/Unobtainable: Yes Allergies: Coded Allergies: AMLODIPINE (Verified Allergy, Unknown, 09/04/19) ASPIRIN (Verified Allergy, Unknown, 09/04/19) BENAZEPRIL (Verified Allergy, Unknown, 09/04/19) Objective Last 24 Hour Vital Signs Date Time Temp Pulse Resp B/P (MAP) Pulse Ox O2 Delivery O2 Flow Rate FiO2 09/14/19 09:00 Venturi Mask 4.0 09/14/19 08:00 98.1 88 22 119/83 (95) 95 09/14/19 08:00 85 09/14/19 04:00 98.1 79 22 138/60 (86) 93 09/14/19 04:00 72 09/14/19 00:00 83 09/14/19 00:00 98.2 89 20 142/57 (85) 94 09/13/19 21:00 Venturi Mask 4.0 09/13/19 20:02 97 Venturi Mask 2.0 28 09/13/19 20:02 74 20 98 Venturi Mask 8.0 40 09/13/19 20:00 74 09/13/19 20:00 97.9 81 16 98/46 (63) 94 09/13/19 16:10 90 09/13/19 16:00 98.2 75 18 120/68 (85) 98 09/13/19 12:18 99 Venturi Mask 6.0 35 09/13/19 12:18 66 20 99 Venturi Mask 8.0 40 09/13/19 12:00 99.1 68 20 124/59 (80) 100 09/13/19 11:03 68 Intake and Output 09/13/19 09/14/19 19:00 07:00 Intake Total 50 ml Output Total 1002 ml Balance -952 ml Tube Feeding 50 ml Output Urine Total 1000 ml Stool Total 2 ml # Voids 2 # Bowel Movements 2 Laboratory Tests 09/14/19 07:21: White Blood Count 18.6H, Red Blood Count 2.99L, Hemoglobin 9.0L, Hematocrit 27.0L, Mean Corpuscular Volume 90, Mean Corpuscular Hemoglobin 30.0, Mean Corpuscular Hemoglobin Concent 33.3, Red Cell Distribution Width 14.3, Platelet Count 437, Mean Platelet Volume 6.9, Neutrophils (%) (Auto) , Lymphocytes (%) ( Auto) , Monocytes (%) (Auto) , Eosinophils (%) (Auto) , Basophils (%) (Auto) , Differential Total Cells Counted 100, Neutrophils % (Manual) 83H, Lymphocytes % (Manual) 9L, Monocytes % (Manual) 5, Eosinophils % (Manual) 2, Basophils % ( Manual) 1, Band Neutrophils 0, Platelet Estimate Adequate, Platelet Morphology Normal, Sodium Level 149H, Potassium Level 4.0, Chloride Level 116H, Carbon Dioxide Level 23, Anion Gap 10, Blood Urea Nitrogen 25H, Creatinine 1.2, Estimat Glomerular Filtration Rate 57.5, Glucose Level 115H, Calcium Level 8.1L , Phosphorus Level 2.9, Magnesium Level 2.1, Total Bilirubin 0.1L, Direct Bilirubin < 0.1, Aspartate Amino Transf (AST/SGOT) 38H, Alanine Aminotransferase (ALT/SGPT) 27, Alkaline Phosphatase 103, Total Protein 6.4, Albumin 1.0L Height (Feet): 5 Height (Inches): 11.00 Weight (Pounds): 162 Beau Barker MD Sep 14, 2019 10:56
--- NOTE | 2019-09-14 11:17 | GI Progress Note ---
Assessment/Plan Problems: (1) Failure to thrive in adult ICD Codes: R62.7 - Adult failure to thrive SNOMED: 964054837 (2) Failure to thrive SNOMED: 83109702 (3) Anemia ICD Codes: D64.9 - Anemia, unspecified SNOMED: 315422812 (4) Dehydration ICD Codes: E86.0 - Dehydration SNOMED: 68059347 (5) Skin lesions ICD Codes: L98.9 - Disorder of the skin and subcutaneous tissue, unspecified SNOMED: 56134080 Status: unchanged Status Narrative Discussed with Dr. Cosby. Assessment/Plan NGTF hold peg plans for now given family agreed to hospice The patient was seen and examined at bedside and all new and available data was reviewed in the patients chart. I agree with the above findings, impression and plan. (Patient seen earlier today. Signature stamp does not reflect patient encounter time.). - Arley Cosby MD Subjective Subjective limited Objective Last 24 Hour Vital Signs Date Time Temp Pulse Resp B/P (MAP) Pulse Ox O2 Delivery O2 Flow Rate FiO2 09/14/19 09:00 Venturi Mask 4.0 09/14/19 08:00 98.1 88 22 119/83 (95) 95 09/14/19 08:00 85 09/14/19 04:00 98.1 79 22 138/60 (86) 93 09/14/19 04:00 72 09/14/19 00:00 83 09/14/19 00:00 98.2 89 20 142/57 (85) 94 09/13/19 21:00 Venturi Mask 4.0 09/13/19 20:02 97 Venturi Mask 2.0 28 09/13/19 20:02 74 20 98 Venturi Mask 8.0 40 09/13/19 20:00 74 09/13/19 20:00 97.9 81 16 98/46 (63) 94 09/13/19 16:10 90 09/13/19 16:00 98.2 75 18 120/68 (85) 98 09/13/19 12:18 99 Venturi Mask 6.0 35 09/13/19 12:18 66 20 99 Venturi Mask 8.0 40 09/13/19 12:00 99.1 68 20 124/59 (80) 100 Intake and Output 09/13/19 09/14/19 19:00 07:00 Intake Total 50 ml Output Total 1002 ml Balance -952 ml Tube Feeding 50 ml Output Urine Total 1000 ml Stool Total 2 ml # Voids 2 # Bowel Movements 2 Laboratory Tests Test 09/14/19 07:21 White Blood Count 18.6 K/UL (4.8-10.8) H Red Blood Count 2.99 M/UL (4.70-6.10) L Hemoglobin 9.0 G/DL (14.2-18.0) L Hematocrit 27.0 % (42.0-52.0) L Mean Corpuscular Volume 90 FL (80-99) Mean Corpuscular Hemoglobin 30.0 PG (27.0-31.0) Mean Corpuscular Hemoglobin Concent 33.3 G/DL (32.0-36.0) Red Cell Distribution Width 14.3 % (11.6-14.8) Platelet Count 437 K/UL (150-450) Mean Platelet Volume 6.9 FL (6.5-10.1) Neutrophils (%) (Auto) % (45.0-75.0) Lymphocytes (%) (Auto) % (20.0-45.0) Monocytes (%) (Auto) % (1.0-10.0) Eosinophils (%) (Auto) % (0.0-3.0) Basophils (%) (Auto) % (0.0-2.0) Differential Total Cells Counted 100 Neutrophils % (Manual) 83 % (45-75) H Lymphocytes % (Manual) 9 % (20-45) L Monocytes % (Manual) 5 % (1-10) Eosinophils % (Manual) 2 % (0-3) Basophils % (Manual) 1 % (0-2) Band Neutrophils 0 % (0-8) Platelet Estimate Adequate Platelet Morphology Normal Sodium Level 149 MMOL/L (136-145) H Potassium Level 4.0 MMOL/L (3.5-5.1) Chloride Level 116 MMOL/L (98-107) H Carbon Dioxide Level 23 MMOL/L (21-32) Anion Gap 10 mmol/L (5-15) Blood Urea Nitrogen 25 mg/dL (7-18) H Creatinine 1.2 MG/DL (0.55-1.30) Estimat Glomerular Filtration Rate 57.5 mL/min (>60) Glucose Level 115 MG/DL (74-106) H Calcium Level 8.1 MG/DL (8.5-10.1) L Phosphorus Level 2.9 MG/DL (2.5-4.9) Magnesium Level 2.1 MG/DL (1.8-2.4) Total Bilirubin 0.1 MG/DL (0.2-1.0) L Direct Bilirubin < 0.1 MG/DL (0.0-0.3) Aspartate Amino Transf (AST/SGOT) 38 U/L (15-37) H Alanine Aminotransferase (ALT/SGPT) 27 U/L (12-78) Alkaline Phosphatase 103 U/L (46-116) Total Protein 6.4 G/DL (6.4-8.2) Albumin 1.0 G/DL (3.4-5.0) L Height (Feet): 5 Height (Inches): 11.00 Weight (Pounds): 162 Elvie Payne NP Sep 14, 2019 11:17
[2019-09-14 12:00] VITALS: BP 138/64
--- NOTE | 2019-09-14 12:14 | Surgery Progress Note ---
Surgery Progress Note Subjective Additional Comments no acute events removed prior feeding tube and new placed. pending xray Objective Last 24 Hour Vital Signs Date Time Temp Pulse Resp B/P (MAP) Pulse Ox O2 Delivery O2 Flow Rate FiO2 09/14/19 09:00 Venturi Mask 4.0 09/14/19 08:00 98.1 88 22 119/83 (95) 95 09/14/19 08:00 85 09/14/19 04:00 98.1 79 22 138/60 (86) 93 09/14/19 04:00 72 09/14/19 00:00 83 09/14/19 00:00 98.2 89 20 142/57 (85) 94 09/13/19 21:00 Venturi Mask 4.0 09/13/19 20:02 97 Venturi Mask 2.0 28 09/13/19 20:02 74 20 98 Venturi Mask 8.0 40 09/13/19 20:00 74 09/13/19 20:00 97.9 81 16 98/46 (63) 94 09/13/19 16:10 90 09/13/19 16:00 98.2 75 18 120/68 (85) 98 09/13/19 12:18 99 Venturi Mask 6.0 35 09/13/19 12:18 66 20 99 Venturi Mask 8.0 40 I&O Intake and Output 09/13/19 09/14/19 19:00 07:00 Intake Total 50 ml Output Total 1002 ml Balance -952 ml Tube Feeding 50 ml Output Urine Total 1000 ml Stool Total 2 ml # Voids 2 # Bowel Movements 2 Dressing: other Wound: other Cardiovascular: RSR Respiratory: decreased breath sounds Abdomen: soft, non-tender, present bowel sounds Extremities: no cyanosis Laboratory Tests Test 09/14/19 07:21 White Blood Count 18.6 K/UL (4.8-10.8) H Red Blood Count 2.99 M/UL (4.70-6.10) L Hemoglobin 9.0 G/DL (14.2-18.0) L Hematocrit 27.0 % (42.0-52.0) L Mean Corpuscular Volume 90 FL (80-99) Mean Corpuscular Hemoglobin 30.0 PG (27.0-31.0) Mean Corpuscular Hemoglobin Concent 33.3 G/DL (32.0-36.0) Red Cell Distribution Width 14.3 % (11.6-14.8) Platelet Count 437 K/UL (150-450) Mean Platelet Volume 6.9 FL (6.5-10.1) Neutrophils (%) (Auto) % (45.0-75.0) Lymphocytes (%) (Auto) % (20.0-45.0) Monocytes (%) (Auto) % (1.0-10.0) Eosinophils (%) (Auto) % (0.0-3.0) Basophils (%) (Auto) % (0.0-2.0) Differential Total Cells Counted 100 Neutrophils % (Manual) 83 % (45-75) H Lymphocytes % (Manual) 9 % (20-45) L Monocytes % (Manual) 5 % (1-10) Eosinophils % (Manual) 2 % (0-3) Basophils % (Manual) 1 % (0-2) Band Neutrophils 0 % (0-8) Platelet Estimate Adequate Platelet Morphology Normal Sodium Level 149 MMOL/L (136-145) H Potassium Level 4.0 MMOL/L (3.5-5.1) Chloride Level 116 MMOL/L (98-107) H Carbon Dioxide Level 23 MMOL/L (21-32) Anion Gap 10 mmol/L (5-15) Blood Urea Nitrogen 25 mg/dL (7-18) H Creatinine 1.2 MG/DL (0.55-1.30) Estimat Glomerular Filtration Rate 57.5 mL/min (>60) Glucose Level 115 MG/DL (74-106) H Calcium Level 8.1 MG/DL (8.5-10.1) L Phosphorus Level 2.9 MG/DL (2.5-4.9) Magnesium Level 2.1 MG/DL (1.8-2.4) Total Bilirubin 0.1 MG/DL (0.2-1.0) L Direct Bilirubin < 0.1 MG/DL (0.0-0.3) Aspartate Amino Transf (AST/SGOT) 38 U/L (15-37) H Alanine Aminotransferase (ALT/SGPT) 27 U/L (12-78) Alkaline Phosphatase 103 U/L (46-116) Total Protein 6.4 G/DL (6.4-8.2) Albumin 1.0 G/DL (3.4-5.0) L Plan Problems: (1) Skin lesions Assessment & Plan: patient presented with multiple skin lesions scrotal edema with cellulitis. pending CT pelvis for eval sacral DTI noted large, skin blistering open now epidermal loss dermis intact left upper extremity epidermal skin blistering open, dermis intact multiple wounds noted on ear, face, chest skin breakdown malnutrition overall prognosis guarded hold on skin biopsy of lesions. 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 Both lower extremities are contracted. Dry Brownish/black capped skin lesion noted to R earlobe ,R cheek and L temporal. Scattered skin lesions that are also dry capped and brownish /black noted to upper chest and bilat upper extremities. Irregular shaped Open DTPI noted to Sacrum. Full thickness ulcer at sacrococcygeal area(L)6cm x (W)5.3cm. Surrounding fluctuant and maroon borders.Measurement including open wound (L)9.5cm x (W)9.2cm No evidence of further skin breakdown periwound. No odor or exudate noted from wound. Resolving pressure injury base of scrotum. Base of wound brayan in center with surrounding moist pink granulation. Scattered biofilm within base of wound.No odor or exudate noted.(L)5.6cm x (W)4.5cm. Open DTPI kermit R tibia. Base of wound is moist and brayan with surrounding fluctuant borders that maroon/purple in colour.(L)9.5cm x (W)2.7cm. Stable dry eschar noted to distal/kermit R tibia(L)2.4cm x (W)1.6cm. Open DTPI noted to R heel(L)3.3cm x (W)3.5cm. Base of wound is moist and brayan in center with small necrotic area. Surrounding borders of wound are purple and fluctuant. Unstageable pressure injury medial aspect of distal L tibia. Base of wound has 90% fibrinous slough with erythematous margins.(L)3.3cm x (W)3.2cm. NO odor or exudate noted. Unstageable pressure injury lateral L malleolus. Base of wound is 100% necrotic and dry.(L)4cm x (W)3.8cm. Tx.Plan: Cleanse Sacral wound with Saline. Apply Therahoney. Apply Moisture Barrier Periwound. Cover with Optifoam drsg daily and prn. Cleanse wound kermit R tibia with Saline. Apply TheraHoney. Apply Cavilon Skin Barrier periwound. Cover with Optifoam drsg every 3 days and prn. Cleanse wound R heel with Saline. Apply Therahoney. Apply Cavilon Skin Barrier periwound. Cover with Optifoam drsg every 3 days and prn. Cleanse wound L tibia with Saline. Apply Therahoney.Apply Cavilon Periwound. Cover with Optifoam drsg every 3 days and prn. Swab Wounds L heel and L lateral malleolus with Betadine. Cover each wound with Optifoam drsg. Change every 3 days and prn. APM/DENICE Mattress overlay. Reposition at least every 2hours or as tolerated. Place pillow between knees. Off-load heels with pillows. nutritional optimization thank you will follow with recs (2) Leukocytosis Assessment & Plan: Patchy airspace opacities consistent with pneumonia most notably in the posterior right lower lobe. Trace bilateral pleural effusions. No pneumothorax. Moderate dilatation of the esophagus. May be related to presence of a feeding tube. Achalasia or distal esophageal strictures are not excludable. Left inguinal hernia containing a portion of the descending colon. No evidence of obstruction. The true extent and size of the hernia is not known as the lower portion of the hernia is below the [id number] of this examination. The hernia should be clinically apparent since the hernia sac is within the left scrotum. Anasarca Right dynamic hip screw. Osteoporosis Degenerative changes of the spine. Small amount of free fluid in the pelvis unknown origin. (3) Sepsis (4) Failure to thrive Assessment & Plan: waiting for xray placement confirmation will start feeds once confirmed (5) Failure to thrive in adult Assessment & Plan: DAILY ESTIMATED NEEDS: Needs based on Wounds, underweight 58.5kg 30-35 kcals/kg 9507-2881 total kcals 1.25-2 g protein/kg 73-117 g total protein 25-30ml/kcal mL/kg 4820-8742 total fluid mLs NUTRITION DIAGNOSIS: Increased kcal and pro needs r/t wound healing and underweight status as evidenced by pt w/ multiple pressure wounds, eval pending, underweight per guidelines w/ generalized moderate-severe wasting, @72% of [place] Body Weight. CURRENT DIET: NPO PO DIET RECOMMENDATIONS: Regular liberalized diet/ texture per [employer]OC[employer] CHEMIST ENTERAL NUTRITION RECOMMENDATIONS: * Consult RD if non oral feeds are part of POC * ---- ADDITIONAL RECOMMENDATIONS: 1) Add GLUCERNA 1 tetra TID w/ meals 2) ASSOCIATE CHEMIST eval 3) F/up w/ WC eval-> rec ANANDA BID w/ diet order 4) RE-calibrate bed scale w/ added P200 mattress for accurate CBW (6) Pneumothorax on left Assessment & Plan: There is a tiny left apical pneumothorax. This appears smaller than on the previous study. Lungs remain clear. Heart is normal in size. Trachea is midline. Aorta is calcified. IMPRESSION: Trace left apical pneumothorax. stable can monitor for now repeat cxr hold on tube for now CT chest when stable Connor Mcfadden Sep 14, 2019 12:14
--- NOTE | 2019-09-14 13:06 | Infectious Diseases Prog Note ---
Assessment/Plan Assessment/Plan Assessment: Severe sepsis, sp No evidence of Bacteremia -u/a wbc 40-60, nit neg, leuk +3; ucx p -CXR: Left apical pneumothorax, estimated at 10%. Emphysema. Low grade fever, sp Pneumonia Leukocytosis, increased ( ? ID related ) - CT C/ A/P wo C : Patchy airspace opacities consistent with pneumonia most notably in the posterior right lower lobe.Trace bilateral pleural effusions. NAGA improving Multiple decubitus.( not infected ) NSTEMI Parkinson's dementia HTN Dm2 Plan: - trial of Merrem # 1 for pneumonia ( DDI w Valporic , but no choice and no hx of SZ) -DC IV Vancomycin # 11, Zosyn # 6 09/07 Sp Meropenem # 4 08/05 Sp Zosyn #2 -f/u cx -Monitor CBC/CMP, temperatures -aspiration precautions - PEG is on hold - planing for hospice Subjective Allergies: Coded Allergies: AMLODIPINE (Verified Allergy, Unknown, 09/04/19) ASPIRIN (Verified Allergy, Unknown, 09/04/19) BENAZEPRIL (Verified Allergy, Unknown, 09/04/19) Subjective WBC increased afebrile Objective Vital Signs Last 24 Hour Vital Signs Date Time Temp Pulse Resp B/P (MAP) Pulse Ox O2 Delivery O2 Flow Rate FiO2 09/14/19 12:00 80 09/14/19 12:00 98.1 84 22 138/64 (88) 93 09/14/19 09:00 Venturi Mask 4.0 09/14/19 08:00 98.1 88 22 119/83 (95) 95 09/14/19 08:00 85 09/14/19 04:00 98.1 79 22 138/60 (86) 93 09/14/19 04:00 72 09/14/19 00:00 83 09/14/19 00:00 98.2 89 20 142/57 (85) 94 09/13/19 21:00 Venturi Mask 4.0 09/13/19 20:02 97 Venturi Mask 2.0 28 09/13/19 20:02 74 20 98 Venturi Mask 8.0 40 09/13/19 20:00 74 09/13/19 20:00 97.9 81 16 98/46 (63) 94 09/13/19 16:10 90 09/13/19 16:00 98.2 75 18 120/68 (85) 98 Height (Feet): 5 Height (Inches): 11.00 Weight (Pounds): 162 Respiratory/Chest: normal breath sounds Cardiovascular: regular rhythm Abdomen: no organomegaly Laboratory Tests Test 09/14/19 07:21 White Blood Count 18.6 K/UL (4.8-10.8) H Red Blood Count 2.99 M/UL (4.70-6.10) L Hemoglobin 9.0 G/DL (14.2-18.0) L Hematocrit 27.0 % (42.0-52.0) L Mean Corpuscular Volume 90 FL (80-99) Mean Corpuscular Hemoglobin 30.0 PG (27.0-31.0) Mean Corpuscular Hemoglobin Concent 33.3 G/DL (32.0-36.0) Red Cell Distribution Width 14.3 % (11.6-14.8) Platelet Count 437 K/UL (150-450) Mean Platelet Volume 6.9 FL (6.5-10.1) Neutrophils (%) (Auto) % (45.0-75.0) Lymphocytes (%) (Auto) % (20.0-45.0) Monocytes (%) (Auto) % (1.0-10.0) Eosinophils (%) (Auto) % (0.0-3.0) Basophils (%) (Auto) % (0.0-2.0) Differential Total Cells Counted 100 Neutrophils % (Manual) 83 % (45-75) H Lymphocytes % (Manual) 9 % (20-45) L Monocytes % (Manual) 5 % (1-10) Eosinophils % (Manual) 2 % (0-3) Basophils % (Manual) 1 % (0-2) Band Neutrophils 0 % (0-8) Platelet Estimate Adequate Platelet Morphology Normal Sodium Level 149 MMOL/L (136-145) H Potassium Level 4.0 MMOL/L (3.5-5.1) Chloride Level 116 MMOL/L (98-107) H Carbon Dioxide Level 23 MMOL/L (21-32) Anion Gap 10 mmol/L (5-15) Blood Urea Nitrogen 25 mg/dL (7-18) H Creatinine 1.2 MG/DL (0.55-1.30) Estimat Glomerular Filtration Rate 57.5 mL/min (>60) Glucose Level 115 MG/DL (74-106) H Calcium Level 8.1 MG/DL (8.5-10.1) L Phosphorus Level 2.9 MG/DL (2.5-4.9) Magnesium Level 2.1 MG/DL (1.8-2.4) Total Bilirubin 0.1 MG/DL (0.2-1.0) L Direct Bilirubin < 0.1 MG/DL (0.0-0.3) Aspartate Amino Transf (AST/SGOT) 38 U/L (15-37) H Alanine Aminotransferase (ALT/SGPT) 27 U/L (12-78) Alkaline Phosphatase 103 U/L (46-116) Total Protein 6.4 G/DL (6.4-8.2) Albumin 1.0 G/DL (3.4-5.0) L Current Medications Medications (Trade) Dose Ordered Sig/Kaveh Route PRN Reason Start Time Stop Time Status Last Admin Dose Admin Acetaminophen (Tylenol) 650 mg Q4H PRN ORAL Mild Pain/Temp > 100.5 09/11/19 18:00 10/08/19 17:59 09/12/19 04:45 Acetaminophen (Tylenol) 650 mg Q4H PRN RECTAL Prn Headache/Temp > 101 09/11/19 18:00 10/08/19 17:59 Albuterol/ Ipratropium (Albuterol/ Ipratropium) 3 ml Q6H PRN HHN Shortness of Breath 09/11/19 18:00 09/17/19 17:59 Barium Sulfate (Readi-Cat 2) 450 ml NOW PRN ORAL Radiology Procedure 09/11/19 18:00 09/14/19 23:59 Clopidogrel Bisulfate (Plavix) 75 mg DAILY ORAL 09/12/19 09:00 10/06/19 10:44 09/13/19 09:56 Divalproex Sodium (Depakote Sprinkles) 500 mg EVERY 8 HOURS GT 09/11/19 22:00 10/11/19 13:59 09/13/19 21:28 Docusate Sodium (Colace) 100 mg TWICE A DAY NG 09/11/19 18:00 10/11/19 17:59 09/12/19 08:36 Folic Acid (Folate) 1 mg DAILY ORAL 09/12/19 09:00 10/07/19 10:29 09/13/19 09:56 Heparin Sodium (Porcine) (Heparin 5000 units/ml) 5,000 units EVERY 8 HOURS SUBQ 09/11/19 22:00 10/06/19 10:29 09/13/19 06:03 Lansoprazole (Prevacid) 30 mg BID NG 09/11/19 18:00 10/11/19 08:59 09/13/19 09:56 Lorazepam (Ativan 2mg/ml 1ml) 0.5 mg Q6H PRN IV For Anxiety 09/11/19 18:00 09/16/19 17:59 09/12/19 04:45 Morphine Sulfate (Morphine Sulfate) 2 mg Q4H PRN IVP Severe Pain (Pain Scale 7-10) 09/11/19 18:00 09/15/19 17:59 Piperacillin Sod/ Tazobactam Sod 3.375 gm/Sodium Chloride 110 ml @ 27.5 mls/hr Q8H IVPB 09/11/19 18:00 09/16/19 09:59 09/14/19 10:41 Risperidone (RisperDAL) 0.5 mg Q12H PRN ORAL agitation 09/11/19 18:00 10/08/19 17:59 Sodium Chloride 1,000 ml @ 75 mls/hr [id number] IV 09/11/19 18:00 10/11/19 17:59 09/14/19 02:31 Vancomycin HCl (Vanco rx to dose) 1 ea DAILY PRN MISC Per rx protocol 09/11/19 18:00 10/11/19 17:59 Vancomycin HCl 750 mg/Sodium Chloride 275 ml @ 183.333 mls/hr Q24H IVPB 09/12/19 18:00 09/14/19 17:59 09/13/19 18:03 Hakeem Hugo MD Sep 14, 2019 13:06
--- NOTE | 2019-09-14 13:15 | Diagnostic Imaging Report ---
Indication: Feeding tube placement Comparison: 09/10/2019 Single view of the abdomen obtained Findings: Weighted feeding tube is demonstrated with the tip projected over the upper stomach. Bowel gas pattern is nonobstructive. Vertebral endplate osteophytes noted throughout the lumbar and thoracic spine. IMPRESSION: Feeding tube tip in the upper stomach
--- NOTE | 2019-09-14 13:22 | Nephrology Progress Note ---
Assessment/Plan Problem List: (1) NAGA (acute kidney injury) (2) UTI (urinary tract infection) (3) Elevated troponin (4) Failure to thrive in adult (5) Sepsis (6) Anemia (7) Dehydration Assessment Potassium phosphate in the morning dose 20 mmol Renal failure mostly prerenal Azotemia. May have underlying chronic kidney disease. Hydration. Sepsis leukocytosis. Encephalopathy in the form of toxic and metabolic. Failure to thrive. Albuminemia. Levator troponin. Most likely due to significant cardiac ischemia. Plan Plan: NG tube is placed feeding is now in process PEG is arranged for near future Stop IV hydration Meds via NG tube as possible Plavix and SQ heparin Nitrates. Continue to monitor renal parameters. Avoid nephrotoxic's. Antibiotics per ID. Felder catheter. Discussed with RN DNR status. Subjective ROS Limited/Unobtainable: No Constitutional: Reports: malaise, weakness Objective Objective Last 24 Hour Vital Signs Date Time Temp Pulse Resp B/P (MAP) Pulse Ox O2 Delivery O2 Flow Rate FiO2 09/14/19 12:00 80 09/14/19 12:00 98.1 84 22 138/64 (88) 93 09/14/19 09:00 Venturi Mask 4.0 09/14/19 08:00 98.1 88 22 119/83 (95) 95 09/14/19 08:00 85 09/14/19 04:00 98.1 79 22 138/60 (86) 93 09/14/19 04:00 72 09/14/19 00:00 83 09/14/19 00:00 98.2 89 20 142/57 (85) 94 09/13/19 21:00 Venturi Mask 4.0 09/13/19 20:02 97 Venturi Mask 2.0 28 09/13/19 20:02 74 20 98 Venturi Mask 8.0 40 09/13/19 20:00 74 09/13/19 20:00 97.9 81 16 98/46 (63) 94 09/13/19 16:10 90 09/13/19 16:00 98.2 75 18 120/68 (85) 98 Intake and Output 09/13/19 09/14/19 19:00 07:00 Intake Total 50 ml Output Total 1002 ml Balance -952 ml Tube Feeding 50 ml Output Urine Total 1000 ml Stool Total 2 ml # Voids 2 # Bowel Movements 2 Laboratory Tests 09/14/19 07:21: White Blood Count 18.6H, Red Blood Count 2.99L, Hemoglobin 9.0L, Hematocrit 27.0L, Mean Corpuscular Volume 90, Mean Corpuscular Hemoglobin 30.0, Mean Corpuscular Hemoglobin Concent 33.3, Red Cell Distribution Width 14.3, Platelet Count 437, Mean Platelet Volume 6.9, Neutrophils (%) (Auto) , Lymphocytes (%) ( Auto) , Monocytes (%) (Auto) , Eosinophils (%) (Auto) , Basophils (%) (Auto) , Differential Total Cells Counted 100, Neutrophils % (Manual) 83H, Lymphocytes % (Manual) 9L, Monocytes % (Manual) 5, Eosinophils % (Manual) 2, Basophils % ( Manual) 1, Band Neutrophils 0, Platelet Estimate Adequate, Platelet Morphology Normal, Sodium Level 149H, Potassium Level 4.0, Chloride Level 116H, Carbon Dioxide Level 23, Anion Gap 10, Blood Urea Nitrogen 25H, Creatinine 1.2, Estimat Glomerular Filtration Rate 57.5, Glucose Level 115H, Calcium Level 8.1L , Phosphorus Level 2.9, Magnesium Level 2.1, Total Bilirubin 0.1L, Direct Bilirubin < 0.1, Aspartate Amino Transf (AST/SGOT) 38H, Alanine Aminotransferase (ALT/SGPT) 27, Alkaline Phosphatase 103, Total Protein 6.4, Albumin 1.0L Height (Feet): 5 Height (Inches): 11.00 Weight (Pounds): 162 EENT: other Cardiovascular: normal rate - Rate 84 Respiratory/Chest: decreased breath sounds Abdomen: soft Objective No other change Dariusz Brandt MD Sep 14, 2019 13:22
--- NOTE | 2019-09-14 14:24 | Pulmonology Progress Note ---
Assessment/Plan Assessment/Plan IMPRESSION: 1. Small left apical pneumothorax. 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 3. Parkinson. 4. Dementia. 5. UTI. 6. Hypernatremia. 7. Left upper extremity cellulitis. 8. Multiple decubitus. 9. Likely NSTEMI DISCUSSION: Noted DNR status. prefer to avoid any further intervention for the small apical left pneumothorax. This may be spontaneous due to his underlying lung disease. Saturations are worse today No respiratory distress or tachypnea Continue antibiotic vancomycin for left upper extremity cellulitis Hydration status addressed by Nephrology. 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 Discussed with daughter Sushma She is agreeable to hospice. Will follow Arun Melvin M.D. Subjective Interval Events: None new Constitutional: Reports: no symptoms HEENT: Repors: no symptoms Respiratory: Reports: no symptoms Cardiovascular: Reports: no symptoms Gastrointestinal/Abdominal: Reports: no symptoms Genitourinary: Reports: no symptoms Allergies: Coded Allergies: AMLODIPINE (Verified Allergy, Unknown, 09/04/19) ASPIRIN (Verified Allergy, Unknown, 09/04/19) BENAZEPRIL (Verified Allergy, Unknown, 09/04/19) Objective Last 24 Hour Vital Signs Date Time Temp Pulse Resp B/P (MAP) Pulse Ox O2 Delivery O2 Flow Rate FiO2 09/14/19 12:00 80 09/14/19 12:00 98.1 84 22 138/64 (88) 93 09/14/19 09:00 Venturi Mask 4.0 09/14/19 08:00 98.1 88 22 119/83 (95) 95 09/14/19 08:00 85 09/14/19 04:00 98.1 79 22 138/60 (86) 93 09/14/19 04:00 72 09/14/19 00:00 83 09/14/19 00:00 98.2 89 20 142/57 (85) 94 09/13/19 21:00 Venturi Mask 4.0 09/13/19 20:02 97 Venturi Mask 2.0 28 09/13/19 20:02 74 20 98 Venturi Mask 8.0 40 09/13/19 20:00 74 09/13/19 20:00 97.9 81 16 98/46 (63) 94 09/13/19 16:10 90 09/13/19 16:00 98.2 75 18 120/68 (85) 98 Intake and Output 09/13/19 09/14/19 19:00 07:00 Intake Total 50 ml Output Total 1002 ml Balance -952 ml Tube Feeding 50 ml Output Urine Total 1000 ml Stool Total 2 ml # Voids 2 # Bowel Movements 2 General Appearance: no acute distress HEENT: normocephalic Respiratory/Chest: chest wall non-tender Cardiovascular: normal peripheral pulses Abdomen: normal bowel sounds Laboratory Tests 09/14/19 07:21: White Blood Count 18.6H, Red Blood Count 2.99L, Hemoglobin 9.0L, Hematocrit 27.0L, Mean Corpuscular Volume 90, Mean Corpuscular Hemoglobin 30.0, Mean Corpuscular Hemoglobin Concent 33.3, Red Cell Distribution Width 14.3, Platelet Count 437, Mean Platelet Volume 6.9, Neutrophils (%) (Auto) , Lymphocytes (%) ( Auto) , Monocytes (%) (Auto) , Eosinophils (%) (Auto) , Basophils (%) (Auto) , Differential Total Cells Counted 100, Neutrophils % (Manual) 83H, Lymphocytes % (Manual) 9L, Monocytes % (Manual) 5, Eosinophils % (Manual) 2, Basophils % ( Manual) 1, Band Neutrophils 0, Platelet Estimate Adequate, Platelet Morphology Normal, Sodium Level 149H, Potassium Level 4.0, Chloride Level 116H, Carbon Dioxide Level 23, Anion Gap 10, Blood Urea Nitrogen 25H, Creatinine 1.2, Estimat Glomerular Filtration Rate 57.5, Glucose Level 115H, Calcium Level 8.1L , Phosphorus Level 2.9, Magnesium Level 2.1, Total Bilirubin 0.1L, Direct Bilirubin < 0.1, Aspartate Amino Transf (AST/SGOT) 38H, Alanine Aminotransferase (ALT/SGPT) 27, Alkaline Phosphatase 103, Total Protein 6.4, Albumin 1.0L Current Medications Medications (Trade) Dose Ordered Sig/Kaveh Route PRN Reason Start Time Stop Time Status Last Admin Dose Admin Acetaminophen (Tylenol) 650 mg Q4H PRN ORAL Mild Pain/Temp > 100.5 09/11/19 18:00 10/08/19 17:59 09/12/19 04:45 Acetaminophen (Tylenol) 650 mg Q4H PRN RECTAL Prn Headache/Temp > 101 09/11/19 18:00 10/08/19 17:59 Albuterol/ Ipratropium (Albuterol/ Ipratropium) 3 ml Q6H PRN HHN Shortness of Breath 09/11/19 18:00 09/17/19 17:59 Barium Sulfate (Readi-Cat 2) 450 ml NOW PRN ORAL Radiology Procedure 09/11/19 18:00 09/14/19 23:59 Clopidogrel Bisulfate (Plavix) 75 mg DAILY ORAL 09/12/19 09:00 10/06/19 10:44 09/13/19 09:56 Divalproex Sodium (Depakote Sprinkles) 500 mg EVERY 8 HOURS GT 09/11/19 22:00 10/11/19 13:59 09/14/19 13:57 Docusate Sodium (Colace) 100 mg TWICE A DAY NG 09/11/19 18:00 10/11/19 17:59 09/12/19 08:36 Folic Acid (Folate) 1 mg DAILY ORAL 09/12/19 09:00 10/07/19 10:29 09/13/19 09:56 Heparin Sodium (Porcine) (Heparin 5000 units/ml) 5,000 units EVERY 8 HOURS SUBQ 09/11/19 22:00 10/06/19 10:29 09/14/19 14:01 Lansoprazole (Prevacid) 30 mg BID NG 09/11/19 18:00 10/11/19 08:59 09/13/19 09:56 Lorazepam (Ativan 2mg/ml 1ml) 0.5 mg Q6H PRN IV For Anxiety 09/11/19 18:00 09/16/19 17:59 09/12/19 04:45 Meropenem 1 gm/ Sodium Chloride 55 ml @ 110 mls/hr Q8HR IVPB 09/14/19 14:30 09/19/19 14:29 Morphine Sulfate (Morphine Sulfate) 2 mg Q4H PRN IVP Severe Pain (Pain Scale 7-10) 09/11/19 18:00 09/15/19 17:59 Risperidone (RisperDAL) 0.5 mg Q12H PRN ORAL agitation 09/11/19 18:00 10/08/19 17:59 Sodium Chloride 1,000 ml @ 75 mls/hr [id number] IV 09/11/19 18:00 10/11/19 17:59 09/14/19 02:31 Arun Melvin MD Sep 14, 2019 14:24
[2019-09-14] MEDS: Meropenem 1 GM in NS 55 ML IVPB SCH ×2 (15:28→22:00)
[2019-09-14 16:00] VITALS: BP 123/66
--- NOTE | 2019-09-14 19:35 | Cardiology Progress Note ---
Assessment/Plan Assessment/Plan Small left apical pneumothorax. 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 Parkinson. Dementia. UTI. Hypernatremia. Left upper extremity cellulitis. Multiple decubitus. NSTEMI hypotension bp improved with hydration dc tele dnr supposed to be going home with hospice no candidate for any invasive therapy lab ntoed cr improved Subjective ROS Limited/Unobtainable: Yes Subjective moan cielo goldstein Objective Last 24 Hour Vital Signs Date Time Temp Pulse Resp B/P (MAP) Pulse Ox O2 Delivery O2 Flow Rate FiO2 09/14/19 19:30 96 Venturi Mask 2.0 28 09/14/19 19:30 82 18 96 Venturi Mask 8.0 40 09/14/19 16:00 86 09/14/19 16:00 97.7 82 22 123/66 (85) 100 09/14/19 12:00 80 09/14/19 12:00 98.1 84 22 138/64 (88) 93 09/14/19 09:00 Venturi Mask 4.0 09/14/19 08:00 98.1 88 22 119/83 (95) 95 09/14/19 08:00 85 09/14/19 07:58 76 18 98 Venturi Mask 8.0 40 09/14/19 07:58 96 Venturi Mask 2.0 28 09/14/19 04:00 98.1 79 22 138/60 (86) 93 09/14/19 04:00 72 09/14/19 00:00 83 09/14/19 00:00 98.2 89 20 142/57 (85) 94 09/13/19 21:00 Venturi Mask 4.0 09/13/19 20:02 97 Venturi Mask 2.0 28 09/13/19 20:02 74 20 98 Venturi Mask 8.0 40 09/13/19 20:00 74 09/13/19 20:00 97.9 81 16 98/46 (63) 94 General Appearance: no apparent distress Neck: supple Cardiovascular: normal rate Respiratory/Chest: lungs clear Abdomen: normal bowel sounds, non tender, soft Extremities: no swelling Intake and Output 09/13/19 09/14/19 19:00 07:00 Intake Total 50 ml Output Total 1002 ml Balance -952 ml Tube Feeding 50 ml Output Urine Total 1000 ml Stool Total 2 ml # Voids 2 # Bowel Movements 2 Laboratory Tests Test 09/14/19 07:21 White Blood Count 18.6 K/UL (4.8-10.8) H Red Blood Count 2.99 M/UL (4.70-6.10) L Hemoglobin 9.0 G/DL (14.2-18.0) L Hematocrit 27.0 % (42.0-52.0) L Mean Corpuscular Volume 90 FL (80-99) Mean Corpuscular Hemoglobin 30.0 PG (27.0-31.0) Mean Corpuscular Hemoglobin Concent 33.3 G/DL (32.0-36.0) Red Cell Distribution Width 14.3 % (11.6-14.8) Platelet Count 437 K/UL (150-450) Mean Platelet Volume 6.9 FL (6.5-10.1) Neutrophils (%) (Auto) % (45.0-75.0) Lymphocytes (%) (Auto) % (20.0-45.0) Monocytes (%) (Auto) % (1.0-10.0) Eosinophils (%) (Auto) % (0.0-3.0) Basophils (%) (Auto) % (0.0-2.0) Differential Total Cells Counted 100 Neutrophils % (Manual) 83 % (45-75) H Lymphocytes % (Manual) 9 % (20-45) L Monocytes % (Manual) 5 % (1-10) Eosinophils % (Manual) 2 % (0-3) Basophils % (Manual) 1 % (0-2) Band Neutrophils 0 % (0-8) Platelet Estimate Adequate Platelet Morphology Normal Sodium Level 149 MMOL/L (136-145) H Potassium Level 4.0 MMOL/L (3.5-5.1) Chloride Level 116 MMOL/L (98-107) H Carbon Dioxide Level 23 MMOL/L (21-32) Anion Gap 10 mmol/L (5-15) Blood Urea Nitrogen 25 mg/dL (7-18) H Creatinine 1.2 MG/DL (0.55-1.30) Estimat Glomerular Filtration Rate 57.5 mL/min (>60) Glucose Level 115 MG/DL (74-106) H Calcium Level 8.1 MG/DL (8.5-10.1) L Phosphorus Level 2.9 MG/DL (2.5-4.9) Magnesium Level 2.1 MG/DL (1.8-2.4) Total Bilirubin 0.1 MG/DL (0.2-1.0) L Direct Bilirubin < 0.1 MG/DL (0.0-0.3) Aspartate Amino Transf (AST/SGOT) 38 U/L (15-37) H Alanine Aminotransferase (ALT/SGPT) 27 U/L (12-78) Alkaline Phosphatase 103 U/L (46-116) Total Protein 6.4 G/DL (6.4-8.2) Albumin 1.0 G/DL (3.4-5.0) L Ronnie Lamb MD Sep 14, 2019 19:35
[2019-09-14 20:00] VITALS: BP 141/73
[2019-09-15] VITALS: BP 122/68
[2019-09-15 04:00] VITALS: BP 108/64
[2019-09-15] MEDS: Heparin 5000 units/ml inj SUBQ SCH ×3 (06:00→21:18)
[2019-09-15] MEDS: Meropenem 1 GM in NS 55 ML IVPB SCH ×3 (06:00→21:16)
[2019-09-15] MEDS: Depakote 125mg Sprinkles GT SCH ×3 (06:00→21:15)
[2019-09-15 08:00] VITALS: BP 117/66
[2019-09-15] MEDS: Docusate 100mg/10ml Liq NG SCH ×2 (09:00→17:37)
--- NOTE | 2019-09-15 10:34 | General Progress Note ---
Assessment/Plan Problem List: (1) Iron deficiency anemia ICD Codes: D50.9 - Iron deficiency anemia, unspecified SNOMED: 61670896 (2) Folate deficiency ICD Codes: E53.8 - Deficiency of other specified B group vitamins SNOMED: 889347838 (3) low Albumin (4) Anemia ICD Codes: D64.9 - Anemia, unspecified SNOMED: 870750861 (5) Failure to thrive SNOMED: 60071471 (6) Elevated troponin ICD Codes: R79.89 - Other specified abnormal findings of blood chemistry SNOMED: 134007517, 919917458, 509335716 (7) Dehydration ICD Codes: E86.0 - Dehydration SNOMED: 17755280 Status: unchanged Assessment/Plan: NGTF hold peg plans for now given family agreed to hospice Subjective ROS Limited/Unobtainable: No Allergies: Coded Allergies: AMLODIPINE (Verified Allergy, Unknown, 09/04/19) ASPIRIN (Verified Allergy, Unknown, 09/04/19) BENAZEPRIL (Verified Allergy, Unknown, 09/04/19) Objective Last 24 Hour Vital Signs Date Time Temp Pulse Resp B/P (MAP) Pulse Ox O2 Delivery O2 Flow Rate FiO2 09/15/19 09:00 Venturi Mask 4.0 09/15/19 08:00 96.9 91 20 117/66 (83) 97 09/15/19 08:00 85 09/15/19 05:07 87 16 93 Venturi Mask 14.0 55 82 16 89 09/15/19 04:00 85 09/15/19 04:00 97.0 85 20 108/64 (79) 90 09/15/19 00:00 79 09/15/19 00:00 97.9 79 22 122/68 (86) 91 09/14/19 21:00 Venturi Mask 4.0 09/14/19 20:00 96.8 77 22 141/73 (95) 93 09/14/19 20:00 77 09/14/19 19:30 96 Venturi Mask 2.0 28 09/14/19 19:30 82 18 96 Venturi Mask 8.0 40 09/14/19 16:00 86 09/14/19 16:00 97.7 82 22 123/66 (85) 100 09/14/19 12:00 80 09/14/19 12:00 98.1 84 22 138/64 (88) 93 Intake and Output 09/14/19 09/15/19 19:00 07:00 Output Total 600 ml 600 ml Balance -600 ml -600 ml Output Urine Total 600 ml 600 ml # Voids 1 2 # Bowel Movements 1 1 Height (Feet): 5 Height (Inches): 11.00 Weight (Pounds): 167 General Appearance: lethargic EENT: normal ENT inspection Neck: supple Cardiovascular: normal rate Respiratory/Chest: decreased breath sounds Abdomen: normal bowel sounds, non tender, soft Extremities: non-tender Arley Cosby MD Sep 15, 2019 10:33
--- NOTE | 2019-09-15 10:54 | Cardiology Progress Note ---
Assessment/Plan Assessment/Plan Small left apical pneumothorax. 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 Parkinson. Dementia. UTI. Hypernatremia. Left upper extremity cellulitis. Multiple decubitus. NSTEMI hypotension bp improved with hydration dnr supposed to be going home with hospice no candidate for any invasive therapy lab noted cr improved to med surg if ok with all Subjective ROS Limited/Unobtainable: Yes Subjective moan an groans Objective Last 24 Hour Vital Signs Date Time Temp Pulse Resp B/P (MAP) Pulse Ox O2 Delivery O2 Flow Rate FiO2 09/15/19 09:00 Venturi Mask 4.0 09/15/19 08:00 96.9 91 20 117/66 (83) 97 09/15/19 08:00 85 09/15/19 05:07 87 16 93 Venturi Mask 14.0 55 82 16 89 09/15/19 04:00 85 09/15/19 04:00 97.0 85 20 108/64 (79) 90 09/15/19 00:00 79 09/15/19 00:00 97.9 79 22 122/68 (86) 91 09/14/19 21:00 Venturi Mask 4.0 09/14/19 20:00 96.8 77 22 141/73 (95) 93 09/14/19 20:00 77 09/14/19 19:30 96 Venturi Mask 2.0 28 09/14/19 19:30 82 18 96 Venturi Mask 8.0 40 09/14/19 16:00 86 09/14/19 16:00 97.7 82 22 123/66 (85) 100 09/14/19 12:00 80 09/14/19 12:00 98.1 84 22 138/64 (88) 93 General Appearance: no apparent distress Neck: supple Cardiovascular: normal rate Respiratory/Chest: lungs clear - ant Abdomen: normal bowel sounds, non tender, soft Extremities: no swelling Intake and Output 09/14/19 09/15/19 19:00 07:00 Output Total 600 ml 600 ml Balance -600 ml -600 ml Output Urine Total 600 ml 600 ml # Voids 1 2 # Bowel Movements 1 1 Microbiology Date/Time Source Procedure Growth Status 09/14/19 15:45 Sputum Induced Gram Stain - Final Resulted 09/14/19 15:45 Sputum Induced Sputum Culture Pending Resulted 09/14/19 15:00 Indwelling Cath Urine Culture - Preliminary NO GROWTH Resulted Ronnie Lamb MD Sep 15, 2019 10:54
--- NOTE | 2019-09-15 11:22 | Infectious Diseases Prog Note ---
Assessment/Plan Assessment/Plan Assessment: Severe sepsis, sp No evidence of Bacteremia -u/a wbc 40-60, nit neg, leuk +3; ucx p -CXR: Left apical pneumothorax, estimated at 10%. Emphysema. Low grade fever, sp Pneumonia Leukocytosis, increased ( ? ID related ) - CT C/ A/P wo C : Patchy airspace opacities consistent with pneumonia most notably in the posterior right lower lobe.Trace bilateral pleural effusions. NAGA improving Multiple decubitus.( not infected ) NSTEMI Parkinson's dementia HTN Dm2 Plan: - Cont Merrem # 2 for probable Asp pneumonia ( DDI w Valporic , but no choice and no hx of SZ) -09/13 Sp IV Vancomycin # 11, Zosyn # 6 09/07 Sp Meropenem # 4 08/05 Sp Zosyn #2 -f/u cx (B,U,S) -Monitor CBC/CMP, temperatures -aspiration precautions - PEG is on hold - planing for hospice Subjective Allergies: Coded Allergies: AMLODIPINE (Verified Allergy, Unknown, 09/04/19) ASPIRIN (Verified Allergy, Unknown, 09/04/19) BENAZEPRIL (Verified Allergy, Unknown, 09/04/19) Subjective NGT came out 2 d , ? risk of Aspiration as per RN Objective Vital Signs Last 24 Hour Vital Signs Date Time Temp Pulse Resp B/P (MAP) Pulse Ox O2 Delivery O2 Flow Rate FiO2 09/15/19 09:00 Venturi Mask 4.0 09/15/19 08:00 96.9 91 20 117/66 (83) 97 09/15/19 08:00 85 09/15/19 05:07 87 16 93 Venturi Mask 14.0 55 82 16 89 09/15/19 04:00 85 09/15/19 04:00 97.0 85 20 108/64 (79) 90 09/15/19 00:00 79 09/15/19 00:00 97.9 79 22 122/68 (86) 91 09/14/19 21:00 Venturi Mask 4.0 09/14/19 20:00 96.8 77 22 141/73 (95) 93 09/14/19 20:00 77 09/14/19 19:30 96 Venturi Mask 2.0 28 09/14/19 19:30 82 18 96 Venturi Mask 8.0 40 09/14/19 16:00 86 09/14/19 16:00 97.7 82 22 123/66 (85) 100 09/14/19 12:00 80 09/14/19 12:00 98.1 84 22 138/64 (88) 93 Height (Feet): 5 Height (Inches): 11.00 Weight (Pounds): 167 HEENT: anicteric Respiratory/Chest: no respiratory distress Cardiovascular: regularly irregular, no JVD Abdomen: non distended Microbiology Date/Time Source Procedure Growth Status 09/14/19 15:45 Sputum Induced Gram Stain - Final Resulted 09/14/19 15:45 Sputum Induced Sputum Culture Pending Resulted 09/14/19 15:00 Indwelling Cath Urine Culture - Preliminary NO GROWTH Resulted Current Medications Medications (Trade) Dose Ordered Sig/Kaveh Route PRN Reason Start Time Stop Time Status Last Admin Dose Admin Acetaminophen (Tylenol) 650 mg Q4H PRN ORAL Mild Pain/Temp > 100.5 09/11/19 18:00 10/08/19 17:59 09/12/19 04:45 Acetaminophen (Tylenol) 650 mg Q4H PRN RECTAL Prn Headache/Temp > 101 09/11/19 18:00 10/08/19 17:59 Albuterol/ Ipratropium (Albuterol/ Ipratropium) 3 ml Q6H PRN HHN Shortness of Breath 09/11/19 18:00 09/17/19 17:59 09/15/19 05:16 Clopidogrel Bisulfate (Plavix) 75 mg DAILY ORAL 09/12/19 09:00 10/06/19 10:44 09/15/19 09:46 Divalproex Sodium (Depakote Sprinkles) 500 mg EVERY 8 HOURS GT 09/11/19 22:00 10/11/19 13:59 09/15/19 06:00 Docusate Sodium (Colace) 100 mg TWICE A DAY NG 09/11/19 18:00 10/11/19 17:59 09/12/19 08:36 Folic Acid (Folate) 1 mg DAILY ORAL 09/12/19 09:00 10/07/19 10:29 09/15/19 09:46 Heparin Sodium (Porcine) (Heparin 5000 units/ml) 5,000 units EVERY 8 HOURS SUBQ 09/11/19 22:00 10/06/19 10:29 09/15/19 06:00 Lansoprazole (Prevacid) 30 mg BID NG 09/11/19 18:00 10/11/19 08:59 09/15/19 09:45 Lorazepam (Ativan 2mg/ml 1ml) 0.5 mg Q6H PRN IV For Anxiety 09/11/19 18:00 09/16/19 17:59 09/12/19 04:45 Meropenem 1 gm/ Sodium Chloride 55 ml @ 110 mls/hr Q8HR IVPB 09/14/19 14:30 09/19/19 14:29 09/15/19 06:00 Morphine Sulfate (Morphine Sulfate) 2 mg Q4H PRN IVP Severe Pain (Pain Scale 7-10) 09/11/19 18:00 09/15/19 17:59 Quetiapine Fumarate (SEROqueL) 50 mg Q12HR ORAL 09/15/19 09:00 10/30/19 08:59 09/15/19 09:46 Risperidone (RisperDAL) 0.5 mg Q12H PRN ORAL agitation 09/11/19 18:00 10/08/19 17:59 Hakeem Hugo MD Sep 15, 2019 11:22
--- NOTE | 2019-09-15 11:59 | Pulmonology Progress Note ---
Assessment/Plan Assessment/Plan IMPRESSION: 1. Small left apical pneumothorax. 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 3. Parkinson. 4. Dementia. 5. UTI. 6. Hypernatremia. 7. Left upper extremity cellulitis. 8. Multiple decubitus. 9. Likely NSTEMI DISCUSSION: Noted DNR status. prefer to avoid any further intervention for the small apical left pneumothorax. This may be spontaneous due to his underlying lung disease. Saturations are worse today No respiratory distress or tachypnea Continue antibiotic vancomycin for left upper extremity cellulitis Hydration status addressed by Nephrology. I will follow as line inspector. Discussed with daughter Sushma She is agreeable to hospice. Will follow Arun Melvin M.D. Subjective Interval Events: None new Constitutional: Reports: no symptoms HEENT: Repors: no symptoms Respiratory: Reports: no symptoms Cardiovascular: Reports: no symptoms Gastrointestinal/Abdominal: Reports: no symptoms Allergies: Coded Allergies: AMLODIPINE (Verified Allergy, Unknown, 09/04/19) ASPIRIN (Verified Allergy, Unknown, 09/04/19) BENAZEPRIL (Verified Allergy, Unknown, 09/04/19) Objective Last 24 Hour Vital Signs Date Time Temp Pulse Resp B/P (MAP) Pulse Ox O2 Delivery O2 Flow Rate FiO2 09/15/19 09:00 Venturi Mask 4.0 09/15/19 08:00 96.9 91 20 117/66 (83) 97 09/15/19 08:00 85 09/15/19 05:07 87 16 93 Venturi Mask 14.0 55 82 16 89 09/15/19 04:00 85 09/15/19 04:00 97.0 85 20 108/64 (79) 90 09/15/19 00:00 79 09/15/19 00:00 97.9 79 22 122/68 (86) 91 09/14/19 21:00 Venturi Mask 4.0 09/14/19 20:00 96.8 77 22 141/73 (95) 93 09/14/19 20:00 77 09/14/19 19:30 96 Venturi Mask 2.0 28 3/9/20 19:30 82 18 96 Venturi Mask 8.0 40 09/14/19 16:00 86 09/14/19 16:00 97.7 82 22 123/66 (85) 100 09/14/19 12:00 80 09/14/19 12:00 98.1 84 22 138/64 (88) 93 Intake and Output 09/14/19 09/15/19 19:00 07:00 Output Total 600 ml 600 ml Balance -600 ml -600 ml Output Urine Total 600 ml 600 ml # Voids 1 2 # Bowel Movements 1 1 General Appearance: no acute distress HEENT: normocephalic Respiratory/Chest: chest wall non-tender, lungs clear Cardiovascular: normal peripheral pulses, normal rate Abdomen: normal bowel sounds Microbiology Date/Time Source Procedure Growth Status 09/14/19 15:45 Sputum Induced Gram Stain - Final Resulted 09/14/19 15:45 Sputum Induced Sputum Culture Pending Resulted 09/14/19 15:00 Indwelling Cath Urine Culture - Preliminary NO GROWTH Resulted Current Medications Medications (Trade) Dose Ordered Sig/Kaveh Route PRN Reason Start Time Stop Time Status Last Admin Dose Admin Acetaminophen (Tylenol) 650 mg Q4H PRN ORAL Mild Pain/Temp > 100.5 09/11/19 18:00 10/08/19 17:59 09/12/19 04:45 Acetaminophen (Tylenol) 650 mg Q4H PRN RECTAL Prn Headache/Temp > 101 09/11/19 18:00 10/08/19 17:59 Albuterol/ Ipratropium (Albuterol/ Ipratropium) 3 ml Q6H PRN HHN Shortness of Breath 09/11/19 18:00 09/17/19 17:59 09/15/19 05:16 Clopidogrel Bisulfate (Plavix) 75 mg DAILY ORAL 09/12/19 09:00 10/06/19 10:44 09/15/19 09:46 Divalproex Sodium (Depakote Sprinkles) 500 mg EVERY 8 HOURS GT 09/11/19 22:00 10/11/19 13:59 09/15/19 06:00 Docusate Sodium (Colace) 100 mg TWICE A DAY NG 09/11/19 18:00 10/11/19 17:59 09/12/19 08:36 Folic Acid (Folate) 1 mg DAILY ORAL 09/12/19 09:00 10/07/19 10:29 09/15/19 09:46 Heparin Sodium (Porcine) (Heparin 5000 units/ml) 5,000 units EVERY 8 HOURS SUBQ 09/11/19 22:00 10/06/19 10:29 09/15/19 06:00 Lansoprazole (Prevacid) 30 mg BID NG 09/11/19 18:00 10/11/19 08:59 09/15/19 09:45 Lorazepam (Ativan 2mg/ml 1ml) 0.5 mg Q6H PRN IV For Anxiety 09/11/19 18:00 09/16/19 17:59 09/12/19 04:45 Meropenem 1 gm/ Sodium Chloride 55 ml @ 110 mls/hr Q8HR IVPB 09/14/19 14:30 09/19/19 14:29 09/15/19 06:00 Morphine Sulfate (Morphine Sulfate) 2 mg Q4H PRN IVP Severe Pain (Pain Scale 7-10) 09/11/19 18:00 09/15/19 17:59 Quetiapine Fumarate (SEROqueL) 50 mg Q12HR ORAL 09/15/19 09:00 10/30/19 08:59 09/15/19 09:46 Risperidone (RisperDAL) 0.5 mg Q12H PRN ORAL agitation 09/11/19 18:00 10/08/19 17:59 Arun Melvin MD Sep 15, 2019 11:59
[2019-09-15 12:00] VITALS: BP 113/68
--- NOTE | 2019-09-15 12:55 | Nephrology Progress Note ---
Assessment/Plan Problem List: (1) NAGA (acute kidney injury) (2) UTI (urinary tract infection) (3) Elevated troponin (4) Failure to thrive in adult (5) Sepsis (6) Anemia (7) Dehydration Assessment Potassium phosphate in the morning dose 20 mmol Renal failure mostly prerenal Azotemia. May have underlying chronic kidney disease. Hydration. Sepsis leukocytosis. Encephalopathy in the form of toxic and metabolic. Failure to thrive. Albuminemia. Levator troponin. Most likely due to significant cardiac ischemia. Plan Plan: NG tube is placed feeding is now in process PEG is arranged for near future Stop IV hydration Meds via NG tube as possible Plavix and SQ heparin Nitrates. Continue to monitor renal parameters. Avoid nephrotoxic's. Antibiotics per ID. Felder catheter. Discussed with RN DNR status. Subjective ROS Limited/Unobtainable: No Constitutional: Reports: malaise, weakness Objective Objective Last 24 Hour Vital Signs Date Time Temp Pulse Resp B/P (MAP) Pulse Ox O2 Delivery O2 Flow Rate FiO2 09/15/19 12:00 97.2 96 20 113/68 (83) 97 09/15/19 09:00 Venturi Mask 4.0 09/15/19 08:00 96.9 91 20 117/66 (83) 97 09/15/19 08:00 85 09/15/19 05:07 87 16 93 Venturi Mask 14.0 55 82 16 89 09/15/19 04:00 85 09/15/19 04:00 97.0 85 20 108/64 (79) 90 09/15/19 00:00 79 09/15/19 00:00 97.9 79 22 122/68 (86) 91 09/14/19 21:00 Venturi Mask 4.0 09/14/19 20:00 96.8 77 22 141/73 (95) 93 09/14/19 20:00 77 09/14/19 19:30 96 Venturi Mask 2.0 28 09/14/19 19:30 82 18 96 Venturi Mask 8.0 40 09/14/19 16:00 86 09/14/19 16:00 97.7 82 22 123/66 (85) 100 Intake and Output 09/14/19 09/15/19 19:00 07:00 Output Total 600 ml 600 ml Balance -600 ml -600 ml Output Urine Total 600 ml 600 ml # Voids 1 2 # Bowel Movements 1 1 Height (Feet): 5 Height (Inches): 11.00 Weight (Pounds): 167 General Appearance: no apparent distress EENT: other - On oxygen mask Cardiovascular: tachycardia Respiratory/Chest: decreased breath sounds Abdomen: distended Objective No other change Dariusz Brandt MD Sep 15, 2019 12:55
--- NOTE | 2019-09-15 13:08 | Surgery Progress Note ---
Surgery Progress Note Subjective Additional Comments no acute events comfortable stable labs noted Objective Last 24 Hour Vital Signs Date Time Temp Pulse Resp B/P (MAP) Pulse Ox O2 Delivery O2 Flow Rate FiO2 09/15/19 12:00 97.2 96 20 113/68 (83) 97 09/15/19 09:00 Venturi Mask 4.0 09/15/19 08:00 96.9 91 20 117/66 (83) 97 09/15/19 08:00 85 09/15/19 05:07 87 16 93 Venturi Mask 14.0 55 82 16 89 09/15/19 04:00 85 09/15/19 04:00 97.0 85 20 108/64 (79) 90 09/15/19 00:00 79 09/15/19 00:00 97.9 79 22 122/68 (86) 91 09/14/19 21:00 Venturi Mask 4.0 09/14/19 20:00 96.8 77 22 141/73 (95) 93 09/14/19 20:00 77 09/14/19 19:30 96 Venturi Mask 2.0 28 09/14/19 19:30 82 18 96 Venturi Mask 8.0 40 09/14/19 16:00 86 09/14/19 16:00 97.7 82 22 123/66 (85) 100 I&O Intake and Output 09/14/19 09/15/19 19:00 07:00 Output Total 600 ml 600 ml Balance -600 ml -600 ml Output Urine Total 600 ml 600 ml # Voids 1 2 # Bowel Movements 1 1 Dressing: dry Wound: clean Cardiovascular: RSR Respiratory: clear Abdomen: soft, non-tender, present bowel sounds Extremities: no cyanosis Plan Problems: (1) Skin lesions Assessment & Plan: patient presented with multiple skin lesions scrotal edema with cellulitis. pending CT pelvis for eval sacral DTI noted large, skin blistering open now epidermal loss dermis intact left upper extremity epidermal skin blistering open, dermis intact multiple wounds noted on ear, face, chest skin breakdown malnutrition overall prognosis guarded hold on skin biopsy of lesions. 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 Both lower extremities are contracted. Dry Brownish/black capped skin lesion noted to R earlobe ,R cheek and L temporal. Scattered skin lesions that are also dry capped and brownish /black noted to upper chest and bilat upper extremities. Irregular shaped Open DTPI noted to Sacrum. Full thickness ulcer at sacrococcygeal area(L)6cm x (W)5.3cm. Surrounding fluctuant and maroon borders.Measurement including open wound (L)9.5cm x (W)9.2cm No evidence of further skin breakdown periwound. No odor or exudate noted from wound. Resolving pressure injury base of scrotum. Base of wound brayan in center with surrounding moist pink granulation. Scattered biofilm within base of wound.No odor or exudate noted.(L)5.6cm x (W)4.5cm. Open DTPI kermit R tibia. Base of wound is moist and brayan with surrounding fluctuant borders that maroon/purple in colour.(L)9.5cm x (W)2.7cm. Stable dry eschar noted to distal/kermit R tibia(L)2.4cm x (W)1.6cm. Open DTPI noted to R heel(L)3.3cm x (W)3.5cm. Base of wound is moist and brayan in center with small necrotic area. Surrounding borders of wound are purple and fluctuant. Unstageable pressure injury medial aspect of distal L tibia. Base of wound has 90% fibrinous slough with erythematous margins.(L)3.3cm x (W)3.2cm. NO odor or exudate noted. Unstageable pressure injury lateral L malleolus. Base of wound is 100% necrotic and dry.(L)4cm x (W)3.8cm. Tx.Plan: Cleanse Sacral wound with Saline. Apply Therahoney. Apply Moisture Barrier Periwound. Cover with Optifoam drsg daily and prn. Cleanse wound kermit R tibia with Saline. Apply TheraHoney. Apply Cavilon Skin Barrier periwound. Cover with Optifoam drsg every 3 days and prn. Cleanse wound R heel with Saline. Apply Therahoney. Apply Cavilon Skin Barrier periwound. Cover with Optifoam drsg every 3 days and prn. Cleanse wound L tibia with Saline. Apply Therahoney.Apply Cavilon Periwound. Cover with Optifoam drsg every 3 days and prn. Swab Wounds L heel and L lateral malleolus with Betadine. Cover each wound with Optifoam drsg. Change every 3 days and prn. APM/DENICE Mattress overlay. Reposition at least every 2hours or as tolerated. Place pillow between knees. Off-load heels with pillows. nutritional optimization thank you will follow with recs (2) Leukocytosis Assessment & Plan: Patchy airspace opacities consistent with pneumonia most notably in the posterior right lower lobe. Trace bilateral pleural effusions. No pneumothorax. Moderate dilatation of the esophagus. May be related to presence of a feeding tube. Achalasia or distal esophageal strictures are not excludable. Left inguinal hernia containing a portion of the descending colon. No evidence of obstruction. The true extent and size of the hernia is not known as the lower portion of the hernia is below the [id number] of this examination. The hernia should be clinically apparent since the hernia sac is within the left scrotum. Anasarca Right dynamic hip screw. Osteoporosis Degenerative changes of the spine. Small amount of free fluid in the pelvis unknown origin. (3) Sepsis (4) Failure to thrive Assessment & Plan: waiting for xray placement confirmation will start feeds once confirmed (5) Failure to thrive in adult Assessment & Plan: DAILY ESTIMATED NEEDS: Needs based on Wounds, underweight 58.5kg 30-35 kcals/kg 4334-7144 total kcals 1.25-2 g protein/kg 73-117 g total protein 25-30ml/kcal mL/kg 2965-0346 total fluid mLs NUTRITION DIAGNOSIS: Increased kcal and pro needs r/t wound healing and underweight status as evidenced by pt w/ multiple pressure wounds, eval pending, underweight per guidelines w/ generalized moderate-severe wasting, @72% of [place] Body Weight. CURRENT DIET: NPO PO DIET RECOMMENDATIONS: Regular liberalized diet/ texture per [facility] ENTERAL NUTRITION RECOMMENDATIONS: * Consult RD if non oral feeds are part of POC * ---- ADDITIONAL RECOMMENDATIONS: 1) Add GLUCERNA 1 tetra TID w/ meals 2) [facility] eval 3) F/up w/ WC eval-> rec ANANDA BID w/ diet order 4) RE-calibrate bed scale w/ added P200 mattress for accurate CBW (6) Pneumothorax on left Assessment & Plan: There is a tiny left apical pneumothorax. This appears smaller than on the previous study. Lungs remain clear. Heart is normal in size. Trachea is midline. Aorta is calcified. IMPRESSION: Trace left apical pneumothorax. stable can monitor for now repeat cxr hold on tube for now CT chest when stable Connor Mcfadden Sep 15, 2019 13:08
--- NOTE | 2019-09-15 14:48 | General Progress Note ---
Assessment/Plan Problem List: (1) Anemia ICD Codes: D64.9 - Anemia, unspecified SNOMED: 002713880 (2) Elevated troponin ICD Codes: R79.89 - Other specified abnormal findings of blood chemistry SNOMED: 058281791, 708157013, 067913732 (3) Dehydration ICD Codes: E86.0 - Dehydration SNOMED: 37939477 (4) Sepsis ICD Codes: A41.9 - Sepsis, unspecified organism SNOMED: 71227327 Qualifiers: Qualified Codes: A41.9 - Sepsis, unspecified organism (5) UTI (urinary tract infection) ICD Codes: N39.0 - Urinary tract infection, site not specified SNOMED: 93119828 Qualifiers: Qualified Codes: N30.00 - Acute cystitis without hematuria (6) Failure to thrive in adult ICD Codes: R62.7 - Adult failure to thrive SNOMED: 034705492 (7) NAGA (acute kidney injury) ICD Codes: N17.9 - Acute kidney failure, unspecified SNOMED: 90530940, 0056255 (8) Failure to thrive SNOMED: 74144922 Status: unchanged Assessment/Plan: o2 pulm tx abx cardio pulm f/u prt diet cbc bmp am dc w hospice if ok family wishes Subjective Constitutional: Reports: weakness Allergies: Coded Allergies: AMLODIPINE (Verified Allergy, Unknown, 09/04/19) ASPIRIN (Verified Allergy, Unknown, 09/04/19) BENAZEPRIL (Verified Allergy, Unknown, 09/04/19) All Systems: reviewed and negative except above Subjective o2nc sleepy Objective Last 24 Hour Vital Signs Date Time Temp Pulse Resp B/P (MAP) Pulse Ox O2 Delivery O2 Flow Rate FiO2 09/15/19 12:00 97.2 96 20 113/68 (83) 97 09/15/19 12:00 73 09/15/19 09:00 Venturi Mask 4.0 09/15/19 08:00 96.9 91 20 117/66 (83) 97 09/15/19 08:00 85 09/15/19 05:07 87 16 93 Venturi Mask 14.0 55 82 16 89 09/15/19 04:00 85 09/15/19 04:00 97.0 85 20 108/64 (79) 90 09/15/19 00:00 79 09/15/19 00:00 97.9 79 22 122/68 (86) 91 09/14/19 21:00 Venturi Mask 4.0 09/14/19 20:00 96.8 77 22 141/73 (95) 93 09/14/19 20:00 77 09/14/19 19:30 96 Venturi Mask 2.0 28 09/14/19 19:30 82 18 96 Venturi Mask 8.0 40 09/14/19 16:00 86 09/14/19 16:00 97.7 82 22 123/66 (85) 100 Intake and Output 09/14/19 09/15/19 19:00 07:00 Output Total 600 ml 600 ml Balance -600 ml -600 ml Output Urine Total 600 ml 600 ml # Voids 1 2 # Bowel Movements 1 1 Height (Feet): 5 Height (Inches): 11.00 Weight (Pounds): 167 General Appearance: lethargic EENT: normal ENT inspection Neck: normal alignment Cardiovascular: normal peripheral pulses, normal rate, regular rhythm Respiratory/Chest: chest wall non-tender, lungs clear, normal breath sounds Abdomen: normal bowel sounds, non tender, soft Extremities: normal inspection Edema: no edema noted Arm (L), no edema noted Arm (R), no edema noted Leg (L), no edema noted Leg (R), no edema noted Pedal (L), no edema noted Pedal (R), no edema noted Generalized Neurologic: motor weakness Skin: normal pigmentation, warm/dry Prabhakar Pond DO Sep 15, 2019 14:48
[2019-09-15 16:00] VITALS: BP 106/64
--- NOTE | 2019-09-15 17:00 | Progress Note ---
DATE: 09/15/2019 SUBJECTIVE: The patient is an 83-year-old male patient with failure to thrive and confusion. He also has dehydration, urinary tract infection, acute renal injury, leukocytosis causing altered mental status and decline in cognition below his baseline. That is why, his attending has requested daily psychiatric consultation. MENTAL STATUS EXAMINATION: This is an 83-year-old male. Appearance is disheveled. Attitude, irritable and agitated. Affect, guarded and restricted. Intellect poor. Mood, depressed and anxious. Motor activity is psychomotor agitation. Insight and judgment is poor. DIAGNOSIS: Schizoaffective, bipolar type. PLAN: Treat with Depakote Sprinkles 500 mg per G-tube every 8 hours with an addition to that, I am also going to continue Ativan 0.5 mg IV every 6 hours p.r.n. anxiety and agitation. In addition, I am also going to restart his Seroquel at a dose of 50 mg twice a day. A 20 minutes of reality-based supportive psychotherapy and encouraged him to interact appropriately with staff and patients. Chart reviewed. Discussed with staff. Seen and assessed at bedside. A 20 minutes of cognitive behavioral therapy to help him identify his automatic negative thoughts, help convert his negative thoughts to more positive thoughts to reduce depression, anxiety, mood lability. Cherri De Luna M.D. DR: ALLYSON JOB#: [id number] CC:
[2019-09-15 20:00] VITALS: BP 122/109
[2019-09-16] VITALS (7 sets, daily range): BP systolic 106–140; BP diastolic 43–91
[2019-09-16] MEDS: Depakote 125mg Sprinkles GT SCH ×3 (05:37→22:00)
[2019-09-16] MEDS: Meropenem 1 GM in NS 55 ML IVPB SCH ×3 (05:37→22:26)
[2019-09-16] MEDS: Heparin 5000 units/ml inj SUBQ SCH ×3 (06:00→22:00)
[2019-09-16] MEDS ORDERED: Acetaminophen 650 MG SUPP RECTAL PRN (06:13)
[2019-09-16] MEDS ORDERED: Albuterol/Ipratropium 3ml neb HHN PRN (06:14)
[2019-09-16] MEDS ORDERED: Acetaminophen 650mg/20.3ml GT PRN (06:14)
[2019-09-16] MEDS ORDERED: LORazepam Inj 2mg/ml 1ml IV PRN (06:15)
[2019-09-16 07:14] LABS: BASOPHILS % (AUTO) 0.5 % (0.0-2.0); EOSINOPHILS % (AUTO) 1.4 % (0.0-3.0); HEMATOCRIT 25.4 % (42.0-52.0); HEMOGLOBIN 8.3 G/DL (14.2-18.0); LYMPHOCYTES % (AUTO) 12.4 % (20.0-45.0); MEAN CORPUSCULAR VOLUME 90 FL (80-99); MONOCYTES % (AUTO) 6.8 % (1.0-10.0); NEUTROPHILS % (AUTO) 78.9 % (45.0-75.0); PLATELET COUNT 399 K/UL (150-450); RED BLOOD COUNT 2.81 M/UL (4.70-6.10); RED CELL DISTRIBUTION WIDTH 14.7 % (11.6-14.8); WHITE BLOOD COUNT 8.9 K/UL (4.8-10.8)
--- NOTE | 2019-09-16 07:14 | Pulmonology Progress Note ---
Assessment/Plan Assessment/Plan IMPRESSION: 1. Small left apical pneumothorax. 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 3. Parkinson. 4. Dementia. 5. UTI. 6. Hypernatremia. 7. Left upper extremity cellulitis. 8. Multiple decubitus. 9. Likely NSTEMI DISCUSSION: Noted DNR status. prefer to avoid any further intervention for the small apical left pneumothorax. This may be spontaneous due to his underlying lung disease. Saturations are worse today No respiratory distress or tachypnea Continue antibiotic vancomycin for left upper extremity cellulitis Hydration status addressed by Nephrology. I will follow as day care director. Discussed with daughter Sushma She is agreeable to hospice. Will follow Arun Melvin M.D. Subjective Interval Events: None new Constitutional: Reports: no symptoms HEENT: Repors: no symptoms Respiratory: Reports: no symptoms Cardiovascular: Reports: no symptoms Gastrointestinal/Abdominal: Reports: no symptoms Genitourinary: Reports: no symptoms Allergies: Coded Allergies: AMLODIPINE (Verified Allergy, Unknown, 09/04/19) ASPIRIN (Verified Allergy, Unknown, 09/04/19) BENAZEPRIL (Verified Allergy, Unknown, 09/04/19) Objective Last 24 Hour Vital Signs Date Time Temp Pulse Resp B/P (MAP) Pulse Ox O2 Delivery O2 Flow Rate FiO2 09/16/19 04:55 98.1 88 22 123/91 (102) 97 09/16/19 04:00 94 09/16/19 04:00 98.2 94 16 120/62 (81) 97 09/16/19 00:00 92 09/16/19 00:00 98.1 92 17 110/43 (65) 98 09/15/19 21:00 Venturi Mask 4.0 09/15/19 20:00 98.2 97 18 122/109 (113) 99 09/15/19 20:00 97 09/15/19 19:22 96 Venturi Mask 6.0 35 09/15/19 19:21 79 20 96 Venturi Mask 8.0 40 09/15/19 16:00 96.8 90 20 106/64 (78) 100 09/15/19 16:00 85 09/15/19 12:00 97.2 96 20 113/68 (83) 97 09/15/19 12:00 73 09/15/19 09:00 Venturi Mask 4.0 09/15/19 08:07 95 Venturi Mask 6.0 35 09/15/19 08:06 84 20 95 Venturi Mask 8.0 40 09/15/19 08:00 96.9 91 20 117/66 (83) 97 09/15/19 08:00 85 Intake and Output 09/15/19 09/16/19 19:00 07:00 Intake Total 155 ml Output Total 150 ml Balance -150 ml 155 ml Free Water 50 ml IV Total 55 ml Tube Feeding 50 ml Output Urine Total 150 ml # Bowel Movements 2 1 General Appearance: no acute distress HEENT: normocephalic Respiratory/Chest: chest wall non-tender Cardiovascular: normal peripheral pulses Abdomen: normal bowel sounds Microbiology Date/Time Source Procedure Growth Status 09/14/19 16:10 Blood Blood Culture - Preliminary NO GROWTH AFTER 24 HOURS Resulted 09/14/19 15:45 Sputum Induced Gram Stain - Final Resulted 09/14/19 15:45 Sputum Culture - Preliminary Gram Negative Bacillus 1 Resulted 09/14/19 15:00 Indwelling Cath Urine Culture - Preliminary NO GROWTH Resulted Laboratory Tests 09/16/19 06:50: White Blood Count [Pending], Red Blood Count [Pending], Hemoglobin [Pending], Hematocrit [Pending], Mean Corpuscular Volume [Pending], Mean Corpuscular Hemoglobin [Pending], Mean Corpuscular Hemoglobin Concent [Pending], Red Cell Distribution Width [Pending], Platelet Count [Pending], Mean Platelet Volume [ Pending], Neutrophils (%) (Auto) [Pending], Lymphocytes (%) (Auto) [Pending], Monocytes (%) (Auto) [Pending], Eosinophils (%) (Auto) [Pending], Basophils (%) (Auto) [Pending], Sodium Level [Pending], Potassium Level [Pending], Chloride Level [Pending], Carbon Dioxide Level [Pending], Blood Urea Nitrogen [Pending], Creatinine [Pending], Estimat Glomerular Filtration Rate [Pending], Glucose Level [Pending], Calcium Level [Pending] Current Medications Medications (Trade) Dose Ordered Sig/Kaveh Route PRN Reason Start Time Stop Time Status Last Admin Dose Admin Acetaminophen (Tylenol) 650 mg Q4H PRN GT Mild Pain/Temp > 100.5 09/16/19 06:14 10/16/19 06:13 Acetaminophen (Tylenol) 650 mg Q4H PRN RECTAL Prn Headache/Temp > 101 09/16/19 06:13 10/16/19 06:12 Albuterol/ Ipratropium (Albuterol/ Ipratropium) 3 ml Q6H PRN HHN Shortness of Breath 09/16/19 06:14 09/21/19 06:13 Clopidogrel Bisulfate (Plavix) 75 mg DAILY GT 09/16/19 09:00 10/06/19 10:44 Divalproex Sodium (Depakote Sprinkles) 500 mg EVERY 8 HOURS GT 09/16/19 14:00 10/11/19 13:59 Docusate Sodium (Colace) 100 mg TWICE A DAY GT 09/16/19 09:00 10/11/19 17:59 Folic Acid (Folate) 1 mg DAILY GT 09/16/19 09:00 10/07/19 10:29 Heparin Sodium (Porcine) (Heparin 5000 units/ml) 5,000 units EVERY 8 HOURS SUBQ 09/16/19 14:00 10/06/19 10:29 Lansoprazole (Prevacid) 30 mg BID GT 09/16/19 09:00 10/11/19 08:59 Lorazepam (Ativan 2mg/ml 1ml) 0.5 mg Q6H PRN IV For Anxiety 09/16/19 06:15 09/23/19 06:14 Meropenem 1 gm/ Sodium Chloride 55 ml @ 110 mls/hr Q8HR IVPB 09/16/19 14:00 09/19/19 14:29 Quetiapine Fumarate (SEROqueL) 50 mg Q12HR GT 09/16/19 09:00 10/30/19 08:59 Risperidone (RisperDAL) 0.5 mg Q12H PRN GT agitation 09/16/19 06:15 10/31/19 06:14 Arun Melvin MD Sep 16, 2019 07:14
[2019-09-16 07:29] LABS: ANION GAP 12 mmol/L (5-15); BLOOD UREA NITROGEN 24 mg/dL (7-18); CALCIUM 8.2 MG/DL (8.5-10.1); CARBON DIOXIDE 23 MMOL/L (21-32); CHLORIDE 118 MMOL/L (98-107); CREATININE 1.3 MG/DL (0.55-1.30); POTASSIUM 4.1 MMOL/L (3.5-5.1); SODIUM 153 MMOL/L (136-145)
[2019-09-16] MEDS: Docusate 100mg/10ml Liq GT SCH ×2 (09:00→18:00)
--- NOTE | 2019-09-16 09:35 | Infectious Diseases Prog Note ---
Assessment/Plan Assessment/Plan Assessment: Severe sepsis, sp No evidence of Bacteremia -u/a wbc 40-60, nit neg, leuk +3; ucx p -CXR: Left apical pneumothorax, estimated at 10%. Emphysema. Low grade fever, sp Pneumonia - sputum cx : GNR Leukocytosis, sp - CT C/ A/P wo C : Patchy airspace opacities consistent with pneumonia most notably in the posterior right lower lobe.Trace bilateral pleural effusions. NAGA improving Multiple decubitus.( not infected ) NSTEMI Parkinson's dementia HTN Dm2 Plan: - Cont Merrem # 3 for probable Asp pneumonia ( DDI w Valporic , but no choice and no hx of SZ) -09/13 Sp IV Vancomycin # 11, Zosyn # 6 09/07 Sp Meropenem # 4 08/05 Sp Zosyn #2 -f/u cx (B,U,S) -Monitor CBC/CMP, temperatures -aspiration precautions - PEG is on hold - planing for hospice Subjective Constitutional: Denies: no symptoms, fever, chills, fatigue, anorexia, drenching sweats, other Allergies: Coded Allergies: AMLODIPINE (Verified Allergy, Unknown, 09/04/19) ASPIRIN (Verified Allergy, Unknown, 09/04/19) BENAZEPRIL (Verified Allergy, Unknown, 09/04/19) Subjective sputum cx : GNR nl WBC Objective Vital Signs Last 24 Hour Vital Signs Date Time Temp Pulse Resp B/P (MAP) Pulse Ox O2 Delivery O2 Flow Rate FiO2 09/16/19 04:55 98.1 88 22 123/91 (102) 97 09/16/19 04:00 94 09/16/19 04:00 98.2 94 16 120/62 (81) 97 09/16/19 00:00 92 09/16/19 00:00 98.1 92 17 110/43 (65) 98 09/15/19 21:00 Venturi Mask 4.0 09/15/19 20:00 98.2 97 18 122/109 (113) 99 09/15/19 20:00 97 09/15/19 19:22 96 Venturi Mask 6.0 35 09/15/19 19:21 79 20 96 Venturi Mask 8.0 40 09/15/19 16:00 96.8 90 20 106/64 (78) 100 09/15/19 16:00 85 09/15/19 12:00 97.2 96 20 113/68 (83) 97 09/15/19 12:00 73 Height (Feet): 5 Height (Inches): 11.00 Weight (Pounds): 157 HEENT: anicteric Respiratory/Chest: no respiratory distress Cardiovascular: normal rate Abdomen: soft, non tender Microbiology Date/Time Source Procedure Growth Status 09/14/19 16:10 Blood Blood Culture - Preliminary NO GROWTH AFTER 24 HOURS Resulted 09/14/19 15:45 Sputum Induced Gram Stain - Final Resulted 09/14/19 15:45 Sputum Culture - Preliminary Gram Negative Bacillus 1 Resulted 09/14/19 15:00 Indwelling Cath Urine Culture - Preliminary NO GROWTH AFTER 24 HOURS Resulted Laboratory Tests Test 09/16/19 06:50 White Blood Count 8.9 K/UL (4.8-10.8) Red Blood Count 2.81 M/UL (4.70-6.10) L Hemoglobin 8.3 G/DL (14.2-18.0) L Hematocrit 25.4 % (42.0-52.0) L Mean Corpuscular Volume 90 FL (80-99) Mean Corpuscular Hemoglobin 29.5 PG (27.0-31.0) Mean Corpuscular Hemoglobin Concent 32.6 G/DL (32.0-36.0) Red Cell Distribution Width 14.7 % (11.6-14.8) Platelet Count 399 K/UL (150-450) Mean Platelet Volume 6.7 FL (6.5-10.1) Neutrophils (%) (Auto) 78.9 % (45.0-75.0) H Lymphocytes (%) (Auto) 12.4 % (20.0-45.0) L Monocytes (%) (Auto) 6.8 % (1.0-10.0) Eosinophils (%) (Auto) 1.4 % (0.0-3.0) Basophils (%) (Auto) 0.5 % (0.0-2.0) Sodium Level 153 MMOL/L (136-145) H Potassium Level 4.1 MMOL/L (3.5-5.1) Chloride Level 118 MMOL/L (98-107) H Carbon Dioxide Level 23 MMOL/L (21-32) Anion Gap 12 mmol/L (5-15) Blood Urea Nitrogen 24 mg/dL (7-18) H Creatinine 1.3 MG/DL (0.55-1.30) Estimat Glomerular Filtration Rate 52.5 mL/min (>60) Glucose Level 84 MG/DL (74-106) Calcium Level 8.2 MG/DL (8.5-10.1) L Current Medications Medications (Trade) Dose Ordered Sig/Kaveh Route PRN Reason Start Time Stop Time Status Last Admin Dose Admin Acetaminophen (Tylenol) 650 mg Q4H PRN GT Mild Pain/Temp > 100.5 09/16/19 06:14 10/16/19 06:13 Acetaminophen (Tylenol) 650 mg Q4H PRN RECTAL Prn Headache/Temp > 101 09/16/19 06:13 10/16/19 06:12 Albuterol/ Ipratropium (Albuterol/ Ipratropium) 3 ml Q6H PRN HHN Shortness of Breath 09/16/19 06:14 09/21/19 06:13 Clopidogrel Bisulfate (Plavix) 75 mg DAILY GT 09/16/19 09:00 10/06/19 10:44 Divalproex Sodium (Depakote Sprinkles) 500 mg EVERY 8 HOURS GT 09/16/19 14:00 10/11/19 13:59 Docusate Sodium (Colace) 100 mg TWICE A DAY GT 09/16/19 09:00 10/11/19 17:59 Folic Acid (Folate) 1 mg DAILY GT 09/16/19 09:00 10/07/19 10:29 Heparin Sodium (Porcine) (Heparin 5000 units/ml) 5,000 units EVERY 8 HOURS SUBQ 09/16/19 14:00 10/06/19 10:29 Lansoprazole (Prevacid) 30 mg BID GT 09/16/19 09:00 10/11/19 08:59 Lorazepam (Ativan 2mg/ml 1ml) 0.5 mg Q6H PRN IV For Anxiety 09/16/19 06:15 09/23/19 06:14 Meropenem 1 gm/ Sodium Chloride 55 ml @ 110 mls/hr Q8HR IVPB 09/16/19 14:00 09/19/19 14:29 Quetiapine Fumarate (SEROqueL) 50 mg Q12HR GT 09/16/19 09:00 10/30/19 08:59 Risperidone (RisperDAL) 0.5 mg Q12H PRN GT agitation 09/16/19 06:15 10/31/19 06:14 Hakeem Hugo MD Sep 16, 2019 09:35
--- NOTE | 2019-09-16 10:48 | GI Progress Note ---
Assessment/Plan Problems: (1) Failure to thrive in adult ICD Codes: R62.7 - Adult failure to thrive SNOMED: 778018615 (2) Failure to thrive SNOMED: 02254854 (3) Anemia ICD Codes: D64.9 - Anemia, unspecified SNOMED: 057983544 (4) Dehydration ICD Codes: E86.0 - Dehydration SNOMED: 66456732 (5) Skin lesions ICD Codes: L98.9 - Disorder of the skin and subcutaneous tissue, unspecified SNOMED: 58628279 Status: unchanged Status Narrative Discussed with Dr. Cosby. Assessment/Plan dobhoff clogged, will replace today. NGTF hold peg plans for now given family agreed to hospice The patient was seen and examined at bedside and all new and available data was reviewed in the patients chart. I agree with the above findings, impression and plan. (Patient seen earlier today. Signature stamp does not reflect patient encounter time.). - Arley Cosby MD Subjective Subjective limited Objective Last 24 Hour Vital Signs Date Time Temp Pulse Resp B/P (MAP) Pulse Ox O2 Delivery O2 Flow Rate FiO2 09/16/19 09:42 98 Venturi Mask 6.0 35 09/16/19 09:41 85 20 98 Venturi Mask 6.0 35 09/16/19 04:55 98.1 88 22 123/91 (102) 97 09/16/19 04:00 94 09/16/19 04:00 98.2 94 16 120/62 (81) 97 09/16/19 00:00 92 09/16/19 00:00 98.1 92 17 110/43 (65) 98 09/15/19 21:00 Venturi Mask 4.0 09/15/19 20:00 98.2 97 18 122/109 (113) 99 09/15/19 20:00 97 09/15/19 19:22 96 Venturi Mask 6.0 35 09/15/19 19:21 79 20 96 Venturi Mask 8.0 40 09/15/19 16:00 96.8 90 20 106/64 (78) 100 09/15/19 16:00 85 09/15/19 12:00 97.2 96 20 113/68 (83) 97 09/15/19 12:00 73 Intake and Output 09/15/19 09/16/19 19:00 07:00 Intake Total 155 ml Output Total 150 ml Balance -150 ml 155 ml Free Water 50 ml IV Total 55 ml Tube Feeding 50 ml Output Urine Total 150 ml # Bowel Movements 2 1 Laboratory Tests Test 09/16/19 06:50 White Blood Count 8.9 K/UL (4.8-10.8) Red Blood Count 2.81 M/UL (4.70-6.10) L Hemoglobin 8.3 G/DL (14.2-18.0) L Hematocrit 25.4 % (42.0-52.0) L Mean Corpuscular Volume 90 FL (80-99) Mean Corpuscular Hemoglobin 29.5 PG (27.0-31.0) Mean Corpuscular Hemoglobin Concent 32.6 G/DL (32.0-36.0) Red Cell Distribution Width 14.7 % (11.6-14.8) Platelet Count 399 K/UL (150-450) Mean Platelet Volume 6.7 FL (6.5-10.1) Neutrophils (%) (Auto) 78.9 % (45.0-75.0) H Lymphocytes (%) (Auto) 12.4 % (20.0-45.0) L Monocytes (%) (Auto) 6.8 % (1.0-10.0) Eosinophils (%) (Auto) 1.4 % (0.0-3.0) Basophils (%) (Auto) 0.5 % (0.0-2.0) Sodium Level 153 MMOL/L (136-145) H Potassium Level 4.1 MMOL/L (3.5-5.1) Chloride Level 118 MMOL/L (98-107) H Carbon Dioxide Level 23 MMOL/L (21-32) Anion Gap 12 mmol/L (5-15) Blood Urea Nitrogen 24 mg/dL (7-18) H Creatinine 1.3 MG/DL (0.55-1.30) Estimat Glomerular Filtration Rate 52.5 mL/min (>60) Glucose Level 84 MG/DL (74-106) Calcium Level 8.2 MG/DL (8.5-10.1) L Height (Feet): 5 Height (Inches): 11.00 Weight (Pounds): 157 General Appearance: WD/WN, no apparent distress, alert Cardiovascular: normal rate Respiratory/Chest: normal breath sounds, no respiratory distress Abdominal Exam: normal bowel sounds, non tender, soft Extremities: normal range of motion, non-tender Elvie Payne NP Sep 16, 2019 10:47
--- NOTE | 2019-09-16 12:28 | Nephrology Progress Note ---
Assessment/Plan Problem List: (1) NAGA (acute kidney injury) (2) UTI (urinary tract infection) (3) Elevated troponin (4) Failure to thrive in adult (5) Sepsis (6) Anemia (7) Dehydration Assessment Potassium phosphate in the morning dose 20 mmol Renal failure mostly prerenal Azotemia. May have underlying chronic kidney disease. Hydration. Sepsis leukocytosis. Encephalopathy in the form of toxic and metabolic. Failure to thrive. Albuminemia. Levator troponin. Most likely due to significant cardiac ischemia. Plan Start D5W 75 cc an hour PEG ? Previously Plavix and SQ heparin Nitrates. Continue to monitor renal parameters. Avoid nephrotoxic's. Antibiotics per ID. Felder catheter. Discussed with RN DNR status. Subjective ROS Limited/Unobtainable: No Constitutional: Reports: malaise Objective Objective Last 24 Hour Vital Signs Date Time Temp Pulse Resp B/P (MAP) Pulse Ox O2 Delivery O2 Flow Rate FiO2 09/16/19 09:42 98 Venturi Mask 6.0 35 09/16/19 09:41 85 20 98 Venturi Mask 6.0 35 09/16/19 09:00 Venturi Mask 4.0 09/16/19 08:00 97.9 86 12 114/62 (79) 97 09/16/19 04:55 98.1 88 22 123/91 (102) 97 09/16/19 04:00 94 09/16/19 04:00 98.2 94 16 120/62 (81) 97 09/16/19 00:00 92 09/16/19 00:00 98.1 92 17 110/43 (65) 98 09/15/19 21:00 Venturi Mask 4.0 09/15/19 20:00 98.2 97 18 122/109 (113) 99 09/15/19 20:00 97 09/15/19 19:22 96 Venturi Mask 6.0 35 09/15/19 19:21 79 20 96 Venturi Mask 8.0 40 09/15/19 16:00 96.8 90 20 106/64 (78) 100 09/15/19 16:00 85 Intake and Output 09/15/19 09/16/19 19:00 07:00 Intake Total 155 ml Output Total 150 ml Balance -150 ml 155 ml Free Water 50 ml IV Total 55 ml Tube Feeding 50 ml Output Urine Total 150 ml # Bowel Movements 2 1 Laboratory Tests 09/16/19 06:50: White Blood Count 8.9, Red Blood Count 2.81L, Hemoglobin 8.3L, Hematocrit 25.4L , Mean Corpuscular Volume 90, Mean Corpuscular Hemoglobin 29.5, Mean Corpuscular Hemoglobin Concent 32.6, Red Cell Distribution Width 14.7, Platelet Count 399, Mean Platelet Volume 6.7, Neutrophils (%) (Auto) 78.9H, Lymphocytes ( %) (Auto) 12.4L, Monocytes (%) (Auto) 6.8, Eosinophils (%) (Auto) 1.4, Basophils (%) (Auto) 0.5, Sodium Level 153H, Potassium Level 4.1, Chloride Level 118H, Carbon Dioxide Level 23, Anion Gap 12, Blood Urea Nitrogen 24H, Creatinine 1.3, Estimat Glomerular Filtration Rate 52.5, Glucose Level 84, Calcium Level 8.2L Height (Feet): 5 Height (Inches): 11.00 Weight (Pounds): 157 General Appearance: mild distress EENT: other - NGT is out since it was clogged Cardiovascular: normal rate Respiratory/Chest: decreased breath sounds Abdomen: distended Objective No other change Dariusz Brandt MD Sep 16, 2019 12:27
--- NOTE | 2019-09-16 13:54 | General Progress Note ---
Assessment/Plan Problem List: (1) Anemia ICD Codes: D64.9 - Anemia, unspecified SNOMED: 871286256 (2) Elevated troponin ICD Codes: R79.89 - Other specified abnormal findings of blood chemistry SNOMED: 923047519, 039541164, 166011510 (3) Dehydration ICD Codes: E86.0 - Dehydration SNOMED: 08882622 (4) Sepsis ICD Codes: A41.9 - Sepsis, unspecified organism SNOMED: 27054932 Qualifiers: Qualified Codes: A41.9 - Sepsis, unspecified organism (5) UTI (urinary tract infection) ICD Codes: N39.0 - Urinary tract infection, site not specified SNOMED: 59712581 Qualifiers: Qualified Codes: N30.00 - Acute cystitis without hematuria (6) Failure to thrive in adult ICD Codes: R62.7 - Adult failure to thrive SNOMED: 446112697 (7) NAGA (acute kidney injury) ICD Codes: N17.9 - Acute kidney failure, unspecified SNOMED: 84147696, 0872727 (8) Failure to thrive SNOMED: 66644009 Status: unchanged Assessment/Plan: o2 pulm tx abx cardio pulm f/u prt diet dc w hospice if ok family wishes Subjective Constitutional: Reports: weakness Allergies: Coded Allergies: AMLODIPINE (Verified Allergy, Unknown, 09/04/19) ASPIRIN (Verified Allergy, Unknown, 09/04/19) BENAZEPRIL (Verified Allergy, Unknown, 09/04/19) All Systems: reviewed and negative except above Subjective o2nc ng sleepy Objective Last 24 Hour Vital Signs Date Time Temp Pulse Resp B/P (MAP) Pulse Ox O2 Delivery O2 Flow Rate FiO2 09/16/19 09:42 98 Venturi Mask 6.0 35 09/16/19 09:41 85 20 98 Venturi Mask 6.0 35 09/16/19 09:00 Venturi Mask 4.0 09/16/19 08:00 97.9 86 12 114/62 (79) 97 09/16/19 04:55 98.1 88 22 123/91 (102) 97 09/16/19 04:00 94 09/16/19 04:00 98.2 94 16 120/62 (81) 97 09/16/19 00:00 92 09/16/19 00:00 98.1 92 17 110/43 (65) 98 09/15/19 21:00 Venturi Mask 4.0 09/15/19 20:00 98.2 97 18 122/109 (113) 99 09/15/19 20:00 97 09/15/19 19:22 96 Venturi Mask 6.0 35 09/15/19 19:21 79 20 96 Venturi Mask 8.0 40 09/15/19 16:00 96.8 90 20 106/64 (78) 100 09/15/19 16:00 85 Intake and Output 09/15/19 09/16/19 19:00 07:00 Intake Total 155 ml Output Total 150 ml Balance -150 ml 155 ml Free Water 50 ml IV Total 55 ml Tube Feeding 50 ml Output Urine Total 150 ml # Bowel Movements 2 1 Laboratory Tests 09/16/19 06:50: White Blood Count 8.9, Red Blood Count 2.81L, Hemoglobin 8.3L, Hematocrit 25.4L , Mean Corpuscular Volume 90, Mean Corpuscular Hemoglobin 29.5, Mean Corpuscular Hemoglobin Concent 32.6, Red Cell Distribution Width 14.7, Platelet Count 399, Mean Platelet Volume 6.7, Neutrophils (%) (Auto) 78.9H, Lymphocytes ( %) (Auto) 12.4L, Monocytes (%) (Auto) 6.8, Eosinophils (%) (Auto) 1.4, Basophils (%) (Auto) 0.5, Sodium Level 153H, Potassium Level 4.1, Chloride Level 118H, Carbon Dioxide Level 23, Anion Gap 12, Blood Urea Nitrogen 24H, Creatinine 1.3, Estimat Glomerular Filtration Rate 52.5, Glucose Level 84, Calcium Level 8.2L Height (Feet): 5 Height (Inches): 11.00 Weight (Pounds): 157 General Appearance: lethargic EENT: normal ENT inspection Neck: normal alignment Cardiovascular: normal peripheral pulses, normal rate, regular rhythm Respiratory/Chest: chest wall non-tender, lungs clear, normal breath sounds Abdomen: normal bowel sounds, non tender, soft Extremities: normal inspection Edema: no edema noted Arm (L), no edema noted Arm (R), no edema noted Leg (L), no edema noted Leg (R), no edema noted Pedal (L), no edema noted Pedal (R), no edema noted Generalized Neurologic: motor weakness Skin: normal pigmentation, warm/dry Prabhakar Pond DO Sep 16, 2019 13:54
--- NOTE | 2019-09-16 14:35 | Diagnostic Imaging Report ---
Indication: Post nasogastric feeding tube placement Technique: Supine view of the upper abdomen Comparison: 09/14/2019 Findings: Interim replacement of previously demonstrated weighted gastric feeding tube, shaft coiled in the gastric antrum, tip in the gastric fundus. Considerable gas is seen in nondilated large and small bowel. 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 Impression: Satisfactory position of gastric feeding tube. Findings discussed by phone with Dr. Mcfadden at the time of interpretation
[2019-09-16] MEDS ORDERED: NS 275ml ONE (15:03)
--- NOTE | 2019-09-16 15:13 | Surgery Progress Note ---
Surgery Progress Note Subjective Additional Comments labs improved no n/v/f/c comfortable tube changed and kub noted blood noted in mouth Objective Last 24 Hour Vital Signs Date Time Temp Pulse Resp B/P (MAP) Pulse Ox O2 Delivery O2 Flow Rate FiO2 09/16/19 12:00 97.5 87 12 106/77 (87) 97 09/16/19 09:42 98 Venturi Mask 6.0 35 09/16/19 09:41 85 20 98 Venturi Mask 6.0 35 09/16/19 09:00 Venturi Mask 4.0 09/16/19 08:00 97.9 86 12 114/62 (79) 97 09/16/19 04:55 98.1 88 22 123/91 (102) 97 09/16/19 04:00 94 09/16/19 04:00 98.2 94 16 120/62 (81) 97 09/16/19 00:00 92 09/16/19 00:00 98.1 92 17 110/43 (65) 98 09/15/19 21:00 Venturi Mask 4.0 09/15/19 20:00 98.2 97 18 122/109 (113) 99 09/15/19 20:00 97 09/15/19 19:22 96 Venturi Mask 6.0 35 09/15/19 19:21 79 20 96 Venturi Mask 8.0 40 09/15/19 16:00 96.8 90 20 106/64 (78) 100 09/15/19 16:00 85 I&O Intake and Output 09/15/19 09/16/19 19:00 07:00 Intake Total 155 ml Output Total 150 ml Balance -150 ml 155 ml Free Water 50 ml IV Total 55 ml Tube Feeding 50 ml Output Urine Total 150 ml # Bowel Movements 2 1 Dressing: other Wound: other Drains: other Cardiovascular: RSR Respiratory: decreased breath sounds Abdomen: soft, present bowel sounds Extremities: no cyanosis Laboratory Tests Test 09/16/19 06:50 White Blood Count 8.9 K/UL (4.8-10.8) Red Blood Count 2.81 M/UL (4.70-6.10) L Hemoglobin 8.3 G/DL (14.2-18.0) L Hematocrit 25.4 % (42.0-52.0) L Mean Corpuscular Volume 90 FL (80-99) Mean Corpuscular Hemoglobin 29.5 PG (27.0-31.0) Mean Corpuscular Hemoglobin Concent 32.6 G/DL (32.0-36.0) Red Cell Distribution Width 14.7 % (11.6-14.8) Platelet Count 399 K/UL (150-450) Mean Platelet Volume 6.7 FL (6.5-10.1) Neutrophils (%) (Auto) 78.9 % (45.0-75.0) H Lymphocytes (%) (Auto) 12.4 % (20.0-45.0) L Monocytes (%) (Auto) 6.8 % (1.0-10.0) Eosinophils (%) (Auto) 1.4 % (0.0-3.0) Basophils (%) (Auto) 0.5 % (0.0-2.0) Sodium Level 153 MMOL/L (136-145) H Potassium Level 4.1 MMOL/L (3.5-5.1) Chloride Level 118 MMOL/L (98-107) H Carbon Dioxide Level 23 MMOL/L (21-32) Anion Gap 12 mmol/L (5-15) Blood Urea Nitrogen 24 mg/dL (7-18) H Creatinine 1.3 MG/DL (0.55-1.30) Estimat Glomerular Filtration Rate 52.5 mL/min (>60) Glucose Level 84 MG/DL (74-106) Calcium Level 8.2 MG/DL (8.5-10.1) L Plan Problems: (1) Skin lesions Assessment & Plan: patient presented with multiple skin lesions scrotal edema with cellulitis. pending CT pelvis for eval sacral DTI noted large, skin blistering open now epidermal loss dermis intact left upper extremity epidermal skin blistering open, dermis intact multiple wounds noted on ear, face, chest skin breakdown malnutrition overall prognosis guarded hold on skin biopsy of lesions. 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 Both lower extremities are contracted. Dry Brownish/black capped skin lesion noted to R earlobe ,R cheek and L temporal. Scattered skin lesions that are also dry capped and brownish /black noted to upper chest and bilat upper extremities. Irregular shaped Open DTPI noted to Sacrum. Full thickness ulcer at sacrococcygeal area(L)6cm x (W)5.3cm. Surrounding fluctuant and maroon borders.Measurement including open wound (L)9.5cm x (W)9.2cm No evidence of further skin breakdown periwound. No odor or exudate noted from wound. Resolving pressure injury base of scrotum. Base of wound brayan in center with surrounding moist pink granulation. Scattered biofilm within base of wound.No odor or exudate noted.(L)5.6cm x (W)4.5cm. Open DTPI kermit R tibia. Base of wound is moist and brayan with surrounding fluctuant borders that maroon/purple in colour.(L)9.5cm x (W)2.7cm. Stable dry eschar noted to distal/kermit R tibia(L)2.4cm x (W)1.6cm. Open DTPI noted to R heel(L)3.3cm x (W)3.5cm. Base of wound is moist and brayan in center with small necrotic area. Surrounding borders of wound are purple and fluctuant. Unstageable pressure injury medial aspect of distal L tibia. Base of wound has 90% fibrinous slough with erythematous margins.(L)3.3cm x (W)3.2cm. NO odor or exudate noted. Unstageable pressure injury lateral L malleolus. Base of wound is 100% necrotic and dry.(L)4cm x (W)3.8cm. Tx.Plan: Cleanse Sacral wound with Saline. Apply Therahoney. Apply Moisture Barrier Periwound. Cover with Optifoam drsg daily and prn. Cleanse wound kermit R tibia with Saline. Apply TheraHoney. Apply Cavilon Skin Barrier periwound. Cover with Optifoam drsg every 3 days and prn. Cleanse wound R heel with Saline. Apply Therahoney. Apply Cavilon Skin Barrier periwound. Cover with Optifoam drsg every 3 days and prn. Cleanse wound L tibia with Saline. Apply Therahoney.Apply Cavilon Periwound. Cover with Optifoam drsg every 3 days and prn. Swab Wounds L heel and L lateral malleolus with Betadine. Cover each wound with Optifoam drsg. Change every 3 days and prn. APM/DENICE Mattress overlay. Reposition at least every 2hours or as tolerated. Place pillow between knees. Off-load heels with pillows. nutritional optimization thank you will follow with recs (2) Leukocytosis Assessment & Plan: Patchy airspace opacities consistent with pneumonia most notably in the posterior right lower lobe. Trace bilateral pleural effusions. No pneumothorax. Moderate dilatation of the esophagus. May be related to presence of a feeding tube. Achalasia or distal esophageal strictures are not excludable. Left inguinal hernia containing a portion of the descending colon. No evidence of obstruction. The true extent and size of the hernia is not known as the lower portion of the hernia is below the [id number] of this examination. The hernia should be clinically apparent since the hernia sac is within the left scrotum. Anasarca Right dynamic hip screw. Osteoporosis Degenerative changes of the spine. Small amount of free fluid in the pelvis unknown origin. (3) Sepsis Assessment & Plan: feeding tube replaced blood in mouth seems he has bit his tongue (4) Failure to thrive Assessment & Plan: waiting for xray placement confirmation will start feeds once confirmed (5) Failure to thrive in adult Assessment & Plan: DAILY ESTIMATED NEEDS: Needs based on Wounds, underweight 58.5kg 30-35 kcals/kg 4972-6745 total kcals 1.25-2 g protein/kg 73-117 g total protein 25-30ml/kcal mL/kg 2511-2251 total fluid mLs NUTRITION DIAGNOSIS: Increased kcal and pro needs r/t wound healing and underweight status as evidenced by pt w/ multiple pressure wounds, eval pending, underweight per guidelines w/ generalized moderate-severe wasting, @72% of [place] Body Weight. CURRENT DIET: NPO PO DIET RECOMMENDATIONS: Regular liberalized diet/ texture per BANQUET STEWARDESS ENTERAL NUTRITION RECOMMENDATIONS: * Consult RD if non oral feeds are part of POC * ---- ADDITIONAL RECOMMENDATIONS: 1) Add GLUCERNA 1 tetra TID w/ meals 2) BANQUET STEWARDESS eval 3) F/up w/ WC eval-> rec ANANDA BID w/ diet order 4) RE-calibrate bed scale w/ added P200 mattress for accurate CBW (6) Pneumothorax on left Assessment & Plan: There is a tiny left apical pneumothorax. This appears smaller than on the previous study. Lungs remain clear. Heart is normal in size. Trachea is midline. Aorta is calcified. IMPRESSION: Trace left apical pneumothorax. stable can monitor for now repeat cxr hold on tube for now CT chest when stable Connor Mcfadden Sep 16, 2019 15:13
--- NOTE | 2019-09-16 16:45 | Progress Note ---
DATE: 09/16/2019 SUBJECTIVE: This is an 83-year-old male patient. He has failure to thrive, altered mental status, confusion, decline in cognition below his baseline overall. The patient is in the hospital secondary to dehydration, anemia, failure to thrive, sepsis, urinary tract infection, acute renal injury, pneumothorax on left side, leukocytosis, also iron deficiency anemia, and low albumin. very depressed, confused, disorganized, mood labile. MENTAL STATUS EXAMINATION: This is an 83-year-old male. Appearance is disheveled. Attitude, irritable and agitated. Affect, guarded and restricted. Intellect poor. Mood, depressed and anxious. Motor activity, psychomotor agitation. Attention span is poor. Orientation x2. Speech is low volume, slurred. Thought process, disorganized and illogical. Insight and judgment is poor. DIAGNOSIS: Schizoaffective, bipolar type. PLAN: Treat him with Depakote Sprinkles 500 mg q.8 hours, Ativan 0.5 mg every 6 hours p.r.n. anxiety and agitation, and Seroquel 50 mg twice a day. 20 minutes of reality-based supportive psychotherapy. He is encouraged to interact appropriately with staff and other patients. Chart reviewed. Discussed with staff. Seen and assessed in his room. Cherri De Luna M.D. DR: NCIK JOB#: [id number] CC:
[2019-09-17] VITALS (7 sets, daily range): BP systolic 89–129; BP diastolic 50–75
[2019-09-17] MEDS: Heparin 5000 units/ml inj SUBQ SCH ×4 (06:00→22:18)
[2019-09-17] MEDS: Depakote 125mg Sprinkles GT SCH ×3 (06:00→20:51)
[2019-09-17] MEDS: Meropenem 1 GM in NS 55 ML IVPB SCH ×3 (06:05→22:17)
[2019-09-17 06:18] LABS: BASOPHILS % (AUTO) 0.9 % (0.0-2.0); EOSINOPHILS % (AUTO) 0.6 % (0.0-3.0); HEMATOCRIT 25.4 % (42.0-52.0); HEMOGLOBIN 8.3 G/DL (14.2-18.0); LYMPHOCYTES % (AUTO) 7.8 % (20.0-45.0); MEAN CORPUSCULAR VOLUME 90 FL (80-99); MONOCYTES % (AUTO) 6.3 % (1.0-10.0); NEUTROPHILS % (AUTO) 84.4 % (45.0-75.0); PLATELET COUNT 467 K/UL (150-450); RED BLOOD COUNT 2.82 M/UL (4.70-6.10); RED CELL DISTRIBUTION WIDTH 14.6 % (11.6-14.8); WHITE BLOOD COUNT 13.5 K/UL (4.8-10.8)
[2019-09-17 06:26] LABS: ANION GAP 12 mmol/L (5-15); BLOOD UREA NITROGEN 25 mg/dL (7-18); CALCIUM 8.1 MG/DL (8.5-10.1); CARBON DIOXIDE 22 MMOL/L (21-32); CHLORIDE 116 MMOL/L (98-107); CREATININE 1.3 MG/DL (0.55-1.30); POTASSIUM 3.9 MMOL/L (3.5-5.1); SODIUM 150 MMOL/L (136-145)
[2019-09-17] MEDS: Docusate 100mg/10ml Liq GT SCH ×2 (09:00→18:15)
--- NOTE | 2019-09-17 10:57 | Pulmonology Progress Note ---
Assessment/Plan Assessment/Plan IMPRESSION: 1. Small left apical pneumothorax. 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 3. Parkinson. 4. Dementia. 5. UTI. 6. Hypernatremia. 7. Left upper extremity cellulitis. 8. Multiple decubitus. 9. Likely NSTEMI DISCUSSION: Noted DNR status. prefer to avoid any further intervention for the small apical left pneumothorax. This may be spontaneous due to his underlying lung disease. Will wean down FiO2 as tolerated No respiratory distress or tachypnea Continue antibiotic vancomycin for left upper extremity cellulitis Hydration status addressed by Nephrology. 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 Discussed with daughter Sushma She is agreeable to hospice. Will follow Arun Melvin M.D. Subjective Interval Events: None new Constitutional: Reports: no symptoms HEENT: Repors: no symptoms Respiratory: Reports: no symptoms Cardiovascular: Reports: no symptoms Gastrointestinal/Abdominal: Reports: no symptoms Genitourinary: Reports: no symptoms Allergies: Coded Allergies: AMLODIPINE (Verified Allergy, Unknown, 09/04/19) ASPIRIN (Verified Allergy, Unknown, 09/04/19) BENAZEPRIL (Verified Allergy, Unknown, 09/04/19) Objective Last 24 Hour Vital Signs Date Time Temp Pulse Resp B/P (MAP) Pulse Ox O2 Delivery O2 Flow Rate FiO2 09/17/19 09:00 Venturi Mask 4.0 09/17/19 08:00 97.2 124 25 129/75 (93) 94 09/17/19 07:49 114 22 95 Venturi Mask 8.0 40 09/17/19 07:47 95 Venturi Mask 8.0 40 09/17/19 04:00 97.5 108 24 103/73 (83) 97 09/17/19 00:00 97.6 105 20 120/65 (83) 97 09/16/19 21:00 Venturi Mask 4.0 09/16/19 20:00 120 20 98 Venturi Mask 10.0 45 09/16/19 20:00 97 Venturi Mask 10.0 45 09/16/19 20:00 97.3 110 22 116/69 (85) 97 09/16/19 16:00 98.9 100 20 140/69 (92) 95 09/16/19 12:00 97.5 87 12 106/77 (87) 97 Intake and Output 09/16/19 09/17/19 19:00 07:00 Intake Total 255 ml 225 ml Output Total 800 ml Balance 255 ml -575 ml IV Total 225 ml 225 ml Tube Feeding 30 ml Output Urine Total 800 ml # Voids 1 General Appearance: no acute distress HEENT: normocephalic Respiratory/Chest: chest wall non-tender Cardiovascular: normal peripheral pulses Abdomen: normal bowel sounds Microbiology Date/Time Source Procedure Growth Status 09/14/19 16:10 Blood Blood Culture - Preliminary NO GROWTH AFTER 48 HOURS Resulted 09/14/19 15:45 Sputum Induced Gram Stain - Final Resulted 09/14/19 15:45 Sputum Culture - Preliminary Gram Negative Bacillus 1 Gram Negative Bacillus 2 Resulted 09/14/19 15:00 Indwelling Cath Urine Culture - Final Gram Positive Cocci Complete Laboratory Tests 09/17/19 05:15: White Blood Count 13.5#H, Red Blood Count 2.82L, Hemoglobin 8.3L, Hematocrit 25.4L, Mean Corpuscular Volume 90, Mean Corpuscular Hemoglobin 29.5, Mean Corpuscular Hemoglobin Concent 32.8, Red Cell Distribution Width 14.6, Platelet Count 467H, Mean Platelet Volume 6.5, Neutrophils (%) (Auto) 84.4H, Lymphocytes (%) (Auto) 7.8L, Monocytes (%) (Auto) 6.3, Eosinophils (%) (Auto) 0.6, Basophils (%) (Auto) 0.9, Sodium Level 150H, Potassium Level 3.9, Chloride Level 116H, Carbon Dioxide Level 22, Anion Gap 12, Blood Urea Nitrogen 25H, Creatinine 1.3, Estimat Glomerular Filtration Rate 52.5, Glucose Level 136H, Calcium Level 8.1L Current Medications Medications (Trade) Dose Ordered Sig/Kaveh Route PRN Reason Start Time Stop Time Status Last Admin Dose Admin Acetaminophen (Tylenol) 650 mg Q4H PRN GT Mild Pain/Temp > 100.5 09/16/19 06:14 10/16/19 06:13 Acetaminophen (Tylenol) 650 mg Q4H PRN RECTAL Prn Headache/Temp > 101 09/16/19 06:13 10/16/19 06:12 Albuterol/ Ipratropium (Albuterol/ Ipratropium) 3 ml Q6H PRN HHN Shortness of Breath 09/16/19 06:14 09/21/19 06:13 Clopidogrel Bisulfate (Plavix) 75 mg DAILY GT 09/16/19 09:00 10/06/19 10:44 Dextrose 1,000 ml @ 75 mls/hr [id number] IV 09/16/19 12:30 10/16/19 12:29 09/17/19 06:00 Divalproex Sodium (Depakote Sprinkles) 500 mg EVERY 8 HOURS GT 09/16/19 14:00 10/11/19 13:59 Docusate Sodium (Colace) 100 mg TWICE A DAY GT 09/16/19 09:00 10/11/19 17:59 Folic Acid (Folate) 1 mg DAILY GT 09/16/19 09:00 10/07/19 10:29 Heparin Sodium (Porcine) (Heparin 5000 units/ml) 5,000 units EVERY 8 HOURS SUBQ 09/16/19 14:00 10/06/19 10:29 Lansoprazole (Prevacid) 30 mg BID GT 09/16/19 09:00 10/11/19 08:59 Lorazepam (Ativan 2mg/ml 1ml) 0.5 mg Q6H PRN IV For Anxiety 09/16/19 06:15 09/23/19 06:14 Meropenem 1 gm/ Sodium Chloride 55 ml @ 110 mls/hr Q8HR IVPB 09/16/19 14:00 09/19/19 14:29 09/17/19 06:05 Quetiapine Fumarate (SEROqueL) 50 mg Q12HR GT 09/16/19 09:00 10/30/19 08:59 Risperidone (RisperDAL) 0.5 mg Q12H PRN GT agitation 09/16/19 06:15 10/31/19 06:14 Arun Melvin MD Sep 17, 2019 10:57
--- NOTE | 2019-09-17 11:20 | GI Progress Note ---
Assessment/Plan Problems: (1) Failure to thrive in adult ICD Codes: R62.7 - Adult failure to thrive SNOMED: 170197697 (2) Failure to thrive SNOMED: 83152700 (3) Anemia ICD Codes: D64.9 - Anemia, unspecified SNOMED: 162997700 (4) Dehydration ICD Codes: E86.0 - Dehydration SNOMED: 92777994 (5) Skin lesions ICD Codes: L98.9 - Disorder of the skin and subcutaneous tissue, unspecified SNOMED: 51274432 Status: stable, unchanged Status Narrative Discussed with Dr. Cosby. Assessment/Plan dobhoff clogged again, will replace with GT 12 trinidadian. d/w with S/W >> patient accepted at hospice, pending family consent NGTF No plans for PEG unless family agrees. The patient was seen and examined at bedside and all new and available data was reviewed in the patients chart. I agree with the above findings, impression and plan. (Patient seen earlier today. Signature stamp does not reflect patient encounter time.). - Arley Cosby MD Subjective Subjective limited Objective Last 24 Hour Vital Signs Date Time Temp Pulse Resp B/P (MAP) Pulse Ox O2 Delivery O2 Flow Rate FiO2 09/17/19 09:00 Venturi Mask 4.0 09/17/19 08:00 97.2 124 25 129/75 (93) 94 09/17/19 07:49 114 22 95 Venturi Mask 8.0 40 09/17/19 07:47 95 Venturi Mask 8.0 40 09/17/19 04:00 97.5 108 24 103/73 (83) 97 09/17/19 00:00 97.6 105 20 120/65 (83) 97 09/16/19 21:00 Venturi Mask 4.0 09/16/19 20:00 120 20 98 Venturi Mask 10.0 45 09/16/19 20:00 97 Venturi Mask 10.0 45 09/16/19 20:00 97.3 110 22 116/69 (85) 97 09/16/19 16:00 98.9 100 20 140/69 (92) 95 09/16/19 12:00 97.5 87 12 106/77 (87) 97 Intake and Output 09/16/19 09/17/19 19:00 07:00 Intake Total 255 ml 225 ml Output Total 800 ml Balance 255 ml -575 ml IV Total 225 ml 225 ml Tube Feeding 30 ml Output Urine Total 800 ml # Voids 1 Laboratory Tests Test 09/17/19 05:15 White Blood Count 13.5 K/UL (4.8-10.8) #H Red Blood Count 2.82 M/UL (4.70-6.10) L Hemoglobin 8.3 G/DL (14.2-18.0) L Hematocrit 25.4 % (42.0-52.0) L Mean Corpuscular Volume 90 FL (80-99) Mean Corpuscular Hemoglobin 29.5 PG (27.0-31.0) Mean Corpuscular Hemoglobin Concent 32.8 G/DL (32.0-36.0) Red Cell Distribution Width 14.6 % (11.6-14.8) Platelet Count 467 K/UL (150-450) H Mean Platelet Volume 6.5 FL (6.5-10.1) Neutrophils (%) (Auto) 84.4 % (45.0-75.0) H Lymphocytes (%) (Auto) 7.8 % (20.0-45.0) L Monocytes (%) (Auto) 6.3 % (1.0-10.0) Eosinophils (%) (Auto) 0.6 % (0.0-3.0) Basophils (%) (Auto) 0.9 % (0.0-2.0) Sodium Level 150 MMOL/L (136-145) H Potassium Level 3.9 MMOL/L (3.5-5.1) Chloride Level 116 MMOL/L (98-107) H Carbon Dioxide Level 22 MMOL/L (21-32) Anion Gap 12 mmol/L (5-15) Blood Urea Nitrogen 25 mg/dL (7-18) H Creatinine 1.3 MG/DL (0.55-1.30) Estimat Glomerular Filtration Rate 52.5 mL/min (>60) Glucose Level 136 MG/DL (74-106) H Calcium Level 8.1 MG/DL (8.5-10.1) L Height (Feet): 5 Height (Inches): 11.00 Weight (Pounds): 167 General Appearance: no apparent distress Cardiovascular: normal rate Respiratory/Chest: normal breath sounds, no respiratory distress Abdominal Exam: normal bowel sounds, non tender, soft Extremities: non-tender Elvie Payne NP Sep 17, 2019 11:20
--- NOTE | 2019-09-17 12:20 | Infectious Diseases Prog Note ---
Assessment/Plan Assessment/Plan Assessment: Severe sepsis, sp No evidence of Bacteremia doubt UTI - ucx 10 k GPC Low grade fever, sp Pneumonia - sputum cx : GNR x 2 Leukocytosis, mild - CT C/ A/P wo C : Patchy airspace opacities consistent with pneumonia most notably in the posterior right lower lobe.Trace bilateral pleural effusions. NAGA improving Multiple decubitus.( not infected ) NSTEMI Parkinson's dementia HTN Dm2 Plan: - Cont Merrem # 4 for probable Asp pneumonia ( DDI w Valporic , but no choice and no hx of SZ) -09/13 Sp IV Vancomycin # 11, Zosyn # 6 09/07 Sp Meropenem # 4 08/05 Sp Zosyn #2 -f/u cx (B,U,S) -Monitor CBC/CMP, temperatures -aspiration precautions - PEG is on hold - planing for hospice Subjective Allergies: Coded Allergies: AMLODIPINE (Verified Allergy, Unknown, 09/04/19) ASPIRIN (Verified Allergy, Unknown, 09/04/19) BENAZEPRIL (Verified Allergy, Unknown, 09/04/19) Subjective sputum cx : GNR x 2 mild leukocytosis Objective Vital Signs Last 24 Hour Vital Signs Date Time Temp Pulse Resp B/P (MAP) Pulse Ox O2 Delivery O2 Flow Rate FiO2 09/17/19 09:00 Venturi Mask 4.0 09/17/19 08:00 97.2 124 25 129/75 (93) 94 09/17/19 07:49 114 22 95 Venturi Mask 8.0 40 09/17/19 07:47 95 Venturi Mask 8.0 40 09/17/19 04:00 97.5 108 24 103/73 (83) 97 09/17/19 00:00 97.6 105 20 120/65 (83) 97 09/16/19 21:00 Venturi Mask 4.0 09/16/19 20:00 120 20 98 Venturi Mask 10.0 45 09/16/19 20:00 97 Venturi Mask 10.0 45 09/16/19 20:00 97.3 110 22 116/69 (85) 97 09/16/19 16:00 98.9 100 20 140/69 (92) 95 Height (Feet): 5 Height (Inches): 11.00 Weight (Pounds): 167 General Appearance: no acute distress HEENT: atraumatic Respiratory/Chest: chest wall non-tender, no accessory muscle use Cardiovascular: regular rhythm Abdomen: soft, non tender, no organomegaly Microbiology Date/Time Source Procedure Growth Status 09/14/19 16:10 Blood Blood Culture - Preliminary NO GROWTH AFTER 48 HOURS Resulted 09/14/19 15:45 Sputum Induced Gram Stain - Final Resulted 09/14/19 15:45 Sputum Culture - Preliminary Gram Negative Bacillus 1 Gram Negative Bacillus 2 Resulted 09/14/19 15:00 Indwelling Cath Urine Culture - Final Gram Positive Cocci Complete Laboratory Tests Test 09/17/19 05:15 White Blood Count 13.5 K/UL (4.8-10.8) #H Red Blood Count 2.82 M/UL (4.70-6.10) L Hemoglobin 8.3 G/DL (14.2-18.0) L Hematocrit 25.4 % (42.0-52.0) L Mean Corpuscular Volume 90 FL (80-99) Mean Corpuscular Hemoglobin 29.5 PG (27.0-31.0) Mean Corpuscular Hemoglobin Concent 32.8 G/DL (32.0-36.0) Red Cell Distribution Width 14.6 % (11.6-14.8) Platelet Count 467 K/UL (150-450) H Mean Platelet Volume 6.5 FL (6.5-10.1) Neutrophils (%) (Auto) 84.4 % (45.0-75.0) H Lymphocytes (%) (Auto) 7.8 % (20.0-45.0) L Monocytes (%) (Auto) 6.3 % (1.0-10.0) Eosinophils (%) (Auto) 0.6 % (0.0-3.0) Basophils (%) (Auto) 0.9 % (0.0-2.0) Sodium Level 150 MMOL/L (136-145) H Potassium Level 3.9 MMOL/L (3.5-5.1) Chloride Level 116 MMOL/L (98-107) H Carbon Dioxide Level 22 MMOL/L (21-32) Anion Gap 12 mmol/L (5-15) Blood Urea Nitrogen 25 mg/dL (7-18) H Creatinine 1.3 MG/DL (0.55-1.30) Estimat Glomerular Filtration Rate 52.5 mL/min (>60) Glucose Level 136 MG/DL (74-106) H Calcium Level 8.1 MG/DL (8.5-10.1) L Current Medications Medications (Trade) Dose Ordered Sig/Kaveh Route PRN Reason Start Time Stop Time Status Last Admin Dose Admin Acetaminophen (Tylenol) 650 mg Q4H PRN GT Mild Pain/Temp > 100.5 09/16/19 06:14 10/16/19 06:13 Acetaminophen (Tylenol) 650 mg Q4H PRN RECTAL Prn Headache/Temp > 101 09/16/19 06:13 10/16/19 06:12 Albuterol/ Ipratropium (Albuterol/ Ipratropium) 3 ml Q6H PRN HHN Shortness of Breath 09/16/19 06:14 09/21/19 06:13 Clopidogrel Bisulfate (Plavix) 75 mg DAILY GT 09/16/19 09:00 10/06/19 10:44 Dextrose 1,000 ml @ 75 mls/hr [id number] IV 09/16/19 12:30 10/16/19 12:29 09/17/19 06:00 Divalproex Sodium (Depakote Sprinkles) 500 mg EVERY 8 HOURS GT 09/16/19 14:00 10/11/19 13:59 Docusate Sodium (Colace) 100 mg TWICE A DAY GT 09/16/19 09:00 10/11/19 17:59 Folic Acid (Folate) 1 mg DAILY GT 09/16/19 09:00 10/07/19 10:29 Heparin Sodium (Porcine) (Heparin 5000 units/ml) 5,000 units EVERY 8 HOURS SUBQ 09/16/19 14:00 10/06/19 10:29 Lansoprazole (Prevacid) 30 mg BID GT 09/16/19 09:00 10/11/19 08:59 Lorazepam (Ativan 2mg/ml 1ml) 0.5 mg Q6H PRN IV For Anxiety 09/16/19 06:15 09/23/19 06:14 Meropenem 1 gm/ Sodium Chloride 55 ml @ 110 mls/hr Q8HR IVPB 09/16/19 14:00 09/19/19 14:29 09/17/19 06:05 Quetiapine Fumarate (SEROqueL) 50 mg Q12HR GT 09/16/19 09:00 10/30/19 08:59 Risperidone (RisperDAL) 0.5 mg Q12H PRN GT agitation 09/16/19 06:15 10/31/19 06:14 Hakeem Hugo MD Sep 17, 2019 12:20
--- NOTE | 2019-09-17 13:24 | General Progress Note ---
Assessment/Plan Problem List: (1) Anemia ICD Codes: D64.9 - Anemia, unspecified SNOMED: 861276340 (2) Elevated troponin ICD Codes: R79.89 - Other specified abnormal findings of blood chemistry SNOMED: 048923583, 266329753, 418363356 (3) Dehydration ICD Codes: E86.0 - Dehydration SNOMED: 08713650 (4) Sepsis ICD Codes: A41.9 - Sepsis, unspecified organism SNOMED: 18387036 Qualifiers: Qualified Codes: A41.9 - Sepsis, unspecified organism (5) UTI (urinary tract infection) ICD Codes: N39.0 - Urinary tract infection, site not specified SNOMED: 79317499 Qualifiers: Qualified Codes: N30.00 - Acute cystitis without hematuria (6) Failure to thrive in adult ICD Codes: R62.7 - Adult failure to thrive SNOMED: 051863091 (7) NAGA (acute kidney injury) ICD Codes: N17.9 - Acute kidney failure, unspecified SNOMED: 73017928, 5849725 (8) Failure to thrive SNOMED: 63634531 Status: unchanged Assessment/Plan: o2 pulm tx abx cardio pulm f/u prt diet dc w hospice if ok family wishes Subjective Constitutional: Reports: weakness Allergies: Coded Allergies: AMLODIPINE (Verified Allergy, Unknown, 09/04/19) ASPIRIN (Verified Allergy, Unknown, 09/04/19) BENAZEPRIL (Verified Allergy, Unknown, 09/04/19) All Systems: reviewed and negative except above Subjective o2nc ng sleepy Objective Last 24 Hour Vital Signs Date Time Temp Pulse Resp B/P (MAP) Pulse Ox O2 Delivery O2 Flow Rate FiO2 09/17/19 09:00 Venturi Mask 4.0 09/17/19 08:00 97.2 124 25 129/75 (93) 94 09/17/19 07:49 114 22 95 Venturi Mask 8.0 40 09/17/19 07:47 95 Venturi Mask 8.0 40 09/17/19 04:00 97.5 108 24 103/73 (83) 97 09/17/19 00:00 97.6 105 20 120/65 (83) 97 09/16/19 21:00 Venturi Mask 4.0 09/16/19 20:00 120 20 98 Venturi Mask 10.0 45 09/16/19 20:00 97 Venturi Mask 10.0 45 09/16/19 20:00 97.3 110 22 116/69 (85) 97 09/16/19 16:00 98.9 100 20 140/69 (92) 95 Intake and Output 09/16/19 09/17/19 19:00 07:00 Intake Total 255 ml 225 ml Output Total 800 ml Balance 255 ml -575 ml IV Total 225 ml 225 ml Tube Feeding 30 ml Output Urine Total 800 ml # Voids 1 Laboratory Tests 09/17/19 05:15: White Blood Count 13.5#H, Red Blood Count 2.82L, Hemoglobin 8.3L, Hematocrit 25.4L, Mean Corpuscular Volume 90, Mean Corpuscular Hemoglobin 29.5, Mean Corpuscular Hemoglobin Concent 32.8, Red Cell Distribution Width 14.6, Platelet Count 467H, Mean Platelet Volume 6.5, Neutrophils (%) (Auto) 84.4H, Lymphocytes (%) (Auto) 7.8L, Monocytes (%) (Auto) 6.3, Eosinophils (%) (Auto) 0.6, Basophils (%) (Auto) 0.9, Sodium Level 150H, Potassium Level 3.9, Chloride Level 116H, Carbon Dioxide Level 22, Anion Gap 12, Blood Urea Nitrogen 25H, Creatinine 1.3, Estimat Glomerular Filtration Rate 52.5, Glucose Level 136H, Calcium Level 8.1L Height (Feet): 5 Height (Inches): 11.00 Weight (Pounds): 167 General Appearance: lethargic EENT: normal ENT inspection Neck: normal alignment Cardiovascular: normal peripheral pulses, normal rate, regular rhythm Respiratory/Chest: chest wall non-tender, decreased breath sounds Abdomen: normal bowel sounds, non tender, soft Extremities: normal inspection Edema: no edema noted Arm (L), no edema noted Arm (R), no edema noted Leg (L), no edema noted Leg (R), no edema noted Pedal (L), no edema noted Pedal (R), no edema noted Generalized Neurologic: motor weakness Skin: normal pigmentation, warm/dry Prabhakar Pond DO Sep 17, 2019 13:24
--- NOTE | 2019-09-17 14:58 | Nephrology Progress Note ---
Assessment/Plan Problem List: (1) NAGA (acute kidney injury) (2) UTI (urinary tract infection) (3) Elevated troponin (4) Failure to thrive in adult (5) Sepsis (6) Anemia (7) Dehydration Assessment Potassium phosphate in the morning dose 20 mmol Renal failure mostly prerenal Azotemia. May have underlying chronic kidney disease. Hydration. Sepsis leukocytosis. Encephalopathy in the form of toxic and metabolic. Failure to thrive. Albuminemia. Levator troponin. Most likely due to significant cardiac ischemia. Plan Start D5W 75 cc an hour. Will discontinue when feeding starts Patient has NG tube again placed waiting for radiological confirmation PEG ? Previously Plavix and SQ heparin Nitrates. Continue to monitor renal parameters. Avoid nephrotoxic's. Antibiotics per ID. Felder catheter. Discussed with RN DNR status. Subjective ROS Limited/Unobtainable: No Constitutional: Reports: malaise, weakness Objective Objective Last 24 Hour Vital Signs Date Time Temp Pulse Resp B/P (MAP) Pulse Ox O2 Delivery O2 Flow Rate FiO2 09/17/19 12:00 97.6 105 20 120/65 (83) 97 09/17/19 09:00 Venturi Mask 4.0 09/17/19 08:00 97.2 124 25 129/75 (93) 94 09/17/19 07:49 114 22 95 Venturi Mask 8.0 40 09/17/19 07:47 95 Venturi Mask 8.0 40 09/17/19 04:00 97.5 108 24 103/73 (83) 97 09/17/19 00:00 97.6 105 20 120/65 (83) 97 09/16/19 21:00 Venturi Mask 4.0 09/16/19 20:00 120 20 98 Venturi Mask 10.0 45 09/16/19 20:00 97 Venturi Mask 10.0 45 09/16/19 20:00 97.3 110 22 116/69 (85) 97 09/16/19 16:00 98.9 100 20 140/69 (92) 95 Intake and Output 09/16/19 09/17/19 19:00 07:00 Intake Total 255 ml 225 ml Output Total 800 ml Balance 255 ml -575 ml IV Total 225 ml 225 ml Tube Feeding 30 ml Output Urine Total 800 ml # Voids 1 Current Medications Medications (Trade) Dose Ordered Sig/Kaveh Route PRN Reason Start Time Stop Time Status Last Admin Dose Admin Acetaminophen (Tylenol) 650 mg Q4H PRN GT Mild Pain/Temp > 100.5 09/16/19 06:14 10/16/19 06:13 Acetaminophen (Tylenol) 650 mg Q4H PRN RECTAL Prn Headache/Temp > 101 09/16/19 06:13 10/16/19 06:12 Albuterol/ Ipratropium (Albuterol/ Ipratropium) 3 ml Q6H PRN HHN Shortness of Breath 09/16/19 06:14 09/21/19 06:13 Clopidogrel Bisulfate (Plavix) 75 mg DAILY GT 09/16/19 09:00 10/06/19 10:44 Dextrose 1,000 ml @ 75 mls/hr [id number] IV 09/16/19 12:30 10/16/19 12:29 09/17/19 06:00 Divalproex Sodium (Depakote Sprinkles) 500 mg EVERY 8 HOURS GT 09/16/19 14:00 10/11/19 13:59 Docusate Sodium (Colace) 100 mg TWICE A DAY GT 09/16/19 09:00 10/11/19 17:59 Folic Acid (Folate) 1 mg DAILY GT 09/16/19 09:00 10/07/19 10:29 Heparin Sodium (Porcine) (Heparin 5000 units/ml) 5,000 units EVERY 8 HOURS SUBQ 09/16/19 14:00 10/06/19 10:29 Lansoprazole (Prevacid) 30 mg BID GT 09/16/19 09:00 10/11/19 08:59 Lorazepam (Ativan 2mg/ml 1ml) 0.5 mg Q6H PRN IV For Anxiety 09/16/19 06:15 09/23/19 06:14 Meropenem 1 gm/ Sodium Chloride 55 ml @ 110 mls/hr Q8HR IVPB 09/16/19 14:00 09/19/19 14:29 09/17/19 06:05 Quetiapine Fumarate (SEROqueL) 50 mg Q12HR GT 09/16/19 09:00 10/30/19 08:59 Risperidone (RisperDAL) 0.5 mg Q12H PRN GT agitation 09/16/19 06:15 10/31/19 06:14 Laboratory Tests 09/17/19 05:15: White Blood Count 13.5#H, Red Blood Count 2.82L, Hemoglobin 8.3L, Hematocrit 25.4L, Mean Corpuscular Volume 90, Mean Corpuscular Hemoglobin 29.5, Mean Corpuscular Hemoglobin Concent 32.8, Red Cell Distribution Width 14.6, Platelet Count 467H, Mean Platelet Volume 6.5, Neutrophils (%) (Auto) 84.4H, Lymphocytes (%) (Auto) 7.8L, Monocytes (%) (Auto) 6.3, Eosinophils (%) (Auto) 0.6, Basophils (%) (Auto) 0.9, Sodium Level 150H, Potassium Level 3.9, Chloride Level 116H, Carbon Dioxide Level 22, Anion Gap 12, Blood Urea Nitrogen 25H, Creatinine 1.3, Estimat Glomerular Filtration Rate 52.5, Glucose Level 136H, Calcium Level 8.1L Height (Feet): 5 Height (Inches): 11.00 Weight (Pounds): 167 General Appearance: lethargic, mild distress EENT: other - NG tube is placed due for radiological confirmation Cardiovascular: tachycardia Respiratory/Chest: decreased breath sounds Abdomen: distended Objective No other change Dariusz Brandt MD Sep 17, 2019 14:58
--- NOTE | 2019-09-17 15:16 | Diagnostic Imaging Report ---
Indication: Post nasogastric tube placement Technique: Supine view of the abdomen Comparison: 09/16/2019 Findings: Interim replacement of previously demonstrated nasogastric tube with a new large bore tube. This projects at the level of the gastric fundus, proximal sidehole well beyond the gastroesophageal junction. Bowel gas pattern is unremarkable. Incidentally noted are bilateral pleural effusions and hazy pulmonary parenchymal disease. Impression: Satisfactory nasogastric intubation. Patient's nurse notified at the time of interpretation Other findings as noted
--- NOTE | 2019-09-17 15:49 | Surgery Progress Note ---
Surgery Progress Note Subjective Additional Comments KUB reviewed. Tube okay. Leukocytosis. No active bleeding in the mouth. Ill- appearing and uncomfortable. Prognosis guarded. Objective Last 24 Hour Vital Signs Date Time Temp Pulse Resp B/P (MAP) Pulse Ox O2 Delivery O2 Flow Rate FiO2 09/17/19 12:00 97.6 105 20 120/65 (83) 97 09/17/19 09:00 Venturi Mask 4.0 09/17/19 08:00 97.2 124 25 129/75 (93) 94 09/17/19 07:49 114 22 95 Venturi Mask 8.0 40 09/17/19 07:47 95 Venturi Mask 8.0 40 09/17/19 04:00 97.5 108 24 103/73 (83) 97 09/17/19 00:00 97.6 105 20 120/65 (83) 97 09/16/19 21:00 Venturi Mask 4.0 09/16/19 20:00 120 20 98 Venturi Mask 10.0 45 09/16/19 20:00 97 Venturi Mask 10.0 45 09/16/19 20:00 97.3 110 22 116/69 (85) 97 09/16/19 16:00 98.9 100 20 140/69 (92) 95 I&O Intake and Output 09/16/19 09/17/19 19:00 07:00 Intake Total 255 ml 225 ml Output Total 800 ml Balance 255 ml -575 ml IV Total 225 ml 225 ml Tube Feeding 30 ml Output Urine Total 800 ml # Voids 1 Dressing: saturated Wound: other Drains: other Cardiovascular: RSR Respiratory: decreased breath sounds Abdomen: soft, present bowel sounds Extremities: no cyanosis Laboratory Tests Test 09/17/19 05:15 White Blood Count 13.5 K/UL (4.8-10.8) #H Red Blood Count 2.82 M/UL (4.70-6.10) L Hemoglobin 8.3 G/DL (14.2-18.0) L Hematocrit 25.4 % (42.0-52.0) L Mean Corpuscular Volume 90 FL (80-99) Mean Corpuscular Hemoglobin 29.5 PG (27.0-31.0) Mean Corpuscular Hemoglobin Concent 32.8 G/DL (32.0-36.0) Red Cell Distribution Width 14.6 % (11.6-14.8) Platelet Count 467 K/UL (150-450) H Mean Platelet Volume 6.5 FL (6.5-10.1) Neutrophils (%) (Auto) 84.4 % (45.0-75.0) H Lymphocytes (%) (Auto) 7.8 % (20.0-45.0) L Monocytes (%) (Auto) 6.3 % (1.0-10.0) Eosinophils (%) (Auto) 0.6 % (0.0-3.0) Basophils (%) (Auto) 0.9 % (0.0-2.0) Sodium Level 150 MMOL/L (136-145) H Potassium Level 3.9 MMOL/L (3.5-5.1) Chloride Level 116 MMOL/L (98-107) H Carbon Dioxide Level 22 MMOL/L (21-32) Anion Gap 12 mmol/L (5-15) Blood Urea Nitrogen 25 mg/dL (7-18) H Creatinine 1.3 MG/DL (0.55-1.30) Estimat Glomerular Filtration Rate 52.5 mL/min (>60) Glucose Level 136 MG/DL (74-106) H Calcium Level 8.1 MG/DL (8.5-10.1) L Plan Problems: (1) Skin lesions Assessment & Plan: patient presented with multiple skin lesions scrotal edema with cellulitis. pending CT pelvis for eval sacral DTI noted large, skin blistering open now epidermal loss dermis intact left upper extremity epidermal skin blistering open, dermis intact multiple wounds noted on ear, face, chest skin breakdown malnutrition overall prognosis guarded hold on skin biopsy of lesions. 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 Both lower extremities are contracted. Dry Brownish/black capped skin lesion noted to R earlobe ,R cheek and L temporal. Scattered skin lesions that are also dry capped and brownish /black noted to upper chest and bilat upper extremities. Irregular shaped Open DTPI noted to Sacrum. Full thickness ulcer at sacrococcygeal area(L)6cm x (W)5.3cm. Surrounding fluctuant and maroon borders.Measurement including open wound (L)9.5cm x (W)9.2cm No evidence of further skin breakdown periwound. No odor or exudate noted from wound. Resolving pressure injury base of scrotum. Base of wound brayan in center with surrounding moist pink granulation. Scattered biofilm within base of wound.No odor or exudate noted.(L)5.6cm x (W)4.5cm. Open DTPI kermit R tibia. Base of wound is moist and brayan with surrounding fluctuant borders that maroon/purple in colour.(L)9.5cm x (W)2.7cm. Stable dry eschar noted to distal/kermit R tibia(L)2.4cm x (W)1.6cm. Open DTPI noted to R heel(L)3.3cm x (W)3.5cm. Base of wound is moist and brayan in center with small necrotic area. Surrounding borders of wound are purple and fluctuant. Unstageable pressure injury medial aspect of distal L tibia. Base of wound has 90% fibrinous slough with erythematous margins.(L)3.3cm x (W)3.2cm. NO odor or exudate noted. Unstageable pressure injury lateral L malleolus. Base of wound is 100% necrotic and dry.(L)4cm x (W)3.8cm. Tx.Plan: Cleanse Sacral wound with Saline. Apply Therahoney. Apply Moisture Barrier Periwound. Cover with Optifoam drsg daily and prn. Cleanse wound kermit R tibia with Saline. Apply TheraHoney. Apply Cavilon Skin Barrier periwound. Cover with Optifoam drsg every 3 days and prn. Cleanse wound R heel with Saline. Apply Therahoney. Apply Cavilon Skin Barrier periwound. Cover with Optifoam drsg every 3 days and prn. Cleanse wound L tibia with Saline. Apply Therahoney.Apply Cavilon Periwound. Cover with Optifoam drsg every 3 days and prn. Swab Wounds L heel and L lateral malleolus with Betadine. Cover each wound with Optifoam drsg. Change every 3 days and prn. APM/DENICE Mattress overlay. Reposition at least every 2hours or as tolerated. Place pillow between knees. Off-load heels with pillows. nutritional optimization thank you will follow with recs (2) Leukocytosis Assessment & Plan: Patchy airspace opacities consistent with pneumonia most notably in the posterior right lower lobe. Trace bilateral pleural effusions. No pneumothorax. Moderate dilatation of the esophagus. May be related to presence of a feeding tube. Achalasia or distal esophageal strictures are not excludable. Left inguinal hernia containing a portion of the descending colon. No evidence of obstruction. The true extent and size of the hernia is not known as the lower portion of the hernia is below the [id number] of this examination. The hernia should be clinically apparent since the hernia sac is within the left scrotum. Anasarca Right dynamic hip screw. Osteoporosis Degenerative changes of the spine. Small amount of free fluid in the pelvis unknown origin. (3) Sepsis Assessment & Plan: feeding tube replaced blood in mouth seems he has bit his tongue (4) Failure to thrive Assessment & Plan: waiting for xray placement confirmation will start feeds once confirmed (5) Failure to thrive in adult Assessment & Plan: DAILY ESTIMATED NEEDS: Needs based on Wounds, underweight 58.5kg 30-35 kcals/kg 0719-0083 total kcals 1.25-2 g protein/kg 73-117 g total protein 25-30ml/kcal mL/kg 0332-8454 total fluid mLs NUTRITION DIAGNOSIS: Increased kcal and pro needs r/t wound healing and underweight status as evidenced by pt w/ multiple pressure wounds, eval pending, underweight per guidelines w/ generalized moderate-severe wasting, @72% of [place] Body Weight. CURRENT DIET: NPO PO DIET RECOMMENDATIONS: Regular liberalized diet/ texture per FURNITURE REPAIR TECHNICIAN ENTERAL NUTRITION RECOMMENDATIONS: * Consult RD if non oral feeds are part of POC * ---- ADDITIONAL RECOMMENDATIONS: 1) Add GLUCERNA 1 tetra TID w/ meals 2) FURNITURE REPAIR TECHNICIAN eval 3) F/up w/ WC eval-> rec ANANDA BID w/ diet order 4) RE-calibrate bed scale w/ added P200 mattress for accurate CBW (6) Pneumothorax on left Assessment & Plan: There is a tiny left apical pneumothorax. This appears smaller than on the previous study. Lungs remain clear. Heart is normal in size. Trachea is midline. Aorta is calcified. IMPRESSION: Trace left apical pneumothorax. stable can monitor for now repeat cxr hold on tube for now CT chest when stable Connor Mcfadden Sep 17, 2019 15:49
--- NOTE | 2019-09-17 19:38 | Cardiology Progress Note ---
Assessment/Plan Assessment/Plan Small left apical pneumothorax. 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 Parkinson. Dementia. UTI. Hypernatremia. Left upper extremity cellulitis. Multiple decubitus. NSTEMI hypotension bp ilwo agian will rebolus ns dnr supposed to be going home with hospice no candidate for any invasive therapy Subjective ROS Limited/Unobtainable: Yes Subjective manisha goldstein Objective Last 24 Hour Vital Signs Date Time Temp Pulse Resp B/P (MAP) Pulse Ox O2 Delivery O2 Flow Rate FiO2 09/17/19 16:00 97.0 94 18 94/58 (70) 95 09/17/19 12:00 98.1 94 20 89/65 (73) 95 09/17/19 09:00 Venturi Mask 4.0 09/17/19 08:00 97.2 124 25 129/75 (93) 94 09/17/19 07:49 114 22 95 Venturi Mask 8.0 40 09/17/19 07:47 95 Venturi Mask 8.0 40 09/17/19 04:00 97.5 108 24 103/73 (83) 97 09/17/19 00:00 97.6 105 20 120/65 (83) 97 09/16/19 21:00 Venturi Mask 4.0 09/16/19 20:00 120 20 98 Venturi Mask 10.0 45 09/16/19 20:00 97 Venturi Mask 10.0 45 09/16/19 20:00 97.3 110 22 116/69 (85) 97 General Appearance: no apparent distress, patient on isolation Intake and Output 09/16/19 09/17/19 19:00 07:00 Intake Total 255 ml 225 ml Output Total 800 ml Balance 255 ml -575 ml IV Total 225 ml 225 ml Tube Feeding 30 ml Output Urine Total 800 ml # Voids 1 Laboratory Tests Test 09/17/19 05:15 White Blood Count 13.5 K/UL (4.8-10.8) #H Red Blood Count 2.82 M/UL (4.70-6.10) L Hemoglobin 8.3 G/DL (14.2-18.0) L Hematocrit 25.4 % (42.0-52.0) L Mean Corpuscular Volume 90 FL (80-99) Mean Corpuscular Hemoglobin 29.5 PG (27.0-31.0) Mean Corpuscular Hemoglobin Concent 32.8 G/DL (32.0-36.0) Red Cell Distribution Width 14.6 % (11.6-14.8) Platelet Count 467 K/UL (150-450) H Mean Platelet Volume 6.5 FL (6.5-10.1) Neutrophils (%) (Auto) 84.4 % (45.0-75.0) H Lymphocytes (%) (Auto) 7.8 % (20.0-45.0) L Monocytes (%) (Auto) 6.3 % (1.0-10.0) Eosinophils (%) (Auto) 0.6 % (0.0-3.0) Basophils (%) (Auto) 0.9 % (0.0-2.0) Sodium Level 150 MMOL/L (136-145) H Potassium Level 3.9 MMOL/L (3.5-5.1) Chloride Level 116 MMOL/L (98-107) H Carbon Dioxide Level 22 MMOL/L (21-32) Anion Gap 12 mmol/L (5-15) Blood Urea Nitrogen 25 mg/dL (7-18) H Creatinine 1.3 MG/DL (0.55-1.30) Estimat Glomerular Filtration Rate 52.5 mL/min (>60) Glucose Level 136 MG/DL (74-106) H Calcium Level 8.1 MG/DL (8.5-10.1) Ronnie Smith MD Sep 17, 2019 19:38
[2019-09-17] MEDS ORDERED: NS 250 ML IVPB ONE (19:45)
[2019-09-18] VITALS (7 sets, daily range): BP systolic 70–139; BP diastolic 44–57
--- NOTE | 2019-09-18 04:00 | Progress Note ---
DATE: 09/17/2019 SUBJECTIVE: The patient was seen in the hospital. The patient is noncommunicative, in isolation. OBJECTIVE: VITAL SIGNS: Blood pressure 116/69 with the heart rate of 110 and temperature of 97.3. GENERAL: Appears to be comfortable. His IV fluids to be continued. Await discharge to home. Ronnie Lamb M.D. DR: XOCHILT JOB#: [id number] CC:
[2019-09-18] MEDS: Meropenem 1 GM in NS 55 ML IVPB SCH (05:28)
[2019-09-18] MEDS: Depakote 125mg Sprinkles GT SCH ×3 (05:35→22:00)
[2019-09-18] MEDS: Heparin 5000 units/ml inj SUBQ SCH ×3 (05:36→22:00)
[2019-09-18 07:04] LABS: BASOPHILS % (AUTO) 0.7 % (0.0-2.0); EOSINOPHILS % (AUTO) 0.9 % (0.0-3.0); HEMATOCRIT 24.7 % (42.0-52.0); HEMOGLOBIN 8.2 G/DL (14.2-18.0); LYMPHOCYTES % (AUTO) 10.2 % (20.0-45.0); MEAN CORPUSCULAR VOLUME 90 FL (80-99); MONOCYTES % (AUTO) 5.2 % (1.0-10.0); PLATELET COUNT 352 K/UL (150-450); RED BLOOD COUNT 2.74 M/UL (4.70-6.10); RED CELL DISTRIBUTION WIDTH 14.5 % (11.6-14.8); WHITE BLOOD COUNT 12.3 K/UL (4.8-10.8)
[2019-09-18 07:15] LABS: ANION GAP 9 mmol/L (5-15); BLOOD UREA NITROGEN 31 mg/dL (7-18); CALCIUM 7.9 MG/DL (8.5-10.1); CARBON DIOXIDE 24 MMOL/L (21-32); CHLORIDE 115 MMOL/L (98-107); CREATININE 1.5 MG/DL (0.55-1.30); PHOSPHORUS 2.2 MG/DL (2.5-4.9); POTASSIUM 3.8 MMOL/L (3.5-5.1); SODIUM 148 MMOL/L (136-145)
--- NOTE | 2019-09-18 08:43 | General Progress Note ---
Assessment/Plan Problem List: (1) Anemia ICD Codes: D64.9 - Anemia, unspecified SNOMED: 320987022 (2) Elevated troponin ICD Codes: R79.89 - Other specified abnormal findings of blood chemistry SNOMED: 089518838, 564998513, 113274328 (3) Dehydration ICD Codes: E86.0 - Dehydration SNOMED: 83815773 (4) Sepsis ICD Codes: A41.9 - Sepsis, unspecified organism SNOMED: 87640839 Qualifiers: Qualified Codes: A41.9 - Sepsis, unspecified organism (5) UTI (urinary tract infection) ICD Codes: N39.0 - Urinary tract infection, site not specified SNOMED: 30463217 Qualifiers: Qualified Codes: N30.00 - Acute cystitis without hematuria (6) Failure to thrive in adult ICD Codes: R62.7 - Adult failure to thrive SNOMED: 720947298 (7) NAGA (acute kidney injury) ICD Codes: N17.9 - Acute kidney failure, unspecified SNOMED: 81917534, 0553168 (8) Failure to thrive SNOMED: 75744183 Status: unchanged Assessment/Plan: o2 pulm tx abx cardio pulm f/u prt diet dc w hospice if ok family wishes, ns bolus for low bp, contact cardio pulm Subjective Constitutional: Reports: weakness Allergies: Coded Allergies: AMLODIPINE (Verified Allergy, Unknown, 09/04/19) ASPIRIN (Verified Allergy, Unknown, 09/04/19) BENAZEPRIL (Verified Allergy, Unknown, 09/04/19) All Systems: reviewed and negative except above Subjective o2nc ng sleepy Objective Last 24 Hour Vital Signs Date Time Temp Pulse Resp B/P (MAP) Pulse Ox O2 Delivery O2 Flow Rate FiO2 09/18/19 07:23 93 Nasal Cannula 3.0 32 09/18/19 07:23 95 20 93 Nasal Cannula 3.0 32 09/18/19 04:00 98.6 92 20 96/56 (69) 96 09/17/19 23:56 99.0 95 20 102/50 (67) 96 09/17/19 21:22 Venturi Mask 4.0 09/17/19 20:17 93 Nasal Cannula 4.0 36 09/17/19 20:06 100 20 92 Nasal Cannula 4.0 36 09/17/19 20:00 99.1 94 22 92/55 (67) 98 09/17/19 16:00 97.0 94 18 94/58 (70) 95 09/17/19 12:00 98.1 94 20 89/65 (73) 95 09/17/19 09:00 Venturi Mask 4.0 Intake and Output 09/17/19 09/18/19 19:00 07:00 Intake Total 917.5 ml 210 ml Output Total 225 ml 425 ml Balance 692.5 ml -215 ml Free Water 50 ml 50 ml IV Total 767.5 ml Tube Feeding 100 ml 160 ml Output Urine Total 225 ml 425 ml # Voids 1 # Bowel Movements 1 Laboratory Tests 09/18/19 05:35: White Blood Count 12.3H, Red Blood Count 2.74L, Hemoglobin 8.2L, Hematocrit 24.7L, Mean Corpuscular Volume 90, Mean Corpuscular Hemoglobin 29.9, Mean Corpuscular Hemoglobin Concent 33.2, Red Cell Distribution Width 14.5, Platelet Count 352, Mean Platelet Volume 6.6, Neutrophils (%) (Auto) 83.0H, Lymphocytes ( %) (Auto) 10.2L, Monocytes (%) (Auto) 5.2, Eosinophils (%) (Auto) 0.9, Basophils (%) (Auto) 0.7, Sodium Level 148H, Potassium Level 3.8, Chloride Level 115H, Carbon Dioxide Level 24, Anion Gap 9, Blood Urea Nitrogen 31H, Creatinine 1.5H, Estimat Glomerular Filtration Rate 44.5, Glucose Level 173H, Calcium Level 7.9L, Phosphorus Level 2.2L, Magnesium Level 2.3 Height (Feet): 5 Height (Inches): 11.00 Weight (Pounds): 167 General Appearance: lethargic EENT: normal ENT inspection Neck: normal alignment Cardiovascular: normal peripheral pulses, normal rate, regular rhythm Respiratory/Chest: chest wall non-tender, lungs clear, normal breath sounds Abdomen: normal bowel sounds, non tender, soft Extremities: normal inspection Edema: no edema noted Arm (L), no edema noted Arm (R), no edema noted Leg (L), no edema noted Leg (R), no edema noted Pedal (L), no edema noted Pedal (R), no edema noted Generalized Neurologic: motor weakness Skin: normal pigmentation, warm/dry Pond,Prabhakar Chi-Linh DO Sep 18, 2019 08:43
--- NOTE | 2019-09-18 08:58 | Pulmonology Progress Note ---
Assessment/Plan Assessment/Plan IMPRESSION: 1. Small left apical pneumothorax. 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 3. Parkinson. 4. Dementia. 5. UTI. 6. Hypernatremia. 7. Left upper extremity cellulitis. 8. Multiple decubitus. 9. Likely NSTEMI DISCUSSION: Noted DNR status. prefer to avoid any further intervention for the small apical left pneumothorax. This may be spontaneous due to his underlying lung disease. Will wean down FiO2 as tolerated No respiratory distress or tachypnea Hydration status addressed by Nephrology. 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 Discussed with daughter Sushma She is agreeable to hospice. Added oral care Fluid bolus today for hypotension Will follow Arun Melvin M.D. Subjective Interval Events: Hypotensive this AM; no new events Constitutional: Reports: no symptoms HEENT: Repors: no symptoms Respiratory: Reports: no symptoms Cardiovascular: Reports: no symptoms Gastrointestinal/Abdominal: Reports: no symptoms Allergies: Coded Allergies: AMLODIPINE (Verified Allergy, Unknown, 09/04/19) ASPIRIN (Verified Allergy, Unknown, 09/04/19) BENAZEPRIL (Verified Allergy, Unknown, 09/04/19) Objective Last 24 Hour Vital Signs Date Time Temp Pulse Resp B/P (MAP) Pulse Ox O2 Delivery O2 Flow Rate FiO2 09/18/19 08:00 98.1 98 29 74/46 (55) 97 09/18/19 07:23 93 Nasal Cannula 3.0 32 09/18/19 07:23 95 20 93 Nasal Cannula 3.0 32 09/18/19 04:00 98.6 92 20 96/56 (69) 96 09/17/19 23:56 99.0 95 20 102/50 (67) 96 09/17/19 21:22 Venturi Mask 4.0 09/17/19 20:17 93 Nasal Cannula 4.0 36 09/17/19 20:06 100 20 92 Nasal Cannula 4.0 36 09/17/19 20:00 99.1 94 22 92/55 (67) 98 09/17/19 16:00 97.0 94 18 94/58 (70) 95 09/17/19 12:00 98.1 94 20 89/65 (73) 95 09/17/19 09:00 Venturi Mask 4.0 Intake and Output 09/17/19 09/18/19 19:00 07:00 Intake Total 917.5 ml 210 ml Output Total 225 ml 425 ml Balance 692.5 ml -215 ml Free Water 50 ml 50 ml IV Total 767.5 ml Tube Feeding 100 ml 160 ml Output Urine Total 225 ml 425 ml # Voids 1 # Bowel Movements 1 General Appearance: no acute distress HEENT: normocephalic Respiratory/Chest: chest wall non-tender Cardiovascular: normal peripheral pulses Abdomen: normal bowel sounds Laboratory Tests 09/18/19 05:35: White Blood Count 12.3H, Red Blood Count 2.74L, Hemoglobin 8.2L, Hematocrit 24.7L, Mean Corpuscular Volume 90, Mean Corpuscular Hemoglobin 29.9, Mean Corpuscular Hemoglobin Concent 33.2, Red Cell Distribution Width 14.5, Platelet Count 352, Mean Platelet Volume 6.6, Neutrophils (%) (Auto) 83.0H, Lymphocytes ( %) (Auto) 10.2L, Monocytes (%) (Auto) 5.2, Eosinophils (%) (Auto) 0.9, Basophils (%) (Auto) 0.7, Sodium Level 148H, Potassium Level 3.8, Chloride Level 115H, Carbon Dioxide Level 24, Anion Gap 9, Blood Urea Nitrogen 31H, Creatinine 1.5H, Estimat Glomerular Filtration Rate 44.5, Glucose Level 173H, Calcium Level 7.9L, Phosphorus Level 2.2L, Magnesium Level 2.3 Current Medications Medications (Trade) Dose Ordered Sig/Kaveh Route PRN Reason Start Time Stop Time Status Last Admin Dose Admin Acetaminophen (Tylenol) 650 mg Q4H PRN GT Mild Pain/Temp > 100.5 09/16/19 06:14 10/16/19 06:13 09/17/19 16:18 Acetaminophen (Tylenol) 650 mg Q4H PRN RECTAL Prn Headache/Temp > 101 09/16/19 06:13 10/16/19 06:12 Albuterol/ Ipratropium (Albuterol/ Ipratropium) 3 ml Q6H PRN HHN Shortness of Breath 09/16/19 06:14 09/21/19 06:13 Clopidogrel Bisulfate (Plavix) 75 mg DAILY GT 09/16/19 09:00 10/06/19 10:44 Dextrose 1,000 ml @ 75 mls/hr [id number] IV 09/16/19 12:30 10/16/19 12:29 09/18/19 04:22 Divalproex Sodium (Depakote Sprinkles) 500 mg EVERY 8 HOURS GT 09/16/19 14:00 10/11/19 13:59 09/18/19 05:35 Docusate Sodium (Colace) 100 mg TWICE A DAY GT 09/16/19 09:00 10/11/19 17:59 09/17/19 18:15 Folic Acid (Folate) 1 mg DAILY GT 09/16/19 09:00 10/07/19 10:29 Heparin Sodium (Porcine) (Heparin 5000 units/ml) 5,000 units EVERY 8 HOURS SUBQ 09/16/19 14:00 10/06/19 10:29 09/18/19 05:36 Lansoprazole (Prevacid) 30 mg BID GT 09/16/19 09:00 10/11/19 08:59 09/17/19 18:15 Lorazepam (Ativan 2mg/ml 1ml) 0.5 mg Q6H PRN IV For Anxiety 09/16/19 06:15 09/23/19 06:14 Meropenem 1 gm/ Sodium Chloride 55 ml @ 110 mls/hr Q8HR IVPB 09/16/19 14:00 09/19/19 14:29 09/18/19 05:28 Quetiapine Fumarate (SEROqueL) 50 mg Q12HR GT 09/16/19 09:00 10/30/19 08:59 09/17/19 20:51 Risperidone (RisperDAL) 0.5 mg Q12H PRN GT agitation 09/16/19 06:15 10/31/19 06:14 Arun Melvin MD Sep 18, 2019 08:58
--- NOTE | 2019-09-18 09:15 | Infectious Diseases Prog Note ---
Assessment/Plan Assessment/Plan Assessment: Severe sepsis, sp No evidence of Bacteremia doubt UTI - ucx 10 k GPC Low grade fever, sp Pneumonia - sputum cx : MDR-ACB ( Tygacil PATRICK:8), Kelb-Oxy Leukocytosis, mild - CT C/ A/P wo C : Patchy airspace opacities consistent with pneumonia most notably in the posterior right lower lobe.Trace bilateral pleural effusions. NAGA improving Multiple decubitus.( not infected ) NSTEMI Parkinson's dementia HTN Dm2 Plan: - Add Rocehin l and Colistin INH # 1 - DC Merrem # 5 for probable Asp pneumonia ( DDI w Valporic , but no choice and no hx of SZ) -09/13 Sp IV Vancomycin # 11, Zosyn # 6 09/07 Sp Meropenem # 4 08/05 Sp Zosyn #2 -f/u cx (Bl) -Monitor CBC/CMP, temperatures -aspiration precautions - PEG is on hold - planing for hospice DW micro , Colistin and Doxy :P for ACB Subjective Allergies: Coded Allergies: AMLODIPINE (Verified Allergy, Unknown, 09/04/19) ASPIRIN (Verified Allergy, Unknown, 09/04/19) BENAZEPRIL (Verified Allergy, Unknown, 09/04/19) Subjective sputum cx : MDR--ACB mild leukocytosis Objective Vital Signs Last 24 Hour Vital Signs Date Time Temp Pulse Resp B/P (MAP) Pulse Ox O2 Delivery O2 Flow Rate FiO2 09/18/19 08:00 98.1 98 29 74/46 (55) 97 09/18/19 07:23 93 Nasal Cannula 3.0 32 09/18/19 07:23 95 20 93 Nasal Cannula 3.0 32 09/18/19 04:00 98.6 92 20 96/56 (69) 96 09/17/19 23:56 99.0 95 20 102/50 (67) 96 09/17/19 21:22 Venturi Mask 4.0 09/17/19 20:17 93 Nasal Cannula 4.0 36 09/17/19 20:06 100 20 92 Nasal Cannula 4.0 36 09/17/19 20:00 99.1 94 22 92/55 (67) 98 09/17/19 16:00 97.0 94 18 94/58 (70) 95 09/17/19 12:00 98.1 94 20 89/65 (73) 95 Height (Feet): 5 Height (Inches): 11.00 Weight (Pounds): 167 HEENT: anicteric Respiratory/Chest: no accessory muscle use Cardiovascular: regularly irregular Abdomen: soft, non tender Laboratory Tests Test 09/18/19 05:35 White Blood Count 12.3 K/UL (4.8-10.8) H Red Blood Count 2.74 M/UL (4.70-6.10) L Hemoglobin 8.2 G/DL (14.2-18.0) L Hematocrit 24.7 % (42.0-52.0) L Mean Corpuscular Volume 90 FL (80-99) Mean Corpuscular Hemoglobin 29.9 PG (27.0-31.0) Mean Corpuscular Hemoglobin Concent 33.2 G/DL (32.0-36.0) Red Cell Distribution Width 14.5 % (11.6-14.8) Platelet Count 352 K/UL (150-450) Mean Platelet Volume 6.6 FL (6.5-10.1) Neutrophils (%) (Auto) 83.0 % (45.0-75.0) H Lymphocytes (%) (Auto) 10.2 % (20.0-45.0) L Monocytes (%) (Auto) 5.2 % (1.0-10.0) Eosinophils (%) (Auto) 0.9 % (0.0-3.0) Basophils (%) (Auto) 0.7 % (0.0-2.0) Sodium Level 148 MMOL/L (136-145) H Potassium Level 3.8 MMOL/L (3.5-5.1) Chloride Level 115 MMOL/L (98-107) H Carbon Dioxide Level 24 MMOL/L (21-32) Anion Gap 9 mmol/L (5-15) Blood Urea Nitrogen 31 mg/dL (7-18) H Creatinine 1.5 MG/DL (0.55-1.30) H Estimat Glomerular Filtration Rate 44.5 mL/min (>60) Glucose Level 173 MG/DL (74-106) H Calcium Level 7.9 MG/DL (8.5-10.1) L Phosphorus Level 2.2 MG/DL (2.5-4.9) L Magnesium Level 2.3 MG/DL (1.8-2.4) Current Medications Medications (Trade) Dose Ordered Sig/Kaveh Route PRN Reason Start Time Stop Time Status Last Admin Dose Admin Acetaminophen (Tylenol) 650 mg Q4H PRN GT Mild Pain/Temp > 100.5 09/16/19 06:14 10/16/19 06:13 09/17/19 16:18 Acetaminophen (Tylenol) 650 mg Q4H PRN RECTAL Prn Headache/Temp > 101 09/16/19 06:13 10/16/19 06:12 Albuterol/ Ipratropium (Albuterol/ Ipratropium) 3 ml Q6H PRN HHN Shortness of Breath 09/16/19 06:14 09/21/19 06:13 Clopidogrel Bisulfate (Plavix) 75 mg DAILY GT 09/16/19 09:00 10/06/19 10:44 Dextrose 1,000 ml @ 75 mls/hr [id number] IV 09/16/19 12:30 10/16/19 12:29 09/18/19 04:22 Divalproex Sodium (Depakote Sprinkles) 500 mg EVERY 8 HOURS GT 09/16/19 14:00 10/11/19 13:59 09/18/19 05:35 Docusate Sodium (Colace) 100 mg TWICE A DAY GT 09/16/19 09:00 10/11/19 17:59 09/17/19 18:15 Folic Acid (Folate) 1 mg DAILY GT 09/16/19 09:00 10/07/19 10:29 Heparin Sodium (Porcine) (Heparin 5000 units/ml) 5,000 units EVERY 8 HOURS SUBQ 09/16/19 14:00 10/06/19 10:29 09/18/19 05:36 Lansoprazole (Prevacid) 30 mg BID GT 09/16/19 09:00 10/11/19 08:59 09/17/19 18:15 Lorazepam (Ativan 2mg/ml 1ml) 0.5 mg Q6H PRN IV For Anxiety 09/16/19 06:15 09/23/19 06:14 Meropenem 1 gm/ Sodium Chloride 55 ml @ 110 mls/hr Q8HR IVPB 09/16/19 14:00 09/19/19 14:29 09/18/19 05:28 Quetiapine Fumarate (SEROqueL) 50 mg Q12HR GT 09/16/19 09:00 10/30/19 08:59 09/17/19 20:51 Risperidone (RisperDAL) 0.5 mg Q12H PRN GT agitation 09/16/19 06:15 10/31/19 06:14 Hakeem Hugo MD Sep 18, 2019 09:15
--- NOTE | 2019-09-18 09:21 | Nephrology Progress Note ---
Assessment/Plan Problem List: (1) NAGA (acute kidney injury) (2) UTI (urinary tract infection) (3) Elevated troponin (4) Failure to thrive in adult (5) Sepsis (6) Anemia (7) Dehydration Assessment Potassium phosphate in the morning dose 20 mmol Renal failure mostly prerenal Azotemia. May have underlying chronic kidney disease. Hydration. Sepsis leukocytosis. Encephalopathy in the form of toxic and metabolic. Failure to thrive. Albuminemia. Levator troponin. Most likely due to significant cardiac ischemia. Plan Start D5W 75 cc an hour. Will discontinue when feeding starts Patient has NG tube again placed waiting for radiological confirmation PEG ? Previously Plavix and SQ heparin Nitrates. Continue to monitor renal parameters. Avoid nephrotoxic's. Antibiotics per ID. Felder catheter. Discussed with RN DNR status. Subjective ROS Limited/Unobtainable: No Constitutional: Reports: malaise, weakness Objective Objective Last 24 Hour Vital Signs Date Time Temp Pulse Resp B/P (MAP) Pulse Ox O2 Delivery O2 Flow Rate FiO2 09/18/19 08:00 98.1 98 29 74/46 (55) 97 09/18/19 07:23 93 Nasal Cannula 3.0 32 09/18/19 07:23 95 20 93 Nasal Cannula 3.0 32 09/18/19 04:00 98.6 92 20 96/56 (69) 96 09/17/19 23:56 99.0 95 20 102/50 (67) 96 09/17/19 21:22 Venturi Mask 4.0 09/17/19 20:17 93 Nasal Cannula 4.0 36 09/17/19 20:06 100 20 92 Nasal Cannula 4.0 36 09/17/19 20:00 99.1 94 22 92/55 (67) 98 09/17/19 16:00 97.0 94 18 94/58 (70) 95 09/17/19 12:00 98.1 94 20 89/65 (73) 95 Intake and Output 09/17/19 09/18/19 19:00 07:00 Intake Total 917.5 ml 210 ml Output Total 225 ml 425 ml Balance 692.5 ml -215 ml Free Water 50 ml 50 ml IV Total 767.5 ml Tube Feeding 100 ml 160 ml Output Urine Total 225 ml 425 ml # Voids 1 # Bowel Movements 1 Current Medications Medications (Trade) Dose Ordered Sig/Kaveh Route PRN Reason Start Time Stop Time Status Last Admin Dose Admin Acetaminophen (Tylenol) 650 mg Q4H PRN GT Mild Pain/Temp > 100.5 09/16/19 06:14 10/16/19 06:13 09/17/19 16:18 Acetaminophen (Tylenol) 650 mg Q4H PRN RECTAL Prn Headache/Temp > 101 09/16/19 06:13 10/16/19 06:12 Albuterol/ Ipratropium (Albuterol/ Ipratropium) 3 ml Q6H PRN HHN Shortness of Breath 09/16/19 06:14 09/21/19 06:13 Clopidogrel Bisulfate (Plavix) 75 mg DAILY GT 09/16/19 09:00 10/06/19 10:44 Colistimethate Sodium (Colistin *inhalation use only*) 75 mg Q12HR@10,22 INH 09/18/19 10:00 09/25/19 09:59 Dextrose 1,000 ml @ 75 mls/hr [id number] IV 09/16/19 12:30 10/16/19 12:29 09/18/19 04:22 Divalproex Sodium (Depakote Sprinkles) 500 mg EVERY 8 HOURS GT 09/16/19 14:00 10/11/19 13:59 09/18/19 05:35 Docusate Sodium (Colace) 100 mg TWICE A DAY GT 09/16/19 09:00 10/11/19 17:59 09/17/19 18:15 Folic Acid (Folate) 1 mg DAILY GT 09/16/19 09:00 10/07/19 10:29 Heparin Sodium (Porcine) (Heparin 5000 units/ml) 5,000 units EVERY 8 HOURS SUBQ 09/16/19 14:00 10/06/19 10:29 09/18/19 05:36 Lansoprazole (Prevacid) 30 mg BID GT 09/16/19 09:00 10/11/19 08:59 09/17/19 18:15 Lorazepam (Ativan 2mg/ml 1ml) 0.5 mg Q6H PRN IV For Anxiety 09/16/19 06:15 09/23/19 06:14 Meropenem 1 gm/ Sodium Chloride 55 ml @ 110 mls/hr Q8HR IVPB 09/16/19 14:00 09/19/19 14:29 09/18/19 05:28 Quetiapine Fumarate (SEROqueL) 50 mg Q12HR GT 09/16/19 09:00 10/30/19 08:59 09/17/19 20:51 Risperidone (RisperDAL) 0.5 mg Q12H PRN GT agitation 09/16/19 06:15 10/31/19 06:14 Laboratory Tests 09/18/19 05:35: White Blood Count 12.3H, Red Blood Count 2.74L, Hemoglobin 8.2L, Hematocrit 24.7L, Mean Corpuscular Volume 90, Mean Corpuscular Hemoglobin 29.9, Mean Corpuscular Hemoglobin Concent 33.2, Red Cell Distribution Width 14.5, Platelet Count 352, Mean Platelet Volume 6.6, Neutrophils (%) (Auto) 83.0H, Lymphocytes ( %) (Auto) 10.2L, Monocytes (%) (Auto) 5.2, Eosinophils (%) (Auto) 0.9, Basophils (%) (Auto) 0.7, Sodium Level 148H, Potassium Level 3.8, Chloride Level 115H, Carbon Dioxide Level 24, Anion Gap 9, Blood Urea Nitrogen 31H, Creatinine 1.5H, Estimat Glomerular Filtration Rate 44.5, Glucose Level 173H, Calcium Level 7.9L, Phosphorus Level 2.2L, Magnesium Level 2.3 Height (Feet): 5 Height (Inches): 11.00 Weight (Pounds): 167 General Appearance: no apparent distress EENT: other - NG tube in place Cardiovascular: normal rate Respiratory/Chest: decreased breath sounds Abdomen: soft Objective No other change Dariusz Brandt MD Sep 18, 2019 09:21
--- NOTE | 2019-09-18 09:52 | General Progress Note ---
Assessment/Plan Problem List: (1) Iron deficiency anemia ICD Codes: D50.9 - Iron deficiency anemia, unspecified SNOMED: 76904745 (2) Folate deficiency ICD Codes: E53.8 - Deficiency of other specified B group vitamins SNOMED: 400577855 (3) low Albumin (4) Anemia ICD Codes: D64.9 - Anemia, unspecified SNOMED: 874237121 (5) Failure to thrive SNOMED: 58527411 (6) Elevated troponin ICD Codes: R79.89 - Other specified abnormal findings of blood chemistry SNOMED: 744365832, 594626436, 942726178 (7) Dehydration ICD Codes: E86.0 - Dehydration SNOMED: 33334045 Status: unchanged Assessment/Plan: Assessment/Plan Problems: (1) Failure to thrive in adult ICD Codes: R62.7 - Adult failure to thrive SNOMED: 020443121 (2) Failure to thrive SNOMED: 57640002 (3) Anemia ICD Codes: D64.9 - Anemia, unspecified SNOMED: 500174971 (4) Dehydration ICD Codes: E86.0 - Dehydration SNOMED: 03600301 (5) Skin lesions Assessment/Plan 12 comoran.NGTF tolerated d/w with S/W >> patient accepted at hospice, pending family consent . Subjective ROS Limited/Unobtainable: No Allergies: Coded Allergies: AMLODIPINE (Verified Allergy, Unknown, 09/04/19) ASPIRIN (Verified Allergy, Unknown, 09/04/19) BENAZEPRIL (Verified Allergy, Unknown, 09/04/19) Objective Last 24 Hour Vital Signs Date Time Temp Pulse Resp B/P (MAP) Pulse Ox O2 Delivery O2 Flow Rate FiO2 09/18/19 08:00 98.1 98 29 74/46 (55) 97 09/18/19 07:23 93 Nasal Cannula 3.0 32 09/18/19 07:23 95 20 93 Nasal Cannula 3.0 32 09/18/19 04:00 98.6 92 20 96/56 (69) 96 09/17/19 23:56 99.0 95 20 102/50 (67) 96 09/17/19 21:22 Venturi Mask 4.0 09/17/19 20:17 93 Nasal Cannula 4.0 36 09/17/19 20:06 100 20 92 Nasal Cannula 4.0 36 09/17/19 20:00 99.1 94 22 92/55 (67) 98 09/17/19 16:00 97.0 94 18 94/58 (70) 95 09/17/19 12:00 98.1 94 20 89/65 (73) 95 Intake and Output 09/17/19 09/18/19 19:00 07:00 Intake Total 917.5 ml 210 ml Output Total 225 ml 425 ml Balance 692.5 ml -215 ml Free Water 50 ml 50 ml IV Total 767.5 ml Tube Feeding 100 ml 160 ml Output Urine Total 225 ml 425 ml # Voids 1 # Bowel Movements 1 Laboratory Tests 09/18/19 05:35: White Blood Count 12.3H, Red Blood Count 2.74L, Hemoglobin 8.2L, Hematocrit 24.7L, Mean Corpuscular Volume 90, Mean Corpuscular Hemoglobin 29.9, Mean Corpuscular Hemoglobin Concent 33.2, Red Cell Distribution Width 14.5, Platelet Count 352, Mean Platelet Volume 6.6, Neutrophils (%) (Auto) 83.0H, Lymphocytes ( %) (Auto) 10.2L, Monocytes (%) (Auto) 5.2, Eosinophils (%) (Auto) 0.9, Basophils (%) (Auto) 0.7, Sodium Level 148H, Potassium Level 3.8, Chloride Level 115H, Carbon Dioxide Level 24, Anion Gap 9, Blood Urea Nitrogen 31H, Creatinine 1.5H, Estimat Glomerular Filtration Rate 44.5, Glucose Level 173H, Calcium Level 7.9L, Phosphorus Level 2.2L, Magnesium Level 2.3 Height (Feet): 5 Height (Inches): 11.00 Weight (Pounds): 167 General Appearance: lethargic EENT: normal ENT inspection Neck: supple Cardiovascular: normal rate Respiratory/Chest: decreased breath sounds Abdomen: normal bowel sounds, non tender, soft Extremities: non-tender Arley Cosby MD Sep 18, 2019 09:52
[2019-09-18] MEDS: Colistin for inhalation INH SCH ×2 (10:21→22:34)
[2019-09-18] MEDS: Docusate 100mg/10ml Liq GT SCH ×2 (10:49→18:11)
[2019-09-18] MEDS ORDERED: Tigecycline 100 MG in NS 110 ML IVPB ONE (11:00)
--- NOTE | 2019-09-18 12:34 | Surgery Progress Note ---
Surgery Progress Note Subjective Symptoms: improved, tolerating diet, voiding well, passing flatus Objective Last 24 Hour Vital Signs Date Time Temp Pulse Resp B/P (MAP) Pulse Ox O2 Delivery O2 Flow Rate FiO2 09/18/19 10:31 91 20 97 Nasal Cannula 3.0 32 88 20 94 09/18/19 08:00 98.1 98 29 74/46 (55) 97 09/18/19 07:23 93 Nasal Cannula 3.0 32 09/18/19 07:23 95 20 93 Nasal Cannula 3.0 32 09/18/19 04:00 98.6 92 20 96/56 (69) 96 09/17/19 23:56 99.0 95 20 102/50 (67) 96 09/17/19 21:22 Venturi Mask 4.0 09/17/19 20:17 93 Nasal Cannula 4.0 36 09/17/19 20:06 100 20 92 Nasal Cannula 4.0 36 09/17/19 20:00 99.1 94 22 92/55 (67) 98 09/17/19 16:00 97.0 94 18 94/58 (70) 95 I&O Intake and Output 09/17/19 09/18/19 19:00 07:00 Intake Total 917.5 ml 210 ml Output Total 225 ml 425 ml Balance 692.5 ml -215 ml Free Water 50 ml 50 ml IV Total 767.5 ml Tube Feeding 100 ml 160 ml Output Urine Total 225 ml 425 ml # Voids 1 # Bowel Movements 1 Dressing: dry Wound: dry Cardiovascular: RSR Respiratory: clear Abdomen: soft, non-tender, present bowel sounds Extremities: no cyanosis Laboratory Tests Test 09/18/19 05:35 White Blood Count 12.3 K/UL (4.8-10.8) H Red Blood Count 2.74 M/UL (4.70-6.10) L Hemoglobin 8.2 G/DL (14.2-18.0) L Hematocrit 24.7 % (42.0-52.0) L Mean Corpuscular Volume 90 FL (80-99) Mean Corpuscular Hemoglobin 29.9 PG (27.0-31.0) Mean Corpuscular Hemoglobin Concent 33.2 G/DL (32.0-36.0) Red Cell Distribution Width 14.5 % (11.6-14.8) Platelet Count 352 K/UL (150-450) Mean Platelet Volume 6.6 FL (6.5-10.1) Neutrophils (%) (Auto) 83.0 % (45.0-75.0) H Lymphocytes (%) (Auto) 10.2 % (20.0-45.0) L Monocytes (%) (Auto) 5.2 % (1.0-10.0) Eosinophils (%) (Auto) 0.9 % (0.0-3.0) Basophils (%) (Auto) 0.7 % (0.0-2.0) Sodium Level 148 MMOL/L (136-145) H Potassium Level 3.8 MMOL/L (3.5-5.1) Chloride Level 115 MMOL/L (98-107) H Carbon Dioxide Level 24 MMOL/L (21-32) Anion Gap 9 mmol/L (5-15) Blood Urea Nitrogen 31 mg/dL (7-18) H Creatinine 1.5 MG/DL (0.55-1.30) H Estimat Glomerular Filtration Rate 44.5 mL/min (>60) Glucose Level 173 MG/DL (74-106) H Calcium Level 7.9 MG/DL (8.5-10.1) L Phosphorus Level 2.2 MG/DL (2.5-4.9) L Magnesium Level 2.3 MG/DL (1.8-2.4) Plan Problems: (1) Skin lesions Assessment & Plan: patient presented with multiple skin lesions scrotal edema with cellulitis. pending CT pelvis for eval sacral DTI noted large, skin blistering open now epidermal loss dermis intact left upper extremity epidermal skin blistering open, dermis intact multiple wounds noted on ear, face, chest skin breakdown malnutrition overall prognosis guarded hold on skin biopsy of lesions. 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 Both lower extremities are contracted. Dry Brownish/black capped skin lesion noted to R earlobe ,R cheek and L temporal. Scattered skin lesions that are also dry capped and brownish /black noted to upper chest and bilat upper extremities. Irregular shaped Open DTPI noted to Sacrum. Full thickness ulcer at sacrococcygeal area(L)6cm x (W)5.3cm. Surrounding fluctuant and maroon borders.Measurement including open wound (L)9.5cm x (W)9.2cm No evidence of further skin breakdown periwound. No odor or exudate noted from wound. Resolving pressure injury base of scrotum. Base of wound brayan in center with surrounding moist pink granulation. Scattered biofilm within base of wound.No odor or exudate noted.(L)5.6cm x (W)4.5cm. Open DTPI kermit R tibia. Base of wound is moist and brayan with surrounding fluctuant borders that maroon/purple in colour.(L)9.5cm x (W)2.7cm. Stable dry eschar noted to distal/kermit R tibia(L)2.4cm x (W)1.6cm. Open DTPI noted to R heel(L)3.3cm x (W)3.5cm. Base of wound is moist and brayan in center with small necrotic area. Surrounding borders of wound are purple and fluctuant. Unstageable pressure injury medial aspect of distal L tibia. Base of wound has 90% fibrinous slough with erythematous margins.(L)3.3cm x (W)3.2cm. NO odor or exudate noted. Unstageable pressure injury lateral L malleolus. Base of wound is 100% necrotic and dry.(L)4cm x (W)3.8cm. Tx.Plan: Cleanse Sacral wound with Saline. Apply Therahoney. Apply Moisture Barrier Periwound. Cover with Optifoam drsg daily and prn. Cleanse wound kermit R tibia with Saline. Apply TheraHoney. Apply Cavilon Skin Barrier periwound. Cover with Optifoam drsg every 3 days and prn. Cleanse wound R heel with Saline. Apply Therahoney. Apply Cavilon Skin Barrier periwound. Cover with Optifoam drsg every 3 days and prn. Cleanse wound L tibia with Saline. Apply Therahoney.Apply Cavilon Periwound. Cover with Optifoam drsg every 3 days and prn. Swab Wounds L heel and L lateral malleolus with Betadine. Cover each wound with Optifoam drsg. Change every 3 days and prn. APM/DENICE Mattress overlay. Reposition at least every 2hours or as tolerated. Place pillow between knees. Off-load heels with pillows. nutritional optimization thank you will follow with recs (2) Leukocytosis Assessment & Plan: Patchy airspace opacities consistent with pneumonia most notably in the posterior right lower lobe. Trace bilateral pleural effusions. No pneumothorax. Moderate dilatation of the esophagus. May be related to presence of a feeding tube. Achalasia or distal esophageal strictures are not excludable. Left inguinal hernia containing a portion of the descending colon. No evidence of obstruction. The true extent and size of the hernia is not known as the lower portion of the hernia is below the [id number] of this examination. The hernia should be clinically apparent since the hernia sac is within the left scrotum. Anasarca Right dynamic hip screw. Osteoporosis Degenerative changes of the spine. Small amount of free fluid in the pelvis unknown origin. (3) Sepsis Assessment & Plan: feeding tube replaced blood in mouth seems he has bit his tongue (4) Failure to thrive Assessment & Plan: waiting for xray placement confirmation will start feeds once confirmed (5) Failure to thrive in adult Assessment & Plan: DAILY ESTIMATED NEEDS: Needs based on Wounds, underweight 58.5kg 30-35 kcals/kg 1399-3994 total kcals 1.25-2 g protein/kg 73-117 g total protein 25-30ml/kcal mL/kg 0832-1572 total fluid mLs NUTRITION DIAGNOSIS: Increased kcal and pro needs r/t wound healing and underweight status as evidenced by pt w/ multiple pressure wounds, eval pending, underweight per guidelines w/ generalized moderate-severe wasting, @72% of [place] Body Weight. CURRENT DIET: NPO PO DIET RECOMMENDATIONS: Regular liberalized diet/ texture per [employer]PER[employer] ENTERAL NUTRITION RECOMMENDATIONS: * Consult RD if non oral feeds are part of POC * ---- ADDITIONAL RECOMMENDATIONS: 1) Add GLUCERNA 1 tetra TID w/ meals 2) [employer] SUPER[employer] eval 3) F/up w/ WC eval-> rec ANANDA BID w/ diet order 4) RE-calibrate bed scale w/ added P200 mattress for accurate CBW (6) Pneumothorax on left Assessment & Plan: There is a tiny left apical pneumothorax. This appears smaller than on the previous study. Lungs remain clear. Heart is normal in size. Trachea is midline. Aorta is calcified. IMPRESSION: Trace left apical pneumothorax. stable can monitor for now repeat cxr hold on tube for now CT chest when stable Connor Mcfadden 13, 2020 12:34
--- NOTE | 2019-09-18 15:15 | Progress Note ---
DATE: 09/18/2019 SUBJECTIVE: This is an 83-year-old male patient with failure to thrive. This patient is an 83-year-old male patient. He has history of anemia, failure to thrive, urinary tract infection, decreased energy, pneumothorax, leukocytosis, , iron deficiency anemia, low albumin who had been admitted with decline in cognition below his baseline. That is why, the attending has requested daily psychiatric consultation. MENTAL STATUS EXAMINATION: This is an 83-year-old male. Appearance is disheveled. Attitude, irritable and agitated. Affect, guarded and restricted. Intellect poor. Mood, depressed and anxious. Motor activity, psychomotor agitation. Attention span is poor. Orientation x2. Speech is pressured. Thought process, disorganized and illogical. Insight and judgment is poor. DIAGNOSIS: Schizoaffective, bipolar type. PLAN: Treat him with a medication regimen of Depakote Sprinkles 500 mg q.8 h., Ativan 0.5 mg every 6 h. p.r.n. anxiety, agitation Seroquel 50 mg twice a day. 20 minutes of reality-based supportive psychotherapy provided. Also treat this patient with Seroquel 50 mg per G-tube q.12 hours and Risperdal 0.5 mg per G-tube q.12 hours. 20 minutes of reality-based supportive psychotherapy. 20 minutes of cognitive behavioral therapy to help him identify his automatic negative thoughts and help him convert negative thoughts to more positive thoughts to reduce depression, anxiety, mood lability. Chart reviewed. Discussed with staff. Seen and assessed at bedside. Cherri De Luna M.D. DR: NICK JOB#: [id number] CC:
--- NOTE | 2019-09-18 19:31 | Cardiology Progress Note ---
Assessment/Plan Assessment/Plan Small left apical pneumothorax. 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 Parkinson. Dementia. UTI. Hypernatremia. Left upper extremity cellulitis. Multiple decubitus. NSTEMI hypotension bp low agian will rebolus ns dnr supposed to be going home with hospice no candidate for any invasive therapy i wass called taht conche operator has been called due to hypotension ns bolus was administer dr arrieta note was reviwed dtr has agreed to ahsopice this pat is not a candidate fo icu prognosis is poor i [facility] but noresponse should be considered for inkyt hospice Subjective ROS Limited/Unobtainable: Yes Subjective moan an groans Objective Last 24 Hour Vital Signs Date Time Temp Pulse Resp B/P (MAP) Pulse Ox O2 Delivery O2 Flow Rate FiO2 09/18/19 16:00 97.6 110 23 102/57 (72) 93 09/18/19 12:00 98.6 92 27 84/51 (62) 97 09/18/19 10:31 91 20 97 Nasal Cannula 3.0 32 88 20 94 09/18/19 09:00 Venturi Mask 4.0 09/18/19 08:00 98.1 98 29 74/46 (55) 97 09/18/19 07:23 93 Nasal Cannula 3.0 32 09/18/19 07:23 95 20 93 Nasal Cannula 3.0 32 09/18/19 04:00 98.6 92 20 96/56 (69) 96 09/17/19 23:56 99.0 95 20 102/50 (67) 96 09/17/19 21:22 Venturi Mask 4.0 09/17/19 20:17 93 Nasal Cannula 4.0 36 09/17/19 20:06 100 20 92 Nasal Cannula 4.0 36 09/17/19 20:00 99.1 94 22 92/55 (67) 98 General Appearance: no apparent distress Intake and Output 09/17/19 09/18/19 19:00 07:00 Intake Total 917.5 ml 210 ml Output Total 225 ml 425 ml Balance 692.5 ml -215 ml Free Water 50 ml 50 ml IV Total 767.5 ml Tube Feeding 100 ml 160 ml Output Urine Total 225 ml 425 ml # Voids 1 # Bowel Movements 1 Laboratory Tests Test 09/18/19 05:35 White Blood Count 12.3 K/UL (4.8-10.8) H Red Blood Count 2.74 M/UL (4.70-6.10) L Hemoglobin 8.2 G/DL (14.2-18.0) L Hematocrit 24.7 % (42.0-52.0) L Mean Corpuscular Volume 90 FL (80-99) Mean Corpuscular Hemoglobin 29.9 PG (27.0-31.0) Mean Corpuscular Hemoglobin Concent 33.2 G/DL (32.0-36.0) Red Cell Distribution Width 14.5 % (11.6-14.8) Platelet Count 352 K/UL (150-450) Mean Platelet Volume 6.6 FL (6.5-10.1) Neutrophils (%) (Auto) 83.0 % (45.0-75.0) H Lymphocytes (%) (Auto) 10.2 % (20.0-45.0) L Monocytes (%) (Auto) 5.2 % (1.0-10.0) Eosinophils (%) (Auto) 0.9 % (0.0-3.0) Basophils (%) (Auto) 0.7 % (0.0-2.0) Sodium Level 148 MMOL/L (136-145) H Potassium Level 3.8 MMOL/L (3.5-5.1) Chloride Level 115 MMOL/L (98-107) H Carbon Dioxide Level 24 MMOL/L (21-32) Anion Gap 9 mmol/L (5-15) Blood Urea Nitrogen 31 mg/dL (7-18) H Creatinine 1.5 MG/DL (0.55-1.30) H Estimat Glomerular Filtration Rate 44.5 mL/min (>60) Glucose Level 173 MG/DL (74-106) H Calcium Level 7.9 MG/DL (8.5-10.1) L Phosphorus Level 2.2 MG/DL (2.5-4.9) L Magnesium Level 2.3 MG/DL (1.8-2.4) Ronnie Lamb MD Sep 18, 2019 19:31
--- NOTE | 2019-09-18 20:51 | Diagnostic Imaging Report ---
EXAM: US Duplex Bilateral Upper Extremities Veins CLINICAL HISTORY: SWELL TECHNIQUE: Real-time duplex ultrasound scan of the bilateral upper extremity veins integrating B-mode two-dimensional vascular structure, Doppler spectral analysis, color flow Doppler imaging and compression. COMPARISON: None FINDINGS: Right deep veins: Unremarkable. No DVT in the right internal jugular, subclavian, axillary, or brachial veins. The veins demonstrate normal color flow, are normally compressible, with normal phasic flow and/or augmentation response. Right superficial veins: Unremarkable. No thrombus in the visualized right basilic and cephalic veins. Left deep veins: Note that the left ulnar and radial veins were not well seen due to overlying bandages. The remainder of the upper extremity veins are patent. No DVT in the left internal jugular, subclavian, axillary, or brachial veins. The veins demonstrate normal color flow, are normally compressible, with normal phasic flow and/or augmentation response. Left superficial veins: Unremarkable. No thrombus in the visualized left basilic and cephalic veins. Soft tissues: No acute findings. IMPRESSION: No evidence of upper extremity DVT.
[2019-09-18] MEDS ORDERED: Tigecycline 50 MG in NS 110 ML IVPB SCH (21:00)
[2019-09-19] VITALS: BP 95/71
[2019-09-19 04:00] VITALS: BP 88/69
[2019-09-19] MEDS: Depakote 125mg Sprinkles GT SCH (05:03)
[2019-09-19] MEDS: Heparin 5000 units/ml inj SUBQ SCH (05:11)
--- NOTE | 2019-09-19 07:14 | Infectious Diseases Prog Note ---
Assessment/Plan Assessment/Plan Assessment: Severe sepsis, sp No evidence of Bacteremia doubt UTI - ucx 10 k GPC Low grade fever, sp Pneumonia - sputum cx : MDR-ACB ( Tygacil PATRICK:8), Kelb-Oxy Leukocytosis, mild - CT C/ A/P wo C : Patchy airspace opacities consistent with pneumonia most notably in the posterior right lower lobe.Trace bilateral pleural effusions. NAGA improving Multiple decubitus.( not infected ) NSTEMI Parkinson's dementia HTN Dm2 Plan: chart reviewed drawing frame tender, pt had - cont Rocephin #2 and Colistin INH # 2 - 09/17 SP Merrem # 5 for probable Asp pneumonia ( DDI w Valporic , but no choice and no hx of SZ) -09/13 Sp IV Vancomycin # 11, Zosyn # 6 09/07 Sp Meropenem # 4 08/05 Sp Zosyn #2 -f/u cx (Bl) -Monitor CBC/CMP, temperatures -aspiration precautions - PEG is on hold - planing for hospice DW micro , Colistin and Doxy :P for ACB Subjective Allergies: Coded Allergies: AMLODIPINE (Verified Allergy, Unknown, 09/04/19) ASPIRIN (Verified Allergy, Unknown, 09/04/19) BENAZEPRIL (Verified Allergy, Unknown, 09/04/19) Subjective Pt this morning Objective Vital Signs Last 24 Hour Vital Signs Date Time Temp Pulse Resp B/P (MAP) Pulse Ox O2 Delivery O2 Flow Rate FiO2 09/19/19 04:00 97.9 106 24 88/69 (75) 92 09/19/19 00:00 98.9 57 23 95/71 (79) 93 09/18/19 22:34 91 20 94 Non-Rebreather 15.0 100 107 20 93 09/18/19 21:00 Venturi Mask 4.0 09/18/19 20:00 20 139/57 (84) 95 09/18/19 19:44 111 20 93 09/18/19 19:25 93 Nasal Cannula 3.0 32 09/18/19 19:25 98.8 111 20 70/44 (53) 93 09/18/19 16:00 97.6 110 23 102/57 (72) 93 09/18/19 12:00 98.6 92 27 84/51 (62) 97 09/18/19 10:31 91 20 97 Nasal Cannula 3.0 32 88 20 94 09/18/19 09:00 Venturi Mask 4.0 09/18/19 08:00 98.1 98 29 74/46 (55) 97 09/18/19 07:23 93 Nasal Cannula 3.0 32 09/18/19 07:23 95 20 93 Nasal Cannula 3.0 32 Height (Feet): 5 Height (Inches): 11.00 Weight (Pounds): 168 Current Medications Medications (Trade) Dose Ordered Sig/Kaveh Route PRN Reason Start Time Stop Time Status Last Admin Dose Admin Acetaminophen (Tylenol) 650 mg Q4H PRN GT Mild Pain/Temp > 100.5 09/16/19 06:14 10/16/19 06:13 09/17/19 16:18 Acetaminophen (Tylenol) 650 mg Q4H PRN RECTAL Prn Headache/Temp > 101 09/16/19 06:13 10/16/19 06:12 Albuterol/ Ipratropium (Albuterol/ Ipratropium) 3 ml Q6H PRN HHN Shortness of Breath 09/16/19 06:14 09/21/19 06:13 Ceftriaxone Sodium 2 gm/ Dextrose 55 ml @ 110 mls/hr Q24H IVPB 09/19/19 11:00 09/26/19 10:59 Clopidogrel Bisulfate (Plavix) 75 mg DAILY GT 09/16/19 09:00 10/06/19 10:44 09/18/19 10:49 Colistimethate Sodium (Colistin *inhalation use only*) 75 mg Q12HR@10,22 INH 09/18/19 10:00 09/25/19 09:59 09/18/19 22:34 Dextrose 1,000 ml @ 75 mls/hr [id number] IV 09/16/19 12:30 10/16/19 12:29 09/18/19 18:11 Divalproex Sodium (Depakote Sprinkles) 500 mg EVERY 8 HOURS GT 09/16/19 14:00 10/11/19 13:59 09/19/19 05:03 Docusate Sodium (Colace) 100 mg TWICE A DAY GT 09/16/19 09:00 10/11/19 17:59 09/18/19 18:11 Folic Acid (Folate) 1 mg DAILY GT 09/16/19 09:00 10/07/19 10:29 09/18/19 10:49 Heparin Sodium (Porcine) (Heparin 5000 units/ml) 5,000 units EVERY 8 HOURS SUBQ 09/16/19 14:00 10/06/19 10:29 09/18/19 05:36 Lansoprazole (Prevacid) 30 mg BID GT 09/16/19 09:00 10/11/19 08:59 09/18/19 18:11 Lorazepam (Ativan 2mg/ml 1ml) 0.5 mg Q6H PRN IV For Anxiety 09/16/19 06:15 09/23/19 06:14 Quetiapine Fumarate (SEROqueL) 50 mg Q12HR GT 09/16/19 09:00 10/30/19 08:59 09/18/19 22:00 Risperidone (RisperDAL) 0.5 mg Q12H PRN GT agitation 09/16/19 06:15 10/31/19 06:14 Germania Jiménez MD Sep 19, 2019 07:14
--- NOTE | 2019-09-19 09:12 | Pulmonology Progress Note ---
Assessment/Plan Assessment/Plan 1. Small left apical pneumothorax. 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 3. Parkinson. 4. Dementia. 5. UTI. 6. Aspiration risk 7. Left upper extremity cellulitis. 8. Multiple decubitus. 9. Hypoxemia PLAN care noted respiratory care all noted meds reviewed monitor imaging for change follow up for aspiration oxygen as needed Prognosis very poor near terminal impression, plan, and exam edited and reviewed in detail care discussed with RN seen earlier Subjective ROS Limited/Unobtainable: Yes Allergies: Coded Allergies: AMLODIPINE (Verified Allergy, Unknown, 09/04/19) ASPIRIN (Verified Allergy, Unknown, 09/04/19) BENAZEPRIL (Verified Allergy, Unknown, 09/04/19) Subjective COVERAGE FOR DR BADILLO seen earlier doing poorly care noted reviewed and discussed DNR noted Objective Last 24 Hour Vital Signs Date Time Temp Pulse Resp B/P (MAP) Pulse Ox O2 Delivery O2 Flow Rate FiO2 09/19/19 04:00 97.9 106 24 88/69 (75) 92 09/19/19 00:00 98.9 57 23 95/71 (79) 93 09/18/19 22:34 91 20 94 Non-Rebreather 15.0 100 107 20 93 09/18/19 21:00 Venturi Mask 4.0 09/18/19 20:00 20 139/57 (84) 95 09/18/19 19:44 111 20 93 09/18/19 19:25 93 Nasal Cannula 3.0 32 09/18/19 19:25 98.8 111 20 70/44 (53) 93 09/18/19 16:00 97.6 110 23 102/57 (72) 93 09/18/19 12:00 98.6 92 27 84/51 (62) 97 09/18/19 10:31 91 20 97 Nasal Cannula 3.0 32 88 20 94 Intake and Output 09/18/19 09/19/19 19:00 07:00 Intake Total 750 ml Output Total 600 ml 400 ml Balance 150 ml -400 ml IV Total 750 ml Output Urine Total 600 ml 400 ml # Bowel Movements 1 Objective WDWN NAD obtunded on oxygen reduced breath sounds bilaterally without rhonchi or wheeze [id number] without MRG NABS nontender no HSM no CCE reduced LOC skin noted Current Medications Medications (Trade) Dose Ordered Sig/Kaveh Route PRN Reason Start Time Stop Time Status Last Admin Dose Admin Acetaminophen (Tylenol) 650 mg Q4H PRN GT Mild Pain/Temp > 100.5 09/16/19 06:14 10/16/19 06:13 09/17/19 16:18 Acetaminophen (Tylenol) 650 mg Q4H PRN RECTAL Prn Headache/Temp > 101 09/16/19 06:13 10/16/19 06:12 Albuterol/ Ipratropium (Albuterol/ Ipratropium) 3 ml Q6H PRN HHN Shortness of Breath 09/16/19 06:14 09/21/19 06:13 Ceftriaxone Sodium 2 gm/ Dextrose 55 ml @ 110 mls/hr Q24H IVPB 09/19/19 11:00 09/26/19 10:59 Clopidogrel Bisulfate (Plavix) 75 mg DAILY GT 09/16/19 09:00 10/06/19 10:44 09/18/19 10:49 Colistimethate Sodium (Colistin *inhalation use only*) 75 mg Q12HR@10,22 INH 09/18/19 10:00 09/25/19 09:59 09/18/19 22:34 Dextrose 1,000 ml @ 75 mls/hr [id number] IV 09/16/19 12:30 10/16/19 12:29 09/18/19 18:11 Divalproex Sodium (Depakote Sprinkles) 500 mg EVERY 8 HOURS GT 09/16/19 14:00 10/11/19 13:59 09/19/19 05:03 Docusate Sodium (Colace) 100 mg TWICE A DAY GT 09/16/19 09:00 10/11/19 17:59 09/18/19 18:11 Folic Acid (Folate) 1 mg DAILY GT 09/16/19 09:00 10/07/19 10:29 09/18/19 10:49 Heparin Sodium (Porcine) (Heparin 5000 units/ml) 5,000 units EVERY 8 HOURS SUBQ 09/16/19 14:00 10/06/19 10:29 09/18/19 05:36 Lansoprazole (Prevacid) 30 mg BID GT 09/16/19 09:00 10/11/19 08:59 09/18/19 18:11 Lorazepam (Ativan 2mg/ml 1ml) 0.5 mg Q6H PRN IV For Anxiety 09/16/19 06:15 09/23/19 06:14 Quetiapine Fumarate (SEROqueL) 50 mg Q12HR GT 09/16/19 09:00 10/30/19 08:59 09/18/19 22:00 Risperidone (RisperDAL) 0.5 mg Q12H PRN GT agitation 09/16/19 06:15 10/31/19 06:14 Marcelo Tran MD Sep 19, 2019 09:12
[2019-09-19] MEDS ORDERED: cefTRIAXone 2 GM in D5W 55 ML IVPB SCH (11:00)
--- NOTE | 2019-09-21 12:16 | Discharge Summary ---
Discharge Summary Discharge Summary _ SUMMARY DATE OF ADMISSION: 09/04/2019 DATE OF EXPIRATION: 09/19/2019 REASON FOR ADMISSION: 83 years old male with past medical history of dementia, Parkinson's disease, DNR/DNI status, presented with failure to thrive. Patient was not eating and was feeling very weak. Upon evaluation patient was tachycardic ,tachypneic, hypoxic , and required supplemental oxygen via nasal cannula. Patient had low-grade fever 99.7 and later fever went up to 100.7 . laboratory work-up revealed significant leukocytosis WBC 28.3, hemoglobin 11.7 , hematocrit 26.5, platelet count 396. Sodium 150,. BUN 101, creatinine 2.7. Glucose 249. EKG revealed sinus tachycardia no acute ST elevation. Chest x-ray demonstrated left apical pneumothorax , estimated to be 10% and emphysema. Urinalysis was grossly positive for UTI. Lactic acid 3.1, repeated 3.4 . Troponin elevated 1.998. Pro BNP 90055. Patient subsequently was admitted for sepsis,UTI, acute kidney injury, left pneumothorax ,failure to thrive ,dehydration . Septic work-up initiated in the emergency department , patient pancultured, received liter of fluid , started on empiric antibiotic and admitted for further management. CONSULTANTS: manager progressive care Dr. Lamb pulmonary Dr. Melvin ID specialist Dr. Hugo GI specialist Dr. Cosby senior product development engineer Dr. Brandt surgery Dr. Mcfadden psychiatrist Dr. De Luna [facility] COURSE: Patient admitted to telemetry floor. and started on empiric antibiotic as per ID specialist recommendation. Blood cultures were negative. Urine cultures was negative. Sputum culture revealed Klebsiella and Acinetobacter MDR. Repeated urine culture revealed gram-positive cocci with colony count less than 10. Repeated blood culture on 09/13 were negative. Antibiotic regimen was optimized as per ID specialist recommendation . Leukocytosis trend ed down from 28.3 initially to 12.3. Fever resolved. Supplemental oxygen provided and titrated to keep oximetry above 92%. Pulmonary toilet provided . Patient was followed-up with chest x-ray . Patient required Venturi mask to keep appropriate oxygenation. Patient had NSTEMI as per manager progressive care. Troponin remained elevated : from initial 1.998 up to the highest 4.244 and then started go down to 3.292. Patient was not a candidate for any invasive therapy. Patient received Plavix . DVT prophylaxis with heparin provided. Nitrate provided. Venous duplex bilateral l upper extremity extremity revealed no evidence of acute DVT. Hemodynamic status was closely monitored. Blood pressure remained low , patient was re-bolused as needed. CT of the chest, abdomen, pelvis revealed patchy airspace opacity , consistent with pneumonia , most notably in the posterior right lower lobe. Trace bilateral pleural effusion. No pneumothorax. Moderate dilatation of the esophagus. Possibly related to the presence of the feeding tube. Achalasia or distal esophageal stricture was not excludable. Renal parameters and electrolytes were closely monitored, electrolytes corrected as needed , and nephrotoxins were avoided. Echocardiogram demonstrated ejection fraction estimated to be 50% with mildly depressed systolic function and wall motion. No evidence of left ventricular hypertrophy. No evidence of pericardial effusion. Right ventricular systolic pressure of 48 , consistent with a mild pulmonary hypertension. Moderate mitral regurgitation. Mild to moderate aortic regurgitation. Aspiration precaution maintained. Patient failed bedside swallow evaluation, which revealed high risk for silent aspiration , given history of Alzheimer r dementia. Speech therapist recommended n.p.o. status . NG tube inserted for nutritional support. Family declined PEG placement. GI specialist closely followed. Dobbhoff tube was clogged twice and was replaced. Dietary recommendation implemented in plan of care regarding tube feeding with goal rate and protein supplements. Psychiatric medications provided as per psychiatrist recommendation . Prognosis remained very poor. Family agreed to hospice services. Unfortunately patient condition was rapidly deteriorated . Respiratory status worsened, and she required 100% nonrebreathing mask for breathing. Patient was pronounced at 6:30 AM 09/18. 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 I was not involved in the patient's management. Eve Parson NP Sep 21, 2019 12:16
== END 2019-09-19 10:58 | disposition expired | DRG 871 ==
LOC: EDBD 20:05 → EDBEDREQ 20:16 → EMR 20:25 → EDBEDREQSVC 20:40 → EDBEDREQ 20:40 → 2E 21:09 → EDBEDREQ 22:04 → ICU 09-05 23:23 → 2E 09-06 17:36 → 4E 09-08 22:46 → 2E 09-11 17:15 → 4E 09-16 04:20
DX: A41.9 Sepsis, unspecified organism (principal); L89.893 Pressure ulcer of other site, stage 3; G92 Toxic encephalopathy; J69.0 Pneumonitis due to inhalation of food and vomit; J96.01 Acute respiratory failure with hypoxia; I21.4 Non-ST elevation (NSTEMI) myocardial infarction; N39.0 Urinary tract infection, site not specified; J93.9 Pneumothorax, unspecified; N17.9 Acute kidney failure, unspecified; L03.114 Cellulitis of left upper limb; E46 Unspecified protein-calorie malnutrition; R65.20 Severe sepsis without septic shock; J43.9 Emphysema, unspecified; G20 Parkinson's disease; F02.80 Dementia in other diseases classified elsewhere, unspecified severity, without behavioral disturbance, psychotic disturbance, mood disturbance, and anxiety; I12.9 Hypertensive chronic kidney disease with stage 1 through stage 4 chronic kidney disease, or unspecified chronic kidney disease; E11.22 Type 2 diabetes mellitus with diabetic chronic kidney disease; N18.9 Chronic kidney disease, unspecified; D50.9 Iron deficiency anemia, unspecified; E53.8 Deficiency of other specified B group vitamins; I95.9 Hypotension, unspecified; F25.0 Schizoaffective disorder, bipolar type; R13.10 Dysphagia, unspecified; Z68.23 Body mass index [BMI] 23.0-23.9, adult; R62.7 Adult failure to thrive
CPT/HCPCS: 36415; 71045; 71250; 74018; 74176; 80048; 80053; 80061; 80076; 80164; 80202; 81003; 82550; 82607; 82728; 82746; 82977; 83036; 83540; 83550; 83605; 83690; 83735; 83880; 84100; 84443; 84484; 84550; 85007; 85025; 85610; 85730; 86140; 86710; 87040; 87070; 87081; 87086; 87181; 87205; 93005; 93306; 93970; 94640; 94664; 96360; 99285; J7030; J7620